=== PATIENT | female | born 1955 | race Caucasian/White ===

== ENCOUNTER → 2016-12-24 | Outpatient (CLI) | payer OTHER ==
[2016-12-24 17:58] LABS: Basophils % (A) 1 %; CH 31.1; CHCM 33.9; Eosinophils # (A) 0.1 k/uL (0-0.7); Eosinophils % (A) 2 %; HCT 39.9 % (34.0-46.0); HGB 13.1 gm/dL (11.4-16.0); Luc # (Auto) 0.06; Luc % (Auto) 1; Lymphocytes # (A) 1.8 k/uL (1.0-4.8); Lymphocytes % (A) 26 %; MCH 30.3 pg (25.0-35.0); MCV 91.9 fL (80.0-100.0); Mean Platelet Volume 7.8; Monocytes # (A) 0.4 k/uL (0-1.0); Monocytes % (A) 6 %; Neutrophils # (A) 4.3 k/uL (1.3-7.7); Neutrophils % (A) 65 %; RBC 4.34 m/uL (3.80-5.40); RDW 12.2 % (11.5-15.5); WBC 6.7 k/uL (3.8-10.6); WBC (Perox) 7.06
[2016-12-24 18:09] LABS: Calcium 9.1 mg/dL (8.4-10.2); Magnesium 1.7 mg/dL (1.6-2.3); Phosphorous 3.8 mg/dL (2.5-4.5); Potassium 3.9 mmol/L (3.5-5.1); Uric Acid 6.8 mg/dL (3.7-7.4)
[2016-12-24 18:18] LABS: % Iron Saturation 24.5 % (20-50)
[2016-12-24 18:22] LABS: Appearance,Urine Clear (Clear); Bilirubin,Urine Negative (Negative); Glucose,Urine (UA) Negative (Negative); Ketones,Urine Negative (Negative); Leukocyte Esterase,Urine Negative (Negative); Nitrite,Urine Negative (Negative); PH, Urine 6.5 (5.0-8.0); Protein,Urine Negative (Negative); Specific Gravity,Urine 1.005 (1.001-1.035); UA Billing (MACRO vs. MICRO) CHEM; Urobilinogen,Urine <2.0 mg/dL (<2.0)
== END | disposition home or self-care (01) ==
LOC: LABWHC1 17:00
PROVIDERS: ATTEND Internal Medicine Nephrology
DX: Q61.3 Polycystic kidney, unspecified (principal); D64.9 Anemia, unspecified; M10.9 Gout, unspecified; N39.0 Urinary tract infection, site not specified; E55.9 Vitamin D deficiency, unspecified
CPT/HCPCS: 36415; 80048; 81003; 82306; 82728; 83540; 83550; 83735; 83970; 84100; 84550; 85025; 87086

== ENCOUNTER 2017-01-01 09:34 | Day surgery (SDC) | payer OTHER ==
[2016-12-31 09:09] VITALS: BMI 41.3
[~2017-01-01 09:34] MED LIST: LACTATED RINGERS 1,000 ML IV SCH
[2017-01-01] MEDS ORDERED: LIDOCAINE 1% 20 ML VIAL (10MG/ML) FOR IV START INTRADERMA ONE (09:55)
[2017-01-01 10:08] VITALS: RESP 16; TEMP 97.8
[2017-01-01] MEDS ORDERED: LIDOCAINE 1% INJ 10MG/ML (20 ML MDV) ONE (11:44)
[2017-01-01] MEDS ORDERED: PROPOFOL 10 MG/ML 20 ML VIAL IV ONE (11:44)
--- NOTE | 2017-01-01 11:59 | P.GSHP ---
History of Present Illness H&P Date: 01/01/17 Chief Complaint: GI bleed This is a 61-year-old female who presents today for colonoscopy. Patient has had issues rectal bleeding. She is a known history of hemorrhoids. - Constitutional Constitutional: Reports as per HPI Past Medical History Past Medical History: Cancer, Hypertension, Renal Disease Additional Past Medical History / Comment(s): Blood in stool intermittently, hemorrhoids. Hx breast ca, thyroid ca. Recent near syncope with suspected low BP. Mild asthma with occasional related rt-sided chest pain.Hx. polycystic kidney disease, cyst to liver.Obesity.Cataracts bulmaro. History of Any Multi-Drug Resistant Organisms: None Reported Past Surgical History: Bariatric Surgery, Breast Surgery, Cholecystectomy, Hysterectomy Additional Past Surgical History / Comment(s): Hx. colonoscopy. Hx double mastectomy, thyroidectomy, lap band (not filled), bunionectomy bulmaro ft foot surg , bilateral carpal tunnel,surgeries for staph infection rt breast implant. Past Anesthesia/Blood Transfusion Reactions: Motion Sickness Past Psychological History: Depression Smoking Status: Never smoker Past Alcohol Use History: None Reported Past Drug Use History: None Reported - Past Family History Father Family Medical History: Renal Disease Additional Family Medical History / Comment(s): polycystic kidney, kidney transplant Medications and Allergies Home Medications Medication Instructions Recorded Confirmed Type Levothyroxine Sodium [Synthroid] 224 mcg PO QAM 07/26/14 01/01/17 History Losartan-Hctz 50-12.5 mg [Hyzaar 0.5 tab PO HS 03/29/15 01/01/17 History 50-12.5] Albuterol Inhaler [Ventolin Hfa 1 puff INHALATION DAILY 12/31/16 01/01/17 History Inhaler] Anastrozole [Arimidex] 1 mg PO HS 12/31/16 01/01/17 History Allergies Allergy/AdvReac Type Severity Reaction Status Date / Time Iodinated Contrast Media - Allergy Rash/Hives Verified 12/31/16 08:47 Oral and [Iodinated Contrast Media - IV Dye] Surgical - Exam Vital Signs Temp Pulse Resp BP Pulse Ox 97.8 F 64 16 127/83 98 01/01/17 10:01 01/01/17 10:01 01/01/17 10:01 01/01/17 10:01 01/01/17 10:01 - General well developed, no distress - Eyes PERRL - ENT normal pinna - Neck no masses - Respiratory normal expansion - Cardiovascular Rhythm: regular - Abdomen Abdomen: soft, non tender Assessment and Plan Plan: GI bleed. We'll perform excision of lipoma.
--- NOTE | 2017-01-01 12:19 | P.OP ---
Date of Procedure: 01/01/17 Preoperative Diagnosis: GI Bleed Postoperative Diagnosis: External hemorrhoids Procedure(s) Performed: Colonoscopy Anesthesia: MAC Surgeon: Moises Rojas Pathology: none sent Condition: stable Disposition: PACU Description of Procedure: Patient was placed on the operative table in the supine position. She received IV sedation. Digital rectal exam was performed which revealed external hemorrhoids. The flexible colonoscope was then placed patient anus and passed throughout the entire colon. The ileocecal valve was visualized. The cecum, ascending and transverse colon appeared normal. The descending; had a few scattered diverticula. Scope was then brought back the rectum and this appeared normal. Scope was withdrawn through the anus and there were internal and external hemorrhoids noted. There is no active bleeding seen. The scope was withdrawn for patient.
[2017-01-01 13:01] VITALS: BP 136/79; PULSE 67
== END 2017-01-01 12:59 | disposition home or self-care (01) ==
LOC: ORWHC2ENDO 09:34
PROVIDERS: ATTEND Surgery
DX: K64.4 Residual hemorrhoidal skin tags (principal); K64.8 Other hemorrhoids; K92.2 Gastrointestinal hemorrhage, unspecified; K57.30 Diverticulosis of large intestine without perforation or abscess without bleeding; J45.909 Unspecified asthma, uncomplicated; Q61.3 Polycystic kidney, unspecified; I10 Essential (primary) hypertension; F32.9 Major depressive disorder, single episode, unspecified; E07.9 Disorder of thyroid, unspecified; Z79.899 Other long term (current) drug therapy; Z91.041 Radiographic dye allergy status; Z98.84 Bariatric surgery status
CPT/HCPCS: 45378; J2001; J2704; 99153

== ENCOUNTER → 2017-01-12 | Outpatient (CLI) | payer OTHER ==
--- NOTE | 2017-01-12 09:07 | US ---
EXAMINATION TYPE: US kidneys/renal and bladder DATE OF EXAM: 01/12/2017 8:48 AM COMPARISON: CT abdomen and pelvis April 17, 2016 CLINICAL HISTORY: Q61.3 Polycystic Kidney Disease. EXAM MEASUREMENTS: Right Kidney: 17.3 x 6.3 x 8.1 cm Left Kidney: 15.1 x 6.7 x 7.2cm TECHNOLOGIST IMPRESSION: Patient of large body habitus Right Kidney: unable to visualize normal parenchyma, innumerable cysts, largest measuring largest cy st measuring 6.0 x 5.0 x 6.0cm Left Kidney: unable to visualize normal parenchyma, innumerable cysts, largest measuring largest cys t measuring 3.3 x 3.3 x 2.8cm Bladder: wnl Rt jet seen. Exam is suboptimal due to patient's large body habitus as well as innumerable cysts identified bilate rally consistent with patient's history of polycystic kidney disease. There is significant loss of re nal cortex on ultrasound images saved bilaterally. Some simple appearing cysts are marked by technolo gist. No definitive worrisome solid or cystic mass or hydronephrosis is present bilaterally. Bladder is adequately distended without suspicious intraluminal mass or wall thickening. IMPRESSION: Enlarged multicystic kidneys consistent with known polycystic kidney disease. No hydronep hrosis is evident bilaterally.
== END | disposition home or self-care (01) ==
LOC: RADUSWWP 08:13
PROVIDERS: ATTEND Internal Medicine Nephrology
DX: N28.1 Cyst of kidney, acquired (principal); N28.81 Hypertrophy of kidney
CPT/HCPCS: 76770

== ENCOUNTER 2017-02-02 13:47 | Emergency (ER) | payer OTHER ==
[2017-02-02] MEDS ORDERED: KETOROLAC 30 MG/ML 1 ML VIAL IVP STA ×2 (14:31→15:43)
[2017-02-02] MEDS ORDERED: SODIUM CHLORIDE 0.9% 1,000 ML IV STA (14:31)
--- NOTE | 2017-02-02 14:34 | ED ---
Back Pain HPI - General Chief Complaint: Back Pain/Injury Stated Complaint: Back Pain Time Seen by Provider: 02/02/17 14:22 Source: patient, RN notes reviewed Limitations: no limitations - History of Present Illness Initial Comments: This is a 61-year-old female with a history of thyroid cancer and breast cancer diagnosed about 9 years ago who is on a room and ask at this time also history kidney stones urinary tract infection and renal insufficiency with a 40% function who states she had the onset about a week ago of waking up at night with what she believed to be a rectal spasm. Since that time she's had intermittent episodes of right lower quadrant right flank pain sometimes radiating to the back it is at times sharp dull achy and crampy. She states currently it is near 10/10 in severity he gets worse with movement somewhat better with rest. She's not had any dysuria hematuria cough fevers chills sweats or other symptoms other than those stated above. She denies any back injury denies any disc disease. MD Complaint: back pain, other - Related Data Home Medications Medication Instructions Recorded Confirmed Levothyroxine Sodium [Synthroid] 224 mcg PO QAM 07/26/14 02/02/17 Anastrozole [Arimidex] 1 mg PO HS 12/31/16 02/02/17 Amoxicillin 875 mg PO Q12HR 02/02/17 02/02/17 Ergocalciferol [Vitamin D2] 50,000 unit PO FR 02/02/17 02/02/17 Losartan/Hydrochlorothiazide 1 tab PO DAILY 02/02/17 02/02/17 [Hyzaar 100-25 Tablet] Allergies Allergy/AdvReac Type Severity Reaction Status Date / Time Iodinated Contrast Media - Allergy Rash/Hives Verified 02/02/17 14:39 Oral and [Iodinated Contrast Media - IV Dye] Review of Systems ROS Statement: Those systems with pertinent positive or pertinent negative responses have been documented in the HPI. ROS Other: All systems not noted in ROS Statement are negative. Past Medical History Past Medical History: Cancer, Hypertension, Renal Disease Additional Past Medical History / Comment(s): Blood in stool intermittently, hemorrhoids. Hx breast ca, thyroid ca. Recent near syncope with suspected low BP. Mild asthma with occasional related rt-sided chest pain.Hx. polycystic kidney disease, cyst to liver.Obesity.Cataracts bulmaro. History of Any Multi-Drug Resistant Organisms: None Reported Past Surgical History: Bariatric Surgery, Breast Surgery, Cholecystectomy, Hysterectomy Additional Past Surgical History / Comment(s): Hx. colonoscopy. Hx double mastectomy, thyroidectomy, lap band (not filled), bunionectomy bulmaro ft foot surg , bilateral carpal tunnel,surgeries for staph infection rt breast implant. Past Anesthesia/Blood Transfusion Reactions: Motion Sickness Past Psychological History: Depression Smoking Status: Never smoker Past Alcohol Use History: None Reported Past Drug Use History: None Reported - Past Family History Father Family Medical History: Renal Disease Additional Family Medical History / Comment(s): polycystic kidney, kidney transplant General Exam - General Exam Comments Initial Comments: This is a well-developed well-nourished awake alert oriented 3 female Limitations: no limitations General appearance: alert, in no apparent distress Head exam: Present: atraumatic, normocephalic, normal inspection Eye exam: Present: normal appearance, PERRL, EOMI. Absent: scleral icterus, conjunctival injection, periorbital swelling ENT exam: Present: normal exam, mucous membranes moist Neck exam: Present: normal inspection. Absent: tenderness, meningismus, lymphadenopathy Respiratory exam: Present: normal lung sounds bilaterally. Absent: respiratory distress, wheezes, rales, rhonchi, stridor Cardiovascular Exam: Present: regular rate, normal rhythm, normal heart sounds. Absent: systolic murmur, diastolic murmur, rubs, gallop, clicks GI/Abdominal exam: Present: soft, normal bowel sounds. Absent: distended, tenderness, guarding, rebound, rigid Rectal exam: Present: deferred Extremities exam: Present: normal inspection, full ROM, tenderness (Tenderness palpation over the lower lumbar paraspinal muscles especially on the right. No spinous process tenderness no step-off or crepitation.), normal capillary refill. Absent: pedal edema, joint swelling, calf tenderness Back exam: Present: normal inspection Neurological exam: Present: alert, oriented X3, CN II-XII intact Psychiatric exam: Present: normal affect, normal mood Skin exam: Present: warm, dry, intact, normal color. Absent: rash Course Vital Signs 02/02/17 02/02/17 13:57 15:47 Temperature 97.8 F 97.6 F Pulse Rate 60 58 L Respiratory 20 18 Rate Blood Pressure 169/89 130/76 O2 Sat by Pulse 99 100 Oximetry Medical Decision Making - Medical Decision Making The patient is feeling improved she will be discharged she does present with his symptoms are consistent with spastic colon/irritable bowel. I did inform her of the possible lytic lesion at L2 she is a follow-up with Dr. Pascual for this. The patient was offered pain medication she does not want take if it would affect her mentation. She does not want to use it has been cautioned about using nonsteroidals. - Lab Data Result diagrams: 02/02/17 15:11 02/02/17 15:11 Lab Results 02/02/17 02/02/17 02/02/17 Range/Units 15:01 15:11 15:11 WBC 7.0 (3.8-10.6) k/uL RBC 4.66 (3.80-5.40) m/uL Hgb 14.4 (11.4-16.0) gm/dL Hct 42.3 (34.0-46.0) % MCV 90.6 (80.0-100.0) fL MCH 30.8 (25.0-35.0) pg MCHC 34.0 (31.0-37.0) g/dL RDW 12.2 (11.5-15.5) % Plt Count 170 (150-450) k/uL Neutrophils % 56 % Lymphocytes % 36 % Monocytes % 5 % Eosinophils % 1 % Basophils % 1 % Neutrophils # 3.9 (1.3-7.7) k/uL Lymphocytes # 2.5 (1.0-4.8) k/uL Monocytes # 0.3 (0-1.0) k/uL Eosinophils # 0.1 (0-0.7) k/uL Basophils # 0.0 (0-0.2) k/uL Sodium 143 (137-145) mmol/L Potassium 4.1 (3.5-5.1) mmol/L Chloride 104 (98-107) mmol/L Carbon Dioxide 28 (22-30) mmol/L Anion Gap 11 mmol/L BUN 26 H (7-17) mg/dL Creatinine 1.21 H (0.52-1.04) mg/dL Est GFR (MDRD) Af Amer 55 (>60 ml/min/1.73 sqM) Est GFR (MDRD) Non-Af 45 (>60 ml/min/1.73 sqM) Glucose 79 (74-99) mg/dL Calcium 9.9 (8.4-10.2) mg/dL Magnesium 1.9 (1.6-2.3) mg/dL Total Bilirubin 0.7 (0.2-1.3) mg/dL AST 28 (14-36) U/L ALT 25 (9-52) U/L Alkaline Phosphatase 55 (38-126) U/L Total Protein 7.0 (6.3-8.2) g/dL Albumin 4.1 (3.5-5.0) g/dL Amylase 59 (30-110) U/L Lipase 167 (23-300) U/L Urine Color Yellow Urine Appearance Clear (Clear) Urine pH 7.5 (5.0-8.0) Ur Specific [place] 1.009 (1.001-1.035) Urine Protein Negative (Negative) Urine Glucose (UA) Negative (Negative) Urine Ketones Negative (Negative) Urine Blood Negative (Negative) Urine Nitrate Negative (Negative) Urine Bilirubin Negative (Negative) Urine Urobilinogen <2.0 (<2.0) mg/dL Ur Leukocyte Esterase Negative (Negative) - Radiology Data Radiology results: report reviewed (I did review the imaging and reports there is some evidence of a possible lytic lesion at L2.), image reviewed Disposition Clinical Impression: Irritable bowel syndrome, Mechanical back pain, History of breast cancer Disposition: HOME SELF-CARE Condition: Good Instructions: Acute Low Back Pain (ED), Irritable Bowel Syndrome (ED)
[2017-02-02 15:19] LABS: Appearance,Urine Clear (Clear); Bilirubin,Urine Negative (Negative); Glucose,Urine (UA) Negative (Negative); Ketones,Urine Negative (Negative); Leukocyte Esterase,Urine Negative (Negative); Nitrite,Urine Negative (Negative); PH, Urine 7.5 (5.0-8.0); Protein,Urine Negative (Negative); Specific Gravity,Urine 1.009 (1.001-1.035); UA Billing (MACRO vs. MICRO) CHEM; Urobilinogen,Urine <2.0 mg/dL (<2.0)
[2017-02-02 15:28] LABS: Basophils % (A) 1 %; CH 30.5; CHCM 33.8; Eosinophils # (A) 0.1 k/uL (0-0.7); Eosinophils % (A) 1 %; HCT 42.3 % (34.0-46.0); HDW 2.49; HGB 14.4 gm/dL (11.4-16.0); Luc # (Auto) 0.12; Luc % (Auto) 2; Lymphocytes # (A) 2.5 k/uL (1.0-4.8); Lymphocytes % (A) 36 %; MCH 30.8 pg (25.0-35.0); MCV 90.6 fL (80.0-100.0); Mean Platelet Volume 8.2; Monocytes # (A) 0.3 k/uL (0-1.0); Monocytes % (A) 5 %; Neutrophils # (A) 3.9 k/uL (1.3-7.7); Neutrophils % (A) 56 %; RBC 4.66 m/uL (3.80-5.40); RDW 12.2 % (11.5-15.5); WBC (Perox) 6.87
--- NOTE | 2017-02-02 15:37 | XR ---
EXAMINATION TYPE: XR chest 2V DATE OF EXAM: 02/02/2017 3:34 PM COMPARISON: 09/04/2016 TECHNIQUE: PA and lateral views submitted. HISTORY: Pain FINDINGS: The lungs are clear and there is no pneumothorax, pleural effusion, or focal pneumonia. Arthropathy of the AC joints. Surgical change involving the abdomen is suggested. Hypertrophic and degenerative change of the spine. Correlate for previous lap band surgery. IMPRESSION: 1. No acute process.
[2017-02-02 15:38] LABS: Calcium 9.9 mg/dL (8.4-10.2); Magnesium 1.9 mg/dL (1.6-2.3); Potassium 4.1 mmol/L (3.5-5.1); Total Bilirubin 0.7 mg/dL (0.2-1.3)
--- NOTE | 2017-02-02 15:38 | XR ---
EXAMINATION TYPE: XR KUB DATE OF EXAM: 02/02/2017 3:34 PM COMPARISON: 07/22/2014 HISTORY: Pain TECHNIQUE: One view abdominal series FINDINGS: The osseous structures are intact. The bowel gas pattern is nonspecific. Lung bases are clear. Prev ious lap band surgery noted. Surgical clips gallbladder fossa. Hypertrophic and degenerative change o f the spine. Arthropathy of the hip joints with soft tissue ossification of the right. IMPRESSION: 1. Nonspecific abdomen. There are few prominent small bowel loops which could related to localized i leus or enteritis correlate clinically. Follow-up with CT scan as warranted.
[2017-02-02 15:49] VITALS: RESP 18
--- NOTE | 2017-02-02 16:34 | CT ---
EXAMINATION TYPE: CT abdomen pelvis wo con DATE OF EXAM: 02/02/2017 4:24 PM COMPARISON: NONE INDICATION: Pain generalized DLP: 1081.9 mGycm, Automated exposure control for dose reduction was used. CONTRAST: None TECHNIQUE: Axial images were obtained from above the diaphragm to the pubic rami in the axial plane a t 5 mm thick sections. Reconstructed images are reviewed on the computer in the coronal plane. FINDINGS: Limited CT sections are obtained the lung bases. The lung bases are clear. Bilateral breast prosthe ses are present. CT ABDOMEN: Lap band is present. Liver: There are extensive hypodensities scattered throughout the li milana most likely on the basis of multiple hepatic cysts. Lack of intravenous contrast causing some quinteros itation on the evaluation. These appear to be present previously Spleen: Normal Pancreas: Normal Adrenal glands: The adrenal glands are normal. Gallbladder: Surgically absent Kidneys: No masses are evident. No hydronephrosis is present. Multiple bilateral renal cysts are pr esent. Correlate for polycystic kidney disease. The largest cyst at the inferior pole right kidney me asures 5.9 cm and 13 Hounsfield units. Largest cyst on the mid left kidney measures 2.9 cm and 5 Houn sfield units. Aorta: Normal Inferior vena cava: Normal. CT PELVIS: Loops of bowel within the abdomen and pelvis are normal. There are loops of bowel which are incom pletely distended or lack oral contrast limiting their evaluation. Appendix: Normal as visualized. Urinary bladder: Decompressed with limited evaluation. Genitourinary structures: Uterus is poorly visualized. Adnexal regions are clear. Osseous structures: No suspicious lytic or sclerotic lesions. Facet degenerative changes within the l umbar spine are evident. A lytic area within the right L2 posterior lateral vertebral body extending towards the right pedicle may be present. Series 3 image 40. IMPRESSIONS: 1. Polycystic kidney disease with extensive cysts within the bilateral kidneys and the liver. 2. Possible lytic lesion within the medial to vertebral body.
[2017-02-02 17:13] VITALS: BP 164/89; PULSE 52; TEMP 97.5
== END 2017-02-02 17:25 | disposition home or self-care (01) ==
LOC: EC 13:47
DX: K58.9 Irritable bowel syndrome, unspecified (principal); M54.5 Low back pain; Z85.3 Personal history of malignant neoplasm of breast; I10 Essential (primary) hypertension; Q61.3 Polycystic kidney, unspecified; Z79.811 Long term (current) use of aromatase inhibitors; Z79.899 Other long term (current) drug therapy; Z85.850 Personal history of malignant neoplasm of thyroid; Z91.041 Radiographic dye allergy status; Z98.84 Bariatric surgery status; Z82.71 Family history of polycystic kidney
CPT/HCPCS: 36415; 80053; 82150; 83690; 83735; 85025; 81003; 71020; 74000; 74176; 99284; 96374; 96376; 96361 ×2; J1885

== ENCOUNTER → 2017-02-09 | Outpatient (CLI) | payer OTHER ==
--- NOTE | 2017-02-09 15:47 | NM ---
EXAMINATION TYPE: NM bone scan whole body DATE OF EXAM: 02/09/2017 1:59 PM COMPARISON: CT abdomen pelvis 02 February 2017 HISTORY: Abnormal CT, lytic bone lesion Delayed whole-body scanning was performed following the injection of 26.5 mCi Tc 99m MDP. Images acq uired 3 hours post injection. FINDINGS: At the right side at the inferior margin of the L3 vertebral body there is corresponding increased ra diopharmaceutical uptake present. Uptake within the feet, ankles, knees, shoulders, spine and sternoc lavicular joints is otherwise likely degenerative. Decreased uptake noted within the kidneys. Uptake in the maxilla and mandible likely due to periodontal disease. IMPRESSION: Increased uptake present at L3 corresponding to the abnormality seen on CT. No other uptake seen in i ts suggestive of metastatic disease. The lesion within the L3 vertebral body may represent benign ent ity, consider hemangioma. Consider follow-up, MRI, plain film correlation
== END | disposition home or self-care (01) ==
LOC: RADNMMAIN 10:01
PROVIDERS: ATTEND Family Medicine
DX: S34.112A Complete lesion of L2 level of lumbar spinal cord, initial encounter (principal)
CPT/HCPCS: 78306; A9503

== ENCOUNTER → 2017-02-22 | Outpatient (CLI) | payer OTHER ==
--- NOTE | 2017-02-22 16:20 | MR ---
EXAMINATION TYPE: MR lumbar spine wo/w con DATE OF EXAM: 02/22/2017 2:10 PM COMPARISON: Nuclear medicine bone scan 02/09/[address] abdomen pelvis 02/02/2017 HISTORY: Back pain TECHNIQUE: Multiplanar, multisequence images of the lumbar spine were acquired utilizing 20 mL intravenous Multi Oh gadolinium contrast. L1-L2: There is mild disc desiccation with mild posterior disc bulge. Minimal effacement of the ventr al thecal sac without herniation protrusion or central stenosis. Visualized foramina are patent bilat erally. L2-L3: Moderate disc desiccation noted. Posterior disc bulge with mild subligamentous herniation diff icult to exclude. Effacement of the ventral thecal sac without evidence for central stenosis. Facet j oint arthropathy resulting in right-sided foraminal encroachment. L3-L4: There is heterogeneous bone marrow signal throughout the L3 vertebral segment. There appears t o be loss of cortex along the inferior posterior margin of the vertebral body. I favor metastatic dis ease. This could be confirmed with the PET/CT. Posterior elements appear to be unremarkable. Mild dis c desiccation with posterior disc bulge. No herniation or protrusion. No canal stenosis is present. Foramina are patent bilaterally. L4-L5: There is mild disc desiccation with mild posterior disc bulge. Minimal effacement of the ventr al thecal sac without herniation protrusion or central stenosis. Visualized foramina are patent bilat erally. L5-S1: Normal disc appearance without desiccation. No herniation, protrusion or disc bulging. No ca nal stenosis is present. Foramina are patent bilaterally. Lumbar segments are intact. No paraspinal masses are identified. Conus medullaris has a normal appe arance. Findings compatible polycystic kidney disease. IMPRESSION: 1. Findings felt to reflect metastatic lesion to the L3 vertebral segment. Consider further evaluatio n with PET/CT. 2. Degenerative disc disease greatest at L2-3.
== END | disposition home or self-care (01) ==
LOC: RADMRIMAIN 12:33
PROVIDERS: ATTEND Internal Medicine Hematology & Oncology
DX: M51.36 Other intervertebral disc degeneration, lumbar region (principal); C50.919 Malignant neoplasm of unspecified site of unspecified female breast; M25.529 Pain in unspecified elbow
CPT/HCPCS: 82565; 72158; 36415; A9577

== ENCOUNTER → 2017-04-06 | Outpatient (CLI) | payer OTHER ==
--- NOTE | 2017-04-06 15:46 | CT ---
EXAMINATION TYPE: CT brain wo con DATE OF EXAM: 04/06/2017 3:43 PM COMPARISON: March 07, 2013 HISTORY: Dizziness, breast carcinoma CT DLP: 1054.[address] of the brain was performed. The ventricles, basal cisterns and sulci overlying the cerebral convexities demonstrate mild enlargem ent. There is no evidence for intracranial hemorrhage or sulcal effacement. There is decreased attenuation about the periventricular white matter and deep white matter of both c erebral hemispheres, compatible with chronic small vessel ischemia. Differential diagnosis does inclu de demyelination. No mass effects are seen.No midline shift. Osseous calvarium is intact. There is evidence of hyperostosis frontalis interna. If symptoms persist consider MRI. IMPRESSION: 1. Age related atrophic and chronic small vessel ischemic change without acute intracranial process s een at this time.
--- NOTE | 2017-04-06 15:58 | CT ---
EXAMINATION TYPE: CT ChestAbdPelvis wo con DATE OF EXAM: 04/06/2017 3:43 PM COMPARISON: 02/02/2017 HISTORY: Breast cancer, Observation for suspected METS CT DLP: 1266mGycm Unenhanced CT of the Chest, Abdomen and Pelvis Unenhanced CT of the chest ,abdomen and pelvis is performed. The lack of intravenous contrast limits evaluation of the solid and hollow viscera. Oral contrast: Yes CT Chest: LUNGS: The lungs are clear and free of infiltrate or atelectasis. No pulmonary nodule or mass is det ected. No pleural effusion or CT evidence of interstitial lung disease. MEDIASTINUM: Thoracic aorta is of normal caliber. The heart is not enlarged. No evidence for media stinal mass or adenopathy. HILAR STRUCTURES: No evidence for mass. No hilar adenopathy is appreciated. OTHER: Bilateral breast implants are in place. Sliver pericardial effusion noted. CONTRAST CT ABDOMEN AND PELVIS: LIVER/GB: Multiple hypoattenuating lesions of the liver are felt to reflect changes of the multiple c ysts. Given the lack of contrast metastatic lesions are difficult to exclude. Cholecystectomy clips a re in place. Biliary tree is of normal caliber. PANCREAS: No inflammation. No distinct mass. SPLEEN: No splenic enlargement. No lesion seen. ADRENALS: Stable nodular thickening of the adrenal glands may reflect hyperplasia. KIDNEYS/BLADDER: Again noted are innumerable cysts bilaterally some of which demonstrate hyperdensity . The findings are compatible with autosomal dominant polycystic kidney disease. No hydronephrosis or nephrolithiasis. BOWEL: Normal appendix. Normal bowel caliber. No inflammation. Gastric banding device is in place. GENITAL ORGANS: Hysterectomy changes identified. LYMPH NODES: No greater than 1cm abdominal or pelvic lymph nodes areappreciated. AORTA: No significant abnormality. OSSEOUS STRUCTURES: There is progressive cortical destruction and lesion expansion involving the righ t L3 vertebral segment consistent with metastatic disease. There is associated nondisplaced pathologi c fracture along the inferior endplate. No evidence for epidural extension or cord compression. There appears to be narrowing of the right neural foramen secondary to tumor extension. There is also a ti ny lucent lesion involving the right L4 pedicle and seen best on image 81 measuring 7 mm unchanged fr om prior examination. Additional small metastatic lesion difficult to exclude. No additional lesions identified at this time. Degenerative changes as described previously. OTHER: No significant additional abnormality is seen. IMPRESSION: 1. There is progressive cortical destruction and lesion expansion involving the right L3 vertebral se gment consistent with metastatic disease. See above. Additional small right L4 pedicle lesion diffic ult to exclude. 2. No additional evidence for metastatic disease at this time although the lack of contrast limits ev aluation of the liver. 3. Polycystic changes of the kidneys and liver.
== END ==
LOC: RADCTMAIN 14:07
PROVIDERS: ATTEND Internal Medicine Hematology & Oncology
DX: I67.82 Cerebral ischemia (principal); G31.9 Degenerative disease of nervous system, unspecified; M89.8X8 Other specified disorders of bone, other site; N28.1 Cyst of kidney, acquired; K76.89 Other specified diseases of liver; C50.919 Malignant neoplasm of unspecified site of unspecified female breast; Z91.048 Other nonmedicinal substance allergy status
CPT/HCPCS: 70450; 71250; 74176

== ENCOUNTER → 2017-05-14 | Outpatient (CLI) | payer OTHER ==
--- NOTE | 2017-05-14 15:22 | US ---
EXAMINATION TYPE: US kidneys/renal and bladder DATE OF EXAM: 05/14/2017 COMPARISON: 01/12/2017 CLINICAL HISTORY: Chronic Kidney Disease Stage 3 N18.3. known polycystic kidneys EXAM MEASUREMENTS: Right Kidney: 14.1 x 7.6 x 8.0 cm Left Kidney: 11.5 x 6.3 x 6.1 cm Right Kidney: multiple scattered cysts, largest at upper pole measuring 6.1 x 6.7 x 5.7cm, diffusely heterogeneous renal echopattern Left Kidney: very heterogeneous renal echopattern, kidney is blending into surrounding bowel pattern, multiple cysts, largest at mid pole measuring 4.3 x 2.5 x 3.3cm Bladder: wnl Bilateral Jets seen: yes Examination appears stable from December 2016. IMPRESSION: 1. Multiple bilateral renal cysts. Findings Correlate for known polycystic kidney disease.
== END ==
LOC: RADUSWWP 14:42
PROVIDERS: ATTEND Internal Medicine Nephrology
DX: N28.1 Cyst of kidney, acquired (principal)
CPT/HCPCS: 76770

== ENCOUNTER → 2017-06-18 | Outpatient (CLI) | payer OTHER ==
[2017-06-18 13:31] LABS: Anisocytosis Slight; Basophils # (A) 0.1 k/uL (0-0.2); Basophils % (A) 2 %; Eosinophils % (A) 1 %; HCT 38.2 % (34.0-46.0); HDW 2.43; HGB 12.8 gm/dL (11.4-16.0); Luc # (Auto) 0.07; Luc % (Auto) 3; Lymphocytes % (A) 38 %; MCH 32.6 pg (25.0-35.0); MCHC 33.5 g/dL (31.0-37.0); MCV 97.3 fL (80.0-100.0); Macrocytosis Slight; Monocytes # (A) 0.1 k/uL (0-1.0); Monocytes % (A) 4 %; Neutrophils # (A) 1.3 k/uL (1.3-7.7); Neutrophils % (A) 52 %; RBC 3.93 m/uL (3.80-5.40); WBC 2.5 k/uL (3.8-10.6); WBC (Perox) 2.47
[2017-06-18 13:32] LABS: Appearance,Urine Clear (Clear); Bilirubin,Urine Negative (Negative); Glucose,Urine (UA) Negative (Negative); Ketones,Urine Negative (Negative); Leukocyte Esterase,Urine Small (Negative); Mucus,Urine Rare /hpf; Nitrite,Urine Negative (Negative); PH, Urine 6.5 (5.0-8.0); Particle Count 729; Protein,Urine Negative (Negative); RBC,Urine <1 /hpf (0-5); Specific Gravity,Urine 1.007 (1.001-1.035); Squamous Epithelial Cell,Urine <1 /hpf (0-4); UA Billing (MACRO vs. MICRO) MICRO; Urobilinogen,Urine <2.0 mg/dL (<2.0); WBC,Urine 1 /hpf (0-5)
[2017-06-18 13:42] LABS: Calcium 9.2 mg/dL (8.4-10.2); Magnesium 1.7 mg/dL (1.6-2.3); Phosphorous 3.9 mg/dL (2.5-4.5); Potassium 4.5 mmol/L (3.5-5.1); Uric Acid 5.1 mg/dL (3.7-7.4)
[2017-06-18 13:51] LABS: % Iron Saturation 40.4 % (20-50)
== END | disposition home or self-care (01) ==
LOC: LABWHC1 12:55
PROVIDERS: ATTEND Internal Medicine Nephrology
DX: N18.3 Chronic kidney disease, stage 3 (moderate) (principal); D63.1 Anemia in chronic kidney disease; E55.9 Vitamin D deficiency, unspecified; E21.3 Hyperparathyroidism, unspecified; M10.9 Gout, unspecified; N39.0 Urinary tract infection, site not specified
CPT/HCPCS: 36415; 80048; 81001; 82306; 82728; 83540; 83550; 83735; 83970; 84100; 84550; 85025

== ENCOUNTER → 2017-07-19 | Outpatient (CLI) | payer OTHER ==
--- NOTE | 2017-07-19 16:49 | NM ---
EXAMINATION TYPE: NM bone scan whole body DATE OF EXAM: 07/19/2017 COMPARISON: Prior bone scan 02/09/2017 HISTORY: Breast cancer Delayed whole-body scanning was performed following the injection of 23.5 mCi Tc 99m MDP. Images acq uired 3 hours post injection. FINDINGS: Soft tissue uptake is normal. Uptake within the feet, knees, shoulders, sternoclavicular joints and thoracic spine likely due to degenerative changes. The previously abnormal focus at the L3 vertebral body shows less intense focus. IMPRESSION: Improvement in previous abnormal bone scan at L3 vertebral body.
--- NOTE | 2017-07-19 16:51 | CT ---
EXAMINATION TYPE: CT ChestAbdPelvis wo con DATE OF EXAM: 07/19/2017 COMPARISON: 04/06/2017 HISTORY: breast CA follow up CT DLP: 1467.1 mGycm. Automated Exposure Control for Dose Reduction was Utilized. TECHNIQUE: CT scan of the thorax, abdomen and pelvis is performed without IV contrast. FINDINGS: LUNGS: 2 mm apical right upper lobe pulmonary nodule stable. MEDIASTINUM: Thoracic aorta is of normal caliber. The heart is not enlarged. No evidence for mediasti nal mass or adenopathy. Trace pericardial fluid is stable. HILAR STRUCTURES: No evidence for mass. No hilar adenopathy is appreciated. OTHER: Bilateral breast implants are in place. Subareolar nodularity in the left is noted and there i s some deformity of the left breast implant. This appears chronic. CONTRAST CT ABDOMEN AND PELVIS: LIVER/GB: Multiple hypoattenuating lesions of the liver are felt to reflect changes of the multiple c ysts. Given the lack of contrast metastatic lesions are difficult to exclude. Cholecystectomy clips a re in place. Biliary tree is of normal caliber. PANCREAS: No inflammation. No distinct mass. SPLEEN: No splenic enlargement. No lesion seen. ADRENALS: Stable nodular thickening of the adrenal glands may reflect hyperplasia. KIDNEYS/BLADDER: Again noted are innumerable cysts bilaterally some of which demonstrate hyperdensity . The findings are compatible with autosomal dominant polycystic kidney disease. No hydronephrosis or nephrolithiasis. BOWEL: Normal appendix. Normal bowel caliber. No inflammation. Gastric banding device is in place. GENITAL ORGANS: Hysterectomy changes identified. LYMPH NODES: No greater than 1cm abdominal or pelvic lymph nodes are appreciated. AORTA: No significant abnormality. OSSEOUS STRUCTURES: There is cortical destruction and lesion expansion involving the right L3 verteb ral segment consistent with metastatic disease. There is associated nondisplaced pathologic fracture along the inferior endplate. No evidence for epidural extension or cord compression. There appears to be narrowing of the right neural foramen secondary to tumor extension. There is also a tiny lucent l esion involving the right L4 pedicle measuring 7 mm unchanged from prior examination. Additional smal l metastatic lesion difficult to exclude. No additional lesions identified at this time. Degenerative changes as described previously. OTHER: No significant additional abnormality is seen. IMPRESSION: 1. Osseous findings at L3 and L4 are stable and unchanged from the previous exam. 2. No additional evidence for metastatic disease at this time although the lack of contrast limits ev aluation of the liver. 3. Polycystic changes of the kidneys and liver. 4. Stable appearance the left breast implant. Chronic implant injury in the differential diagnosis. S ubareolar nodularity unchanged from multiple exams dating back to 2012 and therefore likely benign.
== END | disposition home or self-care (01) ==
LOC: RADNMMAIN 10:30
PROVIDERS: ATTEND Internal Medicine Hematology & Oncology
DX: C50.919 Malignant neoplasm of unspecified site of unspecified female breast (principal); N28.1 Cyst of kidney, acquired; K76.89 Other specified diseases of liver
CPT/HCPCS: 82565; 84520; 71250; 74176; 78306; A9503

== ENCOUNTER → 2017-09-02 | Outpatient (CLI) | payer OTHER ==
[2017-09-02 11:22] LABS: Basophils # (A) 0.1 k/uL (0-0.2); Basophils % (A) 2 %; CH 34.5; CHCM 33.4; Eosinophils % (A) 1 %; HCT 39.9 % (34.0-46.0); HDW 2.49; HGB 13.3 gm/dL (11.4-16.0); Luc # (Auto) 0.09; Luc % (Auto) 3; Lymphocytes % (A) 32 %; MCH 34.5 pg (25.0-35.0); MCHC 33.3 g/dL (31.0-37.0); MCV 103.8 fL (80.0-100.0); Macrocytosis Slight; Mean Platelet Volume 7.7; Monocytes # (A) 0.2 k/uL (0-1.0); Monocytes % (A) 8 %; Neutrophils # (A) 1.6 k/uL (1.3-7.7); Neutrophils % (A) 54 %; RBC 3.84 m/uL (3.80-5.40); RDW 13.8 % (11.5-15.5); WBC 2.9 k/uL (3.8-10.6); WBC (Perox) 3.18
[2017-09-02 11:38] LABS: Appearance,Urine Cloudy (Clear); Bacteria,Urine Rare /hpf; Bilirubin,Urine Negative (Negative); Glucose,Urine (UA) Negative (Negative); Ketones,Urine Negative (Negative); Leukocyte Esterase,Urine Small (Negative); Mucus,Urine Rare /hpf; Nitrite,Urine Negative (Negative); Particle Count 1465; Protein,Urine Negative (Negative); RBC,Urine <1 /hpf (0-5); Squamous Epithelial Cell,Urine <1 /hpf (0-4); UA Billing (MACRO vs. MICRO) MICRO; Urobilinogen,Urine <2.0 mg/dL (<2.0); WBC,Urine 2 /hpf (0-5)
[2017-09-02 11:41] LABS: Calcium 9.6 mg/dL (8.4-10.2); Magnesium 1.6 mg/dL (1.6-2.3); Phosphorous 3.9 mg/dL (2.5-4.5); Potassium 4.7 mmol/L (3.5-5.1); Uric Acid 5.7 mg/dL (3.7-7.4)
[2017-09-02 15:24] LABS: Iron Saturation 32.17 (12.00-45.00)
== END | disposition home or self-care (01) ==
LOC: LABWHC1 09:21
PROVIDERS: ATTEND Nurse Practitioner Family
DX: D64.9 Anemia, unspecified (principal); E55.9 Vitamin D deficiency, unspecified; N18.3 Chronic kidney disease, stage 3 (moderate); E21.3 Hyperparathyroidism, unspecified; M10.9 Gout, unspecified; N39.0 Urinary tract infection, site not specified
CPT/HCPCS: 36415; 80048; 81001; 82306; 82728; 83540; 83550; 83735; 83970; 84100; 84550; 85025

== ENCOUNTER → 2017-09-14 | Outpatient (CLI) | payer OTHER ==
[2017-09-14 14:05] LABS: Calcium 8.3 mg/dL (8.4-10.2); Potassium 4.6 mmol/L (3.5-5.1)
== END | disposition home or self-care (01) ==
LOC: LABWHC1 13:26
PROVIDERS: ATTEND Physician Assistant Medical
DX: N18.3 Chronic kidney disease, stage 3 (moderate) (principal)
CPT/HCPCS: 36415; 80048

== ENCOUNTER → 2017-10-12 | Outpatient (CLI) | payer OTHER ==
--- NOTE | 2017-10-12 17:59 | NM ---
EXAMINATION TYPE: NM bone scan whole body DATE OF EXAM: 10/12/2017 COMPARISON: Prior bone scan dated 07/19/2017 HISTORY: Breast cancer Delayed whole-body scanning was performed following the injection of 26.3 mCi Tc 99m MDP. Images acq uired 4 hours post injection. FINDINGS: No significant interval change. Uptake present within the, ankles, knees, shoulders and costovertebra l angle thoracic spine, uptake in the lumbar spine is likely degenerative is stable. Soft tissue upta ke is normal. Uptake in the mandible and maxilla is likely due to periodontal disease. No abnormal in creased or decreased radiopharmaceutical uptake to suggest metastatic disease. IMPRESSION: Stable exam. Metastatic disease is not evident.
== END | disposition home or self-care (01) ==
LOC: RADNMMAIN 11:10
PROVIDERS: ATTEND Internal Medicine Hematology & Oncology
DX: C50.919 Malignant neoplasm of unspecified site of unspecified female breast (principal)
CPT/HCPCS: 78306; A9503

== ENCOUNTER → 2018-02-08 | Outpatient (CLI) | payer OTHER ==
--- NOTE | 2018-02-08 16:52 | MR ---
EXAMINATION TYPE: MR brain wo/w con DATE OF EXAM: 02/08/2018 COMPARISON: NONE HISTORY: Headache, breast CA CONTRAST: Performed utilizing 12 mL intravenous Gadavist gadolinium contrast. TECHNIQUE: Multiplanar, multiecho imaging on a 3.0 Lorenza magnet is performed through the brain. Stud y is performed within 24 hours of arrival to the hospital. The craniovertebral junction is normal. The pituitary is normal. Diffusion-weighted imaging is performed. No abnormal hyperintensity is present to suggest an acute i ntracranial infarct or acute ischemic change. There are scattered punctate areas of hyperintensity on T2 and Inversion Recovery weighted sequences which are non-specific but can be related to microvascular ischemic changes. Ventricles and sulci are appropriate for the patient age. Optic nerves as visualized appear normal. Optic chiasm appears normal. No suspicious enhancement is evident. IMPRESSIONS: 1. No acute intracranial process.
== END | disposition home or self-care (01) ==
LOC: RADMRIMAIN 11:29
PROVIDERS: ATTEND Internal Medicine Hematology & Oncology
DX: R51 Headache (principal); C50.919 Malignant neoplasm of unspecified site of unspecified female breast
CPT/HCPCS: 70553; A9581

== ENCOUNTER → 2018-03-10 | Outpatient (CLI) | payer OTHER ==
[2018-03-10 17:19] LABS: T4, Free (Free Thyroxine) 1.33 ng/dL (0.78-2.19)
== END | disposition home or self-care (01) ==
LOC: LABWHC1 16:22
PROVIDERS: ATTEND Internal Medicine
DX: E89.0 Postprocedural hypothyroidism (principal)
CPT/HCPCS: 36415; 84439; 84443

== ENCOUNTER → 2018-03-17 | Outpatient (CLI) | payer OTHER ==
--- NOTE | 2018-03-17 14:06 | XR ---
EXAMINATION TYPE: XR chest 2V DATE OF EXAM: 03/17/2018 COMPARISON: Prior chest x-ray 09/11/2017 HISTORY: Shortness of breath TECHNIQUE: Frontal and lateral views of the chest are obtained. FINDINGS: There is no focal air space opacity, pleural effusion, or pneumothorax seen. The cardiac silhouette size is within normal limits. There are breast prostheses. Thoracic spondylosis noted. Th e osseous structures are intact. IMPRESSION: No acute cardiopulmonary process. Correlate for pulmonary artery hypertension. Aortic an eurysm noted on prior CT.
== END | disposition home or self-care (01) ==
LOC: RADXRMAIN 13:00
PROVIDERS: ATTEND Internal Medicine Cardiovascular Disease
DX: R06.02 Shortness of breath (principal); I10 Essential (primary) hypertension
CPT/HCPCS: 71046

== ENCOUNTER → 2018-03-29 | Outpatient (CLI) | payer OTHER ==
--- NOTE | 2018-03-29 10:52 | CT ---
EXAMINATION TYPE: CT ChestAbdPelvis w con DATE OF EXAM: 03/29/2018 COMPARISON: 09/11/2017 and 07/19/2017 HISTORY: 62-year-old female History of Lt breast CA, back pain TECHNIQUE: Contiguous axial scanning of the chest, abdomen, and pelvis performed with IV Contrast, pa tient injected with 100 mL of Isovue 300. Delayed images through the kidneys were obtained. Coronal/s agittal reconstructions performed. CT DLP: 2393.3 mGycm Automated exposure control for dose reduction was used. FINDINGS: CHEST: Bilateral retropectoral breast implants are redemonstrated. There is chronic 1.5 cm nodularity anteri or left breast, unchanged. Heart normal size with trace pericardial fluid. Mild aneurysm ascending aorta 4.0 cm is unchanged. Conventional branching anatomy. No thoracic lymphadenopathy. Strandy posterior basilar atelectasis. Mild diffuse bronchial wall thickening suggests bronchitis or asthma. No consolidation or pleural effusion. ABDOMEN: LAP-BAND device remains in place. Numerous hepatic cysts measuring up to 3.7 cm are redemonstrated. Portal venous system is patent. No definite suspicious liver lesion. No biliary ductal dilatation. Cholecystectomy clips are present. The low-density 1.7 cm nodule in the left adrenal gland is unchanged back to at least 04/17/2016 sugge sting a benign lipid rich adrenal adenoma. Extensive cystic change throughout the bilateral kidneys with the largest cyst in the right upper sharifa e measuring 7.5 cm. Right adrenal gland, spleen, and pancreas appear within normal limits. No dilated small bowel, free fluid, or free air. No mesenteric or retroperitoneal lymphadenopathy. Oral contrast progressed to the proximal transverse colon. Redundant sigmoid colon. No pericolonic in flammatory change. There is moderate stool burden. Pelvis: Bladder partially distended. Uterus surgically absent. Neither ovary is clearly delineated. No abnorm al fluid collection in the pelvis or pelvic lymphadenopathy seen. Bones: Mild degenerative changes at the hips. Additional degenerative changes SI joints and lower lumbar spi ne. Endplate spondylosis throughout the spine. Stable extensive and inferior endplate sclerosis and f ocal lytic area towards the right of L3 is unchanged. As compared to 04/06/2017, there is progressive s clerosis about the margin suggesting healing change. Small 6 mm focal lucency in the right L4 pedicle also remains unchanged. No osseous destructive process seen. IMPRESSION: 1. STABLE LYTIC LESION L3 INFERIOR ENDPLATE TOWARDS THE RIGHT AND SMALL LYTIC LESION WITHIN THE RIGH T L4 PEDICLE. AT L3, THERE IS SOME INCREASING VERTEBRAL BODY SCLEROSIS AROUND THE MARGIN OF THE LYTIC LESION THAT COULD REPRESENT HEALING CHANGE OR SCLEROSIS REACTIVE TO PROGRESSIVE L3-L4 DEGENERATIVE D ISC DISEASE. 2. BILATERAL RETROPECTORAL BREAST IMPLANTS. CHRONIC 1.5 CM ANTERIOR LEFT BREAST NODULARITY SUGGESTS A BENIGN ETIOLOGY. 3. EXTENSIVE CYSTIC CHANGE WITHIN THE LIVER AND KIDNEYS SUGGEST UNDERLYING POLYCYSTIC KIDNEY DISEASE. 4. STABLE 1.7 CM LEFT ADRENAL GLAND NODULE COMPATIBLE WITH A BENIGN ADRENAL ADENOMA. 5. STABLE MILD 4.0 CM ANEURYSM ASCENDING AORTA.
--- NOTE | 2018-03-29 15:12 | NM ---
EXAMINATION TYPE: NM bone scan whole body DATE OF EXAM: 03/29/2018 COMPARISON: Chest abdomen pelvis same date, prior bone scan 10/12/2017 HISTORY: Breast cancer Delayed whole-body scanning was performed following the injection of 26.1 mCi Tc 99m MDP. Images acq uired 5 hours post injection. FINDINGS: The abnormality seen in the lumbar spine on CT do not show corresponding increased uptake on bone sca n, mild asymmetric uptake at L3 is stable, corresponding sclerosis and lytic lesion at this level is improved on CT. Uptake within the feet, ankles, knees, shoulders is likely degenerative. Soft tissue uptake is within normal limits. IMPRESSION: Essentially stable findings as described.
== END ==
LOC: RADCTMAIN 07:56
PROVIDERS: ATTEND Internal Medicine Hematology & Oncology
DX: C50.919 Malignant neoplasm of unspecified site of unspecified female breast (principal)
CPT/HCPCS: 82565; 84520; 71260; 74177; 36415; 78306; A9503; Q9967

== ENCOUNTER → 2018-04-21 | Outpatient (CLI) | payer OTHER ==
[2018-04-21 17:45] LABS: T4, Free (Free Thyroxine) 1.31 ng/dL (0.78-2.19)
== END | disposition home or self-care (01) ==
LOC: LABWHC1 16:03
PROVIDERS: ATTEND Internal Medicine
DX: C73 Malignant neoplasm of thyroid gland (principal)
CPT/HCPCS: 36415; 84439; 84443

== ENCOUNTER → 2018-09-05 | Outpatient (CLI) | payer OTHER ==
--- NOTE | 2018-09-05 16:16 | NM ---
EXAMINATION TYPE: NM bone scan whole body DATE OF EXAM: 09/05/2018 COMPARISON: Prior bone scan and CT 03/29/2018 HISTORY: Breast cancer Delayed whole-body scanning was performed following the injection of 25.4 mCi Tc 99m MDP. Images acq uired 3 hours post injection. FINDINGS: The interval change. Mild photopenia to the left of midline at the inferior endplate of L3 is again s een. Soft tissue uptake is stable. Uptake in the spine otherwise corresponds to degenerative disc kentrell nges. Uptake in the ischial tuberosities is symmetric and benign, likely chronic avulsion injury. Upt elías in the feet, knees, shoulders and sternoclavicular joints is likely degenerative. IMPRESSION: Essentially stable exam.
== END | disposition home or self-care (01) ==
LOC: RADCTMAIN 11:07
PROVIDERS: ATTEND Internal Medicine Hematology & Oncology
DX: C50.919 Malignant neoplasm of unspecified site of unspecified female breast (principal); Z91.048 Other nonmedicinal substance allergy status
CPT/HCPCS: 78306; A9503

== ENCOUNTER → 2018-09-06 | Outpatient (CLI) | payer OTHER ==
--- NOTE | 2018-09-06 09:35 | CT ---
EXAMINATION TYPE: CT ChestAbdPelvis wo con DATE OF EXAM: 09/06/2018 COMPARISON: 03/29/2018 HISTORY: Hx breast ca CT DLP: 1485.90 mGycm. Automated Exposure Control for Dose Reduction was Utilized. TECHNIQUE: CT scan of the thorax, abdomen and pelvis is performed without IV contrast. Lack of contrast limits t he exam. FINDINGS: LUNGS: Stable right apical pulmonary nodule measuring 4 mm subsegmental consolidation posteriorly wit h pleural thickening appears chronic and likely postinflammatory. MEDIASTINUM: There are no greater than 1 cm hilar or mediastinal lymph nodes. No pericardial effusi on is seen. Mild aneurysm ascending aorta 4.0 cm is unchanged. Conventional branching anatomy. OTHER: Bilateral retropectoral breast implants are redemonstrated. There is chronic 1.5 cm nodularit y anterior left breast, unchanged. LIVER/GB: Numerous hepatic cysts measuring up to 3.7 cm are redemonstrated. Portal venous system is p atent. No definite suspicious liver lesion. No biliary ductal dilatation. Cholecystectomy clips are p resent. PANCREAS: No significant abnormality is seen. SPLEEN: No significant abnormality is seen. ADRENALS: The low-density 1.7 cm nodule in the left adrenal gland is unchanged back to at least 2015 suggesting a benign lipid rich adrenal adenoma. KIDNEYS: Extensive cystic change throughout the bilateral kidneys with the largest cyst in the right upper pole measuring 7.5 cm. Simple cysts appear to be hyperdense likely representing a component of hemorrhagic cyst. Correlate for polycystic kidney disease. BOWEL: LAP-BAND device remains in place. LYMPH NODES: No greater than 1cm abdominal or pelvic lymph nodes are appreciated. OSSEOUS STRUCTURES: Mild degenerative changes at the hips. Additional degenerative changes SI joints and lower lumbar spine. Endplate spondylosis throughout the spine. Stable extensive and inferior endp late sclerosis and focal lytic area towards the right of L3 is unchanged. As compared to 04/06/2017. fo jeffrey lucency in the right L4 pedicle also remains unchanged. No osseous destructive process seen. OTHER: Uterus surgically absent. IMPRESSION: 1. STABLE LYTIC LESION L3 INFERIOR ENDPLATE TOWARDS THE RIGHT AND SMALL LYTIC LESION WITHIN THE RIGHT L4 PEDICLE. AT L3, THERE IS SOME INCREASING VERTEBRAL BODY SCLEROSIS AROUND THE MARGIN OF THE LYTIC LESION THAT COULD REPRESENT HEALING CHANGE OR SCLEROSIS REACTIVE TO PROGRESSIVE L3-L4 DEGENERATIVE DI SC DISEASE. 2. BILATERAL RETROPECTORAL BREAST IMPLANTS. CHRONIC 1.5 CM ANTERIOR LEFT BREAST NODULARITY SUGGESTS A BENIGN ETIOLOGY. 3. EXTENSIVE CYSTIC CHANGE WITHIN THE LIVER AND KIDNEYS SUGGEST UNDERLYING POLYCYSTIC KIDNEY DISEASE. 4. STABLE 1.7 CM LEFT ADRENAL GLAND NODULE COMPATIBLE WITH A BENIGN ADRENAL ADENOMA. 5. STABLE MILD 4.0 CM ANEURYSM ASCENDING AORTA. 6. RETROSPECTIVELY STABLE 4 MM RIGHT APICAL PULMONARY NODULE.
== END | disposition home or self-care (01) ==
LOC: RADCTMAIN 06:49
PROVIDERS: ATTEND Internal Medicine Hematology & Oncology
DX: M89.9 Disorder of bone, unspecified (principal); R91.1 Solitary pulmonary nodule; N63.20 Unspecified lump in the left breast, unspecified quadrant; K76.89 Other specified diseases of liver; N28.1 Cyst of kidney, acquired; D35.02 Benign neoplasm of left adrenal gland; C50.919 Malignant neoplasm of unspecified site of unspecified female breast; Z88.6 Allergy status to analgesic agent
CPT/HCPCS: 36415; 71250; 74176; 82565; 84520

== ENCOUNTER → 2018-09-23 | Outpatient (CLI) | payer OTHER ==
[2018-09-24 02:25] LABS: Anion Gap 9.8 mmol/L (4.00-12.00); Calcium 9.1 mg/dL (8.7-10.3); Carbon Dioxide 24.2 mmol/L (21.6-31.8); Potassium 4.4 mmol/L (3.5-5.5)
== END ==
LOC: LABWHC1 17:02
PROVIDERS: ATTEND Nurse Practitioner Family
DX: N18.3 Chronic kidney disease, stage 3 (moderate) (principal)
CPT/HCPCS: 36415; 80048

== ENCOUNTER → 2018-11-18 | Outpatient (CLI) | payer OTHER ==
[2018-11-18 16:12] LABS: ALT 15 U/L (8-44); AST 21 U/L (13-35); Alkaline Phosphatase 41 U/L (41-126); Bilirubin, Conjugated <0.20 mg/dL (0.20-0.40); Total Bilirubin 0.5 mg/dL (0.3-1.2); Total Protein 6.2 g/dL (6.2-8.2)
== END ==
LOC: LABWHC1 08:05
PROVIDERS: ATTEND Nurse Practitioner Family
DX: Q61.3 Polycystic kidney, unspecified (principal)
CPT/HCPCS: 36415; 80076

== ENCOUNTER → 2018-11-30 | Outpatient (CLI) | payer OTHER ==
--- NOTE | 2018-11-30 15:11 | CT ---
EXAMINATION TYPE: CT abdomen pelvis wo con DATE OF EXAM: 11/30/2018 COMPARISON: 09/06/2018 HISTORY: Breast Cancer. Observe for Mets CT DLP: 1159.8 mGycm Automated exposure control for dose reduction was used. TECHNIQUE: Helical acquisition of images was performed from the lung bases through the pelvis. FINDINGS: LUNG BASES: No significant abnormality is appreciated. Again there are bilateral retropectoral partia lly visualized breast implants. LIVER/GB: Numerous hepatic cysts are seen throughout the liver with the largest measuring approximate ly 4.5 cm, unchanged in comparison to the prior when measured at the same location. Diffuse hepatic c ysts and other lesions that are too small to accurately characterize make evaluation for new lesions difficult. Gallbladder surgically absent. PANCREAS: No significant abnormality is seen. 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 [place] spleen a ppears grossly unremarkable. ADRENALS: Low-density lesion of the left adrenal gland is less conspicuous on the prior but again is most compatible with a benign adenoma seen on multiple prior exams dating back to at least 04/17/2016. KIDNEYS: There is redemonstration of polycystic kidney disease with the largest cyst on the right radha suring up to 7.3 cm. There are multiple hyperattenuated renal lesions seen bilaterally such as on corinna ge 27 on the left and image 28 and 27 on the right as well as image images 32 and 44 on the right. Th angelina appear similar to the prior exam and likely represent small hemorrhagic and/or proteinaceous cyst s. Given the lack of intravenous contrast no new suspicious lesion is seen. Some cyst diving into the renal sinus, however no hydronephrosis is evident of either kidney. FREE AIR: No free air is visualized ADENOPATHY: No greater than 1cm abdominal or pelvic lymph nodes are appreciated. REPRODUCTIVE ORGANS: Uterus appears surgically absent. URINARY BLADDER: No significant abnormality is seen. OSSEOUS STRUCTURES: There is stability of the lytic lesion of the inferior endplate of L3 at its late ral margin with surrounding sclerosis as well as the lytic lesion of the right L4 pedicle. Moderate m ultilevel degenerative changes of the thoracolumbar spine are noted. No new suspicious osseous lesion s are seen. Mild femoral acetabular arthropathy is redemonstrated. BOWEL: There is a gastric lap band present. There is a moderate amount retained colonic stool. IMPRESSION: 1. NO NEW FINDINGS TO SUGGEST NEW VISCERAL OR OSSEOUS METASTASIS WITHIN THE ABDOMEN OR PELVIS. STABLE LYTIC OSSEOUS LESIONS ARE SEEN OF THE INFERIOR ENDPLATE OF L3 AND RIGHT L4 PEDICLE. 2. POLYCYSTIC LIVER AND KIDNEY DISEASE. THE BRAIN AND BE RECOMMENDED IF NOT PREVIOUSLY PERFORMED TO E XCLUDE ASSOCIATED INTRACRANIAL ANEURYSM.
--- NOTE | 2018-11-30 15:23 | NM ---
EXAMINATION TYPE: NM bone scan whole body DATE OF EXAM: 11/30/2018 COMPARISON: 09/05/2018 HISTORY: Breast cancer Delayed whole-body scanning was performed following the injection of 24.1 mCi Tc 99m MDP. Images acq uired 3 hours post injection. FINDINGS: A photopenic defect involving the L3 segment on the left is stable. Abnormal uptake through out the remaining portion of the vertebral column is stable. Abnormal uptake involving the knee, shoulders and feet likely are post arthritic. Faint uptake involving the femur region bilaterally likely post arthritic. Abnormal uptake involving the inferior pubic rami bilaterally stable. Finding nonspecific. IMPRESSION: 1. Stable bone scan demonstrating persistent photopenic defect corresponding to the lytic lesion at L 3. 2. Remaining areas of abnormal uptake are stable relative to the prior exam with no significant inter harvinder change.
== END | disposition home or self-care (01) ==
LOC: RADNMMAIN 11:01
PROVIDERS: ATTEND Internal Medicine Hematology & Oncology
DX: C50.919 Malignant neoplasm of unspecified site of unspecified female breast (principal); Q44.6 Cystic disease of liver; N28.9 Disorder of kidney and ureter, unspecified
CPT/HCPCS: 74176; 78306; A9503

== ENCOUNTER → 2018-12-27 | Outpatient (CLI) | payer OTHER ==
[2018-12-27 13:57] LABS: Basophils % (A) 1 %; Eosinophils # (A) 0.1 k/uL (0-0.7); Eosinophils % (A) 2 %; HCT 38.8 % (34.0-46.0); HGB 12.3 gm/dL (11.4-16.0); Lymphocytes % (A) 22 %; MCH 32.6 pg (25.0-35.0); MCHC 31.6 g/dL (31.0-37.0); MCV 103.2 fL (80.0-100.0); Macrocytosis Slight; Mean Platelet Volume 6.8; Monocytes # (A) 0.2 k/uL (0-1.0); Monocytes % (A) 4 %; Neutrophils # (A) 3.1 k/uL (1.3-7.7); Neutrophils % (A) 69 %; Platelet Count 160 k/uL (150-450); RBC 3.76 m/uL (3.80-5.40); RDW 13.4 % (11.5-15.5); WBC 4.4 k/uL (3.8-10.6)
[2018-12-27 18:00] LABS: Parathyroid Hormone Intact 149.4 pg/mL (14.0-72.0)
[2018-12-27 18:10] LABS: Anion Gap 7.8 mmol/L (4.00-12.00); Calcium 8.8 mg/dL (8.7-10.3); Carbon Dioxide 28.2 mmol/L (21.6-31.8); Phosphorus 3.6 mg/dL (2.4-5.1); Potassium 4.5 mmol/L (3.5-5.5); Vitamin D 25 Hydroxy 36.3 ng/mL (30.0-100.0)
== END ==
LOC: LABWHC1 13:13
PROVIDERS: ATTEND Nurse Practitioner Family
DX: N18.3 Chronic kidney disease, stage 3 (moderate) (principal); D63.1 Anemia in chronic kidney disease; E55.9 Vitamin D deficiency, unspecified; N25.81 Secondary hyperparathyroidism of renal origin; E83.39 Other disorders of phosphorus metabolism
CPT/HCPCS: 36415; 80048; 82306; 83970; 84100; 85025

== ENCOUNTER → 2019-03-06 | Outpatient (CLI) | payer OTHER ==
[2019-03-06 16:22] VITALS: BP 151/87; PULSE 57; RESP 16; TEMP 98.3; BMI 42.3
--- NOTE | 2019-03-10 11:35 | P.HPBAR ---
Bariatric H&P - History & Physicial H&P Date: 03/06/19 History & Physicial: Visit/CC: Pt has lap band has concerns Patient initial contact: Initial weight: 112.945 kg Initial weight in pounds: 249.00 Height: 5 ft 6 in Initial BMI: 40.1 Last weight: Current weight: 119.068 kg Current weight in pounds: 262.50 Current BMI: 42.3 [place] body weight (based on NIH guidelines): 58.967 kg Excess body weight loss: The patient is a 63 year-old F who presents for Bariatric Assessment. The pa vijay has no complaints of GERD and some epigastric pain. She's not been seen in several years. The patient has a history of metastatic breast cancer with bone involvement. Her band has been previously emptied several years ago. Past Medical History Past Medical History: Cancer, Hypertension, Renal Disease Additional Past Medical History / Comment(s): Blood in stool intermittently, hemorrhoids. Hx 9 years agobreast ca, thyroid ca 6 years ago. recent diagnosis of stage 4 bone cancer in spine. 12/2016 near syncope with suspected low BP. Mild asthma with occasional related rt-sided chest pain.Hx. polycystic kidney disease, cyst to liver.Obesity.Cataracts bulmaro. History of Any Multi-Drug Resistant Organisms: None Reported Past Surgical History: Bariatric Surgery, Breast Surgery, Cholecystectomy, Hysterectomy Additional Past Surgical History / Comment(s): Hx. colonoscopy. Hx double mastectomy, thyroidectomy, lap band (not filled), bunionectomy bulmaro ft foot surg, bilateral carpal tunnel,surgeries for staph infection rt breast implant. Past Anesthesia/Blood Transfusion Reactions: Motion Sickness Past Psychological History: Depression Smoking Status: Never smoker Past Alcohol Use History: None Reported Past Drug Use History: None Reported - Past Family History Father Family Medical History: Renal Disease Additional Family Medical History / Comment(s): polycystic kidney, kidney transplant Surgical - Exam Vital Signs Temp Pulse Resp BP 98.3 F 57 L 16 151/87 03/06/19 16:19 03/06/19 16:19 03/06/19 16:19 03/06/19 16:19 - General well developed, well nourished, no distress - Eyes PERRL - ENT normal pinna - Neck no masses - Respiratory normal expansion - Cardiovascular Rhythm: regular - Abdomen Abdomen: soft Bariatric Assessment & Plan Plan: Patient will undergo EGD for epigastric pain and GERD. She was placed on omeprazole. Bariatric Checklist Checklist: Plan: Checklist: EGD: 1. Hiatal hernia: 2. H. Pylori: HgbA1c: Vitamin D: Smoking: Never smoker Primary care physician referral: Dr Smith Psychiatry clearance: Cardiology clearance: Sleep study: Diet journal: VTE risk score: VTE risk level: Rehab needs at discharge:
== END | disposition home or self-care (01) ==
LOC: BARWHC3 14:02
PROVIDERS: ATTEND Surgery
DX: R10.13 Epigastric pain (principal); K21.9 Gastro-esophageal reflux disease without esophagitis; E66.9 Obesity, unspecified; Z98.84 Bariatric surgery status; Z90.49 Acquired absence of other specified parts of digestive tract; Z90.710 Acquired absence of both cervix and uterus; Z98.890 Other specified postprocedural states; Z79.899 Other long term (current) drug therapy; Z68.41 Body mass index [BMI] 40.0-44.9, adult
CPT/HCPCS: 99211

== ENCOUNTER 2019-03-29 10:14 | Day surgery (SDC) | payer OTHER ==
[2019-03-27 11:22] VITALS: BMI 41.9
[2019-03-29 10:33] VITALS: TEMP 98.4
[2019-03-29] MEDS ORDERED: LIDOCAINE 1% 20 ML VIAL (10MG/ML) FOR IV START INTRADERMA ONE (10:39)
[2019-03-29] MEDS ORDERED: PROPOFOL 10 MG/ML 20 ML VIAL IV ONE (11:05)
--- NOTE | 2019-03-29 11:08 | P.GSHP ---
History of Present Illness H&P Date: 03/29/19 Chief Complaint: Epigastric abdominal pain, dysphagia This is a 63-year-old female presents today for EGD. She's had issues of epigastric dull pain and dysphagia. Previous history of lap band surgery Past Medical History Past Medical History: Cancer, Hypertension, Renal Disease Additional Past Medical History / Comment(s): Hx 9 years ago breast ca, thyroid ca 6 years ago. recent diagnosis of stage 4 bone cancer in spine. 12/2016 near syncope with suspected low BP. Mild asthma with occasional related rt-sided chest pain.Hx. polycystic kidney disease, cyst to liver.Obesity.Cataracts bulmaro. History of Any Multi-Drug Resistant Organisms: None Reported Past Surgical History: Bariatric Surgery, Breast Surgery, Cholecystectomy, Hysterectomy Additional Past Surgical History / Comment(s): Hx. colonoscopy. Hx double mastectomy, thyroidectomy, lap band (not filled), bunionectomy bulmaro ft foot surg, bilateral carpal tunnel, surgeries for staph infection rt breast implant. Past Anesthesia/Blood Transfusion Reactions: Motion Sickness Smoking Status: Never smoker - Past Family History Father Family Medical History: Renal Disease Additional Family Medical History / Comment(s): polycystic kidney, kidney transplant Medications and Allergies Home Medications Medication Instructions Recorded Confirmed Type Palbociclib [Ibrance] 125 mg PO DIRECTED 09/11/17 03/29/19 History ALPRAZolam [Xanax] 0.25 mg PO DAILY PRN 03/27/19 03/29/19 History Cholecalciferol (Vitamin D3) 2,000 unit PO DAILY 03/27/19 03/29/19 History [Vitamin D3] Levothyroxine Sodium [Synthroid] 175 mcg PO DAILY 03/27/19 03/29/19 History Omeprazole 20 mg PO BID 03/27/19 03/29/19 History Allergies Allergy/AdvReac Type Severity Reaction Status Date / Time Iodinated Contrast- Oral and Allergy Rash/Hives Verified 03/29/19 10:28 IV Dye [Iodinated Contrast Media - IV Dye] Surgical - Exam Vital Signs Temp Pulse Resp BP Pulse Ox 98.4 F 99 16 155/74 99 03/29/19 10:30 03/29/19 10:30 03/29/19 10:30 03/29/19 10:30 03/29/19 10:30 - General well developed, well nourished, no distress - Eyes PERRL - ENT normal pinna - Neck no masses - Respiratory normal expansion - Cardiovascular Rhythm: regular - Abdomen Abdomen: soft, non tender Assessment and Plan Assessment: Epigastric pain, dysphagia. We'll perform EGD.
--- NOTE | 2019-03-29 11:19 | P.OP ---
Date of Procedure: 03/29/19 Preoperative Diagnosis: Epigastric abdominal pain Postoperative Diagnosis: Antral gastritis Procedure(s) Performed: EGD Anesthesia: MAC Surgeon: Moises Rojas Pathology: other (Antrum) Condition: stable Disposition: PACU Description of Procedure: The patient's placed on the endoscopy table in the lateral position. He received IV sedation. The gastroscope placed oropharynx and passed in the esophagus and into the stomach. Scope was then placed through the pylorus. The first and second portion of the duodenum appeared normal. The scope was then brought back the antrum and this appeared mildly inflamed. A biopsies performed. The scope was retroflexed and remainder the stomach appeared normal. The GE junction was at 40 cm. The patient had a LAP-BAND device just below the GE junction. There is no evidence of inflammation or erosion. The distal esophagus appeared normal. The proximal esophagus appeared normal. Scope was withdrawn for patient.
[2019-03-29 11:31] VITALS: RESP 18
[2019-03-29 11:51] VITALS: BP 138/75; PULSE 57
== END 2019-03-29 12:04 | disposition home or self-care (01) ==
LOC: ORWHC2ENDO 10:14
PROVIDERS: ATTEND Surgery
DX: K29.50 Unspecified chronic gastritis without bleeding (principal); E66.9 Obesity, unspecified; R13.10 Dysphagia, unspecified; Z98.84 Bariatric surgery status; Z88.8 Allergy status to other drugs, medicaments and biological substances; Z90.49 Acquired absence of other specified parts of digestive tract; J45.909 Unspecified asthma, uncomplicated; I12.9 Hypertensive chronic kidney disease with stage 1 through stage 4 chronic kidney disease, or unspecified chronic kidney disease; N18.9 Chronic kidney disease, unspecified; Z79.890 Hormone replacement therapy; Z91.041 Radiographic dye allergy status; Z68.41 Body mass index [BMI] 40.0-44.9, adult; Z85.3 Personal history of malignant neoplasm of breast; Z79.899 Other long term (current) drug therapy; Z85.850 Personal history of malignant neoplasm of thyroid
CPT/HCPCS: 88305; 43239; J2704

== ENCOUNTER → 2019-04-17 | Outpatient (CLI) | payer OTHER ==
[2019-04-17 15:06] VITALS: BP 142/80; PULSE 59; TEMP 98.1; BMI 42.6
--- NOTE | 2019-05-01 14:22 | P.HPBAR ---
Bariatric H&P - History & Physicial H&P Date: 04/17/19 History & Physicial: Visit/CC: egd results/f/u from 03/29/19 Patient initial contact: Initial weight: 112.945 kg Initial weight in pounds: 249.00 Height: 5 ft 6 in Initial BMI: 40.1 Last weight: Current weight: 119.839 kg Current weight in pounds: 264.20 Current BMI: 42.6 [place] body weight (based on NIH guidelines): 58.967 kg Excess body weight loss: The patient is a 63 year-old F who presents for Bariatric Assessment. Patient presents today for sleeve gastric follow-up. She's had some mild GERD. She denies any significant dysphagia. Past Medical History Past Medical History: Cancer, Hypertension, Renal Disease Additional Past Medical History / Comment(s): Hx 9 years ago breast ca, thyroid ca 6 years ago. recent diagnosis of stage 4 bone cancer in spine. 12/2016 near syncope with suspected low BP. Mild asthma with occasional related rt-sided chest pain.Hx. polycystic kidney disease, cyst to liver.Obesity.Cataracts bulmaro. History of Any Multi-Drug Resistant Organisms: None Reported Past Surgical History: Bariatric Surgery, Breast Surgery, Cholecystectomy, Hysterectomy Additional Past Surgical History / Comment(s): Hx. colonoscopy. Hx double mastectomy, thyroidectomy, lap band (not filled), bunionectomy bulmaro ft foot surg, bilateral carpal tunnel, surgeries for staph infection rt breast implant. Past Anesthesia/Blood Transfusion Reactions: Motion Sickness Smoking Status: Never smoker - Past Family History Father Family Medical History: Renal Disease Additional Family Medical History / Comment(s): polycystic kidney, kidney transplant Surgical - Exam Vital Signs Temp Pulse BP 98.1 F 59 L 142/80 04/17/19 14:36 04/17/19 14:36 04/17/19 14:36 - General well developed, well nourished, no distress - Abdomen Abdomen: soft, non tender Bariatric Assessment & Plan Plan: Patient is mild GERD. She'll continue her Prilosec. She'll follow-up in 4 weeks. Bariatric Checklist Checklist: Plan: Checklist: EGD: 1. Hiatal hernia: 2. H. Pylori: HgbA1c: Vitamin D: Smoking: Never smoker Primary care physician referral: Dr Smith Psychiatry clearance: Cardiology clearance: Sleep study: Diet journal: VTE risk score: VTE risk level: Rehab needs at discharge:
== END | disposition home or self-care (01) ==
LOC: BARWHC3 14:08
PROVIDERS: ATTEND Surgery
DX: Z48.815 Encounter for surgical aftercare following surgery on the digestive system (principal); K21.9 Gastro-esophageal reflux disease without esophagitis; Z98.84 Bariatric surgery status; Z90.49 Acquired absence of other specified parts of digestive tract
CPT/HCPCS: 99211

== ENCOUNTER → 2019-04-26 | Outpatient (CLI) | payer OTHER ==
[2019-04-26 17:36] LABS: Basophils % (A) 1 %; Eosinophils # (A) 0.2 k/uL (0-0.7); Eosinophils % (A) 8 %; HCT 37.6 % (34.0-46.0); HGB 12.6 gm/dL (11.4-16.0); Lymphocytes # (A) 0.9 k/uL (1.0-4.8); Lymphocytes % (A) 35 %; MCH 33.7 pg (25.0-35.0); MCHC 33.5 g/dL (31.0-37.0); MCV 100.7 fL (80.0-100.0); Macrocytosis Slight; Mean Platelet Volume 7.8; Monocytes # (A) 0.1 k/uL (0-1.0); Monocytes % (A) 6 %; Neutrophils # (A) 1.2 k/uL (1.3-7.7); Neutrophils % (A) 48 %; Platelet Count 103 k/uL (150-450); RBC 3.73 m/uL (3.80-5.40); WBC 2.6 k/uL (3.8-10.6)
[2019-04-27 00:25] LABS: Iron Saturation 20.88 (12.00-45.00)
[2019-04-27 00:32] LABS: Vitamin D 25 Hydroxy 34.5 ng/mL (30.0-100.0)
[2019-04-27 00:37] LABS: Parathyroid Hormone Intact 90.2 pg/mL (14.0-72.0)
[2019-04-27 03:12] LABS: Anion Gap 10.5 mmol/L (4.00-12.00); Calcium 9.2 mg/dL (8.7-10.3); Carbon Dioxide 21.5 mmol/L (21.6-31.8); Magnesium 1.8 mg/dL (1.5-2.4); Phosphorus 3.7 mg/dL (2.4-5.1); Potassium 4.2 mmol/L (3.5-5.5)
== END | disposition home or self-care (01) ==
LOC: LABWHC1 16:43
PROVIDERS: ATTEND Nurse Practitioner Family
DX: M10.9 Gout, unspecified (principal); N18.3 Chronic kidney disease, stage 3 (moderate); D63.1 Anemia in chronic kidney disease; E55.9 Vitamin D deficiency, unspecified; E21.3 Hyperparathyroidism, unspecified
CPT/HCPCS: 36415; 80048; 82306; 82728; 83540; 83550; 83735; 83970; 84100; 84550; 85025

== ENCOUNTER → 2019-05-01 | Outpatient (CLI) | payer OTHER ==
[2019-05-01 16:02] LABS: T4, Free (Free Thyroxine) 1.2 ng/dL (0.80-1.80)
[2019-05-01 18:43] LABS: Thyroglobulin 0.47 ng/mL (1.60-59.90)
== END ==
LOC: LABWHC1 10:32
PROVIDERS: ATTEND Internal Medicine
DX: C73 Malignant neoplasm of thyroid gland (principal)
CPT/HCPCS: 36415; 84432; 84439; 84443; 86800

== ENCOUNTER → 2019-05-15 | Outpatient (CLI) | payer OTHER ==
--- NOTE | 2019-05-15 12:04 | CT ---
EXAMINATION TYPE: CT ChestAbdPelvis wo con DATE OF EXAM: 05/15/2019 COMPARISON: CT chest abdomen and pelvis September 06, 2018 and older CTs. Whole body bone scan November HISTORY: Metastatic breast cancer originally diagnosed 10-12 years ago per patient. CT DLP: 1676.4 mGycm. Automated Exposure Control for Dose Reduction was Utilized. TECHNIQUE: CT scan of the thorax, abdomen and pelvis is performed with oral but without IV contrast. FINDINGS: LUNGS: The lungs are grossly clear, there is no new concerning parenchymal mass or nodule identified. Stable 4 mm right apical nodule laterally axial image 18. There is no pleural effusion or pneumotho rax seen. The tracheobronchial tree is patent. MEDIASTINUM: There are no greater than 1 cm hilar or mediastinal lymph nodes. Tiny pericardial effusi on is seen inferiorly. No cardiomegaly. Ascending aorta measures up to 4.1 cm diameter axial image 32 . Prominent adjacent main pulmonary artery is redemonstrated at 3.0 cm OTHER: Bilateral subpectoral breast implants redemonstrated. Stable 1.3 cm left breast nodule cranial to nipple axial image 23 near skin surface LIVER/GB: Innumerable hypodense lesions throughout the liver favor simple thin-walled cysts. Cholecys tectomy clips are redemonstrated. PANCREAS: No significant abnormality is seen. SPLEEN: No significant abnormality is seen. ADRENALS: Stable slight nodular thickening right adrenal gland axial image 56 and hypodense prominenc e left adrenal gland axial image 61. KIDNEYS: Innumerable scattered cysts throughout both kidneys redemonstrated. Some are hyperdense cons istent with proteinaceous and/or hemorrhagic cysts. Liver and kidney findings are consistent with sharifa ycystic kidney disease adult type. BOWEL: Oral contrast reaches level of the mid right colon. No suspicious small or large bowel dilatat ion. Lap band redemonstrated stable and satisfactory in position. GENITAL ORGANS: Uterus is surgically absent. LYMPH NODES: No greater than 1cm abdominal or pelvic lymph nodes are appreciated. OSSEOUS STRUCTURES: Lucent lesion right inferior L3 level with surrounding sclerosis is redemonstrate d. There is stable small sclerotic focus left femoral head coronal image 47. There is S-shaped scolio sis with multilevel spurring. Facet arthropathy lower lumbar spine. OTHER: No significant additional abnormality is seen. IMPRESSION: Overall stable findings, no new mass or adenopathy to suggest metastatic malignancy progr ession.
--- NOTE | 2019-05-15 14:54 | NM ---
EXAMINATION TYPE: NM bone scan whole body DATE OF EXAM: 05/15/2019 COMPARISON: Whole-body bone scan 11/30/2018, CT 05/15/2019 HISTORY: Breast cancer, observation for metastases Delayed whole-body scanning was performed following the injection of 25.1 mCi Tc 99m MDP. Images acq uired 3.5 hours post injection. FINDINGS: Findings are similar to prior exam. Uptake in the knees and feet, shoulders is likely degenerative. S oft tissue uptake is normal. No abnormal increased uptake to suggest metastatic disease. Some mild de creased uptake noted at the inferior margin of L3 on the left shows a similar appearance. IMPRESSION: Stable finding with some mild decreased uptake in the inferior margin of L3 to the left of midline
== END | disposition home or self-care (01) ==
LOC: RADCTMAIN 09:03
PROVIDERS: ATTEND Internal Medicine Hematology & Oncology
DX: C50.919 Malignant neoplasm of unspecified site of unspecified female breast (principal); R93.7 Abnormal findings on diagnostic imaging of other parts of musculoskeletal system
CPT/HCPCS: 82565; 84520; 71250; 74176; 36415; 78306; A9503

== ENCOUNTER → 2019-06-09 | Outpatient (CLI) | payer OTHER ==
[2019-06-09 18:08] LABS: Basophils # (A) 0.1 k/uL (0-0.2); Basophils % (A) 1 %; Eosinophils # (A) 0.1 k/uL (0-0.7); Eosinophils % (A) 2 %; HCT 36.6 % (34.0-46.0); HGB 11.9 gm/dL (11.4-16.0); Lymphocytes # (A) 1.1 k/uL (1.0-4.8); Lymphocytes % (A) 33 %; MCHC 32.6 g/dL (31.0-37.0); MCV 101.2 fL (80.0-100.0); Macrocytosis Slight; Mean Platelet Volume 7.3; Monocytes # (A) 0.2 k/uL (0-1.0); Monocytes % (A) 5 %; Neutrophils # (A) 1.9 k/uL (1.3-7.7); Neutrophils % (A) 56 %; Platelet Count 244 k/uL (150-450); RBC 3.62 m/uL (3.80-5.40); RDW 13.8 % (11.5-15.5); WBC 3.4 k/uL (3.8-10.6)
[2019-06-09 18:59] LABS: Appearance,Urine Cloudy (Clear); Bilirubin,Urine Negative (Negative); Blood,Urine Negative (Negative); Color,Urine Light Yellow; Glucose,Urine (UA) Negative (Negative); Ketones,Urine Negative (Negative); Leukocyte Esterase,Urine Moderate (Negative); Mucus,Urine Rare /hpf; Nitrite,Urine Negative (Negative); Protein,Urine Trace (Negative); RBC,Urine 1 /hpf (0-5); Squamous Epithelial Cell,Urine 1 /hpf (0-4); Urobilinogen,Urine <2.0 mg/dL (<2.0); WBC,Urine 29 /hpf (0-5)
[2019-06-09 23:21] LABS: Iron Saturation 19.29 (12.00-45.00)
[2019-06-09 23:28] LABS: Vitamin D 25 Hydroxy 27.2 ng/mL (30.0-100.0)
[2019-06-09 23:33] LABS: African American GFR (CKD) 28.3 (60.0-200.0); Albumin 4.3 g/dL (3.80-4.90); Anion Gap 12.3 mmol/L (4.00-12.00); BUN/Creat Ratio 15.71 Ratio (12.00-20.00); Calcium 9.3 mg/dL (8.7-10.3); Carbon Dioxide 21.7 mmol/L (21.6-31.8); Magnesium 2.2 mg/dL (1.5-2.4); Phosphorus 3.7 mg/dL (2.4-5.1); Potassium 4.4 mmol/L (3.5-5.5); Uric Acid 7.2 mg/dL (2.9-7.7)
[2019-06-09 23:44] LABS: Parathyroid Hormone Intact 106.6 pg/mL (14.0-72.0)
[2019-06-10 00:43] LABS: Creatinine,Urine Random 77.5 mg/dL
[2019-06-10 01:12] LABS: Total Protein,Urine Random 18.8 mg/dL (0.0-13.5)
== END | disposition home or self-care (01) ==
LOC: LABWHC1 17:09
PROVIDERS: ATTEND Internal Medicine Nephrology
DX: M10.9 Gout, unspecified (principal); N18.3 Chronic kidney disease, stage 3 (moderate); N39.0 Urinary tract infection, site not specified; D63.1 Anemia in chronic kidney disease; N25.81 Secondary hyperparathyroidism of renal origin; E83.39 Other disorders of phosphorus metabolism; R80.9 Proteinuria, unspecified
CPT/HCPCS: 36415; 80048; 81001; 82040; 82306; 82570; 82728; 83540; 83550; 83735; 83970; 84100; 84156; 84550; 85025

== ENCOUNTER → 2019-06-27 | Outpatient (CLI) | payer OTHER ==
--- NOTE | 2019-06-28 07:11 | US ---
EXAMINATION TYPE: US thyroid st tissue head/neck DATE OF EXAM: 06/27/2019 COMPARISON: NONE CLINICAL HISTORY: D37.030 Neoplasm of uncertain behavior of the paro. Patient feels lump left cheek o n and off for a long time. TECHNIQUE/FINDINGS: Scanned over patient's area of concern, left cheek, as well as the right cheek for comparison purpose s. Both sides appear symmetrical and there is not a specific lump or mass identified. It Tele[employer]ician can feel lump as probe travels over area, but it is directly over the glandular tissue demonstrated. IMPRESSION: No suspicious sonographic abnormality. No sonographic correlate to the patient's palpable abnormality although also noted by the center specialists. CT neck w con is recommended for further evaluation.
== END ==
LOC: RADUSWWP 15:39
PROVIDERS: ATTEND Otolaryngology Otolaryngic Allergy
DX: D37.030 Neoplasm of uncertain behavior of the parotid salivary glands (principal)
CPT/HCPCS: 76536

== ENCOUNTER → 2019-07-24 | Outpatient (CLI) | payer OTHER ==
--- NOTE | 2019-07-24 08:56 | MR ---
EXAMINATION TYPE: MR neck wo con DATE OF EXAM: 07/24/2019 COMPARISON: Correlation MRI brain 02/08/2018. Correlation ultrasound 06/27/2019. HISTORY: 64-year-old female localized swelling, mass and lump of the head TECHNIQUE: Multiplanar, multisequence images of the soft tissues of the neck were obtained without IV contrast. FINDINGS: Palpable marker placed along the left side of the cheek, anterior to the level of the parotid gland. Just underlying, there is ovoid area of nodularity measuring 1.7 cm AP by 0.9 cm wide by 1.0 cm crani ocaudal, refer to axial image 20, sagittal image 4, and coronal image 8. Comparison to the patient's prior 02/08/2013 MRI brain may have included the cranial most portion of this area, series 401 image 1 . There is no intrinsic bright T1-2 signal. Signal intensity seems to closely mirror that of the godwin cent parotid gland. No cervical lymphadenopathy otherwise any suspicious masses seen by noncontrast technique. Parotid and submandibular glands appear satisfactory. The thyroid gland is either severely diminutive or surgically absent. Small amount of right thyroid t issue appears to be present. IMPRESSION: Palpable marker along the left side of the cheek. Underlying this, there is a 1.7 x 0.9 x 1.0 cm soft tissue nodule with signal closely mirroring that of the adjacent parotid gland. Some accessory parot id tissue is suspected. IV contrast was not administered to assess for any abnormal enhancement. Cons ider 6 month follow-up targeted ultrasound to compared to the patient's 06/27/2019 exam. The area can be reimaged sooner if any growth is noted.
== END | disposition home or self-care (01) ==
LOC: RADMRIMAIN 06:16
PROVIDERS: ATTEND Otolaryngology Otolaryngic Allergy
DX: M79.89 Other specified soft tissue disorders (principal)
CPT/HCPCS: 70540

== ENCOUNTER → 2019-08-17 | Outpatient (CLI) | payer OTHER ==
--- NOTE | 2019-08-17 15:06 | XR ---
Right shoulder HISTORY: Shoulder pain, metastatic breast cancer 2 views of the right shoulder, correlation CT 05/15/2019 Arthropathy present at the acromioclavicular joint. Alignment and bone mineralization are maintained. Right lung apex as visualized is normal. No fracture or dislocation. IMPRESSION: Acromioclavicular joint arthropathy, correlate for impingement. Shoulder MRI may be of be nefit.
--- NOTE | 2019-08-17 15:27 | XR ---
Thoracic spine HISTORY: Metastatic breast cancer, shoulder pain 3 views of the thoracic spine correlated to CT 05/15/2019 There is mild spinal curvature. Multilevel spondylosis is present. Thoracic vertebral bodies show pre served height. Bone mineralization mildly reduced. Mild loss of disc height at intervertebral levels. IMPRESSION: Degenerative disc disease, mild spinal curvature, osteopenia.
--- NOTE | 2019-08-17 15:31 | XR ---
EXAMINATION TYPE: XR chest 2V DATE OF EXAM: 08/17/2019 COMPARISON: Prior chest x-ray 03/17/[address] 05/15/2019 HISTORY: Shoulder pain metastatic breast carcinoma TECHNIQUE: Frontal and lateral views of the chest are obtained. FINDINGS: There is no focal air space opacity, pleural effusion, or pneumothorax seen. The cardiac silhouette size is within normal limits. Patient is status post lap band surgery. Breast implants are noted incidentally. The osseous structures are intact. IMPRESSION: No acute cardiopulmonary process.
== END | disposition home or self-care (01) ==
LOC: RADXRMAIN 11:14
PROVIDERS: ATTEND Internal Medicine Hematology & Oncology
DX: M51.34 Other intervertebral disc degeneration, thoracic region (principal); M85.88 Other specified disorders of bone density and structure, other site; M12.811 Other specific arthropathies, not elsewhere classified, right shoulder; C50.919 Malignant neoplasm of unspecified site of unspecified female breast; D72.819 Decreased white blood cell count, unspecified; I10 Essential (primary) hypertension; R12 Heartburn
CPT/HCPCS: 71046; 72072

== ENCOUNTER → 2019-08-31 | Outpatient (CLI) | payer OTHER ==
--- NOTE | 2019-08-31 08:36 | CT ---
EXAMINATION TYPE: CT soft tissue neck wo con DATE OF EXAM: 08/31/2019 COMPARISON: CT 05/15/2019 HISTORY: 64-year-old female Lump on Lt cheek, pt only feels it if mouth is open TECHNIQUE: Contiguous axial scanning of the soft tissues of the neck without IV contrast. Coronal and sagittal reconstructions performed. CT DLP: 768 mGycm Automated exposure control for dose reduction was used. FINDINGS: Lack of IV contrast limits assessment especially of the cervical mucosal space. Visualized intracranial structures shows a partially empty sella. Paranasal sinuses, mastoid air cell s, and orbits and globes appear clear. Allowing for noncontrast technique, the nasopharynx and oropharynx appear clear. Slight asymmetric effacement of the left piriform sinus likely positional. No contour deforming lesio n is seen. Otherwise, glottic and subglottic structures as well as the tracheal column appear clear. Stable 4 mm lateral right apical pulmonary nodule. Partially visualized bilateral breast implants. Thyroid gland markedly atrophic. Only a small nubbin of tissue is seen in the right thyroid fossa radha suring 1.1 x 1.2 x 0.5 cm. The submandibular and bilateral parotid glands appear satisfactory. There appears to be some accessory parotid tissue anterior to the superficial lobe of the left paroti d gland measuring 1.2 x 1.8 x 1.1 cm, axial image 28 and coronal image 35. Borderline sized 1 cm short axis lower left cervical lymph node, axial image 66 and coronal image 52. Allowing for noncontrast technique, otherwise, no other cervical lymphadenopathy is identified. The TMJs appear symmetric and intact. Bones: Moderate endplate spondylosis mid to lower cervical spine. Hypertrophic facet arthropathy maximiliano cially towards the right at C4-C5. IMPRESSION: 1. ALONG THE LEFT CHEEK, THERE APPEARS TO BE ACCESSORY PAROTID TISSUE ANTERIOR TO THE SUPERFICIAL LOB E OF THE LEFT PAROTID GLAND MEASURING 1.8 X 1.2 X 1.1 CM (AXIAL IMAGE 28). CORRELATE TO IF THIS CO RRESPONDS TO THE PALPABLE ABNORMALITY. 2. SLIGHT ASYMMETRIC EFFACEMENT OF THE LEFT PIRIFORM SINUS LIKELY POSITIONAL NO CONTOUR DEFORMING LESION IS SEEN. SENSITIVITY DECREASED BY THE LACK OF IV CONTRAST. GIVEN A BORDERLINE SIZED 1 CM LOWER LEFT CERVICAL LYMPH NODE, CONSIDER EITHER 6 MONTH FOLLOW-UP CT OR DIRECT VISUALIZATION. 3. OTHERWISE, NO SUSPICIOUS NECK MASS OR CERVICAL LYMPHADENOPATHY ALLOWING FOR NONCONTRAST TECHNIQUE.
== END | disposition home or self-care (01) ==
LOC: RADCTMAIN 06:05
PROVIDERS: ATTEND Otolaryngology Plastic Surgery within the Head & Neck
DX: R22.0 Localized swelling, mass and lump, head (principal); Z01.812 Encounter for preprocedural laboratory examination
CPT/HCPCS: 36415; 70490; 82565; 84520

== ENCOUNTER → 2019-10-02 | Outpatient (CLI) | payer OTHER ==
--- NOTE | 2019-10-02 13:37 | XR ---
EXAMINATION TYPE: XR knee limited RT DATE OF EXAM: 10/02/2019 COMPARISON: NONE HISTORY: Pain TECHNIQUE: 2 views submitted FINDINGS: Mild narrowing the medial compartment the knee joint. No sizable spurs. Spurring along the upper margin of the patella. Trace amount of fluid in the suprapatellar bursa. No erosive change. No acute fracture. IMPRESSION: Osteoarthritis
== END | disposition home or self-care (01) ==
LOC: RADXRMAIN 13:19
PROVIDERS: ATTEND Nurse Practitioner Family
DX: M17.11 Unilateral primary osteoarthritis, right knee (principal)

== ENCOUNTER 2019-11-06 08:59 | Day surgery (SDC) | payer OTHER ==
[2019-11-06 09:15] VITALS: BP 139/64; PULSE 61; RESP 20; TEMP 97.9
--- NOTE | 2019-11-06 10:50 | US ---
ULTRASOUND GUIDED FNA LEFT FACIAL NODULE BIOPSY: CLINICAL HISTORY: Palpable left facial nodule FINDINGS: The procedure was explained to the patient. The risks, complications, benefits and alternatives were discussed and any questions were answered. Informed consent was obtained. Patient was placed supin e on the ultrasound table and prepped and draped in the usual sterile fashion. Utilizing a 25 gauge needle, five passes were made into the requested left facial nodule. Patient was stable throughout the procedure. Pathology is pending. All elements of maximal barrier technique were utilized. IMPRESSION: 1. Successful ultrasound guided FNA biopsy.
== END 2019-11-06 10:30 | disposition home or self-care (01) ==
LOC: RADPROMAIN 08:59
PROVIDERS: ATTEND Otolaryngology Plastic Surgery within the Head & Neck
DX: R22.0 Localized swelling, mass and lump, head (principal)
CPT/HCPCS: 10005; 88173; 88305

== ENCOUNTER → 2019-12-25 | Outpatient (CLI) | payer OTHER ==
[2019-12-25 23:21] LABS: T4, Free (Free Thyroxine) 1.4 ng/dL (0.80-1.80)
== END | disposition home or self-care (01) ==
LOC: LABWHC1 15:06
PROVIDERS: ATTEND Internal Medicine
DX: E89.0 Postprocedural hypothyroidism (principal)
CPT/HCPCS: 36415; 84439; 84443

== ENCOUNTER → 2020-01-23 | Outpatient (CLI) | payer OTHER ==
[2020-01-23 10:57] LABS: Appearance,Urine Clear (Clear); Bacteria,Urine Rare /hpf; Bilirubin,Urine Negative (Negative); Blood,Urine Negative (Negative); Color,Urine Light Yellow; Glucose,Urine (UA) Negative (Negative); Ketones,Urine Negative (Negative); Leukocyte Esterase,Urine Moderate (Negative); Nitrite,Urine Negative (Negative); PH, Urine 5.5 (5.0-8.0); Protein,Urine Trace (Negative); RBC,Urine 1 /hpf (0-5); Specific Gravity,Urine 1.013 (1.001-1.035); Squamous Epithelial Cell,Urine <1 /hpf (0-4); Urobilinogen,Urine <2.0 mg/dL (<2.0); WBC,Urine 4 /hpf (0-5)
[2020-01-23 11:08] LABS: Basophils % (A) 1 %; Eosinophils # (A) 0.1 k/uL (0-0.7); Eosinophils % (A) 3 %; HCT 35.6 % (34.0-46.0); HGB 11.8 gm/dL (11.4-16.0); Lymphocytes # (A) 0.9 k/uL (1.0-4.8); Lymphocytes % (A) 32 %; MCH 33.3 pg (25.0-35.0); MCHC 33.1 g/dL (31.0-37.0); MCV 100.7 fL (80.0-100.0); Mean Platelet Volume 7.8; Monocytes # (A) 0.2 k/uL (0-1.0); Monocytes % (A) 8 %; Neutrophils # (A) 1.4 k/uL (1.3-7.7); Neutrophils % (A) 53 %; Platelet Count 142 k/uL (150-450); RBC 3.54 m/uL (3.80-5.40); WBC 2.7 k/uL (3.8-10.6)
[2020-01-23 11:11] LABS: Protein/Creatinine Ratio,Urine 0.559
[2020-01-23 18:04] LABS: % Iron Saturation 22.66 (12.00-45.00); African American GFR (CKD) 39.3 (60.0-200.0); Albumin 4.1 g/dL (3.80-4.90); Anion Gap 7.8 mmol/L (4.00-12.00); BUN/Creat Ratio 18.13 Ratio (12.00-20.00); Calcium 8.6 mg/dL (8.7-10.3); Carbon Dioxide 24.2 mmol/L (21.6-31.8); Magnesium 1.7 mg/dL (1.5-2.4); Non-African American GFR(CKD) 33.9 (60.0-200.0); Potassium 4.9 mmol/L (3.5-5.5); Uric Acid 5.2 mg/dL (2.9-7.7)
[2020-01-23 18:12] LABS: Ferritin 115.1 ng/mL (10.0-291.0)
== END | disposition home or self-care (01) ==
LOC: LABWHC1 09:30
PROVIDERS: ATTEND Nurse Practitioner Family
DX: N18.3 Chronic kidney disease, stage 3 (moderate) (principal); N25.81 Secondary hyperparathyroidism of renal origin; N39.0 Urinary tract infection, site not specified; M10.9 Gout, unspecified; D63.1 Anemia in chronic kidney disease; E55.9 Vitamin D deficiency, unspecified; R80.9 Proteinuria, unspecified
CPT/HCPCS: 36415; 80048; 81001; 82040; 82306; 82570; 82728; 83540; 83550; 83735; 83970; 84100; 84156; 84550; 85025

== ENCOUNTER 2020-04-20 10:36 | Inpatient (IN) | payer OTHER ==
[2020-04-20] MEDS ORDERED: MORPHINE SULFATE 4 MG/ML SYRINGE IV STA (11:10)
[2020-04-20] MEDS ORDERED: SODIUM CHLORIDE 0.9% 1,000 ML IV STA ×2 (11:10)
[2020-04-20] MEDS ORDERED: PANTOPRAZOLE 40 MG/10 ML VIAL IVP STA (11:10)
[2020-04-20] MEDS ORDERED: ONDANSETRON 4 MG/2 ML VIAL IVP STA (11:10)
[2020-04-20 11:42] LABS: Basophils % (A) 1 %; Eosinophils # (A) 0.1 k/uL (0-0.7); Eosinophils % (A) 1 %; HCT 38.6 % (34.0-46.0); HGB 12.5 gm/dL (11.4-16.0); Lymphocytes # (A) 1.1 k/uL (1.0-4.8); Lymphocytes % (A) 22 %; MCH 32.9 pg (25.0-35.0); MCHC 32.4 g/dL (31.0-37.0); MCV 101.8 fL (80.0-100.0); Macrocytosis Slight; Monocytes # (A) 0.3 k/uL (0-1.0); Monocytes % (A) 7 %; Neutrophils # (A) 3.3 k/uL (1.3-7.7); Neutrophils % (A) 67 %; Platelet Count 118 k/uL (150-450); RBC 3.79 m/uL (3.80-5.40); RDW 13.2 % (11.5-15.5); WBC 4.9 k/uL (3.8-10.6)
[2020-04-20 11:46] LABS: Appearance,Urine Clear (Clear); Bilirubin,Urine Negative (Negative); Blood,Urine Negative (Negative); Color,Urine Yellow; Glucose,Urine (UA) Negative (Negative); Ketones,Urine Negative (Negative); Leukocyte Esterase,Urine Negative (Negative); Nitrite,Urine Negative (Negative); PH, Urine 5.5 (5.0-8.0); Protein,Urine 1+ (Negative); RBC,Urine 1 /hpf (0-5); Specific Gravity,Urine 1.011 (1.001-1.035); Squamous Epithelial Cell,Urine <1 /hpf (0-4); Urobilinogen,Urine <2.0 mg/dL (<2.0); WBC,Urine 1 /hpf (0-5)
[2020-04-20 11:51] LABS: Albumin 4.4 g/dL (3.5-5.0); Calcium 8.2 mg/dL (8.4-10.2); Potassium 4.3 mmol/L (3.5-5.1); Total Bilirubin 0.6 mg/dL (0.2-1.3); Total Protein 7.4 g/dL (6.3-8.2)
--- NOTE | 2020-04-20 12:00 | ED ---
Back Pain HPI - General Source: patient, RN notes reviewed, old records reviewed Limitations: no limitations <Karen Alston - Last Filed: 04/20/20 14:09> <Kimmy Telles - Last Filed: 04/23/20 01:33> - General Chief Complaint: Back Pain/Injury Stated Complaint: back pain Time Seen by Provider: 04/20/20 10:50 - History of Present Illness Initial Comments: is a 64-year-old female with a history of breast cancer in remission. She presents emergency department today with 2 months of mid to lower back pain with radiation towards the right side of her abdomen. Patient states that she's been seeing chiropractors and went to urgent care and had x-rays completed and was past week. Patient states the pain is significant and causing her difficulty with walking. Patient states that when she was at urgent care this week she was also diagnosed with urinary tract infection is taking antibiotics. She does report a known history of polycystic kidney disease. Patient states that she wonders if a cyst that her kidney is causing this pain. Patient states that she had no changes in urination or bowel habits. She does report occasional numbness and tingling down the right side of her leg. Patient reports that she's been using [place] for pain relief and this is not helpful. Patient denies saddle anesthesia. (Karen Alston) - Related Data Home Medications Medication Instructions Recorded Confirmed Cholecalciferol (Vitamin D3) 2,000 unit PO DAILY 03/27/19 04/20/20 [Vitamin D3] Levothyroxine Sodium [Synthroid] 150 mcg PO [id number] 08/28/19 04/20/20 Palbociclib [Ibrance] 100 mg PO HS 08/28/19 04/20/20 hydrALAZINE HCL 25 mg PO BID 10/27/19 04/20/20 Acetaminophen [Tylenol Arthritis] 650 mg PO Q6H PRN 04/20/20 04/20/20 Cefuroxime Axetil [Ceftin] 500 mg PO BID 04/20/20 04/20/20 Fulvestrant 1 dose IM Q30D 04/20/20 04/20/20 Levothyroxine Sodium [Synthroid] 75 mcg PO PELAYO 04/20/20 04/20/20 Vitamin B Complex 1 cap PO DAILY 04/20/20 04/20/20 Xanax (Unknown Dose) 1 tab PO DAILY PRN 04/20/20 04/20/20 Allergies Allergy/AdvReac Type Severity Reaction Status Date / Time Iodinated Contrast Media Allergy Rash/Hives Verified 04/20/20 13:25 [Iodinated Contrast Media - IV Dye] Review of Systems ROS Other: All systems not noted in ROS Statement are negative. <Karen Alston - Last Filed: 04/20/20 14:09> ROS Other: All systems not noted in ROS Statement are negative. <Kimmy Telles - Last Filed: 04/23/20 01:33> ROS Statement: Those systems with pertinent positive or pertinent negative responses have been documented in the HPI. Past Medical History Past Medical History: Asthma, Cancer, GERD/Reflux, Hypertension, Renal Disease, Thyroid Disorder Additional Past Medical History / Comment(s): Hx 2008 breast CA metastatic stage 4, thyroid CA 6 years ago. 2017 diagnosis of stage 4 bone CA in spine. 12/2016 near syncope w/ suspected low BP. Mild asthma with occasional related rt-sided chest pain. Hx polycystic kidney disease, cyst to liver, nodule lt lung, thoracic aneurysm. Obesity. Cataracts bulmaro. Recent nausea, dark stools, wgt fluctuations, dysphagia if eats too fast. History of Any Multi-Drug Resistant Organisms: None Reported Past Surgical History: Bariatric Surgery, Breast Surgery, Cholecystectomy, Hysterectomy Additional Past Surgical History / Comment(s): Hx colonoscopy. Hx double mastectomy, thyroidectomy, lap band (not filled), bunionectomy bulmaro ft foot surg, bilateral carpal tunnel, surgeries for staph infection rt breast implant. Past Anesthesia/Blood Transfusion Reactions: Motion Sickness Past Psychological History: Anxiety, Depression Smoking Status: Never smoker Past Alcohol Use History: None Reported Past Drug Use History: None Reported - Past Family History Father Family Medical History: Cancer, Renal Disease Additional Family Medical History / Comment(s): polycystic kidney, kidney transplant, poss CA behind heart R/T Rx <Karen Alston - Last Filed: 04/20/20 14:09> General Exam Limitations: no limitations General appearance: alert, in no apparent distress Head exam: Present: atraumatic, normocephalic, normal inspection Eye exam: Present: normal appearance, PERRL, EOMI. Absent: scleral icterus, conjunctival injection, periorbital swelling ENT exam: Present: normal exam, mucous membranes moist Neck exam: Present: normal inspection Respiratory exam: Present: normal lung sounds bilaterally. Absent: respiratory distress, wheezes, rales, rhonchi, stridor Cardiovascular Exam: Present: regular rate, normal rhythm, normal heart sounds. Absent: systolic murmur, diastolic murmur, rubs, gallop, clicks GI/Abdominal exam: Present: soft, normal bowel sounds. Absent: distended, tenderness, guarding, rebound, rigid Extremities exam: Present: normal inspection, full ROM, normal capillary refill, other (Patient has full strength in plantar and dorsiflexion bilateral feet and ankles. Patient has normal sensation distally.). Absent: tenderness, pedal edema, joint swelling, calf tenderness Back exam: Present: normal inspection, full ROM, tenderness (She has lumbar and thoracic spinal tenderness.) Neurological exam: Present: alert, oriented X3, CN II-XII intact Psychiatric exam: Present: normal affect, normal mood Skin exam: Present: warm, dry, intact, normal color. Absent: rash <Karen Alston - Last Filed: 04/20/20 14:09> - General Exam Comments Initial Comments: is a 64-year-old female. Sitting in wheelchair. Refusing to stand due to pain. (Karen Alston) Course Vital Signs 04/20/20 04/20/20 10:41 14:00 Temperature 98.2 F 98.0 F Pulse Rate 74 70 Respiratory 18 18 Rate Blood Pressure 160/109 144/88 O2 Sat by Pulse 98 99 Oximetry Medical Decision Making - Lab Data Result diagrams: 04/20/20 11:25 04/20/20 11:25 - Radiology Data Radiology results: report reviewed <Karen Alston - Last Filed: 04/20/20 14:09> - Lab Data Result diagrams: 04/22/20 06:20 04/22/20 06:20 <Kimmy Telles - Last Filed: 04/23/20 01:33> - Medical Decision Making 64-year-old female presents today for eval for concern for intractable back pain. Worsening over the past few days. Patient relates that she is concerned that her breast cancer return or is related to apply cystic kidney disease. Uri nalysis and blood work today is unremarkable. Due to persistent pain with movement CT abdomen and pelvis without contrast was completed as well as thoracic and lumbar spine. Patient is evidence of degenerative changes but no evidence of acute compression fracture or any acute intra-abdominal M Matty. Patient attempted to ambulate was unable to due to the significant back pain. She does report that she also lives alone home and is her main caregiver for her daughter. Patient reports that she needs further assistance at this time and is unable to go home due to her inability to ambulate well. (Karen Alston) I was available for consultation in the emergency department. The history and physical exam were done by the midlevel provider. [facility] I reviewed the case with the midlevel provider and based on their presentation of the patient, I agree with the assessment, medical decision making and plan of care as documented. Patient admitted to Dr. Wilson Chart was dictated using [employer] dictation software. Attempts were made to correct any dictation errors however some typographical errors may persist. Patient was seen during a national state of emergency due to the Covid-19 pandemic. (Kimmy Telles) - Lab Data Lab Results 04/20/20 04/20/20 04/20/20 Range/Units 11:25 11:25 11:25 WBC 4.9 (3.8-10.6) k/uL RBC 3.79 L (3.80-5.40) m/uL Hgb 12.5 (11.4-16.0) gm/dL Hct 38.6 (34.0-46.0) % MCV 101.8 H (80.0-100.0) fL MCH 32.9 (25.0-35.0) pg MCHC 32.4 (31.0-37.0) g/dL RDW 13.2 (11.5-15.5) % Plt Count 118 L (150-450) k/uL Neutrophils % 67 % Lymphocytes % 22 % Monocytes % 7 % Eosinophils % 1 % Basophils % 1 % Neutrophils # 3.3 (1.3-7.7) k/uL Lymphocytes # 1.1 (1.0-4.8) k/uL Monocytes # 0.3 (0-1.0) k/uL Eosinophils # 0.1 (0-0.7) k/uL Basophils # 0.0 (0-0.2) k/uL Macrocytosis Slight PT 9.5 (9.0-12.0) sec INR 0.9 (<1.2) APTT 25.2 (22.0-30.0) sec Sodium (137-145) mmol/L Potassium (3.5-5.1) mmol/L Chloride (98-107) mmol/L Carbon Dioxide (22-30) mmol/L Anion Gap mmol/L BUN (7-17) mg/dL Creatinine (0.52-1.04) mg/dL Est GFR (CKD-EPI)AfAm (>60 ml/min/1.73 sqM) Est GFR (CKD-EPI)NonAf (>60 ml/min/1.73 sqM) Glucose (74-99) mg/dL Calcium (8.4-10.2) mg/dL Total Bilirubin (0.2-1.3) mg/dL AST (14-36) U/L ALT (4-34) U/L Alkaline Phosphatase (38-126) U/L Total Protein (6.3-8.2) g/dL Albumin (3.5-5.0) g/dL Amylase (30-110) U/L Lipase (23-300) U/L Urine Color Yellow Urine Appearance Clear (Clear) Urine pH 5.5 (5.0-8.0) Ur Specific [place] 1.011 (1.001-1.035) Urine Protein 1+ H (Negative) Urine Glucose (UA) Negative (Negative) Urine Ketones Negative (Negative) Urine Blood Negative (Negative) Urine Nitrite Negative (Negative) Urine Bilirubin Negative (Negative) Urine Urobilinogen <2.0 (<2.0) mg/dL Ur Leukocyte Esterase Negative (Negative) Urine RBC 1 (0-5) /hpf Urine WBC 1 (0-5) /hpf Ur Squamous Epith Cells <1 (0-4) /hpf 04/20/20 Range/Units 11:25 WBC (3.8-10.6) k/uL RBC (3.80-5.40) m/uL Hgb (11.4-16.0) gm/dL Hct (34.0-46.0) % MCV (80.0-100.0) fL MCH (25.0-35.0) pg MCHC (31.0-37.0) g/dL RDW (11.5-15.5) % Plt Count (150-450) k/uL Neutrophils % % Lymphocytes % % Monocytes % % Eosinophils % % Basophils % % Neutrophils # (1.3-7.7) k/uL Lymphocytes # (1.0-4.8) k/uL Monocytes # (0-1.0) k/uL Eosinophils # (0-0.7) k/uL Basophils # (0-0.2) k/uL Macrocytosis PT (9.0-12.0) sec INR (<1.2) APTT (22.0-30.0) sec Sodium 135 L (137-145) mmol/L Potassium 4.3 (3.5-5.1) mmol/L Chloride 103 (98-107) mmol/L Carbon Dioxide 25 (22-30) mmol/L Anion Gap 7 mmol/L BUN 24 H (7-17) mg/dL Creatinine 1.40 H (0.52-1.04) mg/dL Est GFR (CKD-EPI)AfAm 46 (>60 ml/min/1.73 sqM) Est GFR (CKD-EPI)NonAf 40 (>60 ml/min/1.73 sqM) Glucose 111 H (74-99) mg/dL Calcium 8.2 L (8.4-10.2) mg/dL Total Bilirubin 0.6 (0.2-1.3) mg/dL AST 26 (14-36) U/L ALT 14 (4-34) U/L Alkaline Phosphatase 38 (38-126) U/L Total Protein 7.4 (6.3-8.2) g/dL Albumin 4.4 (3.5-5.0) g/dL Amylase 49 (30-110) U/L Lipase 97 (23-300) U/L Urine Color Urine Appearance (Clear) Urine pH (5.0-8.0) Ur Specific [place] (1.001-1.035) Urine Protein (Negative) Urine Glucose (UA) (Negative) Urine Ketones (Negative) Urine Blood (Negative) Urine Nitrite (Negative) Urine Bilirubin (Negative) Urine Urobilinogen (<2.0) mg/dL Ur Leukocyte Esterase (Negative) Urine RBC (0-5) /hpf Urine WBC (0-5) /hpf Ur Squamous Epith Cells (0-4) /hpf - Radiology Data CT abdomen and pelvis without contrast was completed and negative for any acute process. Attention to the thoracic and lumbar spine were completed. CT of the osseous structures show no significant changes seen. L3 vertebra show sclerotic admitted. Endplate appearance summer to prior. Thoracic and lumbar vertebral bodies show hypertrophic changes and scoliotic curvature. Vertebral body height is stable. Costovertebral angles show hypertrophic changes consistent with foster arthritis. Posterior did ask bulging L1-L2 with anterior mass effect on the thecal sac. Spinal stenosis also present L4-L5. There is hypertrophic changes and facet ligamentum flavum and some posterior lateral mass effect on the thecal sac. Sacroiliac joint on the left shows hypertrophic changes. Lucency on L4 pedicle stable. Lucent focus within the left ilium is also stable. (Karen Alston) Disposition Is patient prescribed a controlled substance at d/c from ED?: No Time of Disposition: 14:11 <Karen Alston - Last Filed: 04/20/20 14:09> <Kimmy Telles - Last Filed: 04/23/20 01:33> Clinical Impression: Intractable back pain, Obesity, Unable to ambulate, Chronic kidney disease Disposition: ADMITTED IP TO THIS HOSP Condition: Stable
[2020-04-20 12:10] LABS: INR 0.9 (<1.2); Partial Thromboplastin Time 25.2 sec (22.0-30.0); Prothrombin Time 9.5 sec (9.0-12.0)
--- NOTE | 2020-04-20 13:18 | CT ---
EXAMINATION TYPE: CT abdomen pelvis wo con, CT thor lumbar spine wo con DATE OF EXAM: 04/20/2020 COMPARISON: CT 01/22/2020 HISTORY: Generalized abdominal/pelvic/back pain (accession [id number]), mid to low back pain (accession [id number]) CT DLP: 1571 (accession [id number]), 2435 (accession [id number]) mGycm Automated exposure control for dose reduction was used. TECHNIQUE: Helical acquisition of images from the lung bases through the pelvis, small [id number] through the thoracic and lumbar spine. FINDINGS: Bilateral breast prostheses are present. Right upper lobe lung nodule shows a stable appear ance LUNG BASES: No significant abnormality is appreciated. AORTA: No significant abnormality is appreciated. LIVER/GB: No significant interval change is appreciated, patient is post cholecystectomy, multiple lo w dense foci scattered within the liver similar to prior. PANCREAS: No significant abnormality is seen. SPLEEN: No significant abnormality is seen. ADRENALS: No significant abnormality is seen. KIDNEYS: No significant table change is seen. Multicystic changes within both kidneys, multiple cysti c foci show high attenuation and are not compatible with simple cysts REPRODUCTIVE ORGANS: No significant abnormality change is seen. Uterus and adnexal structures are ab sent URINARY BLADDER: No significant abnormality is seen. BOWEL: No significant abnormality is seen. Patient is post lap band. Increased attenuation within th e gluteal soft tissues likely due to injection granulomas FREE AIR: No Free Air is visible. ASCITES: None visible. PELVIC ADENOPATHY: None visualized. RETROPERITONEAL ADENOPATHY: No Retroperitoneal Adenopathy visible. Lumbar and thoracic spine CT, OSSEOUS STRUCTURES: No significant change is seen, L3 vertebral body s hows a sclerotic and mixed lucent endplate appearance similar to prior. Thoracic and lumbar vertebral bodies show hypertrophic changes, there is a scoliotic curvature. Vertebral body height is stable, m aintained. No evident spinal stenosis. Costovertebral angles show hypertrophic changes consistent wit h osteoarthritis. Posterior disc bulge at L1-2 causing anterior mass effect on the thecal sac. Spinal stenosis also present L4-5, there is hypertrophic changes at the facets with ligamentum flavum causi ng some posterior lateral mass effect on the thecal sac. Sacroiliac joint on the left shows hypertrop hic change. Lucency within the L4 pedicle on the right is stable. Lucent focus within the left ilium is also stable. IMPRESSION: NO ACUTE ABNORMALITY. Previously described changes within the bones are again noted as described tony jensen
[2020-04-20] MEDS ORDERED: DEXAMETHASONE SOD PHOSPHATE 10 MG/ML 1 ML VIAL IV STA (14:08)
[2020-04-20] MEDS ORDERED: HYDROmorphone 0.5 MG/0.5 ML SYRINGE IVP PRN (14:12)
[2020-04-20] MEDS ORDERED: ONDANSETRON 4 MG/2 ML VIAL IVP PRN (14:12)
[2020-04-20] MEDS ORDERED: MORPHINE SULFATE 4 MG/ML SYRINGE IV PRN (14:12)
[2020-04-20] MEDS ORDERED: ACETAMINOPHEN TAB 325 MG TAB PO PRN (14:12)
[2020-04-20] MEDS ORDERED: NALOXONE 0.4 MG/ML 1 ML VIAL IV PRN (14:12)
[2020-04-20] MEDS ORDERED: IBUPROFEN 400 MG TAB PO PRN (14:12)
[2020-04-20] MEDS ORDERED: NON FORMULARY DRUG (Acetaminophen [Tylenol Arthritis] 650 MG) PO PRN (14:14)
[2020-04-20] MEDS ORDERED: ALPRAZolam 1 MG TAB PO PRN (14:14)
[2020-04-20] MEDS ORDERED: FULVESTRANT 250 MG/5 ML SYRINGE IM SCH (14:15)
[2020-04-20] MEDS ORDERED: TEMAZEPAM 15 MG CAP PO PRN (18:46)
[2020-04-20] MEDS: SODIUM CHLORIDE 0.9% 1,000 ML IV SCH (20:38)
[2020-04-20] MEDS: HEPARIN SODIUM,PORCINE 5,000 UNIT/ML 1 ML VIAL SQ SCH (20:41)
[2020-04-20] MEDS: INSULIN ASPART (NovoLOG) 100 UNIT/ML VIAL SQ SCH (20:41)
[2020-04-20] MEDS: methylPREDNISolone SOD SUCCI 125 MG/2 ML VIAL IV SCH ×2 (20:56→23:45)
[2020-04-20] MEDS: CEFDINIR 300 MG CAP PO SCH (20:56)
[2020-04-20] MEDS: hydrALAZINE HCL 25 MG TAB PO SCH (20:56)
[2020-04-20 20:57] LABS: Glucose,Whole Blood 150 mg/dL (75-99)
--- NOTE | 2020-04-20 21:51 | HP ---
HISTORY AND PHYSICAL DATE OF SERVICE: 04/20/2020 CHIEF COMPLAINT: Back pain. HISTORY OF PRESENT ILLNESS: This 64-year-old woman with a past medical history of asthma, history of hypertension, history of DJD, history of breast cancer, metastasis, history of bariatric surgery, history of back pain, DJD, anxiety, depression, being followed by Dr. Stanford Smith in the outpatient setting, patient also has seen Dr. Pascual for chemotherapy. Apparently the patient is in remission. Patient has L3-5 lesions rather stable according to the history. Now the patient is having complaints of back pain for the last 2 weeks, aggravated since last few days. The pain is mostly radiating to the right leg and aggravated by movement and bending the back. Patient came to [facility] and was admitted for further evaluation and treatment. The pain was 10/10 in intensity. Creatinine was found to be 4 and the patient had abdominal pelvis CAT scan which showed no acute abnormality and multiple lesions in the bones as well as spinal stenosis also at the level of L4-5 and posterior disc bulge at L1-2 was also noted. The patient also complaining of some gaseous feeling and rectal spasm and also pain in the right lower quadrant also. There is no history of fever, rigors. No history of headache, loss of consciousness, seizures. PAST MEDICAL HISTORY: History of asthma, history of GERD, hypertension, history of hypothyroidism, history of bariatric surgery history of anxiety, depression, history of CA of breast with METS. MEDICATIONS: 1. Xanax 1 tablet p.o. daily p.r.n. 2. Ceftin 500 mg p.o. b.i.d. 3. Vitamin B complex 1 p.o. daily. 4. Tylenol 650 q.6h p.r.n. 5. Hydralazine 25 mg p.o. b.i.d. 6. Ibrance 100 mg p.o. q.h.s. 7. Synthroid 150 mcg Wednesday, Wednesday, Wednesday, , Wednesday, Wednesday. 8. Fulvestrant 1 dose IM Q 3 30 days. 9. Vitamin D3 2000 daily. 10.Synthroid 75 mcg p.o. Wednesday. ALLERGIES: IODINATED CONTRAST DYES. FAMILY HISTORY: History of cancer, renal disease, polycystic kidney disease, kidney transplant. SOCIAL HISTORY: No history of smoking. No history of alcohol. REVIEW OF SYSTEMS: ENT: No diminished vision. No diminished hearing. CARDIOVASCULAR System: No angina or palpitations. RESPIRATIONS: No cough or hemoptysis. GI as mentioned earlier. : As mentioned earlier. Nervous system: No numbness or weakness. ALLERGY/IMMUNOLOGY: No asthma or hayfever. MUSCULOSKELETAL as mentioned earlier. HEMATOLOGY/ONCOLOGY: As mentioned earlier. ENDOCRINE mentioned earlier. CONSTITUTIONAL: As mentioned earlier. DERMATOLOGY negative. RHEUMATOLOGY negative. PSYCHIATRIC: As mentioned earlier. PHYSICAL EXAMINATION: Alert and oriented times three. Pulse 70. Blood pressure 144/80, respiration 18, temperature 98 degrees, pulse ox 99% on room air. HEENT: Conjunctivae normal. NECK: No JVD. CARDIOVASCULAR: S1, S2 muffled. RESPIRATIONS: Breath sounds diminished in the bases. No rhonchi. No crackles. ABDOMEN: Soft, nontender. No mass palpable. LEGS: Movement of the right leg is painful. Straight leg raising test is positive. Gait dysfunction present. NERVOUS SYSTEM: Higher functions as mentioned earlier. Moves all 4 limbs. No focal motor or sensory deficit. LYMPHATICS no lymph nodes palpable in the neck, axilla or groin. JOINTS: No active deforming arthropathy except limitation of movement on the right side because of the pain. SKIN: No ulcer, rash or bleeding. LABS: WBC 4.9, hemoglobin 12.5, sodium 130, potassium 4.3, creatinine 1.4. ASSESSMENT: 1. Severe intractable back pain with sciatica and gait dysfunction, possibly because of degenerative joint disease and spinal stenosis. Rule out metastatic breast disease. 2. History of metastatic breast cancer disease at L3-4, 5. 3. Increased creatinine with chronic kidney stage 3. 4. History of asthma. 5. Gastroesophageal reflux disease. 6. Hypertension. 7. History of thyroid cancer. 8. History of near syncope. 9. History of polycystic kidney disease. 10.History of thoracic aneurysm. 11.History of bariatric surgery. 12.History of motion sickness. 13.Anxiety/depression. 14.Obesity with body mass index 43.1. 15.FULL CODE. RECOMMENDATIONS AND DISCUSSION: In this 64-year-old woman who presented with multiple complex medical issues, we will recommend to continue with therapy. The patient is reporting the pain as 100/10 currently because of even on slightest movements. I would optimize the pain management. Recommend empiric IV steroids. Monitor blood sugars good closely. DVT prophylaxis. I recommend evaluation by as well as Dr. Cox and as well as Dr. Pascual's group from Hematology Oncology point of view. Otherwise, resume the home medications. DVT prophylaxis. Monitor blood sugars closely. Prognosis guarded because of multiple complex medical issues. Copy of dictation forwarded to Dr. Smith who is the primary physician. MMCONSTANZAL / IJN: [id number] /
[2020-04-20] MEDS: ALPRAZolam 0.25 MG TAB PO PRN (23:57)
[2020-04-21] MEDS: SODIUM CHLORIDE 0.9% 1,000 ML IV SCH ×4 (03:13→21:55)
[2020-04-21] MEDS: methylPREDNISolone SOD SUCCI 125 MG/2 ML VIAL IV SCH ×3 (05:33→18:12)
[2020-04-21] MEDS ORDERED: LEVOTHYROXINE 75 MCG TAB PO SCH (06:30)
[2020-04-21 07:10] LABS: Basophils % (A) 0 %; Eosinophils # (A) 0.1 k/uL (0-0.7); Eosinophils % (A) 1 %; HCT 38.1 % (34.0-46.0); HGB 12.5 gm/dL (11.4-16.0); Lymphocytes # (A) 0.4 k/uL (1.0-4.8); Lymphocytes % (A) 6 %; MCH 34.3 pg (25.0-35.0); MCHC 32.8 g/dL (31.0-37.0); MCV 104.5 fL (80.0-100.0); Macrocytosis Slight; Monocytes # (A) 0.1 k/uL (0-1.0); Monocytes % (A) 1 %; Neutrophils # (A) 6.3 k/uL (1.3-7.7); Neutrophils % (A) 92 %; Platelet Count 119 k/uL (150-450); RBC 3.65 m/uL (3.80-5.40); RDW 13.3 % (11.5-15.5); WBC 6.9 k/uL (3.8-10.6)
[2020-04-21 07:11] LABS: Glucose,Whole Blood 141 mg/dL (75-99)
[2020-04-21 07:21] LABS: Calcium 7.3 mg/dL (8.4-10.2); Potassium 4.5 mmol/L (3.5-5.1)
[2020-04-21] MEDS: PANTOPRAZOLE 40 MG TABLET PO SCH (08:15)
[2020-04-21] MEDS: CEFDINIR 300 MG CAP PO SCH ×2 (08:15→21:54)
[2020-04-21] MEDS: CHOLECALCIFEROL 1,000 UNIT TAB PO SCH (08:15)
[2020-04-21] MEDS: INSULIN ASPART (NovoLOG) 100 UNIT/ML VIAL SQ SCH ×4 (08:22→21:56)
[2020-04-21] MEDS: HEPARIN SODIUM,PORCINE 5,000 UNIT/ML 1 ML VIAL SQ SCH ×2 (08:25→21:55)
[2020-04-21] MEDS: hydrALAZINE HCL 25 MG TAB PO SCH ×2 (08:28→21:55)
[2020-04-21] MEDS ORDERED: NON FORMULARY DRUG (Vitamin B Complex [Vitamin B Complex] 1 CAP) PO SCH (09:00)
[2020-04-21 11:35] LABS: Glucose,Whole Blood 139 mg/dL (75-99)
[2020-04-21] MEDS: POLYETHYLENE GLYCOL 3350 17 GM POWD.PACK PO SCH (13:26)
--- NOTE | 2020-04-21 13:37 | NM ---
EXAMINATION TYPE: NM bone scan whole body DATE OF EXAM: 04/21/2020 COMPARISON: 01/22/2020 HISTORY: Back pain. History of wrist cancer. Delayed whole-body scanning was performed following the injection of 26.2 mCi Tc 99m MDP. Images acq uired 4 hours post injection. FINDINGS: There is focal uptake at the tear costovertebral junction of the ninth rib on the left. However when correlated with the prior CT of 04/20/2020 there is a pseudojoint at this location and no suspicious s clerotic or lytic lesion. Typically degenerative uptake in the shoulders, sternoclavicular joints, kn ees, feet, and sacroiliac joints are similar to the prior of 01/22/2020. Uptake in the mandible is als o similar to the prior. Mild diffuse uptake of the spine is likely degenerative. Focal suspicious fin ding. IMPRESSION: No new findings to suggest osseous metastasis in comparison to the prior of 01/22/2020. Si milar degenerative changes of the axial and appendicular skeleton.
--- NOTE | 2020-04-21 13:39 | P.CNOR ---
History of Present Illness - [facility] Consult date: 04/21/20 Consult reason: low back pain History of present illness: Patient is a pleasant 64-year-old female who is been having significant back pain over the past week. She has a long history with issues of her back pain. Over 10 years ago she was diagnosed with breast cancer and felt that she was having rectal spasms due to a gas bubble. She had treatment for this and had been making progress over the past 5 years. However over the past several weeks she has been having increased pain at her lower back and recurrence of the gas bubble type pain that she had been having. The pain is primarily at the right side of her lower back. He extends toward her right thigh. She does not have numbness tingling her toes or in her lower legs. She's not been changes in her bowel or bladder function. She's not having pain when she coughs or sneezes. She reports that she had gone through radiation oncology about 5 years ago for her lower back and that has helped her significantly. A couple of weeks ago she did do some extra activity where she had to a cart up a number of stairs and she believes she may have strained her back at that point. She was doing some chiropractic manipulation and outpatient treatment with Dr. Smith however she was not having significant relief and presented to the hospital. She denies any acute neurological she denies any changes in bowel bladder function. She says that she could hardly get up a couple of days ago. Currently she says she is making progress and she has been able to get up out of bed though very slowly. She has been able to walk to the bathroom holding onto her IV pole.She feels she is making progress with her pain control and her mobility. Review of Systems as stated per HPI. Denies any changes in bowel bladder function. Denies any new weakness in her lower extremity. Denies any chest pain shortness breath. Denies any pain at her neck. Denies any changes in her upper extremities. Pain is primarily located lower back reading toward her right side. She is not having pain or numbness tingling down her leg. Past Medical History Past Medical History: Asthma, Cancer, GERD/Reflux, Hypertension, Renal Disease, Thyroid Disorder Additional Past Medical History / Comment(s): Hx 2009 breast CA metastatic stage 4, thyroid CA 6 years ago. 2017 diagnosis of stage 4 bone CA in spine. 12/2016 near syncope w/ suspected low BP. Mild asthma with occasional related rt-sided chest pain. Hx polycystic kidney disease, cyst to liver, nodule lt lung, thoracic aneurysm. Obesity. Cataracts bulmaro. Recent nausea, dark stools, wgt fluctuations, dysphagia if eats too fast. History of Any Multi-Drug Resistant Organisms: None Reported Past Surgical History: Bariatric Surgery, Breast Surgery, Cholecystectomy, Hysterectomy Additional Past Surgical History / Comment(s): Hx colonoscopy. Hx double mastectomy, thyroidectomy, lap band (not filled), bunionectomy bulmaro ft foot surg, bilateral carpal tunnel, surgeries for staph infection rt breast implant. Past Anesthesia/Blood Transfusion Reactions: Motion Sickness Past Psychological History: Anxiety, Depression Additional Psychological History / Comment(s): not currently Smoking Status: Never smoker Past Alcohol Use History: None Reported Past Drug Use History: None Reported - Past Family History Father Family Medical History: Cancer, Renal Disease Additional Family Medical History / Comment(s): polycystic kidney, kidney transplant, poss CA behind heart R/T Rx Medications and Allergies Home Medications Medication Instructions Recorded Confirmed Type Cholecalciferol (Vitamin D3) 2,000 unit PO DAILY 03/27/19 04/20/20 History [Vitamin D3] Levothyroxine Sodium [Synthroid] 150 mcg PO MOTUWETHFRSA 08/28/19 04/20/20 History Palbociclib [Ibrance] 100 mg PO HS 08/28/19 04/20/20 History hydrALAZINE HCL 25 mg PO BID 10/27/19 04/20/20 History Acetaminophen [Tylenol Arthritis] 650 mg PO Q6H PRN 04/20/20 04/20/20 History Cefuroxime Axetil [Ceftin] 500 mg PO BID 04/20/20 04/20/20 History Fulvestrant 1 dose IM Q30D 04/20/20 04/20/20 History Levothyroxine Sodium [Synthroid] 75 mcg PO PELAYO 04/20/20 04/20/20 History Vitamin B Complex 1 cap PO DAILY 04/20/20 04/20/20 History Xanax (Unknown Dose) 1 tab PO DAILY PRN 04/20/20 04/20/20 History Allergies Allergy/AdvReac Type Severity Reaction Status Date / Time Iodinated Contrast Media Allergy Rash/Hives Verified 04/20/20 13:25 [Iodinated Contrast Media - IV Dye] Physical Examination Osteopathic Statement: *. No significant issues noted on an osteopathic structural exam other than those noted in the History and Physical/Consult. - L Spine: dermatomal strength & reflexes bilateral Strength: hip flexion: 5/5 (she has some difficulty with mobilization and prevent him is slow to turn over and sit up but she is able to do so. She is able to lift her legs up off the bed independently 55 muscle strength in her hips and knees. thighs and calves are soft and nontender bilaterally.) Results - Labs Labs: Abnormal Lab Results - Last 24 Hours (Table) 04/20/20 04/21/20 04/21/20 Range/Units 20:40 06:54 06:54 RBC 3.65 L (3.80-5.40) m/uL MCV 104.5 H (80.0-100.0) fL Plt Count 119 L (150-450) k/uL Lymphocytes # 0.4 L (1.0-4.8) k/uL Chloride 109 H (98-107) mmol/L Carbon Dioxide 20 L (22-30) mmol/L BUN 22 H (7-17) mg/dL Creatinine 1.30 H (0.52-1.04) mg/dL Glucose 133 H (74-99) mg/dL POC Glucose (mg/dL) 150 H (75-99) mg/dL Calcium 7.3 L (8.4-10.2) mg/dL 04/21/20 04/21/20 Range/Units 07:10 11:33 RBC (3.80-5.40) m/uL MCV (80.0-100.0) fL Plt Count (150-450) k/uL Lymphocytes # (1.0-4.8) k/uL Chloride (98-107) mmol/L Carbon Dioxide (22-30) mmol/L BUN (7-17) mg/dL Creatinine (0.52-1.04) mg/dL Glucose (74-99) mg/dL POC Glucose (mg/dL) 141 H 139 H (75-99) mg/dL Calcium (8.4-10.2) mg/dL H & H 04/20/20 04/21/20 Range/Units 11:25 06:54 Hgb 12.5 12.5 (11.4-16.0) gm/dL Hct 38.6 38.1 (34.0-46.0) % Coagulation 04/20/20 Range/Units 11:25 INR 0.9 (<1.2) Result Diagrams: 04/21/20 06:54 04/21/20 06:54 - Diagnostic results CT Scan - lumbar: report reviewed, image reviewed (computed tomography scan of thoracic and lumbar spine is reviewed as is the report. I am in agreement with the report. There are significant changes particularly at L3 4 where there is b chantelle sclerosis in the source of her prior radiation treatment. She does have significant disc degeneration L4 5 and L5-S1 with evidence of stenosis L3 4 L4 5 and L5-S1. There is facet hypertrophy and thickening of the ligamentum flavum particularly at L4 5 and L5-S1. There is no evidence of acute fracture or mass.) Assessment and Plan Assessment: acute on chronic low back pain History of radiation at L3 4 with no acute change noted No acute neurologic loss Degenerative disc disease L3 4 L4 5 and L5-S1 Spinal stenosis most severe at L4 5 and L5-S1 No evidence of acute instability or fracture history of breast cancer Plan: acute on chronic low back pain History of radiation at L3 4 with no acute change noted No acute neurologic loss Degenerative disc disease L3 4 L4 5 and L5-S1 Spinal stenosis most severe at L4 5 and L5-S1 No evidence of acute instability or fracture history of breast cancer the patient's symptoms seem to stem primarily from acute on chronic back pain due to her degenerative changes at her lumbar spine. She has not been making significant improvement with outpatient conservative care but seems to be doing better with acute inpatient care with medication. She has been able to improve her mobilization the past day. She does not seem to have acute neurologic loss Or acute instability at her low back. At this point I think we can hold off on MRI during this stay. I would like to see how she does with continued directed pain control and anti-inflammatories with her steroids. She will likely need to be discharged home with oral tapering steroid dose. I think that therapy can help her quite well with her mobilization and she will need to protect continue this long-term to help her endurance and core strengthening. She does have bony sclerosis on L3 4 which was the site of her prior radiation. If she is not making progress certainly a new MRI with contrast. He warranted. I think this could be done on outpatient basis if she is able to continue her improvement of her pain control and her mobility. If she is comfortable with her mobilization and it is okay from a spine standpoint for her to be discharged and to follow up with his spine on an outpatient basis in the next 2-3 weeks. I discussed this with her and answered her questions best my ability and she is agreeable.
[2020-04-21 17:06] LABS: Glucose,Whole Blood 130 mg/dL (75-99)
--- NOTE | 2020-04-21 20:35 | PN ---
PROGRESS NOTE DATE OF SERVICE: 04/21/2020 I am covering for Dr. Smith. This 64-year-old female with past medical history of multiple medical problems was admitted with severe back pain, intractable back pain 10/10 and inability to walk. Patient closely monitored at this time. Creatinine is 1.30. Blood sugar is elevated. Patient started on empiric steroids and platelet count is 118. The patient is afebrile. The patient previously was seen by Dr. Cox. No chest pain. No palpitations. PAST MEDICAL HISTORY: Reviewed. REVIEW OF SYSTEMS: CARDIOVASCULAR SYSTEM: No angina or palpitations. RESPIRATORY: No cough or hemoptysis. GI: As mentioned earlier. : No dysuria. NERVOUS SYSTEM: As mentioned earlier. CURRENT MEDICATIONS: 1. Tylenol p.r.n. 2. Xanax 1 mg p.o. daily. 3. Xanax 0.5 t.i.d. 4. Omnicef 300 mg p.o. b.i.d. 5. Heparin 5 subcu b.i.d. 6. Omeprazole. 7. Dilaudid. 8. Motrin. 9. Synthroid. 10.Solu-Medrol 60 IV q.6. 11.Narcan. 12.Zofran. 13.Protonix. 14.MiraLAX. 15.Restoril. PHYSICAL EXAM: Patient is alert, oriented x3. Pulse is 57, blood pressure 105/59, respirations 17, temperature 97.8, pulse ox 94% on room air. HEENT: Conjunctivae normal. Oral mucosa moist. NECK: No jugular venous distention. No lymph node enlargement. CARDIOVASCULAR: S1, S2. RESPIRATORY: Diminished breath sounds at the bases. No rhonchi, no crackles. ABDOMEN: Soft, nontender. LEGS: Still painful on movement but slightly better. LABS: WBC 6.6, hemoglobin 12.4, sodium 139, potassium 4.2 creatinine is 1.3. ASSESSMENT: 1. Severe intractable back pain with sciatica, gait dysfunction with possible because of degenerative joint disease and spinal stenosis, rule out metastatic breast disease and breast cancer. 2. History of metastatic breast cancer at L3, 4, 5. 3. Increased creatinine with chronic kidney disease stage 3 with component of acute renal failure. 4. History of asthma. 5. History of gastroesophageal reflux disease. 6. Hypertension. 7. History of thyroid cancer. 8. History of syncope. 9. History of polycystic kidney disease. 10.History of thoracic aneurysm. 11.History of bariatric surgery. 12.History of motion sickness. 13.History of anxiety, depression. 14.Obesity body, mass index of 43.1. 15.FULL CODE. RECOMMENDATIONS AND DISCUSSION: I recommend to continue current medications, continue symptomatic treatment with high- dose IV steroids. Continue with IV fluids. Monitor labs as mentioned earlier. This patient will easily qualify for a full admit because of the severe pain, which the patient described to me at the time of admission which was 100/10 according to her and patient has severe gait dysfunction. Currently I would recommend to continue the current medication, continue with PT/OT evaluation, orthopedic evaluation. Bone scan is pending. Again, this patient will require inpatient admission for more than 2 nights. Guarded prognosis. Further recommendations to follow. ALEXYS / HAYDEN: [id number] /
[2020-04-21 20:50] LABS: Glucose,Whole Blood 152 mg/dL (75-99)
[2020-04-22] MEDS: methylPREDNISolone SOD SUCCI 125 MG/2 ML VIAL IV SCH ×2 (00:07→06:07)
[2020-04-22] MEDS: ALPRAZolam 0.25 MG TAB PO PRN (00:09)
[2020-04-22] MEDS: LEVOTHYROXINE 75 MCG TAB PO SCH (06:06)
[2020-04-22 06:52] LABS: Basophils % (A) 0 %; Eosinophils # (A) 0.1 k/uL (0-0.7); Eosinophils % (A) 1 %; HCT 38.9 % (34.0-46.0); HGB 12.2 gm/dL (11.4-16.0); Lymphocytes # (A) 0.5 k/uL (1.0-4.8); Lymphocytes % (A) 5 %; MCH 32.7 pg (25.0-35.0); MCHC 31.5 g/dL (31.0-37.0); MCV 103.9 fL (80.0-100.0); Macrocytosis Slight; Mean Platelet Volume 8.2; Monocytes # (A) 0.2 k/uL (0-1.0); Monocytes % (A) 2 %; Neutrophils % (A) 92 %; Platelet Count 131 k/uL (150-450); RBC 3.74 m/uL (3.80-5.40); RDW 13.5 % (11.5-15.5); WBC 10.9 k/uL (3.8-10.6)
[2020-04-22 07:03] LABS: Calcium 7.7 mg/dL (8.4-10.2)
[2020-04-22 07:31] LABS: Glucose,Whole Blood 126 mg/dL (75-99)
[2020-04-22] MEDS: INSULIN ASPART (NovoLOG) 100 UNIT/ML VIAL SQ SCH ×4 (07:41→20:18)
--- NOTE | 2020-04-22 08:28 | P.CONS ---
History of Present Illness - Reason for Consult Consult date: 04/22/20 - History of Present Illness 64-year-old female with a history of asthma, breast cancer, GERD, hypertension, renal disease, admitted with back pain ongoing for the last many years, also complaining of rectal pain. Over the past several weeks the pain has been progressively getting worse. History of radiation 5 years ago. Currently being evaluated by orthopedics and as per the notes likely degenerative changes without acute neurological issues and suggested MRI especially with sclerotic lesions on L3-L4 with previous radiation was given. Review of Systems Pain in the abdomen, pain in the PACS system of the review of systems negative Past Medical History Past Medical History: Asthma, Cancer, GERD/Reflux, Hypertension, Renal Disease, Thyroid Disorder Additional Past Medical History / Comment(s): Hx 2008 breast CA metastatic stage 4, thyroid CA 6 years ago. 2017 diagnosis of stage 4 bone CA in spine. 12/2016 near syncope w/ suspected low BP. Mild asthma with occasional related rt-sided chest pain. Hx polycystic kidney disease, cyst to liver, nodule lt lung, thoracic aneurysm. Obesity. Cataracts bulmaro. Recent nausea, dark stools, wgt fluctuations, dysphagia if eats too fast. History of Any Multi-Drug Resistant Organisms: None Reported Past Surgical History: Bariatric Surgery, Breast Surgery, Cholecystectomy, Hysterectomy Additional Past Surgical History / Comment(s): Hx colonoscopy. Hx double mastectomy, thyroidectomy, lap band (not filled), bunionectomy bulmaro ft foot surg, bilateral carpal tunnel, surgeries for staph infection rt breast implant. Past Anesthesia/Blood Transfusion Reactions: Motion Sickness Past Psychological History: Anxiety, Depression Additional Psychological History / Comment(s): not currently Smoking Status: Never smoker Past Alcohol Use History: None Reported Past Drug Use History: None Reported - Past Family History Father Family Medical History: Cancer, Renal Disease Additional Family Medical History / Comment(s): polycystic kidney, kidney transplant, poss CA behind heart R/T Rx Medications and Allergies Home Medications Medication Instructions Recorded Confirmed Type Cholecalciferol (Vitamin D3) 2,000 unit PO DAILY 03/27/19 04/20/20 History [Vitamin D3] Levothyroxine Sodium [Synthroid] 150 mcg PO MOTUWETHFRSA 08/28/19 04/20/20 History Palbociclib [Ibrance] 100 mg PO HS 08/28/19 04/20/20 History hydrALAZINE HCL 25 mg PO BID 10/27/19 04/20/20 History Acetaminophen [Tylenol Arthritis] 650 mg PO Q6H PRN 04/20/20 04/20/20 History Cefuroxime Axetil [Ceftin] 500 mg PO BID 04/20/20 04/20/20 History Fulvestrant 1 dose IM Q30D 04/20/20 04/20/20 History Levothyroxine Sodium [Synthroid] 75 mcg PO PELAYO 04/20/20 04/20/20 History Vitamin B Complex 1 cap PO DAILY 04/20/20 04/20/20 History Xanax (Unknown Dose) 1 tab PO DAILY PRN 04/20/20 04/20/20 History Allergies Allergy/AdvReac Type Severity Reaction Status Date / Time Iodinated Contrast Media Allergy Rash/Hives Verified 04/20/20 13:25 [Iodinated Contrast Media - IV Dye] Physical Exam Vitals: Vital Signs Temp Pulse Resp BP Pulse Ox 04/22/20 05:08 97.6 F 50 L 16 107/56 94 L 04/22/20 00:05 16 04/21/20 20:32 97.8 F 55 L 16 117/77 96 04/21/20 11:44 97.8 F 57 L 17 105/49 95 Intake and Output 04/21/20 04/22/20 04/22/20 22:59 06:59 14:59 Other: Voiding Method Toilet # Voids 1 2 The patient appeared well nourished and normally developed. Vital signs as doc umented. Head exam is unremarkable. No scleral icterus or corneal arcus noted. Neck is without jugular venous distension, thyromegaly, or carotid bruits. Carotid upstrokes are brisk bilaterally. Lungs are clear to auscultation and percussion. Cardiac exam reveals the PMI to be normally sized and situated. Rhythm is regular. First and second heart sounds normal. No murmurs, rubs or gallops. Abdominal exam reveals normal bowel sounds, no masses, no organomegaly and no aortic enlargement. Extremities are nonedematous and both femoral and pedal pulses are normal. Results CBC & Chem 7: 04/22/20 06:20 04/22/20 06:20 Labs: Abnormal Lab Results - Last 24 Hours (Table) 05/04/21/20 04/21/20 Range/Units 11:33 17:04 20:30 WBC (3.8-10.6) k/uL RBC (3.80-5.40) m/uL MCV (80.0-100.0) fL Plt Count (150-450) k/uL Neutrophils # (1.3-7.7) k/uL Lymphocytes # (1.0-4.8) k/uL Chloride (98-107) mmol/L Carbon Dioxide (22-30) mmol/L BUN (7-17) mg/dL Creatinine (0.52-1.04) mg/dL Glucose (74-99) mg/dL POC Glucose (mg/dL) 139 H 130 H 152 H (75-99) mg/dL Calcium (8.4-10.2) mg/dL 04/22/20 04/22/20 04/22/20 Range/Units 06:20 06:20 07:19 WBC 10.9 H (3.8-10.6) k/uL RBC 3.74 L (3.80-5.40) m/uL MCV 103.9 H (80.0-100.0) fL Plt Count 131 L (150-450) k/uL Neutrophils # 10.0 H (1.3-7.7) k/uL Lymphocytes # 0.5 L (1.0-4.8) k/uL Chloride 110 H (98-107) mmol/L Carbon Dioxide 18 L (22-30) mmol/L BUN 26 H (7-17) mg/dL Creatinine 1.44 H (0.52-1.04) mg/dL Glucose 133 H (74-99) mg/dL POC Glucose (mg/dL) 126 H (75-99) mg/dL Calcium 7.7 L (8.4-10.2) mg/dL Assessment and Plan Assessment: #1. Acute on chronic back pain with history of radiation at L3-L4 currently being evaluated by orthopedics, as is no intervention is suggested. - Patient is currently being treated symptomatically. - Bone scan - check serum electrophoresis - to rule out progression of disease. #2. metastatic breast cancer: History of breast cancer, initially diagnosed 10 years ago, patient concerned about progression of disease especially when she presented initially she had similar symptoms: - Current CT abdomen pelvis without contrast is negative for any acute process. - Patient will need restaging workup. - planned to order CT of the chest, bone scan. - and tumor markers CA-15-3, CA-27-29, CEA. LDH. - Patient is currently on Ibrance with Faslodex. - further discussion depending on whether there is progression of disease might consider a repeat biopsy,in that case. #3. Electrolyte imbalance. #4. Elevated creatinine, Chronic kidney disease with creatinine 1.30. #5. Mild thrombocytopenia - Likely secondary to cyclin D kinase. Thank you for allowing me to participate in the care of your patient. Portia Caceres MD Hematology Oncology [id number] [facility], [address] [place] [address] Office: [phone]
[2020-04-22] MEDS: HEPARIN SODIUM,PORCINE 5,000 UNIT/ML 1 ML VIAL SQ SCH ×2 (09:18→19:35)
[2020-04-22] MEDS: hydrALAZINE HCL 25 MG TAB PO SCH ×2 (09:18→20:19)
[2020-04-22] MEDS: CEFDINIR 300 MG CAP PO SCH (09:18)
[2020-04-22] MEDS: POLYETHYLENE GLYCOL 3350 17 GM POWD.PACK PO SCH (09:19)
[2020-04-22] MEDS: PANTOPRAZOLE 40 MG TABLET PO SCH (09:19)
[2020-04-22] MEDS: CHOLECALCIFEROL 1,000 UNIT TAB PO SCH (09:19)
[2020-04-22 11:21] LABS: Glucose,Whole Blood 127 mg/dL (75-99)
[2020-04-22] MEDS ORDERED: SENNOSIDES-DOCUSATE SODIUM 1 EACH TAB PO PRN (11:29)
[2020-04-22 11:48] VITALS: RESP 18
[2020-04-22] MEDS ORDERED: NA PHOS,M-B/NA PHOS,DI-BA 133 ML ENEMA RECTAL ONE (12:00)
[2020-04-22] MEDS: LACTULOSE 20 GM/30 ML CUP PO SCH ×2 (16:08→22:09)
[2020-04-22] MEDS: methylPREDNISolone SOD SUCCI 40 MG/ML 1 ML VIAL IV SCH (16:08)
[2020-04-22] MEDS: SODIUM CHLORIDE 0.9% 1,000 ML IV SCH (17:31)
[2020-04-22 17:36] LABS: Glucose,Whole Blood 113 mg/dL (75-99)
--- NOTE | 2020-04-22 19:21 | PN ---
PROGRESS NOTE DATE OF SERVICE: 04/22/2020 This 67-year-old woman was admitted after intractable back pain. Also, had a history of metastatic breast cancer. The patient is being closely monitored. No chest pain. No palpitations. No fever. Bone scan did not show any progression of the disease apparently. Hematology/Oncology following the patient closely as well as Orthopedic Surgery. No chest pain. No palpitations. No fever. The patient complains of constipation also. PHYSICAL EXAMINATION: Alert and oriented x3. Pulse 57, blood pressure 122/76, respirations 18, temperature 98 degrees, pulse ox 94% on room air. skin: HEENT: Conjunctivae normal. Oral mucosa moist. NECK: No jugular venous distention. No lymph node enlargement. CARDIOVASCULAR: S1, S2. RESPIRATORY: Diminished breath sounds at the bases. No rhonchi, no crackles. ABDOMEN: Soft, nontender. LEGS: No edema, no swelling. NERVOUS SYSTEM: No focal deficits. LABS: WBC 10.2, hemoglobin 12.2, sodium 137, potassium 5, creatinine is 1.44. ASSESSMENT: 1. Severe intractable back pain and sciatica, gait dysfunction with possible degenerative joint disease and spinal stenosis, unlikely to be metastatic disease progression. 2. History of metastatic breast cancer, L3-4, 5. 3. Increased creatinine with chronic kidney disease, stage 3 with component of acute renal failure. 4. History of asthma. 5. Gastroesophageal reflux disease. 6. Hypertension. 7. History of thyroid cancer. 8. History of syncope. 9. History of polycystic kidney disease. 10.History of thoracic aneurysm. 11.History of bariatric surgery. 12.History of motion sickness. 13.History of anxiety, depression. 14.Obesity with body mass index of 43.1. 15.FULL CODE. RECOMMENDATIONS AND DISCUSSION: Recommend to continue current medications, continue symptomatic treatment. Otherwise, at this time taper down the steroids, increase ambulation, possibly back brace. Monitor creatinine closely. Creatinine is 1.44 today, which is rather stable. Guarded prognosis. Dr. Smith will follow tomorrow. MMCONSTANZAL / IJN: [id number] /
[2020-04-22 20:05] LABS: Glucose,Whole Blood 142 mg/dL (75-99)
--- NOTE | 2020-04-22 22:10 | CT ---
EXAMINATION TYPE: CT chest wo con DATE OF EXAM: 04/22/2020 COMPARISON: 05/15/2019 HISTORY: Metastatic breast cancer. CT DLP: 526.6 mGycm Automated exposure control for dose reduction was used. Images were obtained from the thoracic inlet to the diaphragm without contrast. There are bilateral breast implants. There is bilateral mastectomy. There are small bilateral pleural effusions. There is gastric sleeve noted. Heart size is normal. There is no pericardial effusion. Th ere is no evidence of a pulmonary mass. There are numerous rounded hypodensities in the liver and kid neys related to numerous cysts. Spleen is intact. There is no mediastinal adenopathy. There are no hilar masses. The thoracic spine is intact. Sternum is intact. I see no focal bone destruction. Shoulder joints appear intact. IMPRESSION: Numerous hepatic and renal cysts that could relate to adult type polycystic disease. Small pleural ef fusions appear new compared to old exam. Heart has normal size but is increased in size compared to o ld exam. I do not see any convincing evidence of metastatic disease.
[2020-04-23] MEDS: methylPREDNISolone SOD SUCCI 40 MG/ML 1 ML VIAL IV SCH ×2 (00:27→08:12)
[2020-04-23] MEDS: ALPRAZolam 0.25 MG TAB PO PRN (00:30)
[2020-04-23] MEDS: SODIUM CHLORIDE 0.9% 1,000 ML IV SCH ×2 (04:49→08:20)
[2020-04-23] MEDS: LEVOTHYROXINE 75 MCG TAB PO SCH (05:41)
[2020-04-23 06:55] LABS: Basophils % (A) 0 %; Eosinophils # (A) 0.1 k/uL (0-0.7); Eosinophils % (A) 1 %; HCT 37.1 % (34.0-46.0); HGB 12.1 gm/dL (11.4-16.0); Lymphocytes # (A) 0.4 k/uL (1.0-4.8); Lymphocytes % (A) 5 %; MCH 34.5 pg (25.0-35.0); MCHC 32.6 g/dL (31.0-37.0); MCV 105.8 fL (80.0-100.0); Macrocytosis Moderate; Mean Platelet Volume 8.5; Monocytes # (A) 0.2 k/uL (0-1.0); Monocytes % (A) 2 %; Neutrophils # (A) 7.2 k/uL (1.3-7.7); Neutrophils % (A) 91 %; Platelet Count 137 k/uL (150-450); RBC 3.51 m/uL (3.80-5.40); RDW 13.9 % (11.5-15.5); WBC 7.9 k/uL (3.8-10.6)
[2020-04-23 07:05] LABS: Glucose,Whole Blood 116 mg/dL (75-99)
[2020-04-23 07:11] LABS: Calcium 7.6 mg/dL (8.4-10.2); Potassium 4.8 mmol/L (3.5-5.1)
[2020-04-23] MEDS: INSULIN ASPART (NovoLOG) 100 UNIT/ML VIAL SQ SCH ×2 (07:28→11:55)
[2020-04-23] MEDS: LACTULOSE 20 GM/30 ML CUP PO SCH (08:11)
[2020-04-23] MEDS: HEPARIN SODIUM,PORCINE 5,000 UNIT/ML 1 ML VIAL SQ SCH ×2 (08:12→08:13)
[2020-04-23] MEDS: CHOLECALCIFEROL 1,000 UNIT TAB PO SCH (08:12)
[2020-04-23] MEDS: PANTOPRAZOLE 40 MG TABLET PO SCH (08:12)
[2020-04-23] MEDS: hydrALAZINE HCL 25 MG TAB PO SCH (08:13)
[2020-04-23] MEDS: POLYETHYLENE GLYCOL 3350 17 GM POWD.PACK PO SCH (08:13)
[2020-04-23] MEDS ORDERED: CEFDINIR 300 MG CAP PO SCH (09:00)
[2020-04-23 11:59] VITALS: BP 172/86; PULSE 56; TEMP 98.3
[2020-04-23 12:06] LABS: Glucose,Whole Blood 107 mg/dL (75-99)
[2020-04-23 13:13] LABS: Protein, Total 6.2 g/dL (6.2-8.2)
[2020-04-23 13:19] LABS: CA27.29 Breast Ca Marker 15.6 U/mL (0.0-38.5); Carcinoembryonic Antigen 3.7 ng/mL (0.0-4.9)
--- NOTE | 2020-04-23 16:24 | P.DS ---
Providers Date of admission: 04/23/20 08:54 Expected date of discharge: 04/23/20 Attending physician: Rufus Day MD Consults: 04/20/20 14:12 Consult Physician Stat Consulting Provider: Jay Cox Consult Reason/Comments: Intractable back pain, consult per Dr. Wilson Do you want consulting provider notified?: Yes 04/20/20 18:45 Consult Physician Routine Consulting Provider: González Sexton Consult Reason/Comments: malignancy Do you want consulting provider notified?: Yes Primary care physician: Stanford Smith [facility] Course: Final Diagnoses: Severe intractable back pain with sciatica, gait dysfunction, possible degenerative joint disease and spinal stenosis, unlikely metastatic disease progression History of metastatic breast cancer, L3-4, 5 History of radiation at L3 with no acute change as per orthopedic surgery History of thyroid cancer Acute on chronic renal failure, stage III Chronic intermittent asthma, stable Gastroesophageal reflux disease Hypertension Obesity, BMI 43.1 Anxiety, depression Hospital course: This is a 67-year-old female admitted with intractable back pain with history of metastatic breast cancer. Evaluated by both oncology/hematology, orthopedic surgery. Bone scan did not report progression of disease apparently. Chest CT reported numerous hepatic and renal cysts that could relate to adult polycystic disease, small pleural effusions but did not see convincing evidence of metastatic disease. Patient will be discharged home today in a stable condition with guarded prognosis pending final DC recommendations and clearance from her orthopedics and oncology. Outpatient PT will be arranged per PCPs office. The impression and plan of care has been dictated as directed. : I performed a history and examination of this patient, discussed the same with the dictator. I agree with the dictator's note ,documented as a scribe. Any additional findings or plans will be noted. Patient Condition at Discharge: Stable Plan - Discharge Summary New Discharge Prescriptions: New Lactulose [Cephulac] 30 gm PO TID #480 ml Polyethylene Glycol 3350 [Miralax] 17 gm PO DAILY powd.pack Ibuprofen [Motrin] 400 mg PO Q6HR PRN #20 tab PRN Reason: Pain predniSONE 10 mg PO DIRECTED #30 tab Pantoprazole [Protonix] 40 mg PO AC-BRKFST #30 tablet.dr [place]-Docusate Sodium [Senokot-S] 2 each PO BID PRN tab PRN Reason: Constipation Continue Cholecalciferol (Vitamin D3) [Vitamin D3] 2,000 unit PO DAILY Palbociclib [Ibrance] 100 mg PO HS Levothyroxine Sodium [Synthroid] 150 mcg PO MOTUWETHFRSA hydrALAZINE HCL 25 mg PO BID Cefuroxime Axetil [Ceftin] 500 mg PO BID Vitamin B Complex 1 cap PO DAILY Acetaminophen [Tylenol Arthritis] 650 mg PO Q6H PRN PRN Reason: Pain Fulvestrant 1 dose IM Q30D Levothyroxine Sodium [Synthroid] 75 mcg PO PELAYO Xanax (Unknown Dose) 1 tab PO DAILY PRN PRN Reason: Anxiety Discharge Medication List Cholecalciferol (Vitamin D3) [Vitamin D3] 2,000 unit PO DAILY 03/27/19 [History] Levothyroxine Sodium [Synthroid] 150 mcg PO MOTUWETHFRSA 08/28/19 [History] Palbociclib [Ibrance] 100 mg PO HS 08/28/19 [History] hydrALAZINE HCL 25 mg PO BID 10/27/19 [History] Acetaminophen [Tylenol Arthritis] 650 mg PO Q6H PRN 04/20/20 [History] Cefuroxime Axetil [Ceftin] 500 mg PO BID 04/20/20 [History] Fulvestrant 1 dose IM Q30D 04/20/20 [History] Levothyroxine Sodium [Synthroid] 75 mcg PO PELAYO 04/20/20 [History] Vitamin B Complex 1 cap PO DAILY 04/20/20 [History] Xanax (Unknown Dose) 1 tab PO DAILY PRN 04/20/20 [History] Ibuprofen [Motrin] 400 mg PO Q6HR PRN #20 tab 04/23/20 [Rx] Lactulose [Cephulac] 30 gm PO TID #480 ml 04/23/20 [Rx] Pantoprazole [Protonix] 40 mg PO AC-BRKFST #30 tablet. 04/23/20 [Rx] Polyethylene Glycol 3350 [Miralax] 17 gm PO DAILY powd.pack 04/23/20 [Rx] Sennosides-Docusate Sodium [Senokot-S] 2 each PO BID PRN tab 04/23/20 [Rx] predniSONE 10 mg PO DIRECTED #30 tab 04/23/20 [Rx] Follow up Appointment(s)/Referral(s): Jay Cox DO [Doctor of Osteopathic Medicine] - 05/10/20 10:15 am Stanford Smith DO [Primary Care Provider] - 04/29/20 11:40 am Patient Instructions/Handouts: Prednisone (By mouth), Lactulose (By mouth), Pantoprazole (By mouth) Activity/Diet/Wound Care/Special Instructions: Brace is not recommended as per orthopedic surgery. Outpatient PT will be arranged by Dr. Smith Office. Activity as tolerated Regular diet Discharge Disposition: HOME SELF-CARE
[2020-04-24 15:58] LABS: Albumin 3.83 g/dL (3.80-4.90); Gamma Globulin 0.73 g/dL (0.70-1.50)
== END 2020-04-23 14:18 | disposition home or self-care (01) | DRG 552 ==
LOC: EC 10:36 → 5NMEDONC 14:06 → OBSVTOIN 04-23 08:54
PROVIDERS: ADMIT Family Medicine; ATTEND Family Medicine
DX: M51.16 Intervertebral disc disorders with radiculopathy, lumbar region (principal); Q61.3 Polycystic kidney, unspecified; C79.51 Secondary malignant neoplasm of bone; N39.0 Urinary tract infection, site not specified; Z68.41 Body mass index [BMI] 40.0-44.9, adult; N17.9 Acute kidney failure, unspecified; N18.3 Chronic kidney disease, stage 3 (moderate); C50.919 Malignant neoplasm of unspecified site of unspecified female breast; I71.2 Thoracic aortic aneurysm, without rupture; E66.9 Obesity, unspecified; M51.17 Intervertebral disc disorders with radiculopathy, lumbosacral region; Z11.59 Encounter for screening for other viral diseases; E89.0 Postprocedural hypothyroidism; G89.29 Other chronic pain; M48.061 Spinal stenosis, lumbar region without neurogenic claudication; M48.07 Spinal stenosis, lumbosacral region; J45.20 Mild intermittent asthma, uncomplicated; I12.9 Hypertensive chronic kidney disease with stage 1 through stage 4 chronic kidney disease, or unspecified chronic kidney disease; R26.9 Unspecified abnormalities of gait and mobility; K21.9 Gastro-esophageal reflux disease without esophagitis; M19.90 Unspecified osteoarthritis, unspecified site; D69.59 Other secondary thrombocytopenia; K59.00 Constipation, unspecified; F32.9 Major depressive disorder, single episode, unspecified; F41.9 Anxiety disorder, unspecified; K59.4 Anal spasm; H26.9 Unspecified cataract; Z79.890 Hormone replacement therapy; Z79.899 Other long term (current) drug therapy; Z91.041 Radiographic dye allergy status; Z85.850 Personal history of malignant neoplasm of thyroid; Z92.3 Personal history of irradiation; Z98.84 Bariatric surgery status; Z90.49 Acquired absence of other specified parts of digestive tract; Z90.710 Acquired absence of both cervix and uterus; Z90.13 Acquired absence of bilateral breasts and nipples; Z82.71 Family history of polycystic kidney; Z80.8 Family history of malignant neoplasm of other organs or systems
CPT/HCPCS: 36415; 71250; 72128; 72131; 74176; 78306; 80048; 80053; 81001; 82150; 82378; 83615; 83690; 84165; 85025; 85610; 85730; 86300; 87635; 96361; 96374; 96375; 99285

== ENCOUNTER 2020-05-20 17:41 | Emergency (ER) | payer OTHER ==
[2020-05-20] MEDS ORDERED: SODIUM CHLORIDE 0.9% 1,000 ML IV STA (18:18)
--- NOTE | 2020-05-20 18:24 | ED ---
General Adult HPI - General Chief complaint: Weakness Stated complaint: Fatigue Time Seen by Provider: 05/20/20 18:02 Source: patient, RN notes reviewed Mode of arrival: ambulatory Limitations: no limitations - History of Present Illness Initial comments: Patient is a pleasant [age]-year-old female presenting to the emergency department with fatigue. Patient has stage IV metastatic breast cancer. Patient was in the hospital a couple weeks ago secondary to metastasis to the spine and discomfort. Patient is on steroids and did gain 20-25 pounds. Patient states most of the weight is back to normal now. Patient states she is not asked short of breath but gets very fatigued with exertion. Patient is concerned her electrolytes or kidney function may be abnormal and requests testing for this. Patient states her leg swelling is chronic for her and unchanged. - Related Data Home Medications Medication Instructions Recorded Confirmed Cholecalciferol (Vitamin D3) 2,000 unit PO DAILY 03/27/19 04/20/20 [Vitamin D3] Levothyroxine Sodium [Synthroid] 150 mcg PO MOTUWETHFRSA 08/28/19 04/20/20 Palbociclib [Ibrance] 100 mg PO HS 08/28/19 04/20/20 hydrALAZINE HCL 25 mg PO BID 10/27/19 04/20/20 Acetaminophen [Tylenol Arthritis] 650 mg PO Q6H PRN 04/20/20 04/20/20 Cefuroxime Axetil [Ceftin] 500 mg PO BID 04/20/20 04/20/20 Fulvestrant 1 dose IM Q30D 04/20/20 04/20/20 Levothyroxine Sodium [Synthroid] 75 mcg PO PELAYO 04/20/20 04/20/20 Vitamin B Complex 1 cap PO DAILY 04/20/20 04/20/20 Xanax (Unknown Dose) 1 tab PO DAILY PRN 04/20/20 04/20/20 Previous Rx's Medication Instructions Recorded Ibuprofen [Motrin] 400 mg PO Q6HR PRN #20 tab 04/23/20 Lactulose [Cephulac] 30 gm PO TID #480 ml 04/23/20 Pantoprazole [Protonix] 40 mg PO AC-BRKFST #30 tablet. 04/23/20 Polyethylene Glycol 3350 [Miralax] 17 gm PO DAILY powd.pack 04/23/20 Sennosides-Docusate Sodium 2 each PO BID PRN tab 04/23/20 [Senokot-S] predniSONE 10 mg PO DIRECTED #30 tab 04/23/20 Ciprofloxacin HCl [Cipro] 500 mg PO Q12HR #20 tablet 05/20/20 Allergies Allergy/AdvReac Type Severity Reaction Status Date / Time Iodinated Contrast Media Allergy Rash/Hives Verified 05/20/20 17:43 [Iodinated Contrast Media - IV Dye] Review of Systems ROS Statement: Those systems with pertinent positive or pertinent negative responses have been documented in the HPI. ROS Other: All systems not noted in ROS Statement are negative. Constitutional: Denies: fever Eyes: Denies: eye pain ENT: Denies: ear pain Respiratory: Denies: cough, dyspnea Cardiovascular: Denies: chest pain Endocrine: Reports: fatigue Gastrointestinal: Denies: abdominal pain Genitourinary: Denies: dysuria Musculoskeletal: Reports: as per HPI Skin: Denies: rash Neurological: Denies: weakness, confusion Past Medical History Past Medical History: Asthma, Cancer, GERD/Reflux, Hypertension, Renal Disease, Thyroid Disorder Additional Past Medical History / Comment(s): Hx 2008 breast CA metastatic stage 4, thyroid CA 6 years ago. 2017 diagnosis of stage 4 bone CA in spine. 12/2016 near syncope w/ suspected low BP. Mild asthma with occasional related rt-sided chest pain. Hx polycystic kidney disease, cyst to liver, nodule lt lung, thoracic aneurysm. Obesity. Cataracts bulmaro. Recent nausea, dark stools, wgt fluctuations, dysphagia if eats too fast. History of Any Multi-Drug Resistant Organisms: None Reported Past Surgical History: Bariatric Surgery, Breast Surgery, Cholecystectomy, Hysterectomy Additional Past Surgical History / Comment(s): Hx colonoscopy. Hx double mastectomy, thyroidectomy, lap band (not filled), bunionectomy bulmaro ft foot surg, bilateral carpal tunnel, surgeries for staph infection rt breast implant. Past Anesthesia/Blood Transfusion Reactions: Motion Sickness Past Psychological History: Anxiety, Depression Smoking Status: Never smoker Past Alcohol Use History: None Reported Past Drug Use History: None Reported - Past Family History Father Family Medical History: Cancer, Renal Disease Additional Family Medical History / Comment(s): polycystic kidney, kidney transplant, poss CA behind heart R/T Rx General Exam Limitations: no limitations General appearance: alert, in no apparent distress Head exam: Present: normocephalic Eye exam: Present: normal appearance ENT exam: Present: normal oropharynx Neck exam: Present: normal inspection Respiratory exam: Present: normal lung sounds bilaterally Cardiovascular Exam: Present: regular rate, normal rhythm GI/Abdominal exam: Present: soft. Absent: tenderness Extremities exam: Present: pedal edema (+1 bilateral). Absent: calf tenderness Back exam: Present: normal inspection Neurological exam: Present: alert. Absent: motor sensory deficit Psychiatric exam: Present: normal affect, normal mood Skin exam: Present: normal color Course Vital Signs 05/20/20 05/20/20 17:43 18:38 Temperature 97.9 F Pulse Rate 78 66 Respiratory 18 20 Rate Blood Pressure 152/91 171/96 O2 Sat by Pulse 99 98 Oximetry EKG Findings - EKG Comments: EKG Findings:: Normal sinus rhythm 72. HI 154. QRS 100. QT 428. QTC 460. Normal axis. Normal QRS. No acute ST change. Medical Decision Making - Medical Decision Making Patient reevaluated and resting comfortably in bed. Patient updated on results. Patient states she would like to be discharged home. Patient states she is able to take care of herself and does not feel she is auscultation at this point. Patient is agreeable to return if symptoms worsen. Patient also agreeable to close follow-up with her doctor and oncologist. - Lab Data Result diagrams: 05/20/20 18:05 05/20/20 18:28 Lab Results 05/20/20 05/20/20 05/20/20 Range/Units 18:05 18:28 18:38 WBC 2.9 L (3.8-10.6) k/uL RBC 3.58 L (3.80-5.40) m/uL Hgb 11.6 (11.4-16.0) gm/dL Hct 37.3 (34.0-46.0) % MCV 104.1 H (80.0-100.0) fL MCH 32.5 (25.0-35.0) pg MCHC 31.2 (31.0-37.0) g/dL RDW 13.6 (11.5-15.5) % Plt Count 184 (150-450) k/uL Neutrophils % 51 % Lymphocytes % 30 % Monocytes % 10 % Eosinophils % 4 % Basophils % 1 % Neutrophils # 1.5 (1.3-7.7) k/uL Lymphocytes # 0.9 L (1.0-4.8) k/uL Monocytes # 0.3 (0-1.0) k/uL Eosinophils # 0.1 (0-0.7) k/uL Basophils # 0.0 (0-0.2) k/uL Macrocytosis Slight Sodium 138 (137-145) mmol/L Potassium 3.8 (3.5-5.1) mmol/L Chloride 104 (98-107) mmol/L Carbon Dioxide 22 (22-30) mmol/L Anion Gap 12 mmol/L BUN 27 H (7-17) mg/dL Creatinine 1.66 H (0.52-1.04) mg/dL Est GFR (CKD-EPI)AfAm 37 (>60 ml/min/1.73 sqM) Est GFR (CKD-EPI)NonAf 32 (>60 ml/min/1.73 sqM) Glucose 135 H (74-99) mg/dL Calcium 8.4 (8.4-10.2) mg/dL Phosphorus 2.8 (2.5-4.5) mg/dL Magnesium 1.9 (1.6-2.3) mg/dL Total Bilirubin 0.4 (0.2-1.3) mg/dL AST 26 (14-36) U/L ALT 17 (4-34) U/L Alkaline Phosphatase 30 L (38-126) U/L Creatine Kinase 88 (30-135) U/L Total Protein 6.5 (6.3-8.2) g/dL Albumin 3.9 (3.5-5.0) g/dL TSH 0.845 (0.465-4.680) mIU/L Free T4 1.38 (0.78-2.19) ng/dL Free T3 pg/mL 2.7 L (2.8-5.3) pg/ml Urine Color Yellow Urine Appearance Clear (Clear) Urine pH 6.0 (5.0-8.0) Ur Specific [place] 1.005 (1.001-1.035) Urine Protein 1+ (Negative) Urine Glucose (UA) Negative (Negative) Urine Ketones Negative (Negative) Urine Blood Negative (Negative) Urine Nitrite Negative (Negative) Urine Bilirubin Negative (Negative) Urine Urobilinogen <2.0 (<2.0) mg/dL Ur Leukocyte Esterase Large (Negative) Urine RBC 1 (0-5) /hpf Urine WBC 75 H (0-5) /hpf Ur Squamous Epith Cells 1 (0-4) /hpf Urine Bacteria Rare H (None) /hpf Urine Mucus Rare H (None) /hpf - Radiology Data Radiology results: image reviewed (X-ray reported as no acute process.) Disposition Clinical Impression: Urinary tract infection Disposition: HOME SELF-CARE Condition: Stable Instructions (If sedation given, give patient instructions): Urinary Tract Infection in Women (ED) Additional Instructions: Please follow-up with primary care physician and oncologist this week. Return for fevers, pain, vomiting, worsening or changing symptoms or other concerns Prescription sent to [facility] Prescriptions: Ciprofloxacin HCl [Cipro] 500 mg PO Q12HR #20 tablet Is patient prescribed a controlled substance at d/c from ED?: No Referrals: Stanford Smith DO [Primary Care Provider] - 1-2 days Time of Disposition: 19:37
[2020-05-20 18:38] LABS: Basophils % (A) 1 %; Eosinophils # (A) 0.1 k/uL (0-0.7); Eosinophils % (A) 4 %; HCT 37.3 % (34.0-46.0); HGB 11.6 gm/dL (11.4-16.0); Lymphocytes # (A) 0.9 k/uL (1.0-4.8); Lymphocytes % (A) 30 %; MCH 32.5 pg (25.0-35.0); MCHC 31.2 g/dL (31.0-37.0); MCV 104.1 fL (80.0-100.0); Macrocytosis Slight; Monocytes # (A) 0.3 k/uL (0-1.0); Monocytes % (A) 10 %; Neutrophils # (A) 1.5 k/uL (1.3-7.7); Neutrophils % (A) 51 %; Platelet Count 184 k/uL (150-450); RBC 3.58 m/uL (3.80-5.40); RDW 13.6 % (11.5-15.5); WBC 2.9 k/uL (3.8-10.6)
[2020-05-20 18:51] LABS: Albumin 3.9 g/dL (3.5-5.0); Calcium 8.4 mg/dL (8.4-10.2); Magnesium 1.9 mg/dL (1.6-2.3); Phosphorus 2.8 mg/dL (2.5-4.5); Potassium 3.8 mmol/L (3.5-5.1); Total Bilirubin 0.4 mg/dL (0.2-1.3); Total Protein 6.5 g/dL (6.3-8.2)
--- NOTE | 2020-05-20 18:52 | XR ---
EXAMINATION TYPE: XR chest 2V DATE OF EXAM: 05/20/2020 COMPARISON: 08/17/2019 HISTORY: Weakness TECHNIQUE: FINDINGS: There is no heart failure nor confluent pneumonic infiltrate. Costophrenic angles are clear . Heart and mediastinum are normal. Diaphragm is normal. Bony thorax is intact. IMPRESSION: No active cardiopulmonary disease. No change.
[2020-05-20 19:08] LABS: T4, Free (Free Thyroxine) 1.38 ng/dL (0.78-2.19)
[2020-05-20 19:08] LABS: Bacteria,Urine Rare /hpf; Mucus,Urine Rare /hpf; RBC,Urine 1 /hpf (0-5); Squamous Epithelial Cell,Urine 1 /hpf (0-4); WBC,Urine 75 /hpf (0-5)
[2020-05-20 19:09] LABS: Appearance,Urine Clear (Clear); Color,Urine Yellow; Specific Gravity,Urine 1.005 (1.001-1.035)
[2020-05-20 19:10] LABS: Bilirubin,Urine Negative (Negative); Blood,Urine Negative (Negative); Glucose,Urine (UA) Negative (Negative); Ketones,Urine Negative (Negative); Leukocyte Esterase,Urine Large (Negative); Nitrite,Urine Negative (Negative); Protein,Urine 1+ (Negative); Urobilinogen,Urine <2.0 mg/dL (<2.0)
[2020-05-20] MEDS ORDERED: cefTRIAXone IN SWFI 1,000 MG/10 ML SYRINGE IVP STA (19:36)
[2020-05-20 19:50] VITALS: BP 144/82; PULSE 58; RESP 18
[2020-05-20 19:51] VITALS: TEMP 98
== END 2020-05-20 19:55 | disposition home or self-care (01) ==
LOC: EC 17:41
DX: N39.0 Urinary tract infection, site not specified (principal); I10 Essential (primary) hypertension; E07.9 Disorder of thyroid, unspecified; R22.9 Localized swelling, mass and lump, unspecified; C79.51 Secondary malignant neoplasm of bone; C79.81 Secondary malignant neoplasm of breast; Z79.52 Long term (current) use of systemic steroids; Z79.811 Long term (current) use of aromatase inhibitors; Z79.899 Other long term (current) drug therapy; Z91.041 Radiographic dye allergy status; Z90.13 Acquired absence of bilateral breasts and nipples; Z85.850 Personal history of malignant neoplasm of thyroid; Z90.89 Acquired absence of other organs; Z80.51 Family history of malignant neoplasm of kidney
CPT/HCPCS: 99285; 96374; 96361; 36415; 93005; 84439; 84481; 80053; 82550; 83735; 84100; 84443; 85025; 81001; 87086; 71046; J0696; 87077; 87186

== ENCOUNTER → 2020-05-30 | Outpatient (CLI) | payer OTHER ==
[2020-05-30 15:10] LABS: Basophils # (A) 0.1 k/uL (0-0.2); Basophils % (A) 2 %; Eosinophils # (A) 0.1 k/uL (0-0.7); Eosinophils % (A) 3 %; HCT 37.9 % (34.0-46.0); HGB 12.5 gm/dL (11.4-16.0); Lymphocytes # (A) 0.8 k/uL (1.0-4.8); Lymphocytes % (A) 27 %; MCH 34.5 pg (25.0-35.0); MCV 104.6 fL (80.0-100.0); Macrocytosis Slight; Mean Platelet Volume 7.7; Monocytes # (A) 0.1 k/uL (0-1.0); Monocytes % (A) 5 %; Neutrophils # (A) 1.9 k/uL (1.3-7.7); Neutrophils % (A) 61 %; Platelet Count 230 k/uL (150-450); RBC 3.63 m/uL (3.80-5.40); RDW 13.2 % (11.5-15.5); WBC 3.1 k/uL (3.8-10.6)
[2020-05-30 15:20] LABS: Appearance,Urine Clear (Clear); Bilirubin,Urine Negative (Negative); Blood,Urine Negative (Negative); Color,Urine Light Yellow; Glucose,Urine (UA) Negative (Negative); Ketones,Urine Negative (Negative); Leukocyte Esterase,Urine Moderate (Negative); Mucus,Urine Rare /hpf; Nitrite,Urine Negative (Negative); Protein,Urine Negative (Negative); RBC,Urine <1 /hpf (0-5); Specific Gravity,Urine 1.009 (1.001-1.035); Urobilinogen,Urine <2.0 mg/dL (<2.0); WBC,Urine 4 /hpf (0-5)
[2020-05-30 15:31] LABS: Protein/Creatinine Ratio,Urine 0.471
[2020-05-31 01:36] LABS: % Iron Saturation 24.85 (12.00-45.00); African American GFR (CKD) 36.3 (60.0-200.0); Albumin 4.3 g/dL (3.80-4.90); Anion Gap 8.7 mmol/L (4.00-12.00); BUN/Creat Ratio 17.65 Ratio (12.00-20.00); Calcium 8.7 mg/dL (8.7-10.3); Carbon Dioxide 22.3 mmol/L (21.6-31.8); Non-African American GFR(CKD) 31.3 (60.0-200.0); Phosphorus 3.2 mg/dL (2.4-5.1); Potassium 4.4 mmol/L (3.5-5.5); Uric Acid 6.8 mg/dL (2.9-7.7)
[2020-05-31 01:44] LABS: Ferritin 164.3 ng/mL (10.0-291.0)
== END | disposition home or self-care (01) ==
LOC: LABWHC1 13:43
PROVIDERS: ATTEND Internal Medicine Nephrology
DX: N25.81 Secondary hyperparathyroidism of renal origin (principal); N18.3 Chronic kidney disease, stage 3 (moderate); D63.1 Anemia in chronic kidney disease; E55.9 Vitamin D deficiency, unspecified; M10.9 Gout, unspecified; N39.0 Urinary tract infection, site not specified; R80.9 Proteinuria, unspecified
CPT/HCPCS: 36415; 80048; 81001; 82040; 82306; 82570; 82728; 83540; 83550; 83735; 83970; 84100; 84156; 84550; 85025

== ENCOUNTER → 2020-07-12 | Outpatient (CLI) | payer OTHER ==
[2020-07-12 20:19] LABS: African American GFR (CKD) 36.3 (60.0-200.0); Albumin/Globulin Ratio 2.11 (1.60-3.17); Anion Gap 4.8 mmol/L (4.00-12.00); BUN/Creat Ratio 14.71 Ratio (12.00-20.00); Calcium 8.3 mg/dL (8.7-10.3); Carbon Dioxide 22.2 mmol/L (21.6-31.8); Globulin 1.9 g/dL (1.6-3.3); Non-African American GFR(CKD) 31.3 (60.0-200.0); Potassium 4.6 mmol/L (3.5-5.5); Total Bilirubin 0.4 mg/dL (0.3-1.2); Total Protein 5.9 g/dL (6.2-8.2)
== END | disposition home or self-care (01) ==
LOC: LABWHC1 12:17
PROVIDERS: ATTEND Nurse Practitioner Family
DX: Q61.3 Polycystic kidney, unspecified (principal)
CPT/HCPCS: 36415; 80053

== ENCOUNTER → 2020-08-06 | Outpatient (CLI) | payer OTHER ==
--- NOTE | 2020-08-07 12:25 | CT ---
EXAMINATION TYPE: CT ChestAbdPelvis wo con DATE OF EXAM: 08/06/2020 INDICATION: Breast cancer COMPARISON: 04/22/2020 CT DLP: 1357 mGycm CONTRAST: None TECHNIQUE: Axial images at 5 mm thick sections. Reconstructed images in the coronal plane. Delayed images through the kidneys. FINDINGS: CT CHEST: Bilateral breast prostheses are present. Portion of the thyroid visualized is normal. No suspicious lung nodules or focal infiltrates are present. No enlarged mediastinal or hilar adenopathy is evident. The ascending aorta diameter at the level of the main pulmonary artery is 4.3 cm. The main pulmonary artery diameter at the bifurcation is 3.0 cm. Coronary artery calcification is present. CT ABDOMEN: There is a lap band present. Liver: Multiple hypodensities scattered throughout the liver. Some of these appear to be simple cysts . Others are more intermediate in signal and underlying metastatic lesions should be considered. Find ings however suggest stable hepatic cysts. Spleen: Normal Pancreas: Normal Adrenal glands: There is thickening of the left adrenal gland 1.5 cm. There may be a rounded density on the posterior limb of the right adrenal gland measuring 1.6 cm, difficult to differentiate from ad jacent renal cysts. Gallbladder: Surgically absent Kidneys: There are extensive cysts on the bilateral kidneys compatible with polycystic kidney disease . No hydronephrosis is evident. No obvious masses are identified. No renal stones are evident. Aorta: Minimal vascular calcification is within the aorta. Inferior vena cava: Flattened, which can be related to the volume status. CT PELVIS: Loops of bowel within the abdomen and pelvis are normal. The study is without oral contrast limit ing bowel evaluation. Some fecal debris is in the ascending colon. No dilated small bowel loops are e vident. Appendix: Not visualized. No suspicious inflammatory changes or dilated tubular structures are eviden t. Urinary bladder: Normal. Genitourinary structures: Uterus and ovaries are not identified. Osseous structures: No suspicious lytic or sclerotic lesions. IMPRESSIONS: 1. Polycystic kidney disease. 2. Suspected hepatic cysts within the liver. Underlying hepatic metastasis could be difficult to excl ude on the basis of this examination.
== END | disposition home or self-care (01) ==
LOC: RADCTMAIN 11:24
PROVIDERS: ATTEND Internal Medicine Hematology & Oncology
DX: Z03.89 Encounter for observation for other suspected diseases and conditions ruled out (principal); C50.919 Malignant neoplasm of unspecified site of unspecified female breast; Q61.3 Polycystic kidney, unspecified; Z91.048 Other nonmedicinal substance allergy status
CPT/HCPCS: 71250; 74176

== ENCOUNTER → 2020-09-09 | Outpatient (CLI) | payer OTHER ==
[2020-09-09 22:07] LABS: African American GFR (CKD) 31.7 (60.0-200.0); Albumin 4.2 g/dL (3.80-4.90); Albumin/Globulin Ratio 2.1 (1.60-3.17); Anion Gap 11.4 mmol/L (4.00-12.00); Calcium 9.6 mg/dL (8.7-10.3); Carbon Dioxide 21.6 mmol/L (21.6-31.8); Non-African American GFR(CKD) 27.4 (60.0-200.0); Potassium 4.6 mmol/L (3.5-5.5); Total Bilirubin 0.5 mg/dL (0.3-1.2); Total Protein 6.2 g/dL (6.2-8.2)
== END | disposition home or self-care (01) ==
LOC: LABWHC1 11:19
PROVIDERS: ATTEND Nurse Practitioner Family
DX: Q61.3 Polycystic kidney, unspecified (principal)
CPT/HCPCS: 36415; 80053

== ENCOUNTER → 2020-10-09 | Outpatient (CLI) | payer OTHER ==
[2020-10-09 15:10] LABS: Basophils % (A) 0 %; Eosinophils # (A) 0.4 k/uL (0-0.7); Eosinophils % (A) 9 %; HCT 37.8 % (34.0-46.0); HGB 12.1 gm/dL (11.4-16.0); Lymphocytes # (A) 0.4 k/uL (1.0-4.8); Lymphocytes % (A) 10 %; MCH 32.9 pg (25.0-35.0); MCHC 31.9 g/dL (31.0-37.0); MCV 102.9 fL (80.0-100.0); Macrocytosis Slight; Mean Platelet Volume 7.8; Monocytes # (A) 0.1 k/uL (0-1.0); Monocytes % (A) 2 %; Neutrophils # (A) 3.2 k/uL (1.3-7.7); Neutrophils % (A) 77 %; Platelet Count 141 k/uL (150-450); RBC 3.68 m/uL (3.80-5.40); RDW 13.7 % (11.5-15.5); WBC 4.1 k/uL (3.8-10.6)
[2020-10-09 15:13] LABS: Appearance,Urine Clear (Clear); Bilirubin,Urine Negative (Negative); Blood,Urine Negative (Negative); Color,Urine Light Yellow; Glucose,Urine (UA) Negative (Negative); Ketones,Urine Negative (Negative); Leukocyte Esterase,Urine Small (Negative); Mucus,Urine Rare /hpf; Nitrite,Urine Negative (Negative); Protein,Urine Negative (Negative); Specific Gravity,Urine 1.003 (1.001-1.035); Urobilinogen,Urine <2.0 mg/dL (<2.0); WBC,Urine 4 /hpf (0-5)
[2020-10-09 15:28] LABS: Creatinine,Urine Random 20.6 mg/dL; Protein/Creatinine Ratio,Urine 0.874
[2020-10-10 00:58] LABS: % Iron Saturation 28.38 (12.00-45.00); African American GFR (CKD) 31.7 (60.0-200.0); Albumin 4.1 g/dL (3.80-4.90); Anion Gap 7.6 mmol/L (4.00-12.00); BUN/Creat Ratio 16.84 Ratio (12.00-20.00); Calcium 9.3 mg/dL (8.7-10.3); Carbon Dioxide 25.4 mmol/L (21.6-31.8); Magnesium 1.9 mg/dL (1.5-2.4); Non-African American GFR(CKD) 27.4 (60.0-200.0); Phosphorus 3.6 mg/dL (2.4-5.1); Uric Acid 6.9 mg/dL (2.9-7.7)
[2020-10-10 01:05] LABS: Ferritin 167.1 ng/mL (10.0-291.0)
== END | disposition home or self-care (01) ==
LOC: LABWHC1 14:13
PROVIDERS: ATTEND Nurse Practitioner Family
DX: E55.9 Vitamin D deficiency, unspecified (principal); E21.3 Hyperparathyroidism, unspecified; M10.9 Gout, unspecified; N39.0 Urinary tract infection, site not specified; D63.1 Anemia in chronic kidney disease; N18.30 Chronic kidney disease, stage 3 unspecified; N25.81 Secondary hyperparathyroidism of renal origin
CPT/HCPCS: 36415; 80048; 81001; 82040; 82306; 82570; 82728; 83540; 83550; 83735; 83970; 84100; 84156; 84550; 85025

== ENCOUNTER → 2020-10-09 | Outpatient (CLI) | payer OTHER ==
--- NOTE | 2020-10-09 16:14 | XR ---
Right knee HISTORY: Pain 3 views the right knee Correlation to prior exam 10/02/2019 There is no significant interval change. Bone mineralization, joint spaces and alignment are stable. No evident joint effusion. Spurring is especially present at the patellofemoral joint. IMPRESSION: Osteoarthritis.
== END | disposition home or self-care (01) ==
LOC: RADXRMAIN 14:38
PROVIDERS: ATTEND Family Medicine
DX: M17.11 Unilateral primary osteoarthritis, right knee (principal); C50.919 Malignant neoplasm of unspecified site of unspecified female breast

== ENCOUNTER 2020-10-28 17:36 | Emergency (ER) | payer OTHER ==
[2020-10-28 18:00] VITALS: TEMP 98.4
--- NOTE | 2020-10-28 19:06 | ED ---
Chest Pain HPI - General Chief Complaint: Extremity Problem,Nontraumatic Stated Complaint: Nausea, Hand Pain, recheck Time Seen by Provider: 10/28/20 18:33 Source: patient, RN notes reviewed, old records reviewed Mode of arrival: ambulatory Limitations: no limitations - History of Present Illness Initial Comments: This is a 65-year-old female for anxiety. Patient does admit to being significantly anxious over both chest pain and possible blood clot. Is having some left hand pain which she had prior to arrival. Some swelling of her left hand. Patient is a cancer survivor and does admit to anxiety with elevated blood pressure currently. A she mildly emotional during history of present illness patient also admits to palpitations MD Complaint: chest pain, other (Left hand pain) -: days(s) Pain Location: left chest, other (Left hand) Pain Radiation: LUE Severity: mild Severity scale (1-10): 2 Consistency: now resolved Improves With: nothing Worsens With: nothing Anginal Symptoms: other (Patient is very anxious) Other Symptoms: palpitations Treatments Prior to Arrival: none - Related Data Home Medications Medication Instructions Recorded Confirmed Levothyroxine Sodium [Synthroid] 150 mcg PO SUTUTHSA 08/28/19 10/28/20 Palbociclib [Ibrance] 100 mg PO HS 08/28/19 10/28/20 hydrALAZINE HCL 25 mg PO TID 10/27/19 10/28/20 Levothyroxine Sodium [Synthroid] 75 mcg PO MOWEFR 04/20/20 10/28/20 Vitamin B Complex 1 cap PO BID 04/20/20 10/28/20 Jynarque 45mg 45 mg PO DAILY 10/28/20 10/28/20 [place]-3 Fatty Acids [[place]-3] 1,000 mg PO DAILY 10/28/20 10/28/20 Tolvaptan [Jynarque] 15 mg PO HS 10/28/20 10/28/20 Allergies Allergy/AdvReac Type Severity Reaction Status Date / Time Iodinated Contrast Media Allergy Rash/Hives Verified 10/28/20 19:05 [Iodinated Contrast Media - IV Dye] Review of Systems ROS Statement: Those systems with pertinent positive or pertinent negative responses have been documented in the HPI. ROS Other: All systems not noted in ROS Statement are negative. EKG Findings - EKG Comments: EKG Findings:: EKG is sinus bradycardia 55 GA 146 QRS 92 QTC 453 Past Medical History Past Medical History: Asthma, Cancer, GERD/Reflux, Hypertension, Renal Disease, Thyroid Disorder Additional Past Medical History / Comment(s): Hx 2009 breast CA metastatic stage 4, thyroid CA 6 years ago. 2017 diagnosis of stage 4 bone CA in spine. 12/2016 near syncope w/ suspected low BP. Mild asthma with occasional related rt-sided chest pain. Hx polycystic kidney disease, cyst to liver, nodule lt lung, thoracic aneurysm. Obesity. Cataracts bulmaro. Recent nausea, dark stools, wgt fluctuations, dysphagia if eats too fast. History of Any Multi-Drug Resistant Organisms: None Reported Past Surgical History: Bariatric Surgery, Breast Surgery, Cholecystectomy, Hysterectomy Additional Past Surgical History / Comment(s): Hx colonoscopy. Hx double mastectomy, thyroidectomy, lap band (not filled), bunionectomy bulmaro ft foot surg, bilateral carpal tunnel, surgeries for staph infection rt breast implant. Past Anesthesia/Blood Transfusion Reactions: Motion Sickness Past Psychological History: Anxiety, Depression Smoking Status: Never smoker Past Alcohol Use History: None Reported Past Drug Use History: None Reported - Past Family History Father Family Medical History: Cancer, Renal Disease Additional Family Medical History / Comment(s): polycystic kidney, kidney transplant, poss CA behind heart R/T Rx General Exam Limitations: no limitations General appearance: alert, in no apparent distress Head exam: Present: atraumatic, normocephalic, normal inspection Eye exam: Present: normal appearance, PERRL, EOMI. Absent: scleral icterus, conjunctival injection, periorbital swelling ENT exam: Present: normal exam, mucous membranes moist Neck exam: Present: normal inspection. Absent: tenderness, meningismus, lymphadenopathy Respiratory exam: Present: normal lung sounds bilaterally. Absent: respiratory distress, wheezes, rales, rhonchi, stridor Cardiovascular Exam: Present: regular rate, normal rhythm, normal heart sounds. Absent: systolic murmur, diastolic murmur, rubs, gallop, clicks GI/Abdominal exam: Present: soft, normal bowel sounds. Absent: distended, tenderness, guarding, rebound, rigid Extremities exam: Present: normal inspection, full ROM, normal capillary refill. Absent: tenderness, pedal edema, joint swelling, calf tenderness Back exam: Present: normal inspection Neurological exam: Present: alert, oriented X3, CN II-XII intact Psychiatric exam: Present: normal affect, normal mood Skin exam: Present: warm, dry, intact, normal color. Absent: rash Course Vital Signs 10/28/20 10/28/20 17:52 22:32 Temperature 98.4 F Pulse Rate 64 55 L Respiratory 18 16 Rate Blood Pressure 155/102 144/67 O2 Sat by Pulse 99 97 Oximetry - Reevaluation(s) Reevaluation #1: Medical records reviewed Patient reevaluated is in no acute distress Patient is informed results here in the ER and questions have been answered Patient does feel comfortable for discharge Reevaluation #2: Studies Patient has chest x-ray as well as VQ scan negative for significant disease, BILATERAL LOWER EXTREMITY NEGATIVE FOR DVT Chest Pain MDM - MDM 65 female DF for evaluation of chest pain elevated blood pressure anxiety, at this time patient does feel well here in the ER and can be discharged home Disposition Clinical Impression: Chest pain, Atypical chest pain, Anxiety Disposition: HOME SELF-CARE Condition: Good Instructions (If sedation given, give patient instructions): Chest Pain (ED), Anxiety (ED) Is patient prescribed a controlled substance at d/c from ED?: No Referrals: Stanford Smith DO [Primary Care Provider] - 1-2 days
[2020-10-28 19:22] LABS: Basophils # (A) 0.1 k/uL (0-0.2); Basophils % (A) 1 %; Eosinophils # (A) 0.1 k/uL (0-0.7); Eosinophils % (A) 2 %; HCT 35.3 % (34.0-46.0); Lymphocytes # (A) 1.2 k/uL (1.0-4.8); Lymphocytes % (A) 20 %; MCH 34.2 pg (25.0-35.0); MCV 100.9 fL (80.0-100.0); Mean Platelet Volume 7.5; Monocytes # (A) 0.2 k/uL (0-1.0); Monocytes % (A) 3 %; Neutrophils # (A) 4.2 k/uL (1.3-7.7); Neutrophils % (A) 72 %; Platelet Count 217 k/uL (150-450); RDW 12.5 % (11.5-15.5); WBC 5.8 k/uL (3.8-10.6)
[2020-10-28 19:31] LABS: Albumin 3.9 g/dL (3.5-5.0); Magnesium 1.8 mg/dL (1.6-2.3); Potassium 4.3 mmol/L (3.5-5.1); Total Bilirubin 0.5 mg/dL (0.2-1.3); Total Protein 6.4 g/dL (6.3-8.2)
[2020-10-28 19:43] LABS: INR 0.9 (<1.2); Partial Thromboplastin Time 22.9 sec (22.0-30.0); Prothrombin Time 9.6 sec (9.0-12.0)
[2020-10-28 19:51] LABS: D-Dimer 0.92 mg/L FEU (<0.60)
--- NOTE | 2020-10-28 20:00 | XR ---
Left hand HISTORY: Pain and swelling, burning left hand 3 views of left hand Bone mineralization, joint spaces and alignment are maintained. No fracture or dislocation. There is hypertrophic change at the interphalangeal joint of the first digit, metacarpophalangeal joint of the first digit, carpometacarpal joint of the first digit, distal interphalangeal joints. IMPRESSION: Osteoarthritis.
--- NOTE | 2020-10-28 20:02 | XR ---
EXAMINATION TYPE: XR chest 2V DATE OF EXAM: 10/28/2020 COMPARISON: Prior chest x-ray 05/20/2020, CT 08/06/2020 HISTORY: Chest pain and palpitations TECHNIQUE: Frontal and lateral views of the chest are obtained. FINDINGS: There is no focal air space opacity, pleural effusion, or pneumothorax seen. The cardiac silhouette size is within normal limits. The osseous structures are intact, there is thoracic spond ylosis. Aorta is aneurysmal. IMPRESSION: No acute cardiopulmonary process. Thoracic aortic aneurysm.
--- NOTE | 2020-10-28 21:23 | US ---
EXAMINATION TYPE: US venous doppler duplex LE DATE OF EXAM: 10/28/2020 9:15 PM COMPARISON: NONE CLINICAL HISTORY: dvt. Pain in right leg. Elevated D Dimer. Hx cancer of breast and spine. No hx of D VT. SIDE PERFORMED: Bilateral TECHNIQUE: The lower extremity deep venous system is examined utilizing real time linear array sonog [place] with graded compression, doppler sonography and color-flow sonography. VESSELS IMAGED: Common Femoral Vein Deep Femoral Vein Greater Saphenous Vein * Femoral Vein Popliteal Vein Small Saphenous Vein * Proximal Calf Veins (* superficial vessels) Left and right common femoral, superficial femoral, popliteal veins all compress normally and show no abnormal luminal echoes. Venous waveforms are normal. Right Leg: No evidence of DVT in veins imaged at this time from prox calf veins to CFV/GSV. Left Leg: No evidence of DVT in veins imaged at this time from prox calf veins to CFV/GSV. IMPRESSION: No evident deep venous thrombosis at or above the knees.
--- NOTE | 2020-10-28 22:28 | NM ---
EXAMINATION TYPE: NM pul vent and perfuse DATE OF EXAM: 10/28/2020 COMPARISON: NONE HISTORY: Deep vein thrombosis. Short of breath. TECHNIQUE: Utilizing inhalation of 64.7 mCi Tc 99m DTPA aerosol and intravenous injection of 5.4 mCi of Tc 99m MAA, ventilation and perfusion images are acquired post injection in multiple projections. FINDINGS: There is a very small matching ventilation perfusion defect at the right lung apex. Left lung is fair ly normal. There is no ventilation/perfusion mismatch. IMPRESSION: Small subsegmental matching defect at the right lung apex. There is low probability of pulmonary embo lism.
[2020-10-28 22:33] VITALS: BP 144/67; PULSE 55; RESP 16
== END 2020-10-28 22:49 | disposition home or self-care (01) ==
LOC: EC 17:36
DX: F41.9 Anxiety disorder, unspecified (principal); R07.89 Other chest pain; I10 Essential (primary) hypertension; M79.642 Pain in left hand; M79.89 Other specified soft tissue disorders; R00.2 Palpitations; Z79.890 Hormone replacement therapy; Z79.899 Other long term (current) drug therapy; Z98.84 Bariatric surgery status; Z90.89 Acquired absence of other organs; Z91.041 Radiographic dye allergy status; Z85.850 Personal history of malignant neoplasm of thyroid; Z85.3 Personal history of malignant neoplasm of breast; Z85.830 Personal history of malignant neoplasm of bone
CPT/HCPCS: 36415; 93005; 85379; 83880; 80053; 83735; 84484; 85025; 85610; 85730; 73130; 71046; 93970; 78582; 99285; A9540; A9567

== ENCOUNTER → 2020-11-14 | Outpatient (CLI) | payer OTHER ==
[2020-11-15 02:22] LABS: African American GFR (CKD) 28.1 (60.0-200.0); Albumin 4.2 g/dL (3.80-4.90); Albumin/Globulin Ratio 2.21 (1.60-3.17); Anion Gap 7.7 mmol/L (4.00-12.00); BUN/Creat Ratio 18.1 Ratio (12.00-20.00); Calcium 9.3 mg/dL (8.7-10.3); Carbon Dioxide 26.3 mmol/L (21.6-31.8); Globulin 1.9 g/dL (1.6-3.3); Non-African American GFR(CKD) 24.3 (60.0-200.0); Potassium 4.5 mmol/L (3.5-5.5); Total Bilirubin 0.5 mg/dL (0.2-1.2); Total Protein 6.1 g/dL (6.2-8.2)
== END | disposition home or self-care (01) ==
LOC: LABWHC1 15:32
PROVIDERS: ATTEND Internal Medicine Nephrology
DX: Q61.3 Polycystic kidney, unspecified (principal)
CPT/HCPCS: 36415; 80053

== ENCOUNTER → 2020-12-10 | Outpatient (CLI) | payer OTHER ==
--- NOTE | 2020-12-10 13:49 | CT ---
EXAMINATION TYPE: CT ChestAbdPelvis wo con DATE OF EXAM: 12/10/2020 COMPARISON: HISTORY: Breast Cancer CT DLP: 1442 mGycm. Automated Exposure Control for Dose Reduction was Utilized. TECHNIQUE: CT scan of the thorax, abdomen and pelvis is performed without IV contrast. FINDINGS: LUNGS: 1. 2 mm peripheral right apical lung nodule stable. Within the right middle lobe there are 3 5 7 mm nodules clearly seen on the prior exam. Subpleural no dularity along the medial margin of the right lung base measuring 5 mm stable. No pleural effusion or pneumothorax. No focal pneumonia. MEDIASTINUM: There are no greater than 1 cm hilar or mediastinal lymph nodes. No pericardial effusi on is seen. OTHER: By right elbow breast implants are seen and there is a stable appearing subcutaneous nodule on the left breast measuring 1 cm. LIVER/GB: Numerous hypodense lesions are seen throughout all segments and all lobes of the liver appe ar to be similar to the prior exam most likely on the basis of multiple hepatic cysts. Postcholecyste ctomy changes noted. PANCREAS: No significant abnormality is seen. SPLEEN: 1.2 cm splenic artery aneurysm stable and calcified. ADRENALS: Subcentimeter nodules involving the adrenal glands stable from prior exam and indeterminate . KIDNEYS: Numerous bilateral hypodensity and hyperdense lesions are seen involving both kidneys likely on the basis of polycystic renal disease with both simple and hemorrhagic cysts. Lack of contrast li mits assessment for solid neoplasm.. BOWEL: No significant abnormality is seen. LYMPH NODES: No greater than 1cm abdominal or pelvic lymph nodes are appreciated. OSSEOUS STRUCTURES: Hypertrophic and degenerative change of the spine. Sclerosis of L3-L4 involving t he inferior endplate of L3 likely discogenic. Arthropathy of the hips. OTHER: Lap band noted. Subcutaneous edema noted posteriorly nonspecific. Air within the adjacent tiss ue may represent an area of therapeutic injection correlate clinically. Aorta of normal caliber. Blad tien has a normal appearance. IMPRESSION: 1. Multiple bilateral pulmonary nodules measuring 6 mm or less. The majority are stable. There appear to be two new nodules within the right middle lobe measuring less than 5 mm and too small to charact erize. Recommend 6 month follow-up to confirm stability.. 2. Diffuse changes of polycystic kidney disease with suspected simple and hemorrhagic cysts. Assessme nt for solid Mass. Limited due to lack of contrast. 3. Diffuse hepatic changes likely on the basis of hepatic cyst stable. 4. Increased density and air within the right flank may represent an area of therapeutic injection co rrelate clinically to exclude infectious etiology. 5. There is a 1 cm subcutaneous nodule involving the left breast anteriorly. Anterior to the breast i mplant. This is stable dating back to 2012 and likely benign.
== END | disposition home or self-care (01) ==
LOC: RADCTMAIN 12:40
PROVIDERS: ATTEND Internal Medicine Hematology & Oncology
DX: C50.919 Malignant neoplasm of unspecified site of unspecified female breast (principal); R91.8 Other nonspecific abnormal finding of lung field; Q61.3 Polycystic kidney, unspecified; Z98.82 Breast implant status; Z91.041 Radiographic dye allergy status
CPT/HCPCS: 71250; 74176

== ENCOUNTER → 2020-12-16 | Outpatient (CLI) | payer OTHER ==
[2020-12-16 14:10] VITALS: BP 158/81; PULSE 67; RESP 18; TEMP 98.8; BMI 42.4
[2020-12-16 14:55] LABS: HCT 35.8 % (34.0-46.0); HGB 12.2 gm/dL (11.4-16.0); MCH 34.7 pg (25.0-35.0); MCHC 33.9 g/dL (31.0-37.0); MCV 102.3 fL (80.0-100.0); Macrocytosis Slight; Mean Platelet Volume 7.5; Platelet Count 115 k/uL (150-450); RDW 13.1 % (11.5-15.5); WBC 3.4 k/uL (3.8-10.6)
--- NOTE | 2020-12-16 15:04 | P.HPBAR ---
Bariatric H&P - History & Physicial H&P Date: 12/16/20 History & Physicial: Visit/CC: follow up / lap band Patient initial contact: Initial weight: 112.945 kg Initial weight in pounds: 249.00 Height: 5 ft 6 in Initial BMI: 40.1 Last weight: Current weight: 119.295 kg Current weight in pounds: 263.00 Current BMI: 42.4 [place] body weight (based on NIH guidelines): 58.967 kg Excess body weight loss: The patient is a 65 year-old F who presents for Bariatric Assessment. The patient presents today for LAP-BAND fall. She had issues with chronic nausea and dysphagia. She was scheduled for her band to a gastric sleeve. Unable to have her Lizette adjusted. Past Medical History Past Medical History: Asthma, Cancer, GERD/Reflux, Hypertension, Renal Disease, Thyroid Disorder Additional Past Medical History / Comment(s): Hx 2008 breast CA metastatic stage 4, thyroid CA 6 years ago. 2017 diagnosis of stage 4 bone CA in spine. 12/2016 near syncope w/ suspected low BP. Mild asthma with occasional related rt-sided chest pain. Hx polycystic kidney disease, cyst to liver, nodule lt lung, thoracic aneurysm. Obesity. Cataracts bulmaro. Recent nausea, dark stools, wgt fluctuations, dysphagia if eats too fast. History of Any Multi-Drug Resistant Organisms: None Reported Past Surgical History: Bariatric Surgery, Breast Surgery, Cholecystectomy, Hysterectomy Additional Past Surgical History / Comment(s): Hx colonoscopy. Hx double mastectomy, thyroidectomy, lap band (not filled), bunionectomy bulmaro ft foot surg, bilateral carpal tunnel, surgeries for staph infection rt breast implant. Past Anesthesia/Blood Transfusion Reactions: Motion Sickness Past Psychological History: Anxiety, Depression Additional Psychological History / Comment(s): not currently Smoking Status: Never smoker Past Alcohol Use History: None Reported Past Drug Use History: None Reported - Past Family History Father Family Medical History: Cancer, Renal Disease Additional Family Medical History / Comment(s): polycystic kidney, kidney castillo splant, poss CA behind heart R/T Rx Surgical - Exam Vital Signs Temp Pulse Resp BP 98.8 F 67 18 158/81 12/16/20 14:01 12/16/20 14:01 12/16/20 14:01 12/16/20 14:01 - General well developed, well nourished, no distress - Eyes PERRL - ENT normal pinna - Neck no masses - Respiratory normal expansion - Cardiovascular Rhythm: regular - Abdomen Abdomen: soft, non tender Results - Labs 12/16/20 14:50 Abnormal Lab Results - Last 24 Hours (Table) 12/16/20 Range/Units 14:50 WBC 3.4 L (3.8-10.6) k/uL RBC 3.50 L (3.80-5.40) m/uL MCV 102.3 H (80.0-100.0) fL Plt Count 115 L (150-450) k/uL Bariatric Assessment & Plan Plan: Dysphagia, nausea. Patient undergo EGD. We will attempt to get her insurance authorization for conversion to sleeve gastrectomy Bariatric Checklist Checklist: Plan: Checklist: EGD: 1. Hiatal hernia: 2. H. Pylori: HgbA1c: Vitamin D: Smoking: Never smoker Primary care physician referral: Dr Smith Psychiatry clearance: Cardiology clearance: Sleep study: Diet journal: VTE risk score: VTE risk level: Rehab needs at discharge:
[2020-12-17 00:31] LABS: ALT 18 U/L (8-44); AST 27 U/L (13-35); African American GFR (CKD) 28.1 (60.0-200.0); Albumin/Globulin Ratio 2.39 (1.60-3.17); Alkaline Phosphatase 45 U/L (41-126); BUN/Creat Ratio 18.57 Ratio (12.00-20.00); Calcium 9.4 mg/dL (8.7-10.3); Carbon Dioxide 26.5 mmol/L (21.6-31.8); Chloride 107 mmol/L (96-109); Globulin 1.8 g/dL (1.6-3.3); Glucose 93 mg/dL (70-110); Non-African American GFR(CKD) 24.3 (60.0-200.0); Potassium 5.1 mmol/L (3.5-5.5); Sodium 143 mmol/L (135-145); Total Bilirubin 0.4 mg/dL (0.2-1.2); Total Protein 6.1 g/dL (6.2-8.2)
[2020-12-17 01:57] LABS: Hemoglobin A1C 5.2 % (4.0-6.0)
[2020-12-17 05:05] LABS: Folate, Serum >24.0 ng/mL
== END | disposition home or self-care (01) ==
LOC: BARWHC3 13:39
PROVIDERS: ATTEND Surgery
DX: Z46.51 Encounter for fitting and adjustment of gastric lap band (principal); Z98.84 Bariatric surgery status; Z90.49 Acquired absence of other specified parts of digestive tract; Z90.710 Acquired absence of both cervix and uterus
CPT/HCPCS: 84425; 80053; 82607; 82746; 85027; 82306; 83036; 93005; G0463; 99211

== ENCOUNTER → 2021-01-16 | Outpatient (CLI) | payer OTHER ==
[2021-01-16 19:52] LABS: African American GFR (CKD) 22.8 (60.0-200.0); Albumin 4.3 g/dL (3.80-4.90); Albumin/Globulin Ratio 2.26 (1.60-3.17); Anion Gap 7.3 mmol/L (4.00-12.00); BUN/Creat Ratio 15.2 Ratio (12.00-20.00); Calcium 8.7 mg/dL (8.7-10.3); Carbon Dioxide 28.7 mmol/L (21.6-31.8); Globulin 1.9 g/dL (1.6-3.3); Non-African American GFR(CKD) 19.6 (60.0-200.0); Potassium 4.7 mmol/L (3.5-5.5); Total Bilirubin 0.3 mg/dL (0.3-1.2); Total Protein 6.2 g/dL (6.2-8.2)
== END | disposition home or self-care (01) ==
LOC: LABWHC1 12:07
PROVIDERS: ATTEND Nurse Practitioner Family
DX: Q61.3 Polycystic kidney, unspecified (principal)
CPT/HCPCS: 36415; 80053

== ENCOUNTER → 2021-02-13 | Outpatient (CLI) | payer OTHER ==
[2021-02-14 02:49] LABS: African American GFR (CKD) 26.6 (60.0-200.0); Albumin 4.5 g/dL (3.80-4.90); Albumin/Globulin Ratio 2.25 (1.60-3.17); Anion Gap 10.5 mmol/L (4.00-12.00); BUN/Creat Ratio 15.45 Ratio (12.00-20.00); Calcium 9.6 mg/dL (8.7-10.3); Carbon Dioxide 22.5 mmol/L (21.6-31.8); Non-African American GFR(CKD) 22.9 (60.0-200.0); Potassium 4.9 mmol/L (3.5-5.5); Total Bilirubin 0.4 mg/dL (0.2-1.2); Total Protein 6.5 g/dL (6.2-8.2)
== END | disposition home or self-care (01) ==
LOC: LABWHC1 11:03
PROVIDERS: ATTEND Nurse Practitioner Family
DX: Q61.3 Polycystic kidney, unspecified (principal)
CPT/HCPCS: 36415; 80053

== ENCOUNTER → 2021-02-26 | Outpatient (CLI) | payer OTHER ==
--- NOTE | 2021-02-26 12:57 | CT ---
EXAMINATION TYPE: CT ChestAbdPelvis wo con DATE OF EXAM: 02/26/2021 COMPARISON: 12/10/2020 HISTORY: F/U for breast CA CT DLP: 1459.8mGycm Unenhanced CT of the Chest, Abdomen and Pelvis Unenhanced CT of the chest ,abdomen and pelvis is performed. The lack of intravenous contrast limits evaluation of the solid and hollow viscera. Oral contrast: Yes CT Chest: LUNGS: The lungs are clear and free of infiltrate or atelectasis. Scattered pulmonary nodules persist . Nodules range in size from 1 mm to 5 mm. There appears to be a new 4 mm pulmonary nodule left lung base laterally image 42 as well as a new 2 mm pulmonary nodule in the same area. Total number of nodu les is estimated at 6-10 right lung and approximately 8-10 left lung. There is a new tiny left sided pleural effusion. MEDIASTINUM: Thoracic aorta is of normal caliber. The heart is not enlarged. No evidence for media stinal mass or adenopathy. HILAR STRUCTURES: No evidence for mass. No hilar adenopathy is appreciated. OTHER: Bilateral breast implants are in place. CONTRAST CT ABDOMEN AND PELVIS: LIVER/GB: Innumerable hepatic cystic lesions persist. The gallbladder surgically absent. Biliary tr ee is of normal caliber. PANCREAS: No inflammation. No distinct mass. SPLEEN: No splenic enlargement. 1.2 cm splenic artery aneurysm stable and calcified. ADRENALS: No nodule. No thickening. KIDNEYS/BLADDER: No hydronephrosis. No nephrolithiasis. Numerous bilateral renal cysts are redemons trated. BOWEL: Normal appendix. Normal bowel caliber. No inflammation. GENITAL ORGANS: Hysterectomy changes noted. LYMPH NODES: No greater than 1cm abdominal or pelvic lymph nodes areappreciated. AORTA: No significant abnormality. OSSEOUS STRUCTURES: No significant abnormality is seen. OTHER: No significant additional abnormality is seen. IMPRESSION: 1. 1. Bilateral pulmonary nodules with the interval slight increase in number of nodules particularly at the left lung base. 2. Renal and cystic kidney disease persists.
== END | disposition home or self-care (01) ==
LOC: RADCTMAIN 11:49
PROVIDERS: ATTEND Internal Medicine Hematology & Oncology
DX: C50.919 Malignant neoplasm of unspecified site of unspecified female breast (principal); R91.8 Other nonspecific abnormal finding of lung field; Q61.9 Cystic kidney disease, unspecified
CPT/HCPCS: 71250; 74176

== ENCOUNTER 2021-03-03 12:26 | Emergency (ER) | payer OTHER ==
--- NOTE | 2021-03-03 12:50 | ED ---
General Adult HPI - General Source: patient, RN notes reviewed Mode of arrival: ambulatory Limitations: no limitations <Cecil Burgess - Last Filed: 03/03/21 12:47> <Cristopher Ryan - Last Filed: 03/03/21 19:44> - General Stated complaint: cough, SOB Time Seen by Provider: 03/03/21 12:45 - History of Present Illness Initial comments: This a 65-year-old female presents emergency Department chief complaint of cough congestion shortness of breath. Patient states she was diagnosed with COPD and August. Patient states symptoms have progressively worsened. Last couple days she's had fevers chills and worsening cough. Patient does have history of breast cancer in remission. Patient denies any leg swelling. Patient states that her granddaughter has been sick with a cold. (Cecil Burgess) - Related Data Home Medications Medication Instructions Recorded Confirmed Levothyroxine Sodium [Synthroid] 150 mcg PO DAILY 08/28/19 03/03/21 Palbociclib [Ibrance] 100 mg PO DAILY 08/28/19 03/03/21 hydrALAZINE HCL 37.5 mg PO BID 10/27/19 03/03/21 ALPRAZolam [Xanax] 0.5 mg PO HS PRN 03/03/21 03/03/21 Albuterol Sulfate [Proair Hfa] 2 puff INHALATION RT-QID PRN 03/03/21 03/03/21 Budesonide/Formoterol Fumarate 2 puff INHALATION RT-BID 03/03/21 03/03/21 [Symbicort 80-4.5 Mcg Inhaler] Cholecalciferol [Vitamin D3 (25 50 mcg PO DAILY 03/03/21 03/03/21 Mcg = 1000 Iu)] Cyclobenzaprine [Flexeril] 10 mg PO HS 03/03/21 03/03/21 Jynarque 90 Mg 90 mg PO DAILY 03/03/21 03/03/21 Mv-Min/Vit C/Glut/Lysine/Hb124 1 tab PO BID 03/03/21 03/03/21 [Airborne Effervescent Tablet] Super B Complex 1 tab PO DAILY 03/03/21 03/03/21 Tolvaptan [Jynarque] 30 mg PO HS 03/03/21 03/03/21 Allergies Allergy/AdvReac Type Severity Reaction Status Date / Time Iodinated Contrast Media Allergy Rash/Hives Verified 03/03/21 18:59 [Iodinated Contrast Media - IV Dye] Review of Systems ROS Other: All systems not noted in ROS Statement are negative. <Cecil Burgess - Last Filed: 03/03/21 12:47> ROS Other: All systems not noted in ROS Statement are negative. <Cristopher Ryan - Last Filed: 03/03/21 19:44> ROS Statement: Those systems with pertinent positive or pertinent negative responses have been documented in the HPI. Past Medical History Past Medical History: Asthma, Cancer, GERD/Reflux, Hypertension, Renal Disease, Thyroid Disorder Additional Past Medical History / Comment(s): Hx 2009 breast CA metastatic stage 4, thyroid CA 6 years ago. 2017 diagnosis of stage 4 bone CA in spine. 12/2016 near syncope w/ suspected low BP. Mild asthma with occasional related rt-sided chest pain. Hx polycystic kidney disease, cyst to liver, nodule lt lung, th oracic aneurysm. Obesity. Cataracts bulmaro. Recent nausea, dark stools, wgt fluctuations, dysphagia if eats too fast. History of Any Multi-Drug Resistant Organisms: None Reported Past Surgical History: Bariatric Surgery, Breast Surgery, Cholecystectomy, Hysterectomy Additional Past Surgical History / Comment(s): Hx colonoscopy. Hx double mastectomy, thyroidectomy, lap band (not filled), bunionectomy bulmaro ft foot surg, bilateral carpal tunnel, surgeries for staph infection rt breast implant. Past Anesthesia/Blood Transfusion Reactions: Motion Sickness Past Psychological History: Anxiety, Depression Additional Psychological History / Comment(s): not currently Smoking Status: Never smoker Past Alcohol Use History: None Reported Past Drug Use History: None Reported - Past Family History Father Family Medical History: Cancer, Renal Disease Additional Family Medical History / Comment(s): polycystic kidney, kidney transplant, poss CA behind heart R/T Rx <Cecil Burgess - Last Filed: 03/03/21 12:47> General Exam General appearance: alert, in no apparent distress Head exam: Present: atraumatic, normocephalic, normal inspection Neck exam: Present: normal inspection. Absent: tenderness, meningismus, lymphadenopathy Respiratory exam: Present: decreased breath sounds. Absent: normal lung sounds bilaterally, respiratory distress, wheezes, rales, rhonchi, stridor Cardiovascular Exam: Present: regular rate, normal rhythm, normal heart sounds. Absent: systolic murmur, diastolic murmur, rubs, gallop, clicks <Cceil Burgess - Last Filed: 03/03/21 12:47> General appearance: alert, in no apparent distress Head exam: Present: atraumatic, normocephalic, normal inspection Eye exam: Present: normal appearance, PERRL, EOMI. Absent: scleral icterus, conjunctival injection, periorbital swelling, periorbital tenderness ENT exam: Present: normal exam, mucous membranes moist Neck exam: Absent: thyromegaly (thyroidectomy) Neurological exam: Present: alert, oriented X3 Psychiatric exam: Present: normal affect, normal mood Skin exam: Present: warm, dry, intact, normal color. Absent: rash <Cristopher Ryan - Last Filed: 03/03/21 19:44> Course Vital Signs 03/03/21 03/03/21 03/03/21 12:47 16:52 18:52 Temperature 99.2 F 98.7 F 98.9 F Pulse Rate 98 68 79 Respiratory 18 20 20 Rate Blood Pressure 187/112 143/67 162/102 O2 Sat by Pulse 99 96 97 Oximetry Medical Decision Making <Cristopher Ryan - Last Filed: 03/03/21 19:44> - Medical Decision Making Patient with cough for 3 days, covid + today, patient agreeable to receiving the monoclonal antibodies. Blood pressure 143/67, Oxygen saturation 99%. Chest x- ray shows vague right lower lobe infiltrate, mediastinal structures and heart size stable. Patient will be discharged to follow up with primary care doctor and return to emergency room with increasing shortness of breath, chest pain, or inability to keep fluids down. (Cristopher Ryan) - Lab Data Lab Results 03/03/21 Range/Units 12:51 Coronavirus (PCR) Detected A (Not Detectd) Disposition <Cecil Burgess - Last Filed: 03/03/21 12:47> Is patient prescribed a controlled substance at d/c from ED?: No <Cristopher Ryan - Last Filed: 03/03/21 19:44> Clinical Impression: COVID-19, Viral infection Clinical Impression: (Ruled Out): COVID toes Disposition: HOME SELF-CARE Condition: Fair Instructions (If sedation given, give patient instructions): Coronavirus Disease 2019 (COVID-19) Additional Instructions: Increase fluid intake, Tylenol or Motrin as needed for fevers and body aches, follow-up with the primary care doctor this week. Return if worsening shortness of breath. Referrals: Stanford Smith DO [Primary Care Provider] - 1-2 days
--- NOTE | 2021-03-03 13:08 | XR ---
EXAMINATION TYPE: XR chest 2V DATE OF EXAM: 03/03/2021 COMPARISON: 10/28/2020 HISTORY: Shortness of breath TECHNIQUE: Frontal and lateral views of the chest are obtained. FINDINGS: Scattered senescent parenchymal changes noted. Hyperinflation compatible with COPD. Vague right lower lobe density may reflect developing infiltrate. Correlate clinically. Heart size is stable. Mediastinal structures are stable and grossly unremarkable. No evidence for hilar prominence. Degenerative changes dorsal spine. IMPRESSION: 1. Vague right lower lobe density may reflect developing infiltrate. Correlate clinically.
[2021-03-03 16:53] VITALS: RESP 20
[2021-03-03] MEDS ORDERED: BAMLANIVIMAB (EUA) 700 MG, ETESEVIMAB (EUA) 1,400 MG in SODIUM CHLORIDE 0.9% 50 ML IVPB ONE (17:45)
[2021-03-03] MEDS ORDERED: SODIUM CHLORIDE 0.9% 50 ML IVPB ONE (18:45)
[2021-03-03 18:53] VITALS: PULSE 79
[2021-03-03] MEDS ORDERED: ACETAMINOPHEN TAB 325 MG TAB PO STA (20:03)
[2021-03-03 20:14] VITALS: BP 132/85; TEMP 99.8
== END 2021-03-03 20:10 | disposition home or self-care (01) ==
LOC: EC 12:26
DX: U07.1 COVID-19 (principal); J44.9 Chronic obstructive pulmonary disease, unspecified; K21.9 Gastro-esophageal reflux disease without esophagitis; I10 Essential (primary) hypertension; E66.9 Obesity, unspecified; Z85.3 Personal history of malignant neoplasm of breast; F32.9 Major depressive disorder, single episode, unspecified; F41.9 Anxiety disorder, unspecified
CPT/HCPCS: 87635; 71046; 99285; 96365; Q0245

== ENCOUNTER → 2021-03-26 | Outpatient (CLI) | payer OTHER ==
[2021-03-27 02:12] LABS: T4, Free (Free Thyroxine) 1.2 ng/dL (0.80-1.80)
== END | disposition home or self-care (01) ==
LOC: LABWHC1 14:49
PROVIDERS: ATTEND Internal Medicine
DX: C73 Malignant neoplasm of thyroid gland (principal); E89.0 Postprocedural hypothyroidism
CPT/HCPCS: 36415; 84432; 84439; 84443; 86800

== ENCOUNTER → 2021-04-03 | Outpatient (CLI) | payer OTHER ==
[2021-04-04 00:07] LABS: African American GFR (CKD) 26.6 (60.0-200.0); Anion Gap 14.5 mmol/L (4.00-12.00); BUN/Creat Ratio 14.55 Ratio (12.00-20.00); Calcium 9.3 mg/dL (8.7-10.3); Carbon Dioxide 21.5 mmol/L (21.6-31.8); Non-African American GFR(CKD) 22.9 (60.0-200.0); Potassium 4.5 mmol/L (3.5-5.5)
== END | disposition home or self-care (01) ==
LOC: LABWHC1 09:18
PROVIDERS: ATTEND Internal Medicine Nephrology
DX: N18.4 Chronic kidney disease, stage 4 (severe) (principal)
CPT/HCPCS: 36415; 80048

== ENCOUNTER → 2021-04-22 | Outpatient (CLI) | payer OTHER ==
[2021-04-23 00:06] LABS: African American GFR (CKD) 23.9 (60.0-200.0); Albumin 4.4 g/dL (3.80-4.90); Albumin/Globulin Ratio 1.91 (1.60-3.17); Anion Gap 12.4 mmol/L (4.00-12.00); BUN/Creat Ratio 15.83 Ratio (12.00-20.00); Calcium 8.9 mg/dL (8.7-10.3); Carbon Dioxide 20.6 mmol/L (21.6-31.8); Globulin 2.3 g/dL (1.6-3.3); Non-African American GFR(CKD) 20.6 (60.0-200.0); Potassium 4.4 mmol/L (3.5-5.5); Total Bilirubin 0.4 mg/dL (0.2-1.2); Total Protein 6.7 g/dL (6.2-8.2)
== END | disposition home or self-care (01) ==
LOC: LABWHC1 12:34
PROVIDERS: ATTEND Internal Medicine Nephrology
DX: Q61.3 Polycystic kidney, unspecified (principal)
CPT/HCPCS: 36415; 80053

== ENCOUNTER → 2021-05-24 | Outpatient (CLI) | payer MEDICARE, OTHER ==
[2021-05-24 17:08] LABS: African American GFR (CKD) 27.9 (60.0-200.0); Albumin 4.4 g/dL (3.80-4.90); Albumin/Globulin Ratio 1.91 (1.60-3.17); Anion Gap 7.2 mmol/L (4.00-12.00); BUN/Creat Ratio 16.67 Ratio (12.00-20.00); Calcium 9.5 mg/dL (8.7-10.3); Carbon Dioxide 24.8 mmol/L (21.6-31.8); Globulin 2.3 g/dL (1.6-3.3); Non-African American GFR(CKD) 24.1 (60.0-200.0); Potassium 4.3 mmol/L (3.5-5.5); Total Bilirubin 0.4 mg/dL (0.2-1.2); Total Protein 6.7 g/dL (6.2-8.2)
== END | disposition home or self-care (01) ==
LOC: LABWHC1 10:39
PROVIDERS: ATTEND Nurse Practitioner Family
DX: Q61.3 Polycystic kidney, unspecified (principal)
CPT/HCPCS: 36415; 80053

== ENCOUNTER → 2021-06-09 | Outpatient (CLI) | payer MEDICARE, OTHER ==
--- NOTE | 2021-06-09 12:51 | CT ---
EXAMINATION TYPE: CT ChestAbdPelvis wo con DATE OF EXAM: 06/09/2021 COMPARISON: 02/26/2021 persistent HISTORY: Follow up for breast and thyroid cancer. Left axillary pain and back pain. CT DLP: 1449mGycm Unenhanced CT of the Chest, Abdomen and Pelvis Unenhanced CT of the chest ,abdomen and pelvis is performed. The lack of intravenous contrast limits evaluation of the solid and hollow viscera. Oral contrast: Yes CT Chest: LUNGS: Bilateral pleural effusions are noted which have increased since prior examination. Again ther e are scattered pulmonary nodules seen bilaterally which are small in size and measure less than 5 mm . Some of the nodules are obscured by the aforementioned pleural effusion. No new nodules identified with certainty. MEDIASTINUM: Thoracic aorta is of normal caliber. The heart is not enlarged. No evidence for media stinal mass or adenopathy. HILAR STRUCTURES: No evidence for mass. No hilar adenopathy is appreciated. OTHER: No significant abnormality. CONTRAST CT ABDOMEN AND PELVIS: LIVER/GB: The gallbladder surgically absent. Innumerable cystic lesions are seen throughout the liver without significant change. Biliary tree is of normal caliber. PANCREAS: No inflammation. No distinct mass. SPLEEN: No splenic enlargement. No lesion seen. ADRENALS: No nodule. No thickening. KIDNEYS/BLADDER: No hydronephrosis. No nephrolithiasis. Bilateral renal cysts persist compatible wi th autosomal dominant polycystic kidney disease. BOWEL: Normal appendix. Normal bowel caliber. No inflammation. GENITAL ORGANS: No gross abnormality. LYMPH NODES: No greater than 1cm abdominal or pelvic lymph nodes are appreciated. AORTA: No significant abnormality. OSSEOUS STRUCTURES: Sclerosis of L3 vertebral segment may be on the basis of degenerative change. Ove rall the appearance is stable. OTHER: No significant additional abnormality is seen. IMPRESSION: 1. Stable scattered sub-5 mm pulmonary nodule seen bilaterally. 2. Increasing small pleural effusions. 3. Findings compatible with autosomal dominant polycystic kidney disease. 4 multiple cystic lesions s een throughout the liver.
== END | disposition home or self-care (01) ==
LOC: RADCTMAIN 12:08
PROVIDERS: ATTEND Internal Medicine Hematology & Oncology
DX: R91.8 Other nonspecific abnormal finding of lung field (principal); J90 Pleural effusion, not elsewhere classified; N28.1 Cyst of kidney, acquired; K76.89 Other specified diseases of liver; Z85.3 Personal history of malignant neoplasm of breast; Z85.850 Personal history of malignant neoplasm of thyroid
CPT/HCPCS: 71250; 74176

== ENCOUNTER → 2021-06-16 | Outpatient (CLI) | payer MEDICARE, OTHER ==
[2021-06-16 09:49] LABS: Appearance,Urine Clear (Clear); Bilirubin,Urine Negative (Negative); Blood,Urine Negative (Negative); Color,Urine Yellow; Glucose,Urine (UA) Negative (Negative); Ketones,Urine Negative (Negative); Leukocyte Esterase,Urine Small (Negative); Mucus,Urine Rare /hpf; Nitrite,Urine Negative (Negative); Protein,Urine Negative (Negative); RBC,Urine <1 /hpf (0-5); Specific Gravity,Urine 1.008 (1.001-1.035); Squamous Epithelial Cell,Urine <1 /hpf (0-4); Urobilinogen,Urine <2.0 mg/dL (<2.0); WBC,Urine 3 /hpf (0-5)
[2021-06-16 09:57] LABS: Basophils # (A) 0.1 k/uL (0-0.2); Basophils % (A) 1 %; Eosinophils # (A) 0.1 k/uL (0-0.7); Eosinophils % (A) 1 %; HCT 35.9 % (34.0-46.0); HGB 11.7 gm/dL (11.4-16.0); Lymphocytes # (A) 1.1 k/uL (1.0-4.8); Lymphocytes % (A) 27 %; MCH 33.8 pg (25.0-35.0); MCHC 32.5 g/dL (31.0-37.0); MCV 103.8 fL (80.0-100.0); Macrocytosis Slight; Mean Platelet Volume 7.2; Monocytes # (A) 0.1 k/uL (0-1.0); Monocytes % (A) 3 %; Neutrophils # (A) 2.7 k/uL (1.3-7.7); Neutrophils % (A) 65 %; Platelet Count 257 k/uL (150-450); RBC 3.46 m/uL (3.80-5.40); RDW 13.6 % (11.5-15.5); WBC 4.2 k/uL (3.8-10.6)
[2021-06-16 10:39] LABS: Creatinine,Urine Random 66.1 mg/dL; Protein/Creatinine Ratio,Urine 0.363
[2021-06-16 15:54] LABS: Anion Gap 9.3 mmol/L (4.00-12.00); BUN/Creat Ratio 15.65 Ratio (12.00-20.00); Calcium 10.5 mg/dL (8.7-10.3); Carbon Dioxide 23.7 mmol/L (21.6-31.8); Non-African American GFR(CKD) 21.6 (60.0-200.0); Potassium 4.5 mmol/L (3.5-5.5)
[2021-06-16 15:55] LABS: % Iron Saturation 35.03 (12.00-45.00); Albumin 4.6 g/dL (3.80-4.90); Bilirubin, Conjugated 0.2 mg/dL (0.20-0.40); Bilirubin,Unconjugated 0.3 mg/dL; Globulin 2.3 g/dL (1.6-3.3); Magnesium 1.7 mg/dL (1.5-2.4); Phosphorus 4.3 mg/dL (2.4-5.1); Total Bilirubin 0.5 mg/dL (0.3-1.2); Total Protein 6.9 g/dL (6.2-8.2); Uric Acid 8.4 mg/dL (2.9-7.7)
[2021-06-16 16:05] LABS: Ferritin 1101.8 ng/mL (10.0-291.0)
== END | disposition home or self-care (01) ==
LOC: LABWHC1 09:20
PROVIDERS: ATTEND Nurse Practitioner Family
DX: N18.4 Chronic kidney disease, stage 4 (severe) (principal); N25.81 Secondary hyperparathyroidism of renal origin; Q61.3 Polycystic kidney, unspecified; E55.9 Vitamin D deficiency, unspecified; D64.9 Anemia, unspecified; N39.0 Urinary tract infection, site not specified
CPT/HCPCS: 36415; 80048; 80076; 81001; 82306; 82570; 82728; 83540; 83550; 83735; 83970; 84100; 84156; 84550; 85025

== ENCOUNTER 2021-06-24 07:33 | Day surgery (SDC) | payer MEDICARE, OTHER ==
[2021-06-24 08:16] VITALS: RESP 16; TEMP 98.7
[2021-06-24 08:41] LABS: Mean Platelet Volume 8.3; Platelet Count 171 k/uL (150-450)
[2021-06-24 08:47] LABS: Prothrombin Time 11.1 sec (9.0-12.0)
--- NOTE | 2021-06-24 09:41 | XR ---
EXAMINATION TYPE: XR chest 1V portable DATE OF EXAM: 06/24/2021 COMPARISON: 03/03/2021 HISTORY: Post thoracentesis TECHNIQUE: Single frontal view of the chest is obtained. FINDINGS: Hypertrophic and degenerative change of the spine. Arthropathy of the shoulders. Somewhat coarsened interstitium. Heart size normal. No sizable pneumothorax. IMPRESSION: No sizable pneumothorax postthoracentesis
[2021-06-24 09:43] VITALS: BP 152/88; PULSE 55
--- NOTE | 2021-06-24 10:06 | US ---
Ultrasound-guided therapeutic and diagnostic thoracentesis DATE OF EXAM: 06/24/2021 CLINICAL HISTORY: Right pleural effusion The procedure was discussed with the patient. The risks, complications, benefits, and alternatives we re discussed and any questions were answered. Informed consent was obtained. The patient was placed supine on the ultrasound table and prepped and draped in the usual sterile fas hion. All elements of maximal barrier and sterile technique were utilized. Under ultrasound guidance, access into the Right pleural space was obtained, via the thoracentesis catheter system and direct ultrasound guidanc e. Approximately 500 liters of straw-colored fluid was removed. The patient was stable throughout the procedure and remained stable upon discharge from Department of Radiology. IMPRESSION: 1. Successful therapeutic and diagnostic thoracentesis under ultrasound guidance.
== END 2021-06-24 09:45 | disposition home or self-care (01) ==
LOC: RADPROMAIN 07:33
PROVIDERS: ATTEND Internal Medicine Hematology & Oncology
DX: J90 Pleural effusion, not elsewhere classified (principal); Z91.048 Other nonmedicinal substance allergy status
CPT/HCPCS: 32555; 36415; 71045; 85049; 85610; 88108; 88305; 88341; 88342

== ENCOUNTER → 2021-06-27 | Outpatient (CLI) | payer MEDICARE, OTHER ==
--- NOTE | 2021-06-30 06:31 | PE ---
EXAMINATION TYPE: PET CT fusion skull to thigh DATE OF EXAM: 06/27/2021 COMPARISON: NONE HISTORY: History of breast cancer [address] , on daily chemotherapy. Radiation tr eatment to the spine L3 level after recurrence 2017. TECHNIQUE: Following the intravenous administration of 10.67 mCi of F-18 FDG, whole body images are performed from the skull base to the midthigh. Images are reviewed on the computer in the coronal, a xial, and sagittal planes. Reconstructed rotating images are created on independent workstation and reviewed on the computer. A localization and attenuation correction CT is performed in conjunction with the PET scan. Blood glucose level equals 87 SCAN: Subsequent Scan FINDINGS: SKULL BASE AND NECK: No areas of suspicious hypermetabolic uptake. CHEST, MEDIASTINUM, AND HILAR REGION: Small bilateral pleural effusions are ametabolic. Bilateral mastectomies with implants redemonstrated. Anterior 1 cm soft tissue nodule axial image 92 is ametabolic in the left breast. No areas of abnormal hypermetabolic uptake. ABDOMEN AND PELVIS: Several hypodense lesions throughout the liver are ametabolic consistent with sim ple benign thin-walled cysts. However in addition there are multiple heterogeneous hypermetabolic hyp odense masses consistent with hepatic metastatic disease. Some somewhat confluent inferior right hepa tic lobe, max SUV at this level is 11.08 on axial image 174. Hepatomegaly with prominent right hepati c lobe. Hypermetabolic focus in the inferior rectum/anus axial image 245, max SUV at this level is 4.47s. Can not exclude mucosal neoplasm at this level. Correlate clinically. OSSEOUS STRUCTURES: Innumerable hypermetabolic subtle sclerotic and lytic osseous lesions involving e ntire spine, multiple ribs, pelvic structures and visualized portion of upper and lower extremities c onsistent with diffuse osseous metastatic disease. OTHER CT: Mild to moderate linear scarring and/or atelectatic change. Scattered small pulmonary nodul es redemonstrated for reference the millimeter nodule in the anterior right mid to lower lung axial i mage 108 is ametabolic. Lap band device redemonstrated. Scarring in the gluteal region is noted. Underlying scoliosis with mu ltilevel spurring in the spine. Innumerable cysts scattered throughout both kidneys consistent with p olycystic kidney disease redemonstrated. IMPRESSION: Confirmation of diffuse hepatic metastatic disease. Diffuse osseous metastatic disease no glendy appreciated better on PET CT versus CT.
== END | disposition home or self-care (01) ==
LOC: RADPETMAIN 10:27
PROVIDERS: ATTEND Internal Medicine Hematology & Oncology
DX: C78.7 Secondary malignant neoplasm of liver and intrahepatic bile duct (principal); C79.51 Secondary malignant neoplasm of bone; Z85.3 Personal history of malignant neoplasm of breast
CPT/HCPCS: 78815; A9552

== ENCOUNTER → 2021-07-10 | Outpatient (CLI) | payer MEDICARE, OTHER ==
--- NOTE | 2021-07-10 18:19 | NM ---
EXAMINATION TYPE: NM bone scan whole body DATE OF EXAM: 07/10/2021 COMPARISON: April 21, 2020 nuclear medicine bone scan whole body. June 27, 2021 PET/CT. June 09, 2021 C T of the chest abdomen and pelvis. HISTORY: Breast cancer. Thyroid cancer. Delayed whole-body scanning was performed following the injection of 24.0 mCi Tc 99m MDP. Images acq uired 3 hours post injection. FINDINGS: Demonstrated are areas of radiotracer uptake: 1. Round focal area in the lateral aspect of right sixth rib, likely to be related to healing fractur e, metastasis cannot be excluded. 2. Lateral aspect of left fourth rib, posterior lateral aspect of left sixth rib, posterior aspect of left 10th rib, and medial aspect of left 12th rib. Likely representing metastasis. Focal subtle area of uptake in the posterior aspect of the left apex ninth and 10th ribs likely metastasis 3. Both vertebral bodies and posterior elements in the cervical, thoracic spine and lumbar spine some of which could be related to degenerative changes and some of which likely represents metastasis. 4. Bilateral sacroiliac joints suspicious for metastasis especially on the right side though there ma y be some degenerative changes causing increased uptake as well. 5. Uptake in the bilateral right femur right greater than left likely metastasis. 6. Right proximal tibia, likely represents metastasis. IMPRESSION: Osseous metastasis, new compared to 04/21/2020 however well demonstrated on more recent studies such a s June 27, 2021 PET/CT in June 09, 2021 CT of the chest abdomen and pelvis.
== END | disposition home or self-care (01) ==
LOC: RADNMMAIN 11:09
PROVIDERS: ATTEND Internal Medicine Hematology & Oncology
DX: C79.51 Secondary malignant neoplasm of bone (principal); C50.919 Malignant neoplasm of unspecified site of unspecified female breast; C73 Malignant neoplasm of thyroid gland
CPT/HCPCS: 78306; A9503

== ENCOUNTER 2021-07-21 13:47 | Inpatient (IN) | payer MEDICARE, OTHER ==
[2021-07-21] MEDS ORDERED: DEXAMETHASONE SOD PHOSPHATE 10 MG/ML 1 ML VIAL IV STA (17:22)
[2021-07-21 18:31] LABS: Basophils # (A) 0.1 k/uL (0-0.2); Basophils % (A) 1 %; Eosinophils % (A) 1 %; HCT 39.4 % (34.0-46.0); Lymphocytes # (A) 1.3 k/uL (1.0-4.8); Lymphocytes % (A) 19 %; MCH 34.4 pg (25.0-35.0); MCHC 32.9 g/dL (31.0-37.0); MCV 104.5 fL (80.0-100.0); Macrocytosis Slight; Mean Platelet Volume 8.3; Monocytes # (A) 0.6 k/uL (0-1.0); Monocytes % (A) 8 %; Neutrophils # (A) 4.8 k/uL (1.3-7.7); Neutrophils % (A) 69 %; Platelet Count 260 k/uL (150-450); RBC 3.77 m/uL (3.80-5.40); RDW 13.5 % (11.5-15.5); WBC 6.8 k/uL (3.8-10.6)
[2021-07-21 18:39] LABS: Albumin 4.3 g/dL (3.5-5.0); Magnesium 1.9 mg/dL (1.6-2.3); Potassium 4.2 mmol/L (3.5-5.1); Total Bilirubin 0.6 mg/dL (0.2-1.3)
[2021-07-21 18:49] LABS: INR 0.9 (<1.2); Partial Thromboplastin Time 22.1 sec (22.0-30.0); Prothrombin Time 10.2 sec (9.0-12.0)
[2021-07-21 18:52] LABS: Calcium 13.5 mg/dL (8.4-10.2)
[2021-07-21] MEDS ORDERED: SODIUM CHLORIDE 0.9% 1,000 ML IV ONE (18:54)
--- NOTE | 2021-07-21 19:21 | XR ---
EXAMINATION TYPE: XR chest 2V DATE OF EXAM: 07/21/2021 COMPARISON: 06/24/2021 weakness HISTORY: Wrist TECHNIQUE: 2 views FINDINGS: There is some interstitial infiltrate in the lower lung king. There is mild blunting of t he costophrenic angles. There is mild pulmonary congestion. There are no hilar masses. Bony thorax is intact. IMPRESSION: Small pleural effusions increased compared to old exam. There is probably mild heart fail ure.
--- NOTE | 2021-07-21 19:22 | ED ---
General Adult HPI - General Chief complaint: Recheck/Abnormal Lab/Rx Stated complaint: Possible port infection- sent from [facility] Source: patient Mode of arrival: ambulatory Limitations: no limitations - History of Present Illness Initial comments: 66-year-old female with past history of breast cancer, in remission, asthma, hypertension, chronic kidney disease who presents emergency department from [facility]. We do receive a call from the mid level provider stating that the patient would be coming to our facility for evaluation. The patient has been reporting to right-sided back pain and right lower leg weakness for the past several weeks. She did have a PET scan which was negative. 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 Patient was supposed to have an appointment with the radiation oncologist however never made it to this appointment. She was over at the Center today and was referred here for admission. They would like the patient started on Decadron 4 times daily, consults placed to Dr. Sexton and Dr. White. Also requesting an MRI. Patient admits to increased fatigue. Currently not on any treatment for her breast cancer. States that she was taken off of her immunotherapy 2 weeks ago as she was no longer responding to it. States that she does have liver metastasis. She denies any weakness in her upper extremity. No fevers or chills. No history of strokes. No other alleviating, precipitating or modifying factors - Related Data Home Medications Medication Instructions Recorded Confirmed Levothyroxine Sodium [Synthroid] 150 mcg PO DAILY 08/28/19 07/21/21 Cholecalciferol [Vitamin D3 (25 50 mcg PO DAILY 07/21/21 07/21/21 Mcg = 1000 Iu)] Allergies Allergy/AdvReac Type Severity Reaction Status Date / Time Iodinated Contrast Media Allergy Rash/Hives Verified 07/21/21 17:29 [Iodinated Contrast Media - IV Dye] Review of Systems ROS Statement: Those systems with pertinent positive or pertinent negative responses have been documented in the HPI. ROS Other: All systems not noted in ROS Statement are negative. Past Medical History Past Medical History: Asthma, Cancer, COPD, GERD/Reflux, Hypertension, Renal Disease, Thyroid Disorder Additional Past Medical History / Comment(s): Hx 2008 breast CA metastatic stage 4, thyroid CA 6 years ago. 2017 diagnosis of stage 4 bone CA in spine. 12/2016 near syncope w/ suspected low BP. Mild asthma with occasional related rt-sided chest pain. Hx polycystic kidney disease, cyst to liver, nodule lt lung, thoracic aneurysm. Obesity. Cataracts bulmaro. Recent nausea, dark stools, wgt flu ctuations, dysphagia if eats too fast. History of Any Multi-Drug Resistant Organisms: None Reported Past Surgical History: Bariatric Surgery, Breast Surgery, Cholecystectomy, Hysterectomy Additional Past Surgical History / Comment(s): Hx colonoscopy. Hx double mastectomy, thyroidectomy, lap band (not filled), bunionectomy bulmaro ft foot surg, bilateral carpal tunnel, surgeries for staph infection rt breast implant. Past Anesthesia/Blood Transfusion Reactions: Motion Sickness Past Psychological History: Anxiety, Depression Smoking Status: Never smoker Past Alcohol Use History: None Reported Past Drug Use History: None Reported - Past Family History Father Family Medical History: Cancer, Renal Disease Additional Family Medical History / Comment(s): polycystic kidney, kidney transplant, poss CA behind heart R/T Rx General Exam Limitations: no limitations Course Vital Signs 07/21/21 07/21/21 07/21/21 14:10 18:36 19:44 Temperature 98.4 F Pulse Rate 61 60 65 Respiratory 18 16 Rate Blood Pressure 155/101 167/87 O2 Sat by Pulse 98 97 98 Oximetry 07/21/21 07/21/21 21:00 22:00 Temperature Pulse Rate 61 68 Respiratory 18 16 Rate Blood Pressure 158/70 144/78 O2 Sat by Pulse 95 97 Oximetry EKG Findings - EKG Comments: EKG Findings:: EKG demonstrates sinus bradycardia with rate of 58. [place] interval 154. QRS 102. Qtc 439. No acute ST segment elevations or depressions. Medical Decision Making - Medical Decision Making Upon arrival the patient is placed into room 31. A thorough history and physical exam was performed. I did order an IV. 10 mg of Decadron was administered. Laboratory studies were conducted. I do speak with Dr. Smith who agreed to admit the patient. The patient does have a calcium of 13.5. She was given a liter bolus of normal saline started on 75 mL per hour. I did consult nephrology. MRI of the thoracic and lumbar spine with and without contrast is ordered. Patient remained in stable condition awaiting a bed on the floor - Lab Data Result diagrams: 07/21/21 18:23 07/21/21 18:23 Lab Results 07/21/21 07/21/21 07/21/21 Range/Units 18:23 18:23 18:23 WBC 6.8 (3.8-10.6) k/uL RBC 3.77 L (3.80-5.40) m/uL Hgb 13.0 (11.4-16.0) gm/dL Hct 39.4 (34.0-46.0) % MCV 104.5 H (80.0-100.0) fL MCH 34.4 (25.0-35.0) pg MCHC 32.9 (31.0-37.0) g/dL RDW 13.5 (11.5-15.5) % Plt Count 260 (150-450) k/uL MPV 8.3 Neutrophils % 69 % Lymphocytes % 19 % Monocytes % 8 % Eosinophils % 1 % Basophils % 1 % Neutrophils # 4.8 (1.3-7.7) k/uL Lymphocytes # 1.3 (1.0-4.8) k/uL Monocytes # 0.6 (0-1.0) k/uL Eosinophils # 0.0 (0-0.7) k/uL Basophils # 0.1 (0-0.2) k/uL Macrocytosis Slight PT 10.2 (9.0-12.0) sec INR 0.9 (<1.2) APTT 22.1 (22.0-30.0) sec Sodium (137-145) mmol/L Potassium (3.5-5.1) mmol/L Chloride (98-107) mmol/L Carbon Dioxide (22-30) mmol/L Anion Gap mmol/L BUN (7-17) mg/dL Creatinine (0.52-1.04) mg/dL Est GFR (CKD-EPI)AfAm (>60 ml/min/1.73 sqM) Est GFR (CKD-EPI)NonAf (>60 ml/min/1.73 sqM) Glucose (74-99) mg/dL Plasma Lactic Acid Marcos (0.7-2.0) mmol/L Calcium (8.4-10.2) mg/dL Magnesium (1.6-2.3) mg/dL Total Bilirubin (0.2-1.3) mg/dL AST (14-36) U/L ALT (4-34) U/L Alkaline Phosphatase (38-126) U/L Troponin I (0.000-0.034) ng/mL Total Protein (6.3-8.2) g/dL Albumin (3.5-5.0) g/dL Urine Color Yellow Urine Appearance Cloudy H (Clear) Urine pH 5.0 (5.0-8.0) Ur Specific [place] 1.012 (1.001-1.035) Urine Protein Trace H (Negative) Urine Glucose (UA) Negative (Negative) Urine Ketones Negative (Negative) Urine Blood Negative (Negative) Urine Nitrite Negative (Negative) Urine Bilirubin Negative (Negative) Urine Urobilinogen <2.0 (<2.0) mg/dL Ur Leukocyte Esterase Large H (Negative) Urine RBC 3 (0-5) /hpf Urine WBC 146 H (0-5) /hpf Ur Squamous Epith Cells 1 (0-4) /hpf Urine Bacteria Rare H (None) /hpf 07/21/21 07/21/21 07/21/21 Range/Units 18:23 18:23 18:23 WBC (3.8-10.6) k/uL RBC (3.80-5.40) m/uL Hgb (11.4-16.0) gm/dL Hct (34.0-46.0) % MCV (80.0-100.0) fL MCH (25.0-35.0) pg MCHC (31.0-37.0) g/dL RDW (11.5-15.5) % Plt Count (150-450) k/uL MPV Neutrophils % % Lymphocytes % % Monocytes % % Eosinophils % % Basophils % % Neutrophils # (1.3-7.7) k/uL Lymphocytes # (1.0-4.8) k/uL Monocytes # (0-1.0) k/uL Eosinophils # (0-0.7) k/uL Basophils # (0-0.2) k/uL Macrocytosis PT (9.0-12.0) sec INR (<1.2) APTT (22.0-30.0) sec Sodium 135 L (137-145) mmol/L Potassium 4.2 (3.5-5.1) mmol/L Chloride 101 (98-107) mmol/L Carbon Dioxide 24 (22-30) mmol/L Anion Gap 10 mmol/L BUN 32 H (7-17) mg/dL Creatinine 1.86 H (0.52-1.04) mg/dL Est GFR (CKD-EPI)AfAm 32 (>60 ml/min/1.73 sqM) Est GFR (CKD-EPI)NonAf 28 (>60 ml/min/1.73 sqM) Glucose 79 (74-99) mg/dL Plasma Lactic Acid Marcos 1.2 (0.7-2.0) mmol/L Calcium 13.5 H* (8.4-10.2) mg/dL Magnesium 1.9 (1.6-2.3) mg/dL Total Bilirubin 0.6 (0.2-1.3) mg/dL AST 160 H (14-36) U/L ALT 63 H (4-34) U/L Alkaline Phosphatase 143 H (38-126) U/L Troponin I 0.015 (0.000-0.034) ng/mL Total Protein 7.0 (6.3-8.2) g/dL Albumin 4.3 (3.5-5.0) g/dL Urine Color Urine Appearance (Clear) Urine pH (5.0-8.0) Ur Specific [place] (1.001-1.035) Urine Protein (Negative) Urine Glucose (UA) (Negative) Urine Ketones (Negative) Urine Blood (Negative) Urine Nitrite (Negative) Urine Bilirubin (Negative) Urine Urobilinogen (<2.0) mg/dL Ur Leukocyte Esterase (Negative) Urine RBC (0-5) /hpf Urine WBC (0-5) /hpf Ur Squamous Epith Cells (0-4) /hpf Urine Bacteria (None) /hpf Disposition Clinical Impression: Right leg weakness, Breast cancer, Hypercalcemia, Chronic kidney disease Disposition: ADMITTED IP TO THIS [facility] Condition: Stable Is patient prescribed a controlled substance at d/c from ED?: No Decision to Admit Reason: Admit from EC Decision Date: 07/21/21 Decision Time: 19:22
[2021-07-21] MEDS ORDERED: NALOXONE 0.4 MG/ML 1 ML VIAL IV PRN (19:23)
[2021-07-21 19:24] LABS: Appearance,Urine Cloudy (Clear); Bacteria,Urine Rare /hpf; Bilirubin,Urine Negative (Negative); Blood,Urine Negative (Negative); Color,Urine Yellow; Glucose,Urine (UA) Negative (Negative); Ketones,Urine Negative (Negative); Leukocyte Esterase,Urine Large (Negative); Nitrite,Urine Negative (Negative); Protein,Urine Trace (Negative); RBC,Urine 3 /hpf (0-5); Specific Gravity,Urine 1.012 (1.001-1.035); Squamous Epithelial Cell,Urine 1 /hpf (0-4); Urobilinogen,Urine <2.0 mg/dL (<2.0); WBC,Urine 146 /hpf (0-5)
[2021-07-21] MEDS: SODIUM CHLORIDE 0.9% 1,000 ML IV SCH (19:39)
[2021-07-21] MEDS ORDERED: FUROSEMIDE 10 MG/ML 4 ML VIAL IV STA (21:11)
[2021-07-21] MEDS ORDERED: CALCITONIN INJ 200 UNIT/ML (MDV) VIAL SQ ONE (21:12)
[2021-07-21] MEDS ORDERED: ALPRAZolam 1 MG TAB PO STA (23:25)
[2021-07-21] MEDS: diphenhydrAMINE 25 MG CAP PO SCH (23:46)
[2021-07-22] MEDS: DEXAMETHASONE SOD PHOSPHATE 4 MG/ML 1 ML VIAL IV SCH ×4 (00:32→17:34)
[2021-07-22] MEDS: LEVOTHYROXINE 75 MCG TAB PO SCH (06:29)
[2021-07-22 09:30] LABS: Basophils # (A) 0.01 X 10*3/uL (0.00-0.10); Basophils % (A) 0.2 %; Eosinophils # (A) 0 X 10*3/uL (0.04-0.35); Eosinophils % (A) 0 %; HCT 34.7 % (37.2-46.3); HGB 11.7 g/dL (12.0-15.0); MCH 34.4 pg (27.0-32.0); MCHC 33.7 g/dL (32.0-37.0); MCV 102.1 fL (80.0-97.0); Mean Platelet Volume 10.9 fL (9.5-12.2); Monocytes # (A) 0.04 X 10*3/uL (0.20-1.00); Monocytes % (A) 0.6 %; Neutrophils # (A) 5.66 X 10*3/uL (1.80-7.70); Neutrophils % (A) 90.7 %; Platelet Count 242 X 10*3/uL (140-440); RDW 12.5 % (11.5-14.5); WBC 6.24 X 10*3/uL (4.50-10.00)
--- NOTE | 2021-07-22 09:56 | P.NPCON ---
History of Present Illness - Reason for Consult chronic renal failure - History of Present Illness Reason for consultation: Chronic kidney disease and hypercalcemia History of present illness: Patient is a 66-year-old female seen in renal consultation for chronic kidney disease and hypercalcemia. Patient has chronic kidney disease stage IV secondary to polycystic kidney disease with baseline creatinine in the range of 2-2.3. Creatinine on admission was 1.86. Patient does have history of hypercalcemia with a suppressed PTH. She was taking Tums in the past but stopped. She does admit to taking 2000 units of vitamin D daily prior to admission. She denies vomiting or diarrhea. No chest pain or shortness of breath. Patient also has history of breast cancer with metastatic disease. She is currently on IV steroids. She did receive subcu calcitonin as well as dose of IV Lasix last night. She is maintained on IV fluids. Labs from this morning are pending. Good urine output. No hematuria. Denies use of nonsteroidals. Vital signs are stable. General: The patient appeared well nourished and normally developed. HEENT: Head exam is unremarkable. Neck is without jugular venous distension. LUNGS: Breath sounds decreased. HEART: Rate and Rhythm are regular. ABDOMEN: Soft, no distention. EXTREMITITES: No edema. Past Medical History Past Medical History: Asthma, Cancer, COPD, GERD/Reflux, Hypertension, Renal Disease, Thyroid Disorder Additional Past Medical History / Comment(s): Hx 2009 breast CA metastatic stage 4, thyroid CA 6 years ago. 2017 diagnosis of stage 4 bone CA in spine. 12/2016 near syncope w/ suspected low BP. Mild asthma with occasional related rt-sided chest pain. Hx polycystic kidney disease, cyst to liver, nodule lt lung, thoracic aneurysm. Obesity. Cataracts bulmaro. Recent nausea, dark stools, wgt fluctuations, dysphagia if eats too fast. History of Any Multi-Drug Resistant Organisms: None Reported Past Surgical History: Bariatric Surgery, Breast Surgery, Cholecystectomy, Hysterectomy Additional Past Surgical History / Comment(s): Hx colonoscopy. Hx double mastectomy, thyroidectomy, lap band (not filled), bunionectomy bulmaro ft foot surg, bilateral carpal tunnel, surgeries for staph infection rt breast implant. Past Anesthesia/Blood Transfusion Reactions: Motion Sickness Past Psychological History: Anxiety, Depression Smoking Status: Never smoker Past Alcohol Use History: None Reported Past Drug Use History: None Reported - Past Family History Father Family Medical History: Cancer, Renal Disease Additional Family Medical History / Comment(s): polycystic kidney, kidney transplant, poss CA behind heart R/T Rx Medications and Allergies Home Medications Medication Instructions Recorded Confirmed Type Levothyroxine Sodium [Synthroid] 150 mcg PO DAILY 08/28/19 07/21/21 History Cholecalciferol [Vitamin D3 (25 50 mcg PO DAILY 07/21/21 07/21/21 History Mcg = 1000 Iu)] Allergies Allergy/AdvReac Type Severity Reaction Status Date / Time Iodinated Contrast Media Allergy Rash/Hives Verified 07/21/21 17:29 [Iodinated Contrast Media - IV Dye] Physical Exam Vitals: Vital Signs Temp Pulse Resp BP Pulse Ox 07/22/21 00:20 68 18 150/80 98 07/21/21 22:00 68 16 144/78 97 07/21/21 21:00 61 18 158/70 95 07/21/21 19:44 65 98 07/21/21 18:36 60 16 167/87 97 07/21/21 14:10 98.4 F 61 18 155/101 98 Results - Lab Results Most recent lab results Calcium 13.5 mg/dL (8.4-10.2) H* 07/21/21 18:23 Magnesium 1.9 mg/dL (1.6-2.3) 07/21/21 18:23 07/22/21 03:44 07/21/21 18:23 Assessment and Plan Plan: Assessment: 1. Chronic kidney disease stage IV with baseline creatinine near 2 secondary to polycystic kidney disease. GFR at baseline. 2. Breast cancer with metastatic disease. Oncology following. 3. Hypercalcemia. She was on vitamin D supplementation which is currently held. Also consent for hypercalcemia of malignancy. Plan: Maintain normal saline. Check further workup for hypercalcemia. Continue to hold vitamin D supplementation. Status post subcu calcitonin as well as IV Lasix July 21. Pamidronate has been ordered by oncology. Follow-up morning labs. Thank you for the consultation. I will continue to follow this patient with you during her hospital stay.
[2021-07-22 10:31] LABS: African American GFR (CKD) 33.6 (60.0-200.0); Anion Gap 12.6 mmol/L (4.00-12.00); BUN/Creat Ratio 17.78 Ratio (12.00-20.00); Calcium 11.6 mg/dL (8.7-10.3); Carbon Dioxide 23.4 mmol/L (21.6-31.8); Potassium 4.2 mmol/L (3.5-5.5)
[2021-07-22] MEDS: SODIUM CHLORIDE 0.9% 1,000 ML IV SCH (10:35)
[2021-07-22] MEDS ORDERED: SODIUM CHLORIDE 0.9% 250 ML with PAMIDRONATE 30 MG IV ONE ×2 (11:00)
[2021-07-22] MEDS ORDERED: DOCUSATE 100 MG CAP PO PRN (13:36)
[2021-07-22] MEDS: ACETAMINOPHEN TAB 325 MG TAB PO PRN (13:37)
[2021-07-22] MEDS: PSYLLIUM HUSK 100% 6 GM PACKET PO SCH (13:44)
[2021-07-22] MEDS: SENNOSIDES-DOCUSATE SODIUM 1 EACH TAB PO SCH ×2 (13:44→21:05)
--- NOTE | 2021-07-22 14:57 | P.CONS ---
History of Present Illness - Reason for Consult Consult date: 07/22/21 - Chief Complaint Back pain and right lower extremity weakness - History of Present Illness 66 years old female with history of metastatic breast cancer, presented to the emergency Department for back pain and right lower leg weakness in the past of a several weeks. The patient has a history of a breast cancer ,she is under care of Dr. Pascual for chemotherapy, the patient received palliative external beam radiation therapy to the lumbar spine about 5 years ago. She developed malignant pleural effusion. Most recent PET scan in 06/29/2021 showed hepatic metastatic disease, bilateral pleural effusion, innumerable hypermetabolic sclerotic and lytic osseous lesions involving entire spine, multiple ribs, pelvic structure, and upper and lower extremities, these lesions consistent with diffuse osseous metastatic disease. The patient denies headache nausea vomiting, denies weakness in upper extremities, she does have numbness in the medial side of the right lower leg. Denies urinary or stool incontinence, she does have constipation. There is a plan to have thoracic and lumbar spine MRI today. Review of Systems Constitutional: Reports as per HPI Ears, nose, mouth and throat: Reports as per HPI Cardiovascular: Reports as per HPI Respiratory: Reports as per HPI Gastrointestinal: Reports as per HPI Genitourinary: Reports as per HPI Menstruation: Reports as per HPI Musculoskeletal: Reports as per HPI Musculoskeletal: bilateral: as per HPI Integumentary: Reports as per HPI Neurological: Reports as per HPI, Reports numbness Psychiatric: Reports as per HPI Endocrine: Reports as per HPI Hematologic/Lymphatic: Reports as per HPI Allergic/Immunologic: Reports as per HPI Past Medical History Past Medical History: Asthma, Cancer, COPD, GERD/Reflux, Hypertension, Renal Disease, Thyroid Disorder Additional Past Medical History / Comment(s): Hx 2009 breast CA metastatic stage 4, thyroid CA 6 years ago. 2017 diagnosis of stage 4 bone CA in spine. 12/2016 near syncope w/ suspected low BP. Mild asthma with occasional related rt-sided chest pain. Hx polycystic kidney disease, cyst to liver, nodule lt lung, thoracic aneurysm. Obesity. Cataracts bulmaro. Recent nausea, dark stools, wgt fluctuations, dysphagia if eats too fast. History of Any Multi-Drug Resistant Organisms: None Reported Past Surgical History: Bariatric Surgery, Breast Surgery, Cholecystectomy, Hysterectomy Additional Past Surgical History / Comment(s): Hx colonoscopy. Hx double mastectomy, thyroidectomy, lap band (not filled), bunionectomy bulmaro ft foot surg, bilateral carpal tunnel, surgeries for staph infection rt breast implant. Past Anesthesia/Blood Transfusion Reactions: Motion Sickness Past Psychological History: Anxiety, Depression Smoking Status: Never smoker Past Alcohol Use History: None Reported Past Drug Use History: None Reported - Past Family History Father Family Medical History: Cancer, Renal Disease Additional Family Medical History / Comment(s): polycystic kidney, kidney transplant, poss CA behind heart R/T Rx Medications and Allergies Home Medications Medication Instructions Recorded Confirmed Type Levothyroxine Sodium [Synthroid] 150 mcg PO DAILY 08/28/19 07/21/21 History Cholecalciferol [Vitamin D3 (25 50 mcg PO DAILY 07/21/21 07/21/21 History Mcg = 1000 Iu)] Allergies Allergy/AdvReac Type Severity Reaction Status Date / Time Iodinated Contrast Media Allergy Rash/Hives Verified 07/21/21 17:29 [Iodinated Contrast Media - IV Dye] Physical Exam Vitals: Vital Signs Temp Pulse Pulse Resp BP BP Pulse Ox 07/22/21 13:11 18 07/22/21 12:40 97.8 F 56 L 18 154/76 95 07/22/21 10:35 98.4 F 60 16 148/83 95 07/22/21 08:33 97.8 F 56 L 18 154/76 95 07/22/21 00:20 68 18 150/80 98 07/21/21 22:00 68 16 144/78 97 07/21/21 21:00 61 18 158/70 95 07/21/21 19:44 65 98 07/21/21 18:36 60 16 167/87 97 Intake and Output 07/21/21 07/22/21 07/22/21 22:59 06:59 14:59 Other: Voiding Method Toilet Weight 103.419 kg - Constitutional General appearance: average body habitus, no acute distress - EENT Eyes: PERRLA ENT: normal oropharynx - Neck Neck: no lymphadenopathy, normal ROM Carotids: bilateral: upstroke normal Thyroid: bilateral: normal size - Respiratory Respiratory: bilateral: dullness - Cardiovascular Rhythm: regular - Gastrointestinal General gastrointestinal: normal bowel sounds, soft - Integumentary Integumentary: normal, normal turgor - Musculoskeletal Tenderness point along the upper thoracic spine Musculoskeletal: gait normal, strength equal bilaterally - Psychiatric Psychiatric: A&O x's 3, appropriate affect, intact judgment & insight Results CBC & Chem 7: 07/22/21 03:44 07/22/21 03:44 Labs: Abnormal Lab Results - Last 24 Hours (Table) 07/21/21 07/21/21 07/21/21 Range/Units 18:23 18:23 18:23 RBC 3.77 L (3.80-5.40) m/uL Hgb (12.0-15.0) g/dL Hct (37.2-46.3) % MCV 104.5 H (80.0-100.0) fL MCH (27.0-32.0) pg Lymphocytes # (0.90-5.00) X 10*3/uL Monocytes # (0.20-1.00) X 10*3/uL Eosinophils # (0.04-0.35) X 10*3/uL Sodium 135 L (137-145) mmol/L Anion Gap (4.00-12.00) mmol/L BUN 32 H (7-17) mg/dL Creatinine 1.86 H (0.52-1.04) mg/dL Est GFR (CKD-EPI)AfAm (60.0-200.0) Est GFR (CKD-EPI)NonAf (60.0-200.0) Glucose (70-110) mg/dL Calcium 13.5 H* (8.4-10.2) mg/dL AST 160 H (14-36) U/L ALT 63 H (4-34) U/L Alkaline Phosphatase 143 H (38-126) U/L Urine Appearance Cloudy H (Clear) Urine Protein Trace H (Negative) Ur Leukocyte Esterase Large H (Negative) Urine WBC 146 H (0-5) /hpf Urine Bacteria Rare H (None) /hpf 07/22/21 07/22/21 Range/Units 03:44 03:44 RBC 3.40 L (3.80-5.40) m/uL Hgb 11.7 L (12.0-15.0) g/dL Hct 34.7 L (37.2-46.3) % MCV 102.1 H (80.0-100.0) fL MCH 34.4 H (27.0-32.0) pg Lymphocytes # 0.50 L (0.90-5.00) X 10*3/uL Monocytes # 0.04 L (0.20-1.00) X 10*3/uL Eosinophils # 0 L (0.04-0.35) X 10*3/uL Sodium (137-145) mmol/L Anion Gap 12.60 H (4.00-12.00) mmol/L BUN 32.0 H (7-17) mg/dL Creatinine 1.8 H (0.52-1.04) mg/dL Est GFR (CKD-EPI)AfAm 33.6 L (60.0-200.0) Est GFR (CKD-EPI)NonAf 29.0 L (60.0-200.0) Glucose 181 H (70-110) mg/dL Calcium 11.6 H (8.4-10.2) mg/dL AST (14-36) U/L ALT (4-34) U/L Alkaline Phosphatase (38-126) U/L Urine Appearance (Clear) Urine Protein (Negative) Ur Leukocyte Esterase (Negative) Urine WBC (0-5) /hpf Urine Bacteria (None) /hpf Microbiology - Last 24 Hours (Table) 07/21/21 18:23 Urine Culture - Preliminary Urine,Voided Assessment and Plan Assessment: Metastatic breast cancer presented with medicament pleural effusion, liver lesions, and diffuse osseous metastatic disease involving the entire spine, multiple ribs, pelvic structure, and upper and lower extremities. (1) Breast cancer Current Visit: Yes Status: Acute Code(s): C50.919 - MALIGNANT NEOPLASM OF UNSP SITE OF UNSPECIFIED FEMALE BREAST SNOMED Code(s): 798425237 (2) Right leg weakness Current Visit: Yes Status: Acute Code(s): R29.898 - OTH SYMPTOMS AND SIGNS INVOLVING THE MUSCULOSKELETAL SYSTEM SNOMED Code(s): 849989223 Plan: Images reviewed, waiting for a MRI thoracic and lumbar MRI to be done to rule out cord compression. Nevertheless the patient would be a candidate for palliative external beam radiation therapy to the spine, as the patient complains of pain in the upper thoracic spine. I talked to the patient by the rationale , the technique, and the potential acute and late side effects of the treatment. We'll review the MRI for further evaluation and finalize our recommendation.
--- NOTE | 2021-07-22 17:01 | P.CONS ---
History of Present Illness - Reason for Consult Consult date: 07/22/21 met breast cancer, lower extremity weakness Requesting physician: Kimmy Telles - Chief Complaint lower extremity weakness, numbness - History of Present Illness is a very pleasant pt of Dr. Pascual with a long Hx of breast cancer. Stage IIb left breast cancer diagnosed in January 2008 for which she had bilateral mastectomies and left axillary node dissection, adjuvant systemic treatment per [id number] which was completed on 09/20/2008. Took Tamoxifen at completion of chemotherapy until . She was on adjuvant bisphosphonate trial but, was terminated because of unusual side effects of Zometa. She had a total hysterectomy in 06/2012. CT 06/19/13 revealed no evidence of recurrence. She was given Rx for arimidex in May 2013 to extend adjuvant endocrine therapy but, she did not start taking it until October, she tolerated it fine except for some arthlagia. Bone density 01/28/[address] CAP 02/02/17 due to abdominal pain, revealed a lytic lesion at L3. Bone scan 02/09/17 revealed suspicious uptake at L3 level. MRI of lumbar spine 02/22/17 revealed suspicious destructive lesion at L3. Biopsy of L3 03/18/17 was positive for metastatic breast cancer, ER/OR+ and HER2/LILIANE negative. She completed XRT to L3 04/20/17. Started ibrance/faslodex/xgeva March 2017. She had multiple disease monitoring scans and it wasn't until 12/10/20 CT CAP stable disease but, two 5 mm new lung nodules. CT CAP02/25/21 revealed new 4 mm and 2 left lung nodules, however,she was diagnosed with COVID on 03/01/21 and she received monoclonal antibodies. 06/09/21 CT CAP revealed stable sub 5 mm lung nodules, pleural effusion, stable sclerotic lesion at L3, possible new liver lesions. 06/24/21 diagnostic right thoracentesis was positive for metastatic breast cancer, ER/OR+ and HER2/LILIANE negative. 06/27/21 PET scan revealed diffuse osseous mets, multiple liver lesions. 07/07/21 she had liquid biopsy done, she was supposed to see Rad Onc and then plans for next eileen atment. She was seen in ofc yesterday for bone scan f/u, she c/o inability to walk, in pain, and weak. She was sent to ER. Pending MRI T/L spine, steroids started, Rad Onc consulted. Symptoms started to progress about 2 days ago, tingling in the legs, lateral calf is numb, can still tell when she is needing to have a BM or urinate-just can't hold. Recent constipation, sick when she eats, did vomit yesterday, cough is dry. Ca++ noted to be 13.8. Review of Systems 10 point ROS is neg except as stated in HPI Past Medical History Past Medical History: Asthma, Cancer, COPD, GERD/Reflux, Hypertension, Renal Disease, Thyroid Disorder Additional Past Medical History / Comment(s): Hx 2009 breast CA metastatic stage 4, thyroid CA 6 years ago. 2017 diagnosis of stage 4 bone CA in spine. 12/2016 near syncope w/ suspected low BP. Mild asthma with occasional related rt-sided chest pain. Hx polycystic kidney disease, cyst to liver, nodule lt lung, thoracic aneurysm. Obesity. Cataracts bulmaro. Recent nausea, dark stools, wgt fluctuations, dysphagia if eats too fast. History of Any Multi-Drug Resistant Organisms: None Reported Past Surgical History: Bariatric Surgery, Breast Surgery, Cholecystectomy, Hysterectomy Additional Past Surgical History / Comment(s): Hx colonoscopy. Hx double mastectomy, thyroidectomy, lap band (not filled), bunionectomy bulmaro ft foot surg, bilateral carpal tunnel, surgeries for staph infection rt breast implant. Past Anesthesia/Blood Transfusion Reactions: Motion Sickness Past Psychological History: Anxiety, Depression Smoking Status: Never smoker Past Alcohol Use History: None Reported Past Drug Use History: None Reported - Past Family History Father Family Medical History: Cancer, Renal Disease Additional Family Medical History / Comment(s): polycystic kidney, kidney transplant, poss CA behind heart R/T Rx Medications and Allergies Home Medications Medication Instructions Recorded Confirmed Type Levothyroxine Sodium [Synthroid] 150 mcg PO DAILY 08/28/19 07/21/21 History Cholecalciferol [Vitamin D3 (25 50 mcg PO DAILY 07/21/21 07/21/21 History Mcg = 1000 Iu)] Allergies Allergy/AdvReac Type Severity Reaction Status Date / Time Iodinated Contrast Media Allergy Rash/Hives Verified 07/21/21 17:29 [Iodinated Contrast Media - IV Dye] Physical Exam Vitals: Vital Signs Temp Pulse Resp BP Pulse Ox 08/24/21 00:20 68 18 150/80 98 07/21/21 22:00 68 16 144/78 97 07/21/21 21:00 61 18 158/70 95 07/21/21 19:44 65 98 07/21/21 18:36 60 16 167/87 97 07/21/21 14:10 98.4 F 61 18 155/101 98 - Constitutional General appearance: cooperative, no acute distress, obese - EENT Eyes: anicteric sclerae, EOMI ENT: hearing grossly normal, normal oropharynx - Neck Neck: no lymphadenopathy - Respiratory Respiratory: bilateral: CTA - Cardiovascular Rhythm: regular Heart sounds: normal: S1, S2 Abnormal Heart Sounds: no systolic murmur, no diastolic murmur, no rub, no S3 Gallop, no S4 Gallop, no click, no other leg Peripheral Edema: bilateral: None - Gastrointestinal General gastrointestinal: no absent bowel sounds, no decreased bowel sounds, no distended, no hepatomegaly, no hyperactive bowel sounds, normal bowel sounds, no organomegaly, no rigid, no scaphoid, soft, no splenomegaly, no tenderness, no umbilical hernia, no ventral hernia - Integumentary Integumentary: normal - Neurologic no lower extremity deficits, pt able to feel soft touch in perineal area and on legs Neurologic: CNII-XII intact - Musculoskeletal Musculoskeletal: generalized weakness, strength equal bilaterally - Psychiatric Psychiatric: A&O x's 3, appropriate affect, intact judgment & insight Results CBC & Chem 7: 07/22/21 03:44 07/22/21 03:44 Labs: Abnormal Lab Results - Last 24 Hours (Table) 07/21/21 07/21/21 07/21/21 Range/Units 18:23 18:23 18:23 RBC 3.77 L (3.80-5.40) m/uL MCV 104.5 H (80.0-100.0) fL Sodium 135 L (137-145) mmol/L BUN 32 H (7-17) mg/dL Creatinine 1.86 H (0.52-1.04) mg/dL Calcium 13.5 H* (8.4-10.2) mg/dL AST 160 H (14-36) U/L ALT 63 H (4-34) U/L Alkaline Phosphatase 143 H (38-126) U/L Urine Appearance Cloudy H (Clear) Urine Protein Trace H (Negative) Ur Leukocyte Esterase Large H (Negative) Urine WBC 146 H (0-5) /hpf Urine Bacteria Rare H (None) /hpf Microbiology - Last 24 Hours (Table) 07/21/21 18:23 Urine Culture - Preliminary Urine,Voided Assessment and Plan (1) Right leg weakness Narrative/Plan: MRI T/L spine pending Current Visit: Yes Status: Acute Priority: High Code(s): R29.898 - OTH SYMPTOMS AND SIGNS INVOLVING THE MUSCULOSKELETAL SYSTEM SNOMED Code(s): 455389551 (2) Hypercalcemia Narrative/Plan: Aredia ordered. Suspect r/t bone mets/hypercalcemia of malignancy. Ca++ level in AM. Current Visit: Yes Status: Acute Priority: High Code(s): E83.52 - HYPERCALCEMIA SNOMED Code(s): 56312640 (3) Breast cancer Narrative/Plan: Recent disease progression in bones, lungs and liver. Pending palliative XRT for painful bone mets-MRI pending, steroids started. Rad Onc consulted, case discussed with Dr. Armijo Liquid biopsy done in of, pending results for further treatment recommendations. F/U with Dr. Pascual will be scheduled Current Visit: Yes Status: Chronic Priority: High Code(s): C50.919 - MALIGNANT NEOPLASM OF UNSP SITE OF UNSPECIFIED FEMALE BREAST SNOMED Code(s): 052138436 Plan: Doctor attests: I performed a history and physical examination of this patient, developed impression and plan of care, discussed with dictator. I agree with dictators note, documented as a scribe.
--- NOTE | 2021-07-22 18:09 | P.HPIM ---
<Gretta Banegas - Last Filed: 07/22/21 18:25> History of Present Illness H&P Date: 07/22/21 Chief Complaint: Right leg weakness, metastatic breast cancer This is a 66-year-old female with past medical history of CT chest abdomen and pelvis on 06/09/2021 PET scan 06/27/2021 Whole body bone scan completed on 07/10/2021 reporting new osseous epistaxis is compared to 04/21/2020 Review of Systems ROS Statement: Those systems with pertinent positive or pertinent negative responses have been documented in the HPI. ROS Other: All systems not noted in ROS Statement are negative. Past Medical History Past Medical History: Asthma, Cancer, COPD, GERD/Reflux, Hypertension, Renal Disease, Thyroid Disorder Additional Past Medical History / Comment(s): Hx 2008 breast CA metastatic stage 4, thyroid CA 6 years ago. 2017 diagnosis of stage 4 bone CA in spine. 12/2016 near syncope w/ suspected low BP. Mild asthma with occasional related rt-sided chest pain. Hx polycystic kidney disease, cyst to liver, nodule lt lung, thoracic aneurysm. Obesity. Cataracts bulmaro. Recent nausea, dark stools, wgt fluctuations, dysphagia if eats too fast. History of Any Multi-Drug Resistant Organisms: None Reported Past Surgical History: Bariatric Surgery, Breast Surgery, Cholecystectomy, Hysterectomy Additional Past Surgical History / Comment(s): Hx colonoscopy. Hx double mastectomy, thyroidectomy, lap band (not filled), bunionectomy bulmaro ft foot surg, bilateral carpal tunnel, surgeries for staph infection rt breast implant. Past Anesthesia/Blood Transfusion Reactions: Motion Sickness Past Psychological History: Anxiety, Depression Smoking Status: Never smoker Past Alcohol Use History: None Reported Past Drug Use History: None Reported - Past Family History Father Family Medical History: Cancer, Renal Disease Additional Family Medical History / Comment(s): polycystic kidney, kidney transplant, poss CA behind heart R/T Rx Medications and Allergies Home Medications Medication Instructions Recorded Confirmed Type Levothyroxine Sodium [Synthroid] 150 mcg PO DAILY 08/28/19 07/21/21 History Cholecalciferol [Vitamin D3 (25 50 mcg PO DAILY 07/21/21 07/21/21 History Mcg = 1000 Iu)] Allergies Allergy/AdvReac Type Severity Reaction Status Date / Time Iodinated Contrast Media Allergy Rash/Hives Verified 07/21/21 17:29 [Iodinated Contrast Media - IV Dye] Physical Exam Vitals: Vital Signs Temp Pulse Pulse Resp BP BP Pulse Ox 07/22/21 13:11 18 07/22/21 12:40 97.8 F 56 L 18 154/76 95 07/22/21 10:35 98.4 F 60 16 148/83 95 07/22/21 08:33 97.8 F 56 L 18 154/76 95 07/22/21 00:20 68 18 150/80 98 07/21/21 22:00 68 16 144/78 97 07/21/21 21:00 61 18 158/70 95 07/21/21 19:44 65 98 07/21/21 18:36 60 16 167/87 97 Intake and Output 07/22/21 07/22/21 07/22/21 06:59 14:59 22:59 Intake Total 480 1050 Balance 480 1050 Intake: Intake, IV Titration 450 Amount Sodium Chloride 0.9% 1, 450 000 ml @ 75 mls/hr IV . [id number] [facility] Rx#:[id number] Oral 480 600 Other: Voiding Method Toilet # Voids 4 Weight 103.419 kg Results CBC & Chem 7: 07/22/21 03:44 07/22/21 03:44 Labs: Abnormal Lab Results - Last 24 Hours (Table) 07/21/21 07/21/21 07/21/21 Range/Units 18:23 18:23 18:23 RBC 3.77 L (3.80-5.40) m/uL Hgb (12.0-15.0) g/dL Hct (37.2-46.3) % MCV 104.5 H (80.0-100.0) fL MCH (27.0-32.0) pg Lymphocytes # (0.90-5.00) X 10*3/uL Monocytes # (0.20-1.00) X 10*3/uL Eosinophils # (0.04-0.35) X 10*3/uL Sodium 135 L (137-145) mmol/L Anion Gap (4.00-12.00) mmol/L BUN 32 H (7-17) mg/dL Creatinine 1.86 H (0.52-1.04) mg/dL Est GFR (CKD-EPI)AfAm (60.0-200.0) Est GFR (CKD-EPI)NonAf (60.0-200.0) Glucose (70-110) mg/dL Calcium 13.5 H* (8.4-10.2) mg/dL AST 160 H (14-36) U/L ALT 63 H (4-34) U/L Alkaline Phosphatase 143 H (38-126) U/L Urine Appearance Cloudy H (Clear) Urine Protein Trace H (Negative) Ur Leukocyte Esterase Large H (Negative) Urine WBC 146 H (0-5) /hpf Urine Bacteria Rare H (None) /hpf 07/22/21 07/22/21 Range/Units 03:44 03:44 RBC 3.40 L (3.80-5.40) m/uL Hgb 11.7 L (12.0-15.0) g/dL Hct 34.7 L (37.2-46.3) % MCV 102.1 H (80.0-100.0) fL MCH 34.4 H (27.0-32.0) pg Lymphocytes # 0.50 L (0.90-5.00) X 10*3/uL Monocytes # 0.04 L (0.20-1.00) X 10*3/uL Eosinophils # 0 L (0.04-0.35) X 10*3/uL Sodium (137-145) mmol/L Anion Gap 12.60 H (4.00-12.00) mmol/L BUN 32.0 H (7-17) mg/dL Creatinine 1.8 H (0.52-1.04) mg/dL Est GFR (CKD-EPI)AfAm 33.6 L (60.0-200.0) Est GFR (CKD-EPI)NonAf 29.0 L (60.0-200.0) Glucose 181 H (70-110) mg/dL Calcium 11.6 H (8.4-10.2) mg/dL AST (14-36) U/L ALT (4-34) U/L Alkaline Phosphatase (38-126) U/L Urine Appearance (Clear) Urine Protein (Negative) Ur Leukocyte Esterase (Negative) Urine WBC (0-5) /hpf Urine Bacteria (None) /hpf Microbiology - Last 24 Hours (Table) 07/21/21 18:23 Urine Culture - Preliminary Urine,Voided Thrombosis Risk Factor Assmnt - Choose All That Apply Any of the Below Risk Factors Present?: Yes Each Risk Factor Represents 2 Points: Age 61-74 years, Malignancy Thrombosis Risk Factor Assessment Total Risk Factor Score: 4 Thrombosis Risk Factor Assessment Level: Moderate Risk Assessment and Plan Assessment: Medical debility, increased weakness, increased right leg weakness secondary to recent metastatic breast cancer. Patient reports in liver, lungs and bones History of breast cancer approximately 13 years ago Hypercalcemia Chronic kidney disease, stage IV secondary to polycystic kidney disease Plan: Continue on current medication regimen ,monitoring and symptomatic treatment. Oncology and radiation oncology consulted. Potential palliative radiation treatment. IV fluid hydration, IV dexamethasone. PPI for GI prophylaxis. <Stanford Smith - Last Filed: 07/22/21 21:41> History of Present Illness history of a breast cancer ,she is under care of Dr. Pascual for chemotherapy, the patient received palliative external beam radiation therapy to the lumbar spine about 5 years ago. She developed malignant pleural effusion . Most recent PET scan in 06/29/2021 showed hepatic metastatic disease, bilateral pleural effusion, innumerable hypermetabolic sclerotic and lytic osseous lesions involving entire spine, multiple ribs, pelvic structure, and upper and lower extremities, these lesions consistent with diffuse osseous metastatic disease. Physical Exam Osteopathic Statement: *. No significant issues noted on an osteopathic structural exam other than those noted in the History and Physical/Consult. Vitals: Vital Signs Temp Pulse Pulse Resp BP BP Pulse Ox 07/22/21 20:14 98.0 F 57 L 16 154/81 93 L 07/22/21 13:11 18 07/22/21 12:40 97.8 F 56 L 18 154/76 95 07/22/21 10:35 98.4 F 60 16 148/83 95 07/22/21 08:33 97.8 F 56 L 18 154/76 95 07/22/21 00:20 68 18 150/80 98 07/21/21 22:00 68 16 144/78 97 Intake and Output 07/22/21 07/22/21 07/22/21 06:59 14:59 22:59 Intake Total 480 1050 Balance 480 1050 Intake: Intake, IV Titration 450 Amount Sodium Chloride 0.9% 1, 450 000 ml @ 75 mls/hr IV . [id number] [facility] Rx#:[id number] Oral 480 600 Other: Voiding Method Toilet # Voids 4 Weight 103.419 kg GENERAL: This is a -66year-old in distress at the time of examination. Pleasant and cooperative . HEENT: Head is atraumatic, normocephalic. Pupils are equal, round, and reactive to light. Sclerae anicteric. Conjunctivae are clear. Mucus membranes of the mouth are moist. Neck is supple. RESPIRATORY: Clear to auscultation. No wheezes, rales, or rhonchi. Patient maintaining oxygen saturation greater than 92%. CARDIOVASCULAR: Regular rate and rhythm. GASTROINTESTINAL: No distention noted. Abdomen soft and round. Normal active bowel sounds auscultated x 4 quadrants. No pain or tenderness noted upon palpation. INTEGUMENTARY: No cyanosis. No jaundice. No rashes noted. No cellulitis noted. EXTREMITIES: 2+ peripheral pulses. +1peripheral edema. No calf tenderness noted. NEUROLOGIC: Cranial nerves II-XII intact. PSYCHIATRIC: Awake, alert, and oriented X 3. Results CBC & Chem 7: 07/22/21 03:44 07/22/21 03:44 Labs: Abnormal Lab Results - Last 24 Hours (Table) 07/22/21 07/22/21 Range/Units 03:44 03:44 RBC 3.40 L (4.10-5.20) X 10*6/uL Hgb 11.7 L (12.0-15.0) g/dL Hct 34.7 L (37.2-46.3) % MCV 102.1 H (80.0-97.0) fL MCH 34.4 H (27.0-32.0) pg Lymphocytes # 0.50 L (0.90-5.00) X 10*3/uL Monocytes # 0.04 L (0.20-1.00) X 10*3/uL Eosinophils # 0 L (0.04-0.35) X 10*3/uL Anion Gap 12.60 H (4.00-12.00) mmol/L BUN 32.0 H (9.0-27.0) mg/dL Creatinine 1.8 H (0.6-1.5) mg/dL Est GFR (CKD-EPI)AfAm 33.6 L (60.0-200.0) Est GFR (CKD-EPI)NonAf 29.0 L (60.0-200.0) Glucose 181 H (70-110) mg/dL Calcium 11.6 H (8.7-10.3) mg/dL Microbiology - Last 24 Hours (Table) 07/21/21 18:23 Urine Culture - Final Urine,Voided Assessment and Plan (1) Metastases to the liver Current Visit: Yes Status: Acute Code(s): C78.7 - SECONDARY MALIG NEOPLASM OF LIVER AND INTRAHEPATIC BILE DUCT SNOMED Code(s): 80707614 (2) Chronic kidney disease Current Visit: Yes Status: Acute Code(s): N18.9 - CHRONIC KIDNEY DISEASE, UNSPECIFIED SNOMED Code(s): 338535017 (3) Hypercalcemia Current Visit: Yes Status: Acute Priority: High Code(s): E83.52 - HYPERCALCEMIA SNOMED Code(s): 30280533 (4) Right leg weakness Current Visit: Yes Status: Acute Priority: High Code(s): R29.898 - OTH SYMPTOMS AND SIGNS INVOLVING THE MUSCULOSKELETAL SYSTEM SNOMED Code(s): 829839761 (5) Breast cancer Current Visit: Yes Status: Chronic Priority: High Code(s): C50.919 - MALIGNANT NEOPLASM OF UNSP SITE OF UNSPECIFIED FEMALE BREAST SNOMED Code(s): 145356828 (6) Intractable back pain Current Visit: No Status: Acute Code(s): M54.9 - DORSALGIA, UNSPECIFIED SNOMED Code(s): 681423127 (7) Unable to ambulate Current Visit: No Status: Acute Code(s): R26.2 - DIFFICULTY IN WALKING, NOT ELSEWHERE CLASSIFIED SNOMED Code(s): 658634164
[2021-07-22] MEDS: diphenhydrAMINE 25 MG CAP PO SCH (21:05)
[2021-07-22] MEDS: PANTOPRAZOLE 40 MG/10 ML VIAL IVP SCH (21:05)
[2021-07-23] MEDS: DEXAMETHASONE SOD PHOSPHATE 4 MG/ML 1 ML VIAL IV SCH ×3 (00:24→12:23)
[2021-07-23] MEDS: SODIUM CHLORIDE 0.9% 1,000 ML IV SCH ×3 (00:26→20:36)
[2021-07-23 01:37] LABS: Protein, Total 6.6 g/dL (6.2-8.2)
[2021-07-23] MEDS: LEVOTHYROXINE 75 MCG TAB PO SCH (06:00)
[2021-07-23] MEDS: PSYLLIUM HUSK 100% 6 GM PACKET PO SCH (09:03)
[2021-07-23] MEDS: SENNOSIDES-DOCUSATE SODIUM 1 EACH TAB PO SCH ×2 (09:03→20:30)
[2021-07-23] MEDS: PANTOPRAZOLE 40 MG/10 ML VIAL IVP SCH (09:05)
--- NOTE | 2021-07-23 09:27 | MR ---
EXAMINATION TYPE: MR tspine/lspine wo/w con DATE OF EXAM: 07/23/2021 COMPARISON: Bone scan 07/10/2021, PET/CT 06/27/2021 HISTORY: RLE weakness, Hx of breast ca TECHNIQUE: Multiplanar, multisequence images of the lumbar and thoracic spine is performed without and with IV c ontrast, utilizing 10.5 mL intravenous Gadavist FINDINGS: Thoracic spine MRI: Thoracic vertebral bodies show preserved height and alignment. There is no eviden t spinal stenosis or foraminal encroachment. All of the thoracic vertebral bodies show varying degree s of abnormal marrow replacement within the vertebral bodies and to varying extent within the posteri or elements. Thoracic cord signal is maintained on sagittal images however on axial image 16 at the l evel of T7-8 there is some questionable increased signal on T2-weighted images, questionable increase d signal also noted at T5-6 within the cord, there is some motion, artifact and no evident correspond ing signal change on T1-weighted images. Bilateral pleural effusions are noted incidentally. Kidneys are largely replaced by cystic foci. There is no sizable disc herniation. There is multilevel spondylosis present. There is some loss of d isc signal at the mid and lower intervertebral levels is consistent with disc desiccation. There is a spinal curvature. There is marrow enhancement following contrast administration within the areas of intermediate signal on T1, T2-weighted sequences. IMPRESSION: Metastatic disease. Questionable signal changes within the thoracic cord as described, po ssible artifact. Lumbar spine MRI: Similar to the lumbar spine there is diffuse abnormal signal within the vertebral bodies and visualiz ed pelvis, underlying degenerative disc changes also present but there is no significant spinal steno sis. Some foraminal encroachment is present at L3-4 due to circumferential extension endplate disc co mplex. Loss of disc height signal is consistent with disc desiccation and degenerative disc disease greatest at L2-3 and L3-4. The conus is at L1 shows an unremarkable appearance. Enhancement of the multifocal areas of marrow replacement is noted following contrast administration. Vertebral body height is alicia ntained. There is multilevel spondylosis with endplate discogenic marrow signal change. IMPRESSION: Metastatic disease. No evident spinal stenosis. There is degenerative disc disease with f oraminal encroachment greatest on the right at L3-4.
[2021-07-23 09:44] LABS: Angiotensin-1 Converting Enz. 48 U/L (8-52)
[2021-07-23 10:02] LABS: African American GFR (CKD) 38.8 (60.0-200.0); Albumin 3.9 g/dL (3.80-4.90); Albumin/Globulin Ratio 1.86 (1.60-3.17); Anion Gap 11.7 mmol/L (4.00-12.00); BUN/Creat Ratio 20.63 Ratio (12.00-20.00); Calcium 10.3 mg/dL (8.7-10.3); Carbon Dioxide 23.3 mmol/L (21.6-31.8); Globulin 2.1 g/dL (1.6-3.3); Magnesium 1.7 mg/dL (1.5-2.4); Non-African American GFR(CKD) 33.5 (60.0-200.0); Potassium 3.9 mmol/L (3.5-5.5); Total Bilirubin 0.4 mg/dL (0.2-1.2)
[2021-07-23] MEDS: DOCUSATE 100 MG CAP PO SCH ×2 (12:24→20:30)
[2021-07-23 13:30] LABS: Albumin 3.78 g/dL (3.80-4.90); Gamma Globulin 0.81 g/dL (0.70-1.50)
[2021-07-23] MEDS ORDERED: NA PHOS,M-B/NA PHOS,DI-BA 133 ML ENEMA RECTAL ONE (14:48)
[2021-07-23] MEDS ORDERED: guaiFENesin SYRUP 100MG/5ML 200 MG/10 ML CUP PO PRN (14:48)
--- NOTE | 2021-07-23 14:55 | P.PN ---
Subjective Progress Note Date: 07/23/21 Principal diagnosis: Acute lower extremity weakness, hypercalcemia of malignancy, metastatic breast cancer In follow-up today patient states she is feeling a little bit shaky, weakness might be slightly improved, dry cough can be severe at times,very concerned about constipation. Denies fever, nausea, vomiting, chest pain, dysuria, swelling or bleeding Objective - Vital Signs Vital signs: Vital Signs Temp 97.5 F L 07/23/21 04:48 Pulse 60 07/23/21 04:48 Resp 16 07/23/21 04:48 BP 137/69 07/23/21 04:48 Pulse Ox 93 L 07/23/21 04:48 Intake & Output 07/22/21 07/23/21 07/23/21 18:59 06:59 18:59 Intake Total 1530 600 Balance 1530 600 Weight 103.419 kg Intake: Intake, IV Titration 450 600 Amount Sodium Chloride 0.9% 1, 450 600 000 ml @ 75 mls/hr IV . [id number] [facility] Rx#:[id number] Oral 1080 Other: Voiding Method Toilet Toilet Toilet Diaper Diaper # Voids 4 3 - Constitutional General appearance: Present: cooperative, no acute distress, obese - EENT Eyes: Present: anicteric sclerae, EOMI ENT: Present: hearing grossly normal, normal oropharynx - Respiratory Respiratory: bilateral: other (Tight) - Cardiovascular Rhythm: regular Heart sounds: normal: S1, S2 Abnormal Heart Sounds: Absent: systolic murmur, diastolic murmur, rub, S3 Gallop, S4 Gallop, click, other - Peripheral edema leg Peripheral Edema: bilateral: None - Gastrointestinal General gastrointestinal: Present: normal bowel sounds, soft - Neurologic Neurologic: Present: CNII-XII intact - Musculoskeletal Musculoskeletal: Present: strength equal bilaterally - Psychiatric Psychiatric: Present: A&O x's 3, appropriate affect, intact judgment & insight - Labs CBC & Chem 7: 07/22/21 03:44 07/23/21 05:40 Labs: Abnormal Lab Results - Last 24 Hours (Table) 07/22/21 07/22/21 07/23/21 Range/Units 10:17 10:17 05:40 BUN 33.0 H (9.0-27.0) mg/dL Creatinine 1.6 H (0.6-1.5) mg/dL Est GFR (CKD-EPI)AfAm 38.8 L (60.0-200.0) Est GFR (CKD-EPI)NonAf 33.5 L (60.0-200.0) BUN/Creatinine Ratio 20.63 H (12.00-20.00) Ratio Glucose 140 H (70-110) mg/dL AST 92 H (13-35) U/L ALT 49 H (8-44) U/L Total Protein 6.0 L (6.2-8.2) g/dL Albumin (PEP) 3.78 L (3.80-4.90) g/dL [id number] 0.43 H (0.10-0.40) g/dL PTH Intact 2.2 L (14.0-72.0) pg/mL Microbiology - Last 24 Hours (Table) 07/21/21 18:23 Urine Culture - Final Urine,Voided - Imaging and Cardiology MRI of the thoracic and lumbar spine resulted after patient seen Assessment and Plan (1) Right leg weakness Narrative/Plan: MRI T/L spine Resulted after patient seen. There is metastatic disease to the bone, does not appear to be encroaching on the spinal cord. Radiation Oncology will review the scans as well, awaiting further recommendations from them. Patient was placed on steroids for possible cord compression, patient states only a slight bit of improvement in the lower extremity weakness, tingling. Will decrease the dose Current Visit: Yes Status: Acute Priority: High Code(s): R29.898 - OTH SYMPTOMS AND SIGNS INVOLVING THE MUSCULOSKELETAL SYSTEM SNOMED Code(s): 127509707 (2) Hypercalcemia Narrative/Plan: Aredia given. Calcitonin given. Suspect r/t bone mets/hypercalcemia of malignancy. Ca++ level better today, draw again in AM. Current Visit: Yes Status: Acute Priority: High Code(s): E83.52 - HYPERCALCEMIA SNOMED Code(s): 93209909 (3) Breast cancer Narrative/Plan: Recent disease progression in bones, lungs and liver. Pending palliative XRT for painful bone mets-MRI results to be reviewed by Rad Onc. Taper steroids. Liquid biopsy done, pending results for further treatment recommendations. F/U with Dr. Pascual planned, pending appt to get to chart Patient requested meeting with a dietitian to discuss renal diet. Patient requested access to an enema, she feels that she is pretty constipated. Ordered some cough syrup the patient's dry cough. Cough is likely related to metastatic disease Current Visit: Yes Status: Chronic Priority: High Code(s): C50.919 - MALIGNANT NEOPLASM OF UNSP SITE OF UNSPECIFIED FEMALE BREAST SNOMED Code(s): 812692382
[2021-07-23 15:41] VITALS: BMI 36.8
[2021-07-23 16:09] LABS: Vitamin D, 1, 25-Dihydroxy 24 pg/mL (20 - 79)
[2021-07-23] MEDS: diphenhydrAMINE 25 MG CAP PO SCH (20:30)
[2021-07-23] MEDS: DEXAMETHASONE SOD PHOSPHATE 10 MG/ML 1 ML VIAL IV SCH (20:31)
--- NOTE | 2021-07-23 20:49 | P.PN ---
Subjective Progress Note Date: 07/23/21 history of a breast cancer ,she is under care of Dr. Pascual for chemotherapy, the patient received palliative external beam radiation therapy to the lumbar spine about 5 years ago. She developed malignant pleural effusion . Most recent PET scan in 06/29/2021 showed hepatic metastatic disease, bilateral pleural effusion, innumerable hypermetabolic sclerotic and lytic osseous lesions involving entire spine, multiple ribs, pelvic structure, and upper and lower extremities, these lesions consistent with diffuse osseous metastatic disease. 07/23/2021 potential palliative radiation pending thoracic/lumbar MRI results. Currently denies pain. Positive cough, nonproductive. Denies nausea vomiting or diarrhea. Ambulating from bathroom, reports constipation and right lower leg numbness. Denies chest pain, palpitations or shortness of breath. Objective - Vital Signs Vital signs: Vital Signs Temp 97.9 F 07/23/21 13:00 Pulse 56 L 07/23/21 13:00 Resp 17 07/23/21 13:00 BP 145/82 07/23/21 13:00 Pulse Ox 94 L 07/23/21 13:00 Intake & Output 07/23/21 07/23/21 07/24/21 06:59 18:59 06:59 Intake Total 600 750 Balance 600 750 Weight 103.419 kg Intake: Intake, IV Titration 600 750 Amount Sodium Chloride 0.9% 1, 600 750 000 ml @ 75 mls/hr IV . [id number] COUNTS INCLUDE 234 BEDS AT THE [facility] Rx#:[id number] Other: Voiding Method Toilet Toilet Diaper Diaper # Voids 3 - Exam GENERAL: Sitting up at side of bed, no acute distress HEENT: Head is atraumatic, normocephalic. Pupils are equal, round, and reactive to light. Sclerae anicteric. Conjunctivae are clear. Mucus membranes of the mouth are moist. Neck is supple. RESPIRATORY: Clear to auscultation. No wheezes, rales, or rhonchi. Patient maintaining oxygen saturation greater than 92%. CARDIOVASCULAR: Regular rate and rhythm. GASTROINTESTINAL: No distention noted. Abdomen soft and round. Normal active bowel sounds auscultated x 4 quadrants. No pain or tenderness noted upon palpation. INTEGUMENTARY: No cyanosis. No jaundice. No rashes noted. No cellulitis noted. EXTREMITIES: 2+ peripheral pulses. +1peripheral edema. No calf tenderness noted. NEUROLOGIC: Cranial nerves II-XII intact. PSYCHIATRIC: Awake, alert, and oriented X 3. - Labs CBC & Chem 7: 07/22/21 03:44 07/23/21 05:40 Labs: Abnormal Lab Results - Last 24 Hours (Table) 07/22/21 07/22/21 07/23/21 Range/Units 10:17 10:17 05:40 BUN 33.0 H (9.0-27.0) mg/dL Creatinine 1.6 H (0.6-1.5) mg/dL Est GFR (CKD-EPI)AfAm 38.8 L (60.0-200.0) Est GFR (CKD-EPI)NonAf 33.5 L (60.0-200.0) BUN/Creatinine Ratio 20.63 H (12.00-20.00) Ratio Glucose 140 H (70-110) mg/dL AST 92 H (13-35) U/L ALT 49 H (8-44) U/L Total Protein 6.0 L (6.2-8.2) g/dL Albumin (PEP) 3.78 L (3.80-4.90) g/dL Aighh-5-Rreutbstd 0.43 H (0.10-0.40) g/dL PTH Intact 2.2 L (14.0-72.0) pg/mL Microbiology - Last 24 Hours (Table) 07/21/21 18:23 Urine Culture - Final Urine,Voided Assessment and Plan Assessment: increased weakness, increased Right leg weakness secondary to recent metastatic breast cancer with progression to bones, lung, liver. History of breast cancer approximately 13 years ago Hypercalcemia Chronic kidney disease, stage IV secondary to polycystic kidney disease Plan: Continue on current medication regimen ,monitoring and symptomatic treatment. Potential palliative radiation treatment pending MRI results. Colace increased, Fleet Enema ordered for constipation. Continue IV fluid hydration, IV dexamethasone. Prognosis guarded given multiple complex medical issues. The impression and plan of care has been dictated as directed. : I performed a history and examination of this patient, discussed the same with the dictator. I agree with the dictator's note ,documented as a scribe. Any additional findings or plans will be noted.
[2021-07-24] MEDS: DEXAMETHASONE SOD PHOSPHATE 10 MG/ML 1 ML VIAL IV SCH ×2 (04:03→12:05)
[2021-07-24] MEDS: LEVOTHYROXINE 75 MCG TAB PO SCH (05:40)
[2021-07-24] MEDS: SENNOSIDES-DOCUSATE SODIUM 1 EACH TAB PO SCH ×3 (08:30→19:51)
[2021-07-24] MEDS: PSYLLIUM HUSK 100% 6 GM PACKET PO SCH (08:30)
[2021-07-24] MEDS: PANTOPRAZOLE 40 MG TABLET PO SCH (08:30)
[2021-07-24] MEDS: DOCUSATE 100 MG CAP PO SCH ×3 (08:30→19:51)
[2021-07-24] MEDS ORDERED: ONDANSETRON 4 MG/2 ML VIAL IVP PRN (08:55)
[2021-07-24 09:48] LABS: African American GFR (CKD) 41.9 (60.0-200.0); Albumin 3.7 g/dL (3.80-4.90); Albumin/Globulin Ratio 1.85 (1.60-3.17); BUN/Creat Ratio 24.67 Ratio (12.00-20.00); Calcium 9.4 mg/dL (8.7-10.3); Magnesium 1.6 mg/dL (1.5-2.4); Non-African American GFR(CKD) 36.2 (60.0-200.0); Potassium 3.8 mmol/L (3.5-5.5); Total Bilirubin 0.4 mg/dL (0.2-1.2); Total Protein 5.7 g/dL (6.2-8.2)
--- NOTE | 2021-07-24 10:39 | P.PN ---
Subjective Patient is seen in follow-up for chronic kidney disease. Renal function is a little better. No chest pain or shortness of breath. Oral intake is fair. Calcium level now in the normal range. Vital signs are stable. General: The patient appeared well nourished and normally developed. HEENT: Head exam is unremarkable. LUNGS: Breath sounds decreased. HEART: Rate and Rhythm are regular. ABDOMEN: Soft, no distention. EXTREMITITES: No edema. Objective - Vital Signs Vital signs: Vital Signs Temp 98.0 F 07/24/21 04:12 Pulse 52 L 07/24/21 04:12 Resp 18 07/24/21 04:12 BP 152/61 07/24/21 04:12 Pulse Ox 95 07/24/21 04:12 Intake & Output 07/23/21 07/24/21 07/24/21 18:59 06:59 18:59 Intake Total 750 1525 Balance 750 1525 Weight 103.419 kg Intake: Intake, IV Titration 750 900 Amount Sodium Chloride 0.9% 1, 750 900 000 ml @ 75 mls/hr IV . [id number] [facility] Rx#:[id number] Oral 625 Other: Voiding Method Toilet Toilet Toilet Diaper Diaper Diaper # Voids 1 # Bowel Movements 1 - Labs CBC & Chem 7: 07/22/21 03:44 07/24/21 05:05 Labs: Abnormal Lab Results - Last 24 Hours (Table) 07/22/21 07/24/21 Range/Units 10:17 05:05 Carbon Dioxide 21.0 L (21.6-31.8) mmol/L BUN 37.0 H (9.0-27.0) mg/dL Est GFR (CKD-EPI)AfAm 41.9 L (60.0-200.0) Est GFR (CKD-EPI)NonAf 36.2 L (60.0-200.0) BUN/Creatinine Ratio 24.67 H (12.00-20.00) Ratio AST 88 H (13-35) U/L Total Protein 5.7 L (6.2-8.2) g/dL Albumin 3.70 L (3.80-4.90) g/dL Albumin (PEP) 3.78 L (3.80-4.90) g/dL Lhgvz-2-Kratzaflr 0.43 H (0.10-0.40) g/dL Assessment and Plan Plan: Assessment: 1. Chronic kidney disease stage IV with baseline creatinine near 2 secondary to polycystic kidney disease. GFR at baseline. 2. Breast cancer with metastatic disease. Oncology following. 3. Hypercalcemia from volume contraction. She was on vitamin D supplementation which is currently held. Also concern for hypercalcemia of malignancy. Resolved. PTH appropriately suppressed. Vitamin D levels normal. ELIE level normal. No monoclonality on serum electrophoresis. Plan: Maintain normal saline. Follow-up immunofixation studies. Continue to hold vitamin D supplementation. Status post subcu calcitonin as well as IV Lasix July 21. Status post Pamidronate July 23. Continue to monitor.
[2021-07-24] MEDS: SODIUM CHLORIDE 0.9% 1,000 ML IV SCH (17:38)
--- NOTE | 2021-07-24 18:01 | P.PN ---
Subjective Progress Note Date: 07/24/21 Principal diagnosis: Acute lower extremity weakness, hypercalcemia of malignancy, metastatic breast cancer In follow-up today patient states that the numbness in her leg is now back to the "spider web" feeling that is usually there and has been there for a long time. The shakes and her hands are better. She still feels a little out of sorts but she definitely notices an improvement today. She has questions about palliative care. We reviewed her MRI results. She is having some mild nausea today. No fever, vomiting, cough is stable, did not mention constipation. Objective - Vital Signs Vital signs: Vital Signs Temp 98.0 F 07/24/21 12:55 Pulse 51 L 07/24/21 12:55 Resp 20 07/24/21 12:55 BP 154/82 07/24/21 12:55 Pulse Ox 96 07/24/21 12:55 Intake & Output 07/23/21 07/24/21 07/24/21 18:59 06:59 18:59 Intake Total 750 1525 750 Balance 750 1525 750 Weight 103.419 kg Intake: Intake, IV Titration 750 900 750 Amount Sodium Chloride 0.9% 1, 750 900 750 000 ml @ 75 mls/hr IV . [id number] [facility] Rx#:[id number] Oral 625 Other: Voiding Method Toilet Toilet Toilet Diaper Diaper Diaper # Voids 1 1 # Bowel Movements 1 1 - Constitutional General appearance: Present: average body habitus, cooperative, no acute distress - EENT Eyes: Present: anicteric sclerae, EOMI ENT: Present: hearing grossly normal - Respiratory Details: resp even and unlabored - Psychiatric Psychiatric: Present: A&O x's 3, appropriate affect, intact judgment & insight - Labs CBC & Chem 7: 07/22/21 03:44 07/24/21 05:05 Labs: Abnormal Lab Results - Last 24 Hours (Table) 07/24/21 Range/Units 05:05 Carbon Dioxide 21.0 L (21.6-31.8) mmol/L BUN 37.0 H (9.0-27.0) mg/dL Est GFR (CKD-EPI)AfAm 41.9 L (60.0-200.0) Est GFR (CKD-EPI)NonAf 36.2 L (60.0-200.0) BUN/Creatinine Ratio 24.67 H (12.00-20.00) Ratio AST 88 H (13-35) U/L Total Protein 5.7 L (6.2-8.2) g/dL Albumin 3.70 L (3.80-4.90) g/dL - Imaging and Cardiology MRI T/L spine Assessment and Plan (1) Right leg weakness Narrative/Plan: MRI T/L spine reviewed with pt. There is metastatic disease to the bone, does not appear to be encroaching on the spinal cord. Pending Radiation Oncology to review the scans and make their recommendations. Patient was placed on steroids for possible cord compression, will reduce dose and taper over the next few weeks. She is back to baseline in her neuropathy in her legs-more likely r/t hypercalcemia. Current Visit: Yes Status: Acute Priority: High Code(s): R29.898 - OTH SYMPTOMS AND SIGNS INVOLVING THE MUSCULOSKELETAL SYSTEM SNOMED Code(s): 128389211 (2) Hypercalcemia Narrative/Plan: Aredia given. Calcitonin given. Suspect r/t bone mets/hypercalcemia of maligna ncy. Ca++ level normal today. Current Visit: Yes Status: Resolved Priority: High Code(s): E83.52 - HYPERCALCEMIA SNOMED Code(s): 98019608 (3) Breast cancer Narrative/Plan: Recent disease progression in bones, lungs and liver. Possible palliative XRT for painful bone mets-MRI results to be reviewed by Rad Onc. Taper steroids. Liquid biopsy done, f/u with Dr. Pascual next week to discuss Tx options Patient requested meeting with palliative care team so she can have their support and keep getting treatment. Patient requested access to an enema,no c/o today. Ordered some cough syrup the patient's dry cough, better today. Cough is likely related to metastatic disease Current Visit: Yes Status: Chronic Priority: High Code(s): C50.919 - MALIGNANT NEOPLASM OF UNSP SITE OF UNSPECIFIED FEMALE BREAST SNOMED Code(s): 912991879
--- NOTE | 2021-07-24 19:23 | P.PN ---
Subjective Progress Note Date: 07/24/21 history of a breast cancer ,she is under care of Dr. Pascual for chemotherapy, the patient received palliative external beam radiation therapy to the lumbar spine about 5 years ago. She developed malignant pleural effusion . Most recent PET scan in 06/29/2021 showed hepatic metastatic disease, bilateral pleural effusion, innumerable hypermetabolic sclerotic and lytic osseous lesions involving entire spine, multiple ribs, pelvic structure, and upper and lower extremities, these lesions consistent with diffuse osseous metastatic disease. 07/23/2021 potential palliative radiation pending thoracic/lumbar MRI results. Currently denies pain. Positive cough, nonproductive. Denies nausea vomiting or diarrhea. Ambulating from bathroom, reports constipation and right lower leg numbness. Denies chest pain, palpitations or shortness of breath. 04/23/2021 marked yesterday for potential palliative radiation. Nauseated. Reports needs her home dose of Xanax at night in order to rest. Maintained on gentle IV fluid hydration. Steroid tapering in progress related to spinal cord compression not reported. Continues on pamidronate, Labs pending. Objective - Vital Signs Vital signs: Vital Signs Temp 98.0 F 07/24/21 12:55 Pulse 51 L 07/24/21 12:55 Resp 20 07/24/21 12:55 BP 154/82 07/24/21 12:55 Pulse Ox 96 07/24/21 12:55 Intake & Output 07/24/21 07/24/21 07/25/21 06:59 18:59 06:59 Intake Total 1525 750 Balance 1525 750 Intake: Intake, IV Titration 900 750 Amount Sodium Chloride 0.9% 1, 900 750 000 ml @ 75 mls/hr IV . [id number] [facility] Rx#:[id number] Oral 625 Other: Voiding Method Toilet Toilet Diaper Diaper # Voids 1 1 # Bowel Movements 1 1 - Exam GENERAL: Sitting up in bed, no acute distress HEENT: Head is atraumatic, normocephalic. Pupils are equal, round, and reactive to light. Sclerae anicteric. Conjunctivae are clear. Mucus membranes of the mouth are moist. Neck is supple. RESPIRATORY: Clear to auscultation. No wheezes, rales, or rhonchi. Patient maintaining oxygen saturation greater than 92%. CARDIOVASCULAR: Regular rate and rhythm. GASTROINTESTINAL: No distention noted. Abdomen soft and round. Normal active bowel sounds auscultated x 4 quadrants. No pain or tenderness noted upon palpation. INTEGUMENTARY: No cyanosis. No jaundice. No rashes noted. No cellulitis noted. EXTREMITIES: 2+ peripheral pulses. +1peripheral edema. No calf tenderness noted. NEUROLOGIC: Cranial nerves II-XII intact. PSYCHIATRIC: Awake, alert, and oriented X 3. - Labs CBC & Chem 7: 07/22/21 03:44 07/24/21 05:05 Labs: Abnormal Lab Results - Last 24 Hours (Table) 07/24/21 Range/Units 05:05 Carbon Dioxide 21.0 L (21.6-31.8) mmol/L BUN 37.0 H (9.0-27.0) mg/dL Est GFR (CKD-EPI)AfAm 41.9 L (60.0-200.0) Est GFR (CKD-EPI)NonAf 36.2 L (60.0-200.0) BUN/Creatinine Ratio 24.67 H (12.00-20.00) Ratio AST 88 H (13-35) U/L Total Protein 5.7 L (6.2-8.2) g/dL Albumin 3.70 L (3.80-4.90) g/dL Assessment and Plan Assessment: increased weakness, increased Right leg weakness secondary to recent metastatic breast cancer with progression to bones, lung, liver. History of breast cancer approximately 13 years ago Hypercalcemia Chronic kidney disease, stage IV secondary to polycystic kidney disease Plan: Continue on current medication regimen ,monitoring and symptomatic treatment. Zofran when necessary for nausea. MRI results/options being disc ussed with patient today per oncology.Potential palliative radiation treatment .Continue IV fluid hydration,. Tapering of steroids in progress. Prognosis guarded given multiple complex medical issues. The impression and plan of care has been dictated as directed. : I performed a history and examination of this patient, discussed the same with the dictator. I agree with the dictator's note ,documented as a scribe. Any additional findings or plans will be noted.
[2021-07-24] MEDS: ACETAMINOPHEN TAB 325 MG TAB PO PRN (19:48)
[2021-07-24] MEDS: dexAMETHasone 2 MG TAB PO SCH (19:51)
[2021-07-24] MEDS: diphenhydrAMINE 25 MG CAP PO SCH (19:51)
[2021-07-24] MEDS ORDERED: ALPRAZolam 1 MG TAB PO SCH (21:00)
[2021-07-25] MEDS: SODIUM CHLORIDE 0.9% 1,000 ML IV SCH ×2 (02:23→16:22)
[2021-07-25] MEDS: dexAMETHasone 2 MG TAB PO SCH ×2 (02:23→11:04)
[2021-07-25 05:00] VITALS: RESP 18
[2021-07-25] MEDS: LEVOTHYROXINE 75 MCG TAB PO SCH (05:36)
[2021-07-25 05:40] LABS: ALT 33 U/L (4-34); AST 96 U/L (14-36); African American GFR (CKD) 43 (>60 ml/min/1.73 sqM); Albumin 3.2 g/dL (3.5-5.0); Albumin/Globulin Ratio 1.3; Alkaline Phosphatase 91 U/L (38-126); Anion Gap 7 mmol/L; Blood Urea Nitrogen 35 mg/dL (7-17); Calcium 9.2 mg/dL (8.4-10.2); Carbon Dioxide 20 mmol/L (22-30); Chloride 107 mmol/L (98-107); Globulin 2.5 g/dL; Glucose 102 mg/dL (74-99); Magnesium 1.8 mg/dL (1.6-2.3); Non-African American GFR(CKD) 38 (>60 ml/min/1.73 sqM); Potassium 4.2 mmol/L (3.5-5.1); Sodium 134 mmol/L (137-145); Total Bilirubin 0.3 mg/dL (0.2-1.3); Total Protein 5.7 g/dL (6.3-8.2)
[2021-07-25 07:19] LABS: T4, Free (Free Thyroxine) 1.47 ng/dL (0.78-2.19)
[2021-07-25] MEDS: PANTOPRAZOLE 40 MG TABLET PO SCH (08:58)
[2021-07-25] MEDS: DOCUSATE 100 MG CAP PO SCH (08:58)
[2021-07-25] MEDS: PSYLLIUM HUSK 100% 6 GM PACKET PO SCH (08:59)
[2021-07-25] MEDS: SENNOSIDES-DOCUSATE SODIUM 1 EACH TAB PO SCH (08:59)
[2021-07-25] MEDS: ACETAMINOPHEN TAB 325 MG TAB PO PRN (09:04)
--- NOTE | 2021-07-25 09:55 | P.PN ---
Subjective Patient is seen in follow-up for chronic kidney disease. Renal function is stable. No chest pain or shortness of breath. Oral intake is fair. Calcium level normal. Started radiation July 24. Vital signs are stable. General: The patient appeared well nourished and normally developed. HEENT: Head exam is unremarkable. LUNGS: Breath sounds decreased. HEART: Rate and Rhythm are regular. ABDOMEN: Soft, no distention. EXTREMITITES: No edema. Objective - Vital Signs Vital signs: Vital Signs Temp 97.3 F L 07/25/21 04:59 Pulse 53 L 07/25/21 04:59 Resp 18 07/25/21 04:59 BP 156/80 07/25/21 04:59 Pulse Ox 95 07/25/21 04:59 Intake & Output 07/24/21 07/25/21 07/25/21 18:59 06:59 18:59 Intake Total 750 1300 Balance 750 1300 Intake: Intake, IV Titration 750 900 Amount Sodium Chloride 0.9% 1, 750 900 000 ml @ 75 mls/hr IV . [id number] [facility] Rx#:[id number] Oral 400 Other: Voiding Method Toilet Toilet Toilet Diaper Diaper Diaper # Voids 1 3 # Bowel Movements 1 - Labs CBC & Chem 7: 07/22/21 03:44 07/25/21 04:49 Labs: Abnormal Lab Results - Last 24 Hours (Table) 07/25/21 07/25/21 Range/Units 04:49 04:49 Sodium 134 L (137-145) mmol/L Carbon Dioxide 20 L (22-30) mmol/L BUN 35 H (7-17) mg/dL Creatinine 1.46 H (0.52-1.04) mg/dL Glucose 102 H (74-99) mg/dL AST 96 H (14-36) U/L Total Protein 5.7 L (6.3-8.2) g/dL Albumin 3.2 L (3.5-5.0) g/dL TSH 0.139 L (0.465-4.680) mIU/L Free T3 pg/mL 2.4 L (2.8-5.3) pg/ml Assessment and Plan Plan: Assessment: 1. Chronic kidney disease stage IV with baseline creatinine near 2 secondary to polycystic kidney disease. GFR at baseline. 2. Breast cancer with metastatic disease. Oncology following. 3. Hypercalcemia from volume contraction. She was on vitamin D supplementation which is currently held. Also concern for hypercalcemia of malignancy. PTH appropriately suppressed. Vitamin D levels normal. ELIE level normal. No monoclonality on serum electrophoresis. Calcium level now normal. Plan: Maintain normal saline - decrease rate to 50 mL an hour. Continue to hold vitamin D supplementation. Status post subcu calcitonin as well as IV Lasix July 21. Status post Pamidronate July 23. Continue to monitor.
[2021-07-25] MEDS ORDERED: HYDROmorphone 1 MG/ML 1 ML SYRINGE IVP PRN (10:25)
[2021-07-25 10:46] LABS: Basophils % (A) 0 %; Eosinophils # (A) 0.1 k/uL (0-0.7); Eosinophils % (A) 1 %; HCT 34.7 % (34.0-46.0); HGB 11.5 gm/dL (11.4-16.0); Lymphocytes # (A) 0.6 k/uL (1.0-4.8); Lymphocytes % (A) 4 %; MCH 35.1 pg (25.0-35.0); MCHC 33.2 g/dL (31.0-37.0); MCV 105.9 fL (80.0-100.0); Macrocytosis Moderate; Mean Platelet Volume 8.4; Monocytes # (A) 0.6 k/uL (0-1.0); Monocytes % (A) 4 %; Neutrophils # (A) 12.6 k/uL (1.3-7.7); Neutrophils % (A) 91 %; Platelet Count 281 k/uL (150-450); RBC 3.28 m/uL (3.80-5.40); RDW 13.4 % (11.5-15.5); WBC 13.9 k/uL (3.8-10.6)
[2021-07-25] MEDS: dexAMETHasone 4 MG TAB PO SCH ×2 (11:06→18:23)
[2021-07-25 11:58] VITALS: BP 170/85; PULSE 51; TEMP 97.9
[2021-07-25] MEDS: Acetaminophen-Codeine 300-30mg TAB PO PRN ×2 (12:32→18:23)
--- NOTE | 2021-07-25 13:43 | P.PN ---
Subjective Progress Note Date: 07/25/21 history of a breast cancer ,she is under care of Dr. Pascual for chemotherapy, the patient received palliative external beam radiation therapy to the lumbar spine about 5 years ago. She developed malignant pleural effusion . Most recent PET scan in 06/29/2021 showed hepatic metastatic disease, bilateral pleural effusion, innumerable hypermetabolic sclerotic and lytic osseous lesions involving entire spine, multiple ribs, pelvic structure, and upper and lower extremities, these lesions consistent with diffuse osseous metastatic disease. 07/23/2021 potential palliative radiation pending thoracic/lumbar MRI results. Currently denies pain. Positive cough, nonproductive. Denies nausea vomiting or diarrhea. Ambulating from bathroom, reports constipation and right lower leg numbness. Denies chest pain, palpitations or shortness of breath. 04/23/2021 marked yesterday for potential palliative radiation. Nauseated. Reports needs her home dose of Xanax at night in order to rest. Maintained on gentle IV fluid hydration. Steroid tapering in progress related to spinal cord compression not reported. Continues on pamidronate, Labs pending. 04/24/2021 calcium normalized, pamidronate discontinued yesterday. Scheduled for palliative radiation today. Complains of right leg numbness, pain. Afebrile. Labs pending. Objective - Vital Signs Vital signs: Vital Signs Temp 97.9 F 07/25/21 11:42 Pulse 51 L 07/25/21 11:42 Resp 18 07/25/21 11:42 BP 170/85 07/25/21 11:42 Pulse Ox 95 07/25/21 11:42 Intake & Output 07/24/21 07/25/21 07/25/21 18:59 06:59 18:59 Intake Total 750 1300 Balance 750 1300 Intake: Intake, IV Titration 750 900 Amount Sodium Chloride 0.9% 1, 750 900 000 ml @ 75 mls/hr IV . [id number] [facility] Rx#:[id number] Oral 400 Other: Voiding Method Toilet Toilet Toilet Diaper Diaper Diaper # Voids 1 3 # Bowel Movements 1 - Exam GENERAL: Sitting up in chair, no acute distress HEENT: Head is atraumatic, normocephalic. Pupils are equal, round, and reactive to light. Sclerae anicteric. Conjunctivae are clear. Mucus membranes of the mouth are moist. NECK: Supple. No JVD RESPIRATORY: Clear to auscultation. No wheezes, rales, or rhonchi. CARDIOVASCULAR: Regular rate and rhythm. GASTROINTESTINAL: No distention noted. Abdomen soft and round. Normal active bowel sounds auscultated x 4 quadrants. No pain or tenderness noted upon palpation. INTEGUMENTARY: No cyanosis. No jaundice. No rashes noted. EXTREMITIES: 2+ peripheral pulses. +1peripheral edema. No calf tenderness noted. NEUROLOGIC: Cranial nerves II-XII intact. PSYCHIATRIC: Awake, alert, and oriented X 3. - Labs CBC & Chem 7: 07/25/21 04:49 07/25/21 04:49 Labs: Abnormal Lab Results - Last 24 Hours (Table) 07/25/21 07/25/21 07/25/21 Range/Units 04:49 04:49 04:49 WBC 13.9 H (3.8-10.6) k/uL RBC 3.28 L (3.80-5.40) m/uL MCV 105.9 H (80.0-100.0) fL MCH 35.1 H (25.0-35.0) pg Neutrophils # 12.6 H (1.3-7.7) k/uL Lymphocytes # 0.6 L (1.0-4.8) k/uL Sodium 134 L (137-145) mmol/L Carbon Dioxide 20 L (22-30) mmol/L BUN 35 H (7-17) mg/dL Creatinine 1.46 H (0.52-1.04) mg/dL Glucose 102 H (74-99) mg/dL AST 96 H (14-36) U/L Total Protein 5.7 L (6.3-8.2) g/dL Albumin 3.2 L (3.5-5.0) g/dL TSH 0.139 L (0.465-4.680) mIU/L Free T3 pg/mL 2.4 L (2.8-5.3) pg/ml Assessment and Plan Assessment: increased weakness, increased Right leg weakness secondary to recent metastatic breast cancer with progression to bones, lung, liver. History of breast cancer approximately 13 years ago Hypercalcemia Chronic kidney disease, stage IV secondary to polycystic kidney disease Plan: Continue on current medication regimen ,monitoring and symptomatic treatment.Palliative radiation treatment today . Maintain gentle IV fluid hydration,. Steroid tapering. Prognosis guarded given multiple complex medical issues. Medically cleared, Continue following closely with oncology. The impression and plan of care has been dictated as directed. : I performed a history and examination of this patient, discussed the same with the dictator. I agree with the dictator's note ,documented as a scribe. Any additional findings or plans will be noted.
[2021-07-25] MEDS ORDERED: PANTOPRAZOLE 40 MG TABLET PO SCH (17:30)
--- NOTE | 2021-07-26 00:09 | P.PN ---
Subjective Progress Note Date: 07/25/21 feeling better today and planning for discharge Objective - Vital Signs Vital signs: Vital Signs Temp 97.3 F L 07/25/21 04:59 Pulse 53 L 07/25/21 04:59 Resp 18 07/25/21 04:59 BP 156/80 07/25/21 04:59 Pulse Ox 95 07/25/21 04:59 Intake & Output 07/24/21 07/25/21 07/25/21 18:59 06:59 18:59 Intake Total 750 1300 Balance 750 1300 Intake: Intake, IV Titration 750 900 Amount Sodium Chloride 0.9% 1, 750 900 000 ml @ 75 mls/hr IV . [id number] [facility] Rx#:[id number] Oral 400 Other: Voiding Method Toilet Toilet Toilet Diaper Diaper Diaper # Voids 1 3 # Bowel Movements 1 - Exam - Constitutional General appearance: Present: average body habitus, cooperative, no acute distress - EENT Eyes: Present: anicteric sclerae, EOMI ENT: Present: hearing grossly normal - Respiratory Details: resp even and unlabored RLE Weakness Heart: Tachy, Reg Lungs: Diminished and labored with anxiety - Psychiatric Psychiatric: Present: A&O x's 3, appropriate affect, intact judgment & insight - Labs CBC & Chem 7: 07/25/21 04:49 07/25/21 04:49 Labs: Abnormal Lab Results - Last 24 Hours (Table) 07/25/21 07/25/21 Range/Units 04:49 04:49 Sodium 134 L (137-145) mmol/L Carbon Dioxide 20 L (22-30) mmol/L BUN 35 H (7-17) mg/dL Creatinine 1.46 H (0.52-1.04) mg/dL Glucose 102 H (74-99) mg/dL AST 96 H (14-36) U/L Total Protein 5.7 L (6.3-8.2) g/dL Albumin 3.2 L (3.5-5.0) g/dL TSH 0.139 L (0.465-4.680) mIU/L Free T3 pg/mL 2.4 L (2.8-5.3) pg/ml Assessment and Plan Plan: - Imaging and Cardiology MRI T/L spine Assessment and Plan (1) Right leg weakness Narrative/Plan: - MRI T/L spine reviewed with pt. - There is metastatic disease to the bone, no obvious spinal cord involvement - Radiation Oncology initiated palliaitive treatment for pain. - Taper corticosteroids Current Visit: Yes Status: Acute Priority: High Code(s): R29.898 - OTH SYMPTOMS AND SIGNS INVOLVING THE MUSCULOSKELETAL SYSTEM SNOMED Code(s): 933483440 (2) Hypercalcemia Narrative/Plan: Status post dose of Aredia and Calcitonin - Suspect r/t bone mets/hypercalcemia of malignancy. Ca++ level normal today. Current Visit: Yes Status: Resolved Priority: High Code(s): E83.52 - HYPERCALCEMIA SNOMED Code(s): 12454663 (3) Breast cancer Narrative/Plan: Recent disease progression in bones, lungs and liver. Possible palliative XRT for painful bone mets-MRI results to be reviewed by Rad Onc. Taper steroids. Liquid biopsy done, f/u with Dr. Pascual next week to discuss further Treatment plan and options Current Visit: Yes Status: Chronic Priority: High Code(s): C50.919 - MALIGNANT NEOPLASM OF UNSP SITE OF UNSPECIFIED FEMALE BREAST SNOMED Code(s): 515285080
--- NOTE | 2021-07-28 13:00 | P.DS ---
Providers Date of admission: 07/21/21 19:24 Expected date of discharge: 07/25/21 Attending physician: Stanford Smith Consults: 07/21/21 19:22 Consult Physician Urgent Consulting Provider: Jb White Consult Reason/Comments: breast cancer Do you want consulting provider notified?: Yes Consult Physician Urgent Consulting Provider: González Sexton Consult Reason/Comments: breast cancer Do you want consulting provider notified?: Yes 07/21/21 19:49 Consult Physician Urgent Consulting Provider: Julio C Oden Consult Reason/Comments: ckd, acute hypercalcemia Do you want consulting provider notified?: Yes Primary care physician: Stanford Smith Hospital Course: Final Diagnoses: increased weakness, increased Right leg weakness secondary to recent metastatic breast cancer with progression to bones, lung, liver. History of breast cancer approximately 13 years ago Hypercalcemia Chronic kidney disease, stage IV secondary to polycystic kidney disease Hospital course:history of a breast cancer ,she is under care of Dr. Pascual for chemotherapy, the patient received palliative external beam radiation therapy to the lumbar spine about 5 years ago. She developed malignant pleural effusion . Most recent PET scan in 06/29/2021 showed hepatic metastatic disease, bilateral pleural effusion, innumerable hypermetabolic sclerotic and lytic osseous lesions involving entire spine, multiple ribs, pelvic structure, and upper and lower extremities, these lesions consistent with diffuse osseous metastatic disease. 07/23/2021 potential palliative radiation pending thoracic/lumbar MRI results. Currently denies pain. Positive cough, nonproductive. Denies nausea vomiting or diarrhea. Ambulating from bathroom, reports constipation and right lower leg numbness. Denies chest pain, palpitations or shortness of breath. 04/23/2021 marked yesterday for potential palliative radiation. Nauseated. Reports needs her home dose of Xanax at night in order to rest. Maintained on gentle IV fluid hydration. Steroid tapering in progress related to spinal cord compression not reported. Continues on pamidronate, Labs pending. 04/24/2021 calcium normalized, pamidronate discontinued yesterday. Scheduled for palliative radiation today. Complains of right leg numbness, pain. Afebrile. Labs pending. Significant clinical improvement, cleared by nephrology and oncology for discharge. Patient will be discharged home today in a stable condition with guarded prognosis. The impression and plan of care has been dictated as directed. : I performed a history and examination of this patient, discussed the same with the dictator. I agree with the dictator's note ,documented as a scribe. Any additional findings or plans will be noted. Patient Condition at Discharge: Stable Plan - Discharge Summary Discharge Rx Participant: No New Discharge Prescriptions: New Psyllium Husk 100% [Metamucil Packet] 6 gm PO DAILY packet diphenhydrAMINE [Benadryl] 25 mg PO HS cap Docusate [Colace] 100 mg PO BID cap dexAMETHasone ORAL [Hexadrol] 4 mg PO BID #30 tab Pantoprazole [Protonix] 40 mg PO AC-BID #60 tablet. Sennosidebrittanie-Docusate Sodium [Senokot-S] 2 each PO BID tab Continue Levothyroxine Sodium [Synthroid] 150 mcg PO DAILY No Action ALPRAZolam [Xanax] 0.5 mg PO HS PRN PRN Reason: anxiety Discharge Medication List Levothyroxine Sodium [Synthroid] 150 mcg PO DAILY 08/28/19 [History] Docusate [Colace] 100 mg PO BID cap 07/25/21 [Rx] Pantoprazole [Protonix] 40 mg PO AC-BID #60 tablet. 07/25/21 [Rx] Psyllium Husk 100% [Metamucil Packet] 6 gm PO DAILY packet 07/25/21 [Rx] Sennosides-Docusate Sodium [Senokot-S] 2 each PO BID tab 07/25/21 [Rx] dexAMETHasone ORAL [Hexadrol] 4 mg PO BID #30 tab 07/25/21 [Rx] diphenhydrAMINE [Benadryl] 25 mg PO HS cap 07/25/21 [Rx] ALPRAZolam [Xanax] 0.5 mg PO HS PRN 07/27/21 [History] Follow up Appointment(s)/Referral(s): Stanford Smith DO [Primary Care Provider] - 1 Week (Office currently closed ) Lacie Armijo MD [STAFF PHYSICIAN] - 07/28/21 (Patient to contact Nancy on Wednesday morning for further instructions related to follow-up for continued Radiation Therapy.) Sobeida Pascual MD [Family Provider] - 07/28/21 3:30 pm Patient Instructions/Handouts: Dexamethasone (By mouth), External Beam Radiation Therapy (DC), Fall Prevention (DC) Activity/Diet/Wound Care/Special Instructions: [facility]-[phone]-Home care agency has been notified of patient discharging home today. [facility] palliative care - [facility] has been notified of patient discharge and will be in contact about setting up a meeting at home. Discharge Disposition: HOME WITH HOME HEALTH SERVICES
== END 2021-07-25 18:30 | disposition home health service (06) | DRG 436 ==
LOC: EC 13:47 → 4SSUR 19:24 → 5NMEDONC 07-22 03:58
PROVIDERS: ADMIT Family Medicine; ATTEND Family Medicine
DX: C78.7 Secondary malignant neoplasm of liver and intrahepatic bile duct (principal); C79.51 Secondary malignant neoplasm of bone; J91.0 Malignant pleural effusion; N18.4 Chronic kidney disease, stage 4 (severe); Q61.3 Polycystic kidney, unspecified; C50.919 Malignant neoplasm of unspecified site of unspecified female breast; E83.52 Hypercalcemia; E89.0 Postprocedural hypothyroidism; F32.9 Major depressive disorder, single episode, unspecified; F41.9 Anxiety disorder, unspecified; G62.9 Polyneuropathy, unspecified; I12.9 Hypertensive chronic kidney disease with stage 1 through stage 4 chronic kidney disease, or unspecified chronic kidney disease; J44.9 Chronic obstructive pulmonary disease, unspecified; K59.00 Constipation, unspecified; R04.0 Epistaxis; Z17.0 Estrogen receptor positive status [ER+]; Z79.890 Hormone replacement therapy; Z82.71 Family history of polycystic kidney; Z85.3 Personal history of malignant neoplasm of breast; Z85.850 Personal history of malignant neoplasm of thyroid; Z86.16 Personal history of COVID-19; Z90.13 Acquired absence of bilateral breasts and nipples; Z90.710 Acquired absence of both cervix and uterus; Z92.3 Personal history of irradiation; E66.9 Obesity, unspecified; I71.2 Thoracic aortic aneurysm, without rupture; K21.9 Gastro-esophageal reflux disease without esophagitis; K76.89 Other specified diseases of liver
CPT/HCPCS: 36415; 71046; 72157; 72158; 77280; 77290; 77295; 77300; 77332; 77334; 77387; 77412; 80048; 80053; 81001; 82164; 82306; 82652; 83605; 83735; 83970; 84165; 84439; 84443; 84481; 84484; 85025; 85610; 85730; 86334; 86335; 87086; 87635; 93005; 96374; 99285

== ENCOUNTER 2021-07-27 08:39 | Inpatient (IN) | payer MEDICARE, OTHER ==
[2021-07-27] MEDS ORDERED: ASPIRIN 81 MG PO STA (09:14)
[2021-07-27] MEDS ORDERED: SODIUM CHLORIDE 0.9% 500 ML 500 ML IV STA (09:14)
--- NOTE | 2021-07-27 09:39 | ED ---
General Adult HPI - General Chief complaint: Recheck/Abnormal Lab/Rx Stated complaint: Jaw pain, heart burn Time Seen by Provider: 07/27/21 08:51 Source: patient, RN notes reviewed Mode of arrival: wheelchair Limitations: no limitations - History of Present Illness Initial comments: 66-year-old female with a complicated past medical history including metastatic breast cancer, asthma, COPD, hypertension, stage IV kidney disease presents to the emergency room for a chief complaint of right upper back pain. Patient reports that this started this morning. States it was a burning pain. Patient states it was better lying flat or sitting up and walking. Patient was concerned because she had bilateral jaw pain that started last night. It has since resolved but with this upper back pain she was concerned it could be related to her heart. She describes the jaw pain as a pressure in her jaw and also in her neck. Denies shortness of breath. Patient has no other complaints at this time including shortness of breath, chest pain, abdominal pain, nausea or vomiting, headache, or visual changes. - Related Data Home Medications Medication Instructions Recorded Confirmed Levothyroxine Sodium [Synthroid] 150 mcg PO DAILY 08/28/19 07/27/21 Previous Rx's Medication Instructions Recorded Docusate [Colace] 100 mg PO BID cap 07/25/21 Pantoprazole [Protonix] 40 mg PO AC-BID #60 tablet. 07/25/21 Psyllium Husk 100% [Metamucil 6 gm PO DAILY packet 07/25/21 Packet] Sennosides-Docusate Sodium 2 each PO BID tab 07/25/21 [Senokot-S] dexAMETHasone ORAL [Hexadrol] 4 mg PO BID #30 tab 07/25/21 diphenhydrAMINE [Benadryl] 25 mg PO HS cap 07/25/21 Allergies Allergy/AdvReac Type Severity Reaction Status Date / Time Iodinated Contrast Media Allergy Rash/Hives Verified 07/27/21 11:24 [Iodinated Contrast Media - IV Dye] Review of Systems ROS Statement: Those systems with pertinent positive or pertinent negative responses have been documented in the HPI. ROS Other: All systems not noted in ROS Statement are negative. Past Medical History Past Medical History: Asthma, Cancer, COPD, GERD/Reflux, Hypertension, Renal Disease, Thyroid Disorder Additional Past Medical History / Comment(s): Hx 2009 breast CA metastatic stage 4, thyroid CA 6 years ago. 2017 diagnosis of stage 4 bone CA in spine. 12/2016 near syncope w/ suspected low BP. Mild asthma with occasional related rt-sided c hest pain. Hx polycystic kidney disease, cyst to liver, nodule lt lung, thoracic aneurysm. Obesity. Cataracts bulmaro. Recent nausea, dark stools, wgt fluctuations, dysphagia if eats too fast. History of Any Multi-Drug Resistant Organisms: None Reported Past Surgical History: Bariatric Surgery, Breast Surgery, Cholecystectomy, Hysterectomy Additional Past Surgical History / Comment(s): Hx colonoscopy. Hx double mastectomy, thyroidectomy, lap band (not filled), bunionectomy bulmaro ft foot surg, bilateral carpal tunnel, surgeries for staph infection rt breast implant. Past Anesthesia/Blood Transfusion Reactions: Motion Sickness Past Psychological History: Anxiety, Depression Smoking Status: Never smoker Past Alcohol Use History: None Reported Past Drug Use History: None Reported - Past Family History Father Family Medical History: Cancer, Renal Disease Additional Family Medical History / Comment(s): polycystic kidney, kidney transplant, poss CA behind heart R/T Rx General Exam Limitations: no limitations General appearance: alert, in no apparent distress Head exam: Present: atraumatic Eye exam: Present: normal appearance, PERRL, EOMI. Absent: scleral icterus ENT exam: Present: normal exam, mucous membranes moist Neck exam: Present: normal inspection, full ROM. Absent: tenderness Respiratory exam: Present: normal lung sounds bilaterally. Absent: respiratory distress, wheezes Cardiovascular Exam: Present: regular rate, normal rhythm, normal heart sounds GI/Abdominal exam: Present: soft, normal bowel sounds. Absent: distended, tenderness Course Vital Signs 07/27/21 07/27/21 08:42 10:03 Temperature 98 F Pulse Rate 63 61 Respiratory 18 18 Rate Blood Pressure 183/89 183/82 O2 Sat by Pulse 97 97 Oximetry EKG Findings - EKG Comments: EKG Findings:: afib, vent rate 74, qrs duration 78, QTc 437 Medical Decision Making - Medical Decision Making Vitals are stable. Patient presents for pain below the right scapula this morning which has since resolved as well as some jaw pain last night which is abnormal for her. Patient was concerned about her heart. EKG unremarkable. Nonischemic. CBC is unremarkable. CMP does show chronic kidney disease. Troponin negative however BNP is elevated to 4200. There are also basilar effusions noted. At this time given patient's medical history she will be admitted for IV Lasix. We will also get a VQ scan to rule out PE. Admission accepted by Dr nichols - Lab Data Result diagrams: 07/27/21 09:27 07/27/21 09:27 Lab Results 07/27/21 07/27/21 07/27/21 Range/Units 09:27 09:27 09:27 WBC 11.8 H (3.8-10.6) k/uL RBC 3.69 L (3.80-5.40) m/uL Hgb 12.8 (11.4-16.0) gm/dL Hct 38.0 (34.0-46.0) % MCV 103.0 H (80.0-100.0) fL MCH 34.7 (25.0-35.0) pg MCHC 33.7 (31.0-37.0) g/dL RDW 13.3 (11.5-15.5) % Plt Count 156 (150-450) k/uL MPV 8.5 Neutrophils % 86 % Lymphocytes % 7 % Monocytes % 6 % Eosinophils % 1 % Basophils % 0 % Neutrophils # 10.1 H (1.3-7.7) k/uL Lymphocytes # 0.8 L (1.0-4.8) k/uL Monocytes # 0.7 (0-1.0) k/uL Eosinophils # 0.2 (0-0.7) k/uL Basophils # 0.0 (0-0.2) k/uL Macrocytosis Slight PT (9.0-12.0) sec INR (<1.2) APTT (22.0-30.0) sec Sodium 136 L (137-145) mmol/L Potassium 4.1 (3.5-5.1) mmol/L Chloride 107 (98-107) mmol/L Carbon Dioxide 20 L (22-30) mmol/L Anion Gap 9 mmol/L BUN 39 H (7-17) mg/dL Creatinine 1.64 H (0.52-1.04) mg/dL Est GFR (CKD-EPI)AfAm 38 (>60 ml/min/1.73 sqM) Est GFR (CKD-EPI)NonAf 33 (>60 ml/min/1.73 sqM) Glucose 87 (74-99) mg/dL Calcium 9.0 (8.4-10.2) mg/dL Magnesium 1.8 (1.6-2.3) mg/dL Total Bilirubin 0.6 (0.2-1.3) mg/dL AST 114 H (14-36) U/L ALT 37 H (4-34) U/L Alkaline Phosphatase 125 (38-126) U/L Troponin I <0.012 (0.000-0.034) ng/mL NT-Pro-B Natriuret Pep pg/mL Total Protein 6.4 (6.3-8.2) g/dL Albumin 3.7 (3.5-5.0) g/dL Lipase 426 H (23-300) U/L 07/27/21 07/27/21 Range/Units 09:27 11:25 WBC (3.8-10.6) k/uL RBC (3.80-5.40) m/uL Hgb (11.4-16.0) gm/dL Hct (34.0-46.0) % MCV (80.0-100.0) fL MCH (25.0-35.0) pg MCHC (31.0-37.0) g/dL RDW (11.5-15.5) % Plt Count (150-450) k/uL MPV Neutrophils % % Lymphocytes % % Monocytes % % Eosinophils % % Basophils % % Neutrophils # (1.3-7.7) k/uL Lymphocytes # (1.0-4.8) k/uL Monocytes # (0-1.0) k/uL Eosinophils # (0-0.7) k/uL Basophils # (0-0.2) k/uL Macrocytosis PT 10.8 (9.0-12.0) sec INR 1.0 (<1.2) APTT 22.2 (22.0-30.0) sec Sodium (137-145) mmol/L Potassium (3.5-5.1) mmol/L Chloride (98-107) mmol/L Carbon Dioxide (22-30) mmol/L Anion Gap mmol/L BUN (7-17) mg/dL Creatinine (0.52-1.04) mg/dL Est GFR (CKD-EPI)AfAm (>60 ml/min/1.73 sqM) Est GFR (CKD-EPI)NonAf (>60 ml/min/1.73 sqM) Glucose (74-99) mg/dL Calcium (8.4-10.2) mg/dL Magnesium (1.6-2.3) mg/dL Total Bilirubin (0.2-1.3) mg/dL AST (14-36) U/L ALT (4-34) U/L Alkaline Phosphatase (38-126) U/L Troponin I (0.000-0.034) ng/mL NT-Pro-B Natriuret Pep 4220 pg/mL Total Protein (6.3-8.2) g/dL Albumin (3.5-5.0) g/dL Lipase (23-300) U/L Disposition Clinical Impression: Heart failure, Jaw pain, Upper back pain, Breast cancer Disposition: ADMITTED IP TO THIS HOSP Is patient prescribed a controlled substance at d/c from ED?: No Referrals: Stanford Smith DO [Primary Care Provider] - 1-2 days Time of Disposition: 13:12
--- NOTE | 2021-07-27 09:43 | XR ---
EXAMINATION TYPE: XR chest 2V DATE OF EXAM: 07/27/2021 COMPARISON: Chest x-ray 07/21/2021 HISTORY: Chest pain TECHNIQUE: Frontal and lateral views of the chest are obtained. FINDINGS: Patchy densities present at the lung bases, there is blunting the posterior costophrenic a ngles as on prior. Prominent lung volumes may be indicative of underlying COPD. Cardiac mediastinal s ilhouette is stable. There is no evident pneumothorax. Bones are unchanged. IMPRESSION: Basilar effusions and associated atelectasis
[2021-07-27 09:54] LABS: Basophils % (A) 0 %; Eosinophils # (A) 0.2 k/uL (0-0.7); Eosinophils % (A) 1 %; HGB 12.8 gm/dL (11.4-16.0); Lymphocytes # (A) 0.8 k/uL (1.0-4.8); Lymphocytes % (A) 7 %; MCH 34.7 pg (25.0-35.0); MCHC 33.7 g/dL (31.0-37.0); Macrocytosis Slight; Mean Platelet Volume 8.5; Monocytes # (A) 0.7 k/uL (0-1.0); Monocytes % (A) 6 %; Neutrophils # (A) 10.1 k/uL (1.3-7.7); Neutrophils % (A) 86 %; Platelet Count 156 k/uL (150-450); RBC 3.69 m/uL (3.80-5.40); RDW 13.3 % (11.5-15.5); WBC 11.8 k/uL (3.8-10.6)
[2021-07-27 09:56] LABS: Albumin 3.7 g/dL (3.5-5.0); Magnesium 1.8 mg/dL (1.6-2.3); Potassium 4.1 mmol/L (3.5-5.1); Total Bilirubin 0.6 mg/dL (0.2-1.3); Total Protein 6.4 g/dL (6.3-8.2)
[2021-07-27 11:46] LABS: Partial Thromboplastin Time 22.2 sec (22.0-30.0); Prothrombin Time 10.8 sec (9.0-12.0)
[2021-07-27] MEDS ORDERED: FUROSEMIDE 10 MG/ML 4 ML VIAL IV STA (13:26)
--- NOTE | 2021-07-27 15:43 | NM ---
EXAMINATION TYPE: NM pul vent and perfuse DATE OF EXAM: 07/27/2021 COMPARISON: 10/28/2020 HISTORY: Back pain TECHNIQUE: Utilizing inhalation of 38.8 mCi Tc 99m DTPA aerosol and intravenous injection of 5.3 mCi of Tc 99m MAA, ventilation and perfusion images are acquired post injection in multiple projections. FINDINGS: There are matching defects in the posterior aspect of the left and right lungs. There is no ventilati on/perfusion mismatch. Chest x-ray shows some pulmonary congestion and small pleural effusions. IMPRESSION: Matching posterior defects probably related to pleural effusions and congestive heart failure. This i s a change compared to old exam. There is overall low probability of pulmonary embolism.
[2021-07-27] MEDS ORDERED: HYDROcodone/APAP 5-325MG 1 EACH TAB PO PRN (20:13)
[2021-07-27] MEDS ORDERED: PANTOPRAZOLE 40 MG TABLET PO SCH (20:15)
[2021-07-27 20:57] LABS: Amylase 59 U/L (30-110); Lipase 251 U/L (23-300)
--- NOTE | 2021-07-27 21:05 | HP ---
HISTORY AND PHYSICAL I am covering for Dr. Smith. CHIEF COMPLAINTS: Jaw pain and back pain. HISTORY OF PRESENT ILLNESS: This 66-year-old woman with a past medical history of asthma, COPD, history of GERD, hypertension, history of renal disorder, history of breast cancer, stage IV, being followed by Dr. Smith and Dr. Pascual in the outpatient setting, was having complaints of jaw pain. The pain started in the both jaws and going down the neck. Patient also had pain between the shoulders. She also had heartburn. The pain was better while lying flat and sitting up and walking. The patient had some cough also which was ongoing, which was worse, and the patient came to [facility] and was admitted for further evaluation and treatment. Initial troponins were negative. A V/Q scan was negative, showing only low probability for pulmonary embolism. EKG showed no acute changes. The patient was admitted for further evaluation and treatment. The chest x- ray, which was reviewed personally by me, showed some bibasilar effusion and some haziness also. The patient had previous history of thoracocentesis. There is no history of any fever, rigor or chills at this time. PAST MEDICAL HISTORY: Asthma, COPD, history of GERD, history of breast cancer with metastases. HOME MEDICATIONS: Xanax, Benadryl, Hexadrol, Senokot S, Metamucil, Protonix, Synthroid, Colace. Doses are reviewed. ALLERGIES: IODINATED CONTRAST DYES. FAMILY HISTORY: History of cancer, renal disease, polycystic kidney syndrome, kidney transplant. SOCIAL HISTORY: No history of smoking. No history of alcohol intake. REVIEW OF SYSTEMS: ENT: As mentioned earlier. CARDIOVASCULAR SYSTEM: As mentioned earlier. RESPIRATORY SYSTEM: As mentioned earlier. GI: As mentioned earlier. : No dysuria. NERVOUS SYSTEM: No numbness, weakness. ALLERGY/IMMUNOLOGY: As mentioned earlier. MUSCULOSKELETAL: As mentioned earlier. HEMATOLOGY/ONCOLOGY: As mentioned earlier. ENDOCRINE: As mentioned earlier. CONSTITUTIONAL: As mentioned earlier. DERMATOLOGY: Negative. RHEUMATOLOGY: Negative. PSYCHIATRY: As mentioned earlier. PHYSICAL EXAMINATION: Patient alert and oriented x3. Pulse 58, blood pressure 167/85, respiration 18, temperature 99 degrees, pulse ox 99% on room air. HEENT: Conjunctivae normal. Oral mucosa moist. NECK: No jugular venous distention. No carotid bruit. No lymph node enlargement. CARDIOVASCULAR: S1, S2 muffled. No S3. No S4. RESPIRATION: Breath sounds diminished at the bases. A few scattered rhonchi and crackles. ABDOMEN: Soft, obese, non-tender. No mass palpable. LEGS: No edema. No swelling. NERVOUS SYSTEM: Higher functions as mentioned earlier. Moves all 4 limbs. No focal motor or sensory deficit. LYMPHATICS: No lymph node palpable in neck, axillae or groin. SKIN: No ulcer, rash, bleeding. JOINTS: No active deforming arthropathy. LAB STUDIES: Labs at this time show WBC 11.8, hemoglobin 12.2, sodium ntd, potassium 4.2. ASSESSMENT: 1. Jaw pain and chest pain and back pain for evaluation; possible unstable angina. 2. Rule out congestive heart failure. 3. Elevated white count. 4. Increased mean corpuscular volume. 5. Hyponatremia. 6. Increased creatinine with chronic kidney disease, stage 3. 7. Elevated lipase. 8. History of asthma, chronic obstructive pulmonary disease. 9. Gastroesophageal reflux disease. 10.Hypertension. 11.History of hypothyroidism. 12.History of breast cancer with metastases. 13.History of bariatric surgery. 14.History of cholecystectomy. 15.History of anxiety, depression. 16.Obesity with body mass index of 36.8. RECOMMENDATIONS AND DISCUSSION: In this 66-year-old woman who presented with multiple complex medical issues, we will monitor the patient closely, continue the current medications. Rule out myocardial infarction. Cardiology consultation. Otherwise, hematology/oncology evaluation. I would also recommend a 2D echo with Doppler. Covid-19 has been requested. Resume the home medications once they are confirmed. Dr. Smith will follow tomorrow. Discussed with the patient and family. MMODL / IJN: [id number] / MTDD
[2021-07-27] MEDS: ALPRAZolam 0.5 MG TAB PO PRN (21:43)
[2021-07-27] MEDS: PANTOPRAZOLE 40 MG TABLET PO SCH (21:44)
[2021-07-27] MEDS: DOCUSATE 100 MG CAP PO SCH (21:49)
[2021-07-27] MEDS: SENNOSIDES-DOCUSATE SODIUM 1 EACH TAB PO SCH (21:49)
[2021-07-27] MEDS: diphenhydrAMINE 25 MG CAP PO SCH (21:49)
[2021-07-27] MEDS: dexAMETHasone 4 MG TAB PO SCH (21:49)
[2021-07-28] MEDS: diphenhydrAMINE 25 MG CAP PO SCH ×2 (02:50→23:25)
[2021-07-28] MEDS: LEVOTHYROXINE 75 MCG TAB PO SCH (06:36)
[2021-07-28] MEDS: FUROSEMIDE 10 MG/ML 4 ML VIAL IV SCH ×2 (06:36→16:46)
[2021-07-28] MEDS: PANTOPRAZOLE 40 MG TABLET PO SCH ×2 (06:36→16:46)
[2021-07-28 06:50] LABS: Basophils % (A) 0 %; Eosinophils # (A) 0.3 k/uL (0-0.7); Eosinophils % (A) 3 %; HGB 12.2 gm/dL (11.4-16.0); Lymphocytes # (A) 0.9 k/uL (1.0-4.8); Lymphocytes % (A) 9 %; MCH 34.5 pg (25.0-35.0); MCV 104.4 fL (80.0-100.0); Macrocytosis Slight; Mean Platelet Volume 8.4; Monocytes # (A) 0.7 k/uL (0-1.0); Monocytes % (A) 7 %; Neutrophils # (A) 8.1 k/uL (1.3-7.7); Neutrophils % (A) 81 %; Platelet Count 230 k/uL (150-450); RBC 3.54 m/uL (3.80-5.40); RDW 13.8 % (11.5-15.5)
[2021-07-28 06:57] LABS: Calcium 8.8 mg/dL (8.4-10.2)
[2021-07-28] MEDS ORDERED: PANTOPRAZOLE 40 MG TABLET PO SCH (07:30)
[2021-07-28] MEDS: SENNOSIDES-DOCUSATE SODIUM 1 EACH TAB PO SCH ×2 (07:58→20:32)
[2021-07-28] MEDS: dexAMETHasone 4 MG TAB PO SCH (07:58)
[2021-07-28] MEDS: PSYLLIUM HUSK 100% 6 GM PACKET PO SCH (07:58)
[2021-07-28] MEDS: DOCUSATE 100 MG CAP PO SCH ×2 (07:58→20:32)
--- NOTE | 2021-07-28 08:42 | P.CRDCN ---
History of Present Illness Consult date: 07/28/21 History of present illness: HISTORY OF PRESENT ILLNESS: This is a 66-year-old female with a past medical history significant for breast cancer with metastases to bone, liver, and lung (currently on radiation treatment). 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 We have been asked to see the patient in consultation for congestive heart failure. Patient examined at the bedside. Patient states two days ago she was having bilateral jaw pain and pain into neck and pain under her right rib cage. She states the pain subsided on its own. She reports the following day, she woke up to take her dog outside and was feeling short of breath and decided to come to the hospital for further evaluation. The patient reports a history of Covid in February of this year. It is also noted that the patient had a thoracentesis on 06/24/2021 with removal of 500 mL. At the time of examination, the patient denies jaw pain. She denies chest pain or pressure. She reports mild shortness of breath. The patient has a persistent nonproductive cough during examination. EKG reveals sinus mechanism with no signs of acute ischemia VQ scan matching posterior defects probably related to pleural effusions and congestive heart failure. This is a change compared to old exam. There is a low probability of pulmonary embolism Chest xray basilar effusions and associated atelectasis Laboratory data: WBC 10.0. Hemoglobin 12.2. Platelet count 230. Sodium 135. Potassium 4.0. B UN 37. Creatinine 1.63. Magnesium 1.8. Troponin negative 1. ProBNP 4220. Current home cardiac medications include none Patient underwent a nuclear stress test in May 2018 which was negative for ischemia Echocardiogram completed in March 2018 revealed ejection fraction 56%. Mild mitral regurgitation. [id number] tricuspid regurgitation. REVIEW OF SYSTEMS: At the time of my exam: CONSTITUTIONAL: Denies fever or chills. HEENT: Denies blurred vision, vision changes, or eye pain. Denies hemoptysis CARDIOVASCULAR: Denies chest pain. Denies orthopnea. Denies PND. Denies palpitations RESPIRATORY: Denies shortness of breath. GASTROINTESTINAL: Denies abdominal pain. Denies nausea or vomiting. HEMATOLOGIC: Denies bleeding disorders. GENITOURINARY: Denies any blood in urine. SKIN: Denies pruitis. Denies rash. PHYSICAL EXAM: VITAL SIGNS: Reviewed. GENERAL: Well-developed in no acute distress. HEENT: Head is normocephalic. Pupils are equal, round. Sclerae anicteric. Mucous membranes of the mouth are moist. Neck supple. No JVD or thyromegaly LUNGS: Respirations even and unlabored. Lungs diminished to auscultation bilaterally. HEART: Regular rate and rhythm. S1 and S2 heard. ABDOMEN: Soft. Nondistended. Nontender. EXTREMITIES: Normal range of motion. No clubbing or cyanosis. Peripheral pulses intact. No lower extremity edema NEUROLOGIC: Awake and alert. Oriented x 3. ASSESSMENT: Shortness of breath, possible acute heart failure with pleural effusions, type unknown Bilateral jaw pain, troponin negative x 1 Breast cancer with metastasis to liver, spine, and lung History of thoracentesis with removal of 500 mL, May 2021 PLAN: Obtain 2D echo to assess cardiac structure and function Continue IV lasix Monitor kidney function Obtain 2 additional troponin levels Further recommendations pending patient course Nurse practitioner note has been reviewed by physician. Signing provider agrees with the documented findings, assessment, and plan of care. Past Medical History Past Medical History: Asthma, Cancer, COPD, GERD/Reflux, Hypertension, Renal Disease, Thyroid Disorder Additional Past Medical History / Comment(s): Hx 2008 breast CA metastatic stage 4, thyroid CA 6 years ago. 2017 diagnosis of stage 4 bone CA in spine. 12/2016 near syncope w/ suspected low BP. Mild asthma with occasional related rt-sided chest pain. Hx polycystic kidney disease, cyst to liver, nodule lt lung, thoracic aneurysm. Obesity. Cataracts bulmaro. Recent nausea, dark stools, wgt fluctuations, dysphagia if eats too fast. Radiation 2 doses done, 4 to go, last on . History of Any Multi-Drug Resistant Organisms: None Reported Past Surgical History: Bariatric Surgery, Breast Surgery, Cholecystectomy, Hysterectomy Additional Past Surgical History / Comment(s): Hx colonoscopy. Hx double mastect radha, thyroidectomy, lap band (not filled), bunionectomy bulmaro ft foot surg, bilateral carpal tunnel, surgeries for staph infection rt breast implant. Past Anesthesia/Blood Transfusion Reactions: Motion Sickness Past Psychological History: Anxiety, Depression Additional Psychological History / Comment(s): not currently Smoking Status: Never smoker Past Alcohol Use History: None Reported Past Drug Use History: None Reported - Past Family History Father Family Medical History: Cancer, Renal Disease Additional Family Medical History / Comment(s): polycystic kidney, kidney transplant, poss CA behind heart R/T Rx Medications and Allergies Home Medications Medication Instructions Recorded Confirmed Type Levothyroxine Sodium [Synthroid] 150 mcg PO DAILY 08/28/19 07/27/21 History Docusate [Colace] 100 mg PO BID cap 07/25/21 07/27/21 Rx Pantoprazole [Protonix] 40 mg PO AC-BID #60 tablet.dr 07/25/21 07/27/21 Rx Psyllium Husk 100% [Metamucil 6 gm PO DAILY packet 07/25/21 07/27/21 Rx Packet] Sennosides-Docusate Sodium 2 each PO BID tab 07/25/21 07/27/21 Rx [Senokot-S] dexAMETHasone ORAL [Hexadrol] 4 mg PO BID #30 tab 07/25/21 07/27/21 Rx diphenhydrAMINE [Benadryl] 25 mg PO HS cap 07/25/21 07/27/21 Rx ALPRAZolam [Xanax] 0.5 mg PO HS PRN 07/27/21 07/27/21 History Allergies Allergy/AdvReac Type Severity Reaction Status Date / Time Iodinated Contrast Media Allergy Rash/Hives Verified 07/27/21 11:24 [Iodinated Contrast Media - IV Dye] Physical Exam Vitals: Vital Signs Temp Pulse Pulse Resp BP BP Pulse Ox 07/28/21 08:13 98 07/28/21 07:37 58 L 18 07/28/21 07:33 98 F 58 L 18 158/78 96 07/28/21 03:15 98.3 F 57 L 18 148/82 94 L 07/28/21 02:00 57 L 18 07/28/21 00:00 98 F 57 L 18 109/64 94 L 07/27/21 20:00 98.1 F 66 18 158/75 95 07/27/21 17:20 99 F 58 L 18 167/85 97 07/27/21 17:05 98.1 F 65 18 159/75 98 07/27/21 13:18 58 L 17 154/87 97 07/27/21 12:00 147/80 07/27/21 10:03 61 18 183/82 97 07/27/21 08:42 98 F 63 18 183/89 97 Intake and Output 07/27/21 07/28/21 07/28/21 22:59 06:59 14:59 Intake Total 1200 Output Total 900 2500 1500 Balance -900 -1300 -1500 Intake: Oral 1200 Output: Urine 900 2500 1500 Other: Weight 103.419 kg 101.4 kg Results 07/28/21 06:03 07/28/21 06:03 Cardiac Enzymes 07/27/21 07/27/21 07/27/21 Range/Units 09: 09: 16:32 AST 114 H (14-36) U/L CK-MB (CK-2) 0.5 (0.0-2.4) ng/mL Troponin I <0.012 (0.000-0.034) ng/mL 07/27/21 Range/Units 19:50 AST (14-36) U/L CK-MB (CK-2) 0.4 (0.0-2.4) ng/mL Troponin I (0.000-0.034) ng/mL Coagulation 07/27/21 Range/Units 11:25 PT 10.8 (9.0-12.0) sec APTT 22.2 (22.0-30.0) sec CBC 07/27/21 07/28/21 Range/Units 09:27 06:03 WBC 11.8 H 10.0 (3.8-10.6) k/uL RBC 3.69 L 3.54 L (3.80-5.40) m/uL Hgb 12.8 12.2 (11.4-16.0) gm/dL Hct 38.0 37.0 (34.0-46.0) % Plt Count 156 230 (150-450) k/uL Comprehensive Metabolic Panel 07/27/21 07/28/21 Range/Units 09:27 06:03 Sodium 136 L 135 L (137-145) mmol/L Potassium 4.1 4.0 (3.5-5.1) mmol/L Chloride 107 104 (98-107) mmol/L Carbon Dioxide 20 L 23 (22-30) mmol/L BUN 39 H 37 H (7-17) mg/dL Creatinine 1.64 H 1.63 H (0.52-1.04) mg/dL Glucose 87 71 L (74-99) mg/dL Calcium 9.0 8.8 (8.4-10.2) mg/dL AST 114 H (14-36) U/L ALT 37 H (4-34) U/L Alkaline Phosphatase 125 (38-126) U/L Total Protein 6.4 (6.3-8.2) g/dL Albumin 3.7 (3.5-5.0) g/dL Current Medications Generic Name Dose Route Start Last Admin Trade Name Freq PRN Reason Stop Dose Admin Hydrocodone Bitart/Acetaminophen 1 each 07/27/21 20:13 Hydrocodone/Apap 5-325mg 1 Each Tab PO Q6HR PRN Pain Alprazolam 0.5 mg 07/27/21 20:12 07/27/21 21:43 Alprazolam 0.5 Mg Tab PO 0.5 mg HS PRN Administration anxiety Dexamethasone 4 mg 07/27/21 21:00 07/28/21 07:58 Dexamethasone 4 Mg Tab PO Not Given BID DIONICIO Diphenhydramine HCl 25 mg 07/27/21 21:00 07/28/21 02:50 Diphenhydramine 25 Mg Cap PO 25 mg HS DIONICIO Administration Docusate Sodium 100 mg 07/27/21 21:00 07/28/21 07:58 Docusate 100 Mg Cap PO 100 mg BID DIONICIO Administration Furosemide 40 mg 07/28/21 05:00 07/28/21 06:36 Furosemide 10 Mg/Ml 4 Ml Vial IV 40 mg Q12H DIONICIO Administration Levothyroxine Sodium 150 mcg 07/28/21 06:30 07/28/21 06:36 Levothyroxine 75 Mcg Tab PO 150 mcg DAILY@0630 DIONICIO Administration Pantoprazole Sodium 40 mg 07/27/21 21:38 07/28/21 06:36 Pantoprazole 40 Mg Tablet PO 40 mg AC-BID DIONICIO Administration Psyllium Hydrophilic Mucilloid 6 gm 07/28/21 09:00 07/28/21 07:58 Psyllium Husk 100% 6 Gm Packet PO 6 gm DAILY DIONICIO Administration Senna/Docusate Sodium 2 each 07/27/21 21:00 07/28/21 07:58 Sennosides-Docusate Sodium 1 Each Tab PO 2 each BID DIONICIO Administration Temazepam 15 mg 07/27/21 20:13 Temazepam 15 Mg Cap PO HS PRN Insomnia Intake and Output 07/27/21 07/28/21 07/28/21 22:59 06:59 14:59 Intake Total 1200 Output Total 900 2500 1500 Balance -900 -1300 -1500 Intake: Oral 1200 Output: Urine 900 2500 1500 Other: Weight 103.419 kg 101.4 kg 07/28/21 06:03 07/28/21 06:03
--- NOTE | 2021-07-28 11:23 | P.CONS ---
History of Present Illness - Reason for Consult Consult date: 07/28/21 known Requesting physician: Steven Wilson - Chief Complaint chest pain - History of Present Illness is a very pleasant pt of Dr. Pascual with a long Hx of breast cancer. Stage IIb left breast cancer diagnosed in January 2008 for which she had bilateral mastectomies and left axillary node dissection, adjuvant systemic treatment per [id number] which was completed on 09/20/2008. Took Tamoxifen at completion of chemotherapy until . She was on adjuvant bisphosphonate trial but, was terminated because of unusual side effects of Zometa. She had a total hyste rectomy in 06/2012. CT 06/19/13 revealed no evidence of recurrence. She was given Rx for arimidex in May 2013 to extend adjuvant endocrine therapy but, she did not start taking it until October, she tolerated it fine except for some arthlagia. Bone density 01/28/[address] CAP 02/02/17 due to abdominal pain, revealed a lytic lesion at L3. Bone scan 02/09/17 revealed suspicious uptake at L3 level. MRI of lumbar spine 02/22/17 revealed suspicious destructive lesion at L3. Biopsy of L3 03/18/17 was positive for metastatic breast cancer, ER/KY+ and HER2/LILIANE negative. She completed XRT to L3 04/20/17. Started ibrance/faslodex/xgeva March 2017. She had multiple disease monitoring scans and it wasn't until 12/10/20 CT CAP stable disease but, two 5 mm new lung nodules. CT CAP02/25/21 revealed new 4 mm and 2 left lung nodules, however,she was diagnosed with COVID on 03/01/21 and she received monoclonal antibodies. 06/09/21 CT CAP revealed stable sub 5 mm lung nodules, pleural effusion, stable sclerotic lesion at L3, possible new liver lesions. 06/24/21 diagnostic right thoracentesis was positive for metastatic breast cancer, ER/KY+ and HER2/LILIANE negative. 06/27/21 PET scan revealed diffuse osseous mets, multiple liver lesions. 07/07/21 she had liquid biopsy done, she was supposed to see Rad Onc and then plans for next treatment. She was seen in ofc yesterday for bone scan f/u, she c/o inability to walk, in pain, and weak. She was sent to ER. Pending MRI T/L spine, steroids started, Rad Onc consulted. Symptoms started to progress about 2 days ago, tingling in the legs, lateral calf is numb, can still tell when she is needing to have a BM or urinate-just can't hold. Recent constipation, sick when she eats, did vomit yesterday, cough is dry. Ca++ noted to be 13.8. She was given aredia for hypercalcemia, was worked up for cord compression-none evident. Started radiation to painful bone mets. Plan to f/u with Dr. Pascual to start next regimen She started having jaw pain, squeeaing in the chest, this persisted so, she came to ER, here she became SOB. VQ shos low probability for PE, matched defects more suspicious for CHF. Pt does have orthopnea, no swelling in the legs, dry cough is persistent-not new. No fever, N,V, diarrhea, constipation. Review of Systems 10 point ROS is neg except as stated in HPI Past Medical History Past Medical History: Asthma, Cancer, COPD, GERD/Reflux, Hypertension, Renal Disease, Thyroid Disorder Additional Past Medical History / Comment(s): Hx 2008 breast CA metastatic stage 4, thyroid CA 6 years ago. 2017 diagnosis of stage 4 bone CA in spine. 12/2016 near syncope w/ suspected low BP. Mild asthma with occasional related rt-sided c hest pain. Hx polycystic kidney disease, cyst to liver, nodule lt lung, thoracic aneurysm. Obesity. Cataracts bulmaro. Recent nausea, dark stools, wgt fluctuations, dysphagia if eats too fast. Radiation 2 doses done, 4 to go, last on . History of Any Multi-Drug Resistant Organisms: None Reported Past Surgical History: Bariatric Surgery, Breast Surgery, Cholecystectomy, Hysterectomy Additional Past Surgical History / Comment(s): Hx colonoscopy. Hx double mastectomy, thyroidectomy, lap band (not filled), bunionectomy bulmaro ft foot surg, bilateral carpal tunnel, surgeries for staph infection rt breast implant. Past Anesthesia/Blood Transfusion Reactions: Motion Sickness Past Psychological History: Anxiety, Depression Additional Psychological History / Comment(s): not currently Smoking Status: Never smoker Past Alcohol Use History: None Reported Past Drug Use History: None Reported - Past Family History Father Family Medical History: Cancer, Renal Disease Additional Family Medical History / Comment(s): polycystic kidney, kidney transplant, poss CA behind heart R/T Rx Medications and Allergies Home Medications Medication Instructions Recorded Confirmed Type Levothyroxine Sodium [Synthroid] 150 mcg PO DAILY 08/28/19 07/27/21 History Docusate [Colace] 100 mg PO BID cap 07/25/21 07/27/21 Rx Pantoprazole [Protonix] 40 mg PO AC-BID #60 tablet. 07/25/21 07/27/21 Rx Psyllium Husk 100% [Metamucil 6 gm PO DAILY packet 07/25/21 07/27/21 Rx Packet] Sennosides-Docusate Sodium 2 each PO BID tab 07/25/21 07/27/21 Rx [Senokot-S] dexAMETHasone ORAL [Hexadrol] 4 mg PO BID #30 tab 07/25/21 07/27/21 Rx diphenhydrAMINE [Benadryl] 25 mg PO HS cap 07/25/21 07/27/21 Rx ALPRAZolam [Xanax] 0.5 mg PO HS PRN 07/27/21 07/27/21 History Allergies Allergy/AdvReac Type Severity Reaction Status Date / Time Iodinated Contrast Media Allergy Rash/Hives Verified 07/27/21 11:24 [Iodinated Contrast Media - IV Dye] Physical Exam Vitals: Vital Signs Temp Pulse Pulse Resp BP BP Pulse Ox 07/28/21 08:13 98 07/28/21 07:37 58 L 18 07/28/21 07:33 98 F 58 L 18 158/78 96 07/28/21 03:15 98.3 F 57 L 18 148/82 94 L 07/28/21 02:00 57 L 18 07/28/21 00:00 98 F 57 L 18 109/64 94 L 07/27/21 20:00 98.1 F 66 18 158/75 95 07/27/21 17:20 99 F 58 L 18 167/85 97 07/27/21 17:05 98.1 F 65 18 159/75 98 07/27/21 13:18 58 L 17 154/87 97 07/27/21 12:00 147/80 Intake and Output 07/27/21 07/28/21 07/28/21 22:59 06:59 14:59 Intake Total 1200 240 Output Total 900 2500 2100 Balance -900 -1300 -1860 Intake: Oral 1200 240 Output: Urine 900 2500 2100 Other: Weight 103.419 kg 101.4 kg - Constitutional General appearance: average body habitus, cooperative, no acute distress - EENT Eyes: anicteric sclerae, EOMI ENT: hearing grossly normal, normal oropharynx - Neck Neck: no lymphadenopathy - Respiratory Respiratory: bilateral: diminished (bases), rales (bases) - Cardiovascular Rhythm: regular Heart sounds: normal: S1, S2 Abnormal Heart Sounds: no systolic murmur, no diastolic murmur, no rub, no S3 Gallop, no S4 Gallop, no click, no other - Gastrointestinal General gastrointestinal: no absent bowel sounds, no decreased bowel sounds, no distended, no hepatomegaly, no hyperactive bowel sounds, normal bowel sounds, no organomegaly, no rigid, no scaphoid, soft, no splenomegaly, no tenderness, no umbilical hernia, no ventral hernia - Integumentary Integumentary: normal - Neurologic Neurologic: CNII-XII intact - Musculoskeletal Musculoskeletal: strength equal bilaterally - Psychiatric Psychiatric: A&O x's 3, appropriate affect, intact judgment & insight Results CBC & Chem 7: 07/28/21 06:03 07/28/21 06:03 Labs: Abnormal Lab Results - Last 24 Hours (Table) 07/28/21 07/28/21 Range/Units 06:03 06:03 RBC 3.54 L (3.80-5.40) m/uL MCV 104.4 H (80.0-100.0) fL Neutrophils # 8.1 H (1.3-7.7) k/uL Lymphocytes # 0.9 L (1.0-4.8) k/uL Sodium 135 L (137-145) mmol/L BUN 37 H (7-17) mg/dL Creatinine 1.63 H (0.52-1.04) mg/dL Glucose 71 L (74-99) mg/dL Comments: VQ report reviewed Chest x-ray: report reviewed Assessment and Plan (1) Jaw pain Current Visit: Yes Status: Acute Priority: High Code(s): R68.84 - JAW PAIN SNOMED Code(s): 084930005 (2) Upper back pain Current Visit: Yes Status: Acute Priority: High Code(s): M54.9 - DORSALG IA, UNSPECIFIED SNOMED Code(s): 383591893 (3) Breast cancer Narrative/Plan: Complete XRT to painful bone mets Taper steroids a little quicker F/U to start next regimen once XRT complete Current Visit: Yes Status: Chronic Priority: High Code(s): C50.919 - MALIGNANT NEOPLASM OF UNSP SITE OF UNSPECIFIED FEMALE BREAST SNOMED Code(s): 629799568 Plan: Ordered tylenol for mild pain per pt request Pending Cardiology evaluation and recommendations Attests: I have performed H&P, developed impression and plan of care for pt. Discussed with dictator. Agree with dictated note, documented as a scribe.
[2021-07-28 12:39] LABS: Chol/HDL Ratio 2.93; LDL Cholesterol,Calculated 58.2 mg/dL (0.0-131.0); VLDL Calculation 24.8 mg/dL (5.00-40.00)
[2021-07-28] MEDS: Acetaminophen-Codeine 300-30mg TAB PO PRN (12:41)
[2021-07-28] MEDS: ACETAMINOPHEN TAB 325 MG TAB PO PRN (14:13)
[2021-07-28] MEDS: ALPRAZolam 0.5 MG TAB PO PRN (14:13)
[2021-07-28 14:30] VITALS: BMI 36.1
--- NOTE | 2021-07-28 14:50 | P.PN ---
Subjective Progress Note Date: 07/28/21 This is a 66-year-old female recently discharged on 07/25/2021 regarding increased weakness, secondary to metastatic breast cancer with recent progression to bones, lung and liver with radiation oncology consulted and palliative radiation initiated during that visit. Returned to the hospital on 07/27/2019 with complaints of bilateral jaw pain, right shoulder blade pain, shortness of breath. Reports she has significant stress, anxiety, sleep deprivation. Troponins negative 3, creatinine 1.63, sodium 135. Tested negative for covid. VQ scan reported matching posterior defects probably related to pleural effusions and congestive heart failure, change compared to prior exam, low probability of PE. Echo pending. Cardiology consult in place. Currently denies jaw pain. Diuresing well on Lasix IV push with 24-hour I&O reflecting a negative fluid balance. Maintaining O2 sats in the high 90s on room air. Afebrile, normal WBC. Nonproductive cough. Objective - Vital Signs Vital signs: Vital Signs Temp 98 F 07/28/21 12:00 Pulse 60 07/28/21 12:00 Resp 18 07/28/21 12:00 BP 155/78 07/28/21 12:00 Pulse Ox 98 07/28/21 12:00 Intake & Output 07/27/21 07/28/21 07/28/21 18:59 06:59 18:59 Intake Total 1200 240 Output Total 900 2500 2500 Balance -900 1300 2260 Weight 103.419 kg 101.4 kg Intake: Oral 1200 240 Output: Urine 900 2500 2500 - Exam - Exam GENERAL: Sitting up in chair, no acute distress HEENT: Head is atraumatic, normocephalic. Pupils are equal, round, and reactive to light. Sclerae anicteric. Conjunctivae are clear. Mucus membranes of the mouth are moist. NECK: Supple. No JVD RESPIRATORY: Clear to auscultation. Bilateral bases diminished. No wheezes, rales, or rhonchi. CARDIOVASCULAR: Regular rate and rhythm. GASTROINTESTINAL: No distention noted. Abdomen soft and round. Normal active bowel sounds auscultated x 4 quadrants. No pain or tenderness noted upon palpation. INTEGUMENTARY: No cyanosis. No jaundice. No rashes noted. EXTREMITIES: 2+ peripheral pulses. Decreased peripheral edema. No calf tenderness noted. NEUROLOGIC: Cranial nerves II-XII intact. PSYCHIATRIC: Awake, alert, and oriented X 3. - Labs CBC & Chem 7: 07/28/21 06:03 07/28/21 06:03 Labs: Abnormal Lab Results - Last 24 Hours (Table) 07/28/21 07/28/21 Range/Units 06:03 06:03 RBC 3.54 L (3.80-5.40) m/uL MCV 104.4 H (80.0-100.0) fL Neutrophils # 8.1 H (1.3-7.7) k/uL Lymphocytes # 0.9 L (1.0-4.8) k/uL Sodium 135 L (137-145) mmol/L BUN 37 H (7-17) mg/dL Creatinine 1.63 H (0.52-1.04) mg/dL Glucose 71 L (74-99) mg/dL Assessment and Plan Assessment: Chest pain, accompanied by bilateral jaw pain, right shoulder blade pain and shortness of breath. Troponins negative 3. Possible acute CHF exacerbation, echo pending Metastatic breast cancer with recent progression to bones, lung and liver Hyponatremia, mild History of breast cancer possibly 13 years ago Chronic kidney disease, stage IV secondary to polycystic kidney disease History of COVID-19 03/01/21, received monoclonal antibiodies. Anxiety Sleep deprivation Obesity, BMI 36.1 Plan: Continue on current medication regime ,monitoring and symptomatic treatment. Pain management adjusted to Tylenol 3 as patient unable to tolerate [place]'s. Echo pending. Diuretics as per cardiology. Renal Function worsening, close monitoring of renal function with repeat labs ordered for a.m. Maintained on steroids, close monitoring of Accu-Cheks with NovoLog sliding scale added to med regimen. The impression and plan of care has been dictated as directed. : I performed a history and examination of this patient, discussed the same with the dictator. I agree with the dictator's note ,documented as a scribe. Any additional findings or plans will be noted.
[2021-07-28] MEDS: INSULIN ASPART (NovoLOG) 100 UNIT/ML VIAL SQ SCH ×2 (16:54→20:31)
[2021-07-28 16:58] LABS: Glucose,Whole Blood 97 mg/dL (75-99)
[2021-07-28] MEDS ORDERED: KETOROLAC 15 MG/ML 1 ML VIAL IVP PRN (19:09)
--- NOTE | 2021-07-28 21:11 | ECHOF ---
Referral Reason:LV function MEASUREMENTS -------- HEIGHT: 167.6 cm WEIGHT: 101.2 kg BP: IVSd: 1.1 cm (0.6 - 1.1) LVIDd: 5.1 cm (3.9 - 5.3) LVPWd: 1.3 cm (0.6 - 1.1) EDV(Teich): 125 ml IVSs: 1.7 cm LVIDs: 2.3 cm LVPWs: 1.7 cm %IVS Thck: 52 % ESV(Teich): 17 ml EF(Teich): 86 % %FS: 56 % SV(Teich): 108 ml RVIDd: 2.5 cm (< 3.3) Ao Diam: 3.3 cm (2.0 - 3.7) LA Diam: 3.6 cm (2.7 - 3.8) AV Cusp: 1.9 cm (1.5 - 2.6) EPSS: 0.7 cm MV E Fei: 0.47 m/s MV DecT: 290 ms MV Dec [place]: 1.6 m/s MV A Fei: 0.59 m/s MV E/A Ratio: 0.80 MV PHT: 84 ms MR Vmax: 0.84 m/s MR maxP.79 mmHg AV Vmax: 1.02 m/s AV maxP.13 mmHg TR Vmax: 1.10 m/s TR maxP.86 mmHg RAP: 5.00 mmHg RVSP: 9.86 mmHg MV EF SLOPE: 66.87 mm/s (70 - 150) MV EXCURSION: 17.01 mm (> 18.000) FINDINGS -------- This was a technically difficult study with suboptimal views. Pt. Has Breast inplants The left ventricular size is normal. There is mild concentric left ventricular hypertrophy. Overa ll left ventricular systolic function is low-normal with, an EF between 50 - 55 %. The RV was not well visualized. The left atrial size is normal. The right atrial size is normal. Lumason used The aortic valve is trileaflet and appears structurally normal. The mitral valve is normal. Mild mitral regurgitation is present. The tricuspid valve appears structurally normal. Trace tricuspid regurgitation present. Right gibson tricular systolic pressure is normal at < 35 mmHg. The pulmonic valve was not well visualized. The aortic root size is normal. IVC Not well visulized. There is no pericardial effusion. CONCLUSIONS -------- 1. Pt. Has Breast inplants 2. There is mild concentric left ventricular hypertrophy. 3. Overall left ventricular systolic function is low-normal with, an EF between 50 - 55 %. 4. Mild mitral regurgitation is present. 5. Trace tricuspid regurgitation present. 6. There is no pericardial effusion. [employer] D[employer]LL OPERATOR: Aleena Desai RDCS
[2021-07-29] MEDS: LEVOTHYROXINE 75 MCG TAB PO SCH (05:26)
[2021-07-29] MEDS: FUROSEMIDE 10 MG/ML 4 ML VIAL IV SCH (05:26)
[2021-07-29] MEDS: ONDANSETRON 4 MG/2 ML VIAL IVP PRN ×2 (05:26→17:47)
[2021-07-29 05:38] LABS: Glucose,Whole Blood 82 mg/dL (75-99)
[2021-07-29] MEDS: INSULIN ASPART (NovoLOG) 100 UNIT/ML VIAL SQ SCH ×4 (06:30→21:13)
[2021-07-29] MEDS: PANTOPRAZOLE 40 MG TABLET PO SCH ×2 (06:42→17:43)
[2021-07-29] MEDS: ACETAMINOPHEN TAB 325 MG TAB PO PRN (06:44)
[2021-07-29] MEDS ORDERED: dexAMETHasone 4 MG TAB PO SCH (09:00)
[2021-07-29] MEDS: SENNOSIDES-DOCUSATE SODIUM 1 EACH TAB PO SCH ×2 (09:35→21:12)
[2021-07-29] MEDS: DOCUSATE 100 MG CAP PO SCH ×2 (09:35→21:12)
[2021-07-29] MEDS: PSYLLIUM HUSK 100% 6 GM PACKET PO SCH (09:36)
[2021-07-29 09:44] LABS: Calcium 9.1 mg/dL (8.4-10.2); Potassium 4.1 mmol/L (3.5-5.1)
--- NOTE | 2021-07-29 12:03 | P.PN ---
Subjective Progress Note Date: 07/29/21 HISTORY OF PRESENT ILLNESS: This is a 66-year-old female with a past medical history significant for breast cancer with metastases to bone, liver, and lung (currently on radiation tr eatment). Patient does not follow with a entertainment production professional. We have been asked to see the patient in consultation for congestive heart failure. Patient examined at the bedside. Patient states two days ago she was having bilateral jaw pain and pain into neck and pain under her right rib cage. She states the pain subsided on its own. She reports the following day, she woke up to take her dog outside and was feeling short of breath and decided to come to the hospital for further evaluation. The patient reports a history of Covid in February of this year. It is also noted that the patient had a thoracentesis on 06/24/2021 with removal of 500 mL. At the time of examination, the patient denies jaw pain. She denies chest pain or pressure. She reports mild shortness of breath. The patient has a persistent nonproductive cough during examination. EKG reveals sinus mechanism with no signs of acute ischemia VQ scan matching posterior defects probably related to pleural effusions and congestive heart failure. This is a change compared to old exam. There is a low probability of pulmonary embolism Chest xray basilar effusions and associated atelectasis Laboratory data: WBC 10.0. Hemoglobin 12.2. Platelet count 230. Sodium 135. Potassium 4.0. B UN 37. Creatinine 1.63. Magnesium 1.8. Troponin negative 1. ProBNP 4220. Current home cardiac medications include none Patient underwent a nuclear stress test in May 2018 which was negative for ischemia Echocardiogram completed in March 2018 revealed ejection fraction 56%. Mild mitral regurgitation. [id number] tricuspid regurgitation. 07/29/2021 Patient examined this morning at the bedside. She denies chest pain or pressure. Denies shortness of breath. She remains on IV lasix. She reports generalized weakness and fatigue today. Echocardiogram completed revealed ejection fraction 50-55%. Mild mitral regurgitation. Trace tricuspid regurgitation. No evidence of pericardial effusion. PHYSICAL EXAM: VITAL SIGNS: Reviewed. GENERAL: Well-developed in no acute distress. HEENT: Head is normocephalic. Pupils are equal, round. Sclerae anicteric. Mucous membranes of the mouth are moist. Neck supple. No JVD or thyromegaly LUNGS: Respirations even and unlabored. Lungs diminished to auscultation bilaterally. HEART: Regular rate and rhythm. S1 and S2 heard. ABDOMEN: Soft. Nondistended. Nontender. EXTREMITIES: Normal range of motion. No clubbing or cyanosis. Peripheral pulses intact. No lower extremity edema NEUROLOGIC: Awake and alert. Oriented x 3. ASSESSMENT: Shortness of breath, possible diastolic acute heart failure with pleural effusions Bilateral jaw pain, troponin negative x 1 Breast cancer with metastasis to liver, spine, and lung History of thoracentesis with removal of 500 mL, May 2021 PLAN: Discontinue IV Lasix Begin oral Lasix 20 mg daily No further inpatient recommendations from a cardiac standpoint We will sign off. Please reconsult if needed. Nurse practitioner note has been reviewed by physician. Signing provider agrees with the documented findings, assessment, and plan of care. Objective - Vital Signs Vital signs: Vital Signs Temp 97.6 F 07/29/21 08:00 Pulse 69 07/29/21 08:00 Resp 18 07/29/21 03:10 BP 105/69 07/29/21 08:00 Pulse Ox 96 07/29/21 08:00 Intake & Output 07/28/21 07/29/21 07/29/21 18:59 06:59 18:59 Intake Total 600 Output Total 3750 2200 Balance -3150 -2200 Weight 101.4 kg 101.3 kg Intake: Oral 600 Output: Urine 3750 2200 Other: Voiding Method Toilet Toilet # Voids 1 - Labs CBC & Chem 7: 07/28/21 06:03 07/29/21 08:57 Labs: Abnormal Lab Results - Last 24 Hours (Table) 07/29/21 Range/Units 08:57 Sodium 129 L (137-145) mmol/L Chloride 93 L (98-107) mmol/L BUN 41 H (7-17) mg/dL Creatinine 1.94 H (0.52-1.04) mg/dL Glucose 122 H (74-99) mg/dL
[2021-07-29 13:00] LABS: Glucose,Whole Blood 111 mg/dL (75-99)
--- NOTE | 2021-07-29 16:00 | P.PN ---
Subjective Progress Note Date: 07/29/21 This is a 66-year-old female recently discharged on 07/25/2021 regarding increased weakness, secondary to metastatic breast cancer with recent progression to bones, lung and liver with radiation oncology consulted and palliative radiation initiated during that visit. Returned to the hospital on 07/27/2019 with complaints of bilateral jaw pain, right shoulder blade pain, shortness of breath. Reports she has significant stress, anxiety, sleep deprivation. Troponins negative 3, creatinine 1.63, sodium 135. Tested negative for covid. VQ scan reported matching posterior defects probably related to pleural effusions and congestive heart failure, change compared to prior exam, low probability of PE. Echo pending. Cardiology consult in place. Currently denies jaw pain. Diuresing well on Lasix IV push with 24-hour I&O reflecting a negative fluid balance. Maintaining O2 sats in the high 90s on room air. Afebrile, normal WBC. Nonproductive cough. 07/29/2021 reports uncontrolled back pain yesterday afternoon and throughout the night. Nauseated during the night as well, Zofran added to med regimen. Toradol added to med regimen. Scheduled for her palliative radiation treatment today. Echo reporting normal LV function. Sodium and Renal function worsening on Lasix IV push, converted to oral. Afebrile. Denies chest pain, palpitations or shortness of breath. Objective - Vital Signs Vital signs: Vital Signs Temp 97.6 F 07/29/21 08:00 Pulse 60 07/29/21 12:00 Resp 18 07/29/21 03:10 BP 114/74 07/29/21 12:00 Pulse Ox 95 07/29/21 12:00 Intake & Output 07/28/21 07/29/21 07/29/21 18:59 06:59 18:59 Intake Total 600 Output Total 3750 2200 1100 Balance -3149 -2199 -1100 Weight 101.4 kg 101.3 kg Intake: Oral 600 Output: Urine 3750 2200 1100 Other: Voiding Method Toilet Toilet # Voids 1 - Exam - Exam GENERAL: Sitting up in chair, no acute distress HEENT: Head is atraumatic, normocephalic. Pupils are equal, round, and reactive to light. Conjunctiva normal, oral mucosa moist. NECK: Supple. No JVD RESPIRATORY: Clear to auscultation. Bilateral bases diminished. No wheezes, rales, or rhonchi. CARDIOVASCULAR: Regular rate and rhythm. GASTROINTESTINAL: No distention noted. Abdomen soft and round. Normal active bowel sounds auscultated x 4 quadrants. No pain or tenderness noted upon palpation. INTEGUMENTARY: No cyanosis. No jaundice. No rashes noted. EXTREMITIES: Decreased peripheral edema. No calf tenderness noted. Positive DP pulses. NEUROLOGIC: Cranial nerves II-XII intact. PSYCHIATRIC: Awake, alert, and oriented X 3. - Labs CBC & Chem 7: 07/28/21 06:03 07/29/21 08:57 Labs: Abnormal Lab Results - Last 24 Hours (Table) 07/29/21 07/29/21 Range/Units 08:57 12:59 Sodium 129 L (137-145) mmol/L Chloride 93 L (98-107) mmol/L BUN 41 H (7-17) mg/dL Creatinine 1.94 H (0.52-1.04) mg/dL Glucose 122 H (74-99) mg/dL POC Glucose (mg/dL) 111 H (75-99) mg/dL Assessment and Plan Assessment: Chest pain, accompanied by bilateral jaw pain, right shoulder blade pain and shortness of breath. Troponins negative 3. Possible acute CHF exacerbation, echo pending Metastatic breast cancer with recent progression to bones, lung and liver Hyponatremia, mild History of breast cancer possibly 13 years ago Chronic kidney disease, stage IV secondary to polycystic kidney disease History of COVID-19 03/01/21, received monoclonal antibiodies. Anxiety Sleep deprivation Obesity, BMI 36.1 Plan: Continue on current medication regime ,monitoring and symptomatic treatment. Scheduled for painless have radiation treatment today .Pain management as per oncology . Diuretics as per cardiology.Renal Function and sodium worsening, close monitoring of renal function with repeat labs ordered for a.m. The impression and plan of care has been dictated as directed. : I performed a history and examination of this patient, discussed the same with the dictator. I agree with the dictator's note ,documented as a scribe. Any additional findings or plans will be noted.
[2021-07-29] MEDS ORDERED: HYDROmorphone 1 MG/ML 1 ML SYRINGE IVP PRN (17:06)
--- NOTE | 2021-07-29 17:08 | P.PN ---
Subjective Progress Note Date: 07/29/21 Principal diagnosis: CHF? chest discomfort In f/u today pt has c/o back pain, she is asking for a stronger pain med for use when her pain is severe. She is continuing with XRT. She can lay almost flat without orthopnea, cough is stable. Objective - Vital Signs Vital signs: Vital Signs Temp 97.6 F 07/29/21 08:00 Pulse 60 07/29/21 12:00 Resp 18 07/29/21 03:10 BP 114/74 07/29/21 12:00 Pulse Ox 95 07/29/21 12:00 Intake & Output 07/28/21 07/29/21 07/29/21 18:59 06:59 18:59 Intake Total 600 Output Total 3750 2200 1100 Balance -3150 -2200 -1100 Weight 101.4 kg 101.3 kg Intake: Oral 600 Output: Urine 3750 2200 1100 Other: Voiding Method Toilet Toilet # Voids 1 - Constitutional General appearance: Present: cooperative, no acute distress, obese - EENT Eyes: Present: anicteric sclerae, EOMI ENT: Present: hearing grossly normal - Respiratory Respiratory: bilateral: CTA, diminished - Cardiovascular Rhythm: regular Heart sounds: normal: S1, S2 Abnormal Heart Sounds: Absent: systolic murmur, diastolic murmur, rub, S3 Gallop, S4 Gallop, click, other - Peripheral edema leg Peripheral Edema: bilateral: None - Gastrointestinal General gastrointestinal: Present: normal bowel sounds, soft - Integumentary Integumentary: Present: normal - Neurologic Neurologic: Present: CNII-XII intact - Musculoskeletal Musculoskeletal: Present: strength equal bilaterally - Psychiatric Psychiatric: Present: A&O x's 3, appropriate affect, intact judgment & insight - Labs CBC & Chem 7: 07/28/21 06:03 07/29/21 08:57 Labs: Abnormal Lab Results - Last 24 Hours (Table) 07/29/21 07/29/21 Range/Units 08:57 12:59 Sodium 129 L (137-145) mmol/L Chloride 93 L (98-107) mmol/L BUN 41 H (7-17) mg/dL Creatinine 1.94 H (0.52-1.04) mg/dL Glucose 122 H (74-99) mg/dL POC Glucose (mg/dL) 111 H (75-99) mg/dL Assessment and Plan (1) Jaw pain Current Visit: Yes Status: Acute Priority: High Code(s): R68.84 - JAW PAIN SNOMED Code(s): 975681972 (2) Upper back pain Current Visit: Yes Status: Acute Priority: High Code(s): M54.9 - DORSALGIA, UNSPECIFIED SNOMED Code(s): 251079335 (3) Breast cancer Narrative/Plan: Complete XRT to painful bone mets-she did have XRT today Pt states she did not tile picker steroids when she was discharged so, DC steroids F/U to start next treatment regimen once XRT complete-appt in DC plan Current Visit: Yes Status: Chronic Priority: High Code(s): C50.919 - MARY GNANT NEOPLASM OF UNSP SITE OF UNSPECIFIED FEMALE BREAST SNOMED Code(s): 404733325 Plan: Ordered tylenol for mild pain per pt request. Tylenol #3 for moderate pain. Added Pending Cardiology evaluation and recommendations
[2021-07-29 17:11] LABS: Glucose,Whole Blood 84 mg/dL (75-99)
[2021-07-29] MEDS: Acetaminophen-Codeine 300-30mg TAB PO PRN (17:47)
[2021-07-29 20:09] LABS: Glucose,Whole Blood 89 mg/dL (75-99)
[2021-07-29 20:58] LABS: Glucose,Whole Blood 98 mg/dL (75-99)
[2021-07-29] MEDS: TEMAZEPAM 15 MG CAP PO PRN (21:22)
[2021-07-30] MEDS: ONDANSETRON 4 MG/2 ML VIAL IVP PRN ×4 (03:37→23:47)
[2021-07-30 06:05] LABS: Glucose,Whole Blood 90 mg/dL (75-99)
[2021-07-30] MEDS: INSULIN ASPART (NovoLOG) 100 UNIT/ML VIAL SQ SCH (06:08)
[2021-07-30] MEDS: PANTOPRAZOLE 40 MG TABLET PO SCH ×2 (06:49→17:30)
[2021-07-30] MEDS: LEVOTHYROXINE 75 MCG TAB PO SCH (06:49)
[2021-07-30 08:02] LABS: Potassium 3.9 mmol/L (3.5-5.1)
[2021-07-30 08:03] LABS: Calcium 8.8 mg/dL (8.4-10.2)
[2021-07-30] MEDS ORDERED: FUROSEMIDE 20 MG TAB PO SCH (09:00)
[2021-07-30] MEDS: DOCUSATE 100 MG CAP PO SCH ×2 (09:22→22:07)
[2021-07-30] MEDS: PSYLLIUM HUSK 100% 6 GM PACKET PO SCH (09:22)
[2021-07-30] MEDS: SENNOSIDES-DOCUSATE SODIUM 1 EACH TAB PO SCH ×2 (09:22→22:07)
--- NOTE | 2021-07-30 14:05 | P.PN ---
Subjective Progress Note Date: 07/30/21 This is a 66-year-old female recently discharged on 07/25/2021 regarding increased weakness, secondary to metastatic breast cancer with recent progression to bones, lung and liver with radiation oncology consulted and palliative radiation initiated during that visit. Returned to the hospital on 07/27/2019 with complaints of bilateral jaw pain, right shoulder blade pain, shortness of breath. Reports she has significant stress, anxiety, sleep deprivation. Troponins negative 3, creatinine 1.63, sodium 135. Tested negative for covid. VQ scan reported matching posterior defects probably related to pleural effusions and congestive heart failure, change compared to prior exam, low probability of PE. Echo pending. Cardiology consult in place. Currently denies jaw pain. Diuresing well on Lasix IV push with 24-hour I&O reflecting a negative fluid balance. Maintaining O2 sats in the high 90s on room air. Afebrile, normal WBC. Nonproductive cough. 07/29/2021 reports uncontrolled back pain yesterday afternoon and throughout the night. Nauseated during the night as well, Zofran added to med regimen. Toradol added to med regimen. Scheduled for her palliative radiation treatment today. Echo reporting normal LV function. Sodium and Renal function worsening on Lasix IV push, converted to oral. Afebrile. Denies chest pain, palpitations or shortness of breath. 07/30/21 yesterday underwent palliative radiation, complains of increased weakness today. Worsening sodium and renal function, Lasix discontinued. Maintaining O2 sats in the 90s on room air. Denies chest pain, palpitations or shortness of breath. Objective - Vital Signs Vital signs: Vital Signs Temp 96.7 F L 07/30/21 08:00 Pulse 64 07/30/21 08:00 Resp 18 07/30/21 03:54 BP 124/76 07/30/21 08:00 Pulse Ox 93 L 07/30/21 08:00 Intake & Output 07/29/21 07/30/21 07/30/21 18:59 06:59 18:59 Intake Total 240 Output Total 1100 1775 Balance -860 -1775 Weight 99.3 kg Intake: Oral 240 Output: Urine 1100 1775 Other: Voiding Method Toilet Toilet # Voids 1 - Exam - Exam GENERAL: Sitting up in chair, no acute distress HEENT: Head is atraumatic, normocephalic. Pupils are equal, round. Conjunctiva normal, oral mucosa moist. NECK: Supple. No JVD RESPIRATORY: Clear to auscultation. Bilateral bases diminished. No wheezes, rales, or rhonchi. CARDIOVASCULAR: Regular rate and rhythm. GASTROINTESTINAL: No distention noted. Abdomen soft and round. Normal active bowel sounds auscultated x 4 quadrants. No pain or tenderness noted . INTEGUMENTARY: No cyanosis. No jaundice. No rashes noted. EXTREMITIES: Decreased peripheral edema. No calf tenderness noted. Positive DP pulses. NEUROLOGIC: Cranial nerves II-XII intact. PSYCHIATRIC: Awake, alert, and oriented X 3. - Labs CBC & Chem 7: 07/28/21 06:03 07/30/21 07:20 Labs: Abnormal Lab Results - Last 24 Hours (Table) 07/29/21 07/30/21 Range/Units 12:59 07:20 Sodium 124 L (137-145) mmol/L Chloride 89 L (98-107) mmol/L BUN 39 H (7-17) mg/dL Creatinine 1.87 H (0.52-1.04) mg/dL Glucose 101 H (74-99) mg/dL POC Glucose (mg/dL) 111 H (75-99) mg/dL Assessment and Plan Assessment: Chest pain, accompanied by bilateral jaw pain, right shoulder blade pain and shortness of breath. Troponins negative 3. Possible acute CHF exacerbation, echo reporting normal LV function Metastatic breast cancer with recent progression to bones, lung and liver Hyponatremia worsened with diuretics Acute renal failure secondary to diuresing. History of breast cancer possibly 13 years ago Chronic kidney disease, stage IV secondary to polycystic kidney disease History of COVID-19 03/01/21, received monoclonal antibiodies. Anxiety Sleep deprivation Obesity, BMI 36.1 Plan: Continue on current medication regime ,monitoring and symptomatic treatment. Paillative radiation/Pain management as per oncology . Diuretics d iscontinued secondary to worsening renal function and sodium. Close monitoring of renal function with repeat labs ordered for a.m. The impression and plan of care has been dictated as directed. : I performed a history and examination of this patient, discussed the same with the dictator. I agree with the dictator's note ,documented as a scribe. Any additional findings or plans will be noted.
--- NOTE | 2021-07-30 14:35 | P.PN ---
Subjective Progress Note Date: 07/30/21 Principal diagnosis: CHF? chest discomfort In f/u today pt has c/o back pain, burning type sensation, located in the area where she is having radiation. I asked her if her pain was controlled otherwise, she states that with the Tylenol and some cold packs it is. She is continuing with radiation. Her breathing is much better. She is laying flat. She complains of dizziness after a shower. Objective - Vital Signs Vital signs: Vital Signs Temp 96.7 F L 07/30/21 08:00 Pulse 64 07/30/21 08:00 Resp 18 07/30/21 03:54 BP 124/76 07/30/21 08:00 Pulse Ox 93 L 07/30/21 08:00 Intake & Output 07/29/21 07/30/21 07/30/21 18:59 06:59 18:59 Intake Total 240 Output Total 1100 1775 Balance -860 -1775 Weight 99.3 kg Intake: Oral 240 Output: Urine 1100 1775 Other: Voiding Method Toilet Toilet # Voids 1 - Constitutional General appearance: Present: cooperative, no acute distress, obese - EENT Eyes: Present: anicteric sclerae, EOMI ENT: Present: hearing grossly normal - Respiratory Details: Respirations even and unlabored at rest. Patient is practically laying flat in the recliner chair - Neurologic Neurologic: Present: CNII-XII intact - Musculoskeletal Musculoskeletal: Present: generalized weakness - Psychiatric Psychiatric: Present: A&O x's 3, appropriate affect, intact judgment & insight - Labs CBC & Chem 7: 07/28/21 06:03 07/30/21 07:20 Labs: Abnormal Lab Results - Last 24 Hours (Table) 07/30/21 Range/Units 07:20 Sodium 124 L (137-145) mmol/L Chloride 89 L (98-107) mmol/L BUN 39 H (7-17) mg/dL Creatinine 1.87 H (0.52-1.04) mg/dL Glucose 101 H (74-99) mg/dL Assessment and Plan (1) Jaw pain Current Visit: Yes Status: Acute Priority: High Code(s): R68.84 - JAW PAIN SNOMED Code(s): 931005041 (2) Upper back pain Current Visit: Yes Status: Acute Priority: High Code(s): M54.9 - DORSALGIA, UNSPECIFIED SNOMED Code(s): 447310403 (3) Breast cancer Narrative/Plan: Complete XRT to painful bone mets-she continues on radiation as scheduled F/U to start next treatment regimen once XRT complete-appt in DC plan Current Visit: Yes Status: Chronic Priority: High Code(s): C50.919 - MALIGNANT NEOPLASM OF UNSP SITE OF UNSPECIFIED FEMALE BREAST SNOMED Code(s): 069581151 Plan: After reading through notes, patient was likely fluid overloaded from her hospitalization just a few days prior to this admit. She was admitted at that time with significant hypercalcemia. She was provided with medications to bring the calcium level down and she was given fluids. Patient received some Lasix while here and her symptoms have nearly completely resolved. Have requested orthostatics to be done on the patient because of dizziness. We will order an MRI of the brain since imaging of the head has not been done recently and dizziness and unusual weakness are new symptoms for her. Time with Patient: Greater than 30
--- NOTE | 2021-07-30 16:14 | XR ---
EXAMINATION TYPE: XR chest 2V DATE OF EXAM: 07/30/2021 COMPARISON: Chest x-ray 07/27/2021 HISTORY: Follow-up chest pain TECHNIQUE: Frontal and lateral views of the chest are obtained. FINDINGS: There is blunting of the costophrenic angles. Cardiac mediastinal silhouette is within nor mal limits. Patient is rotated. No evident pneumothorax. There are overlying leads. Arthropathy is pr esent within the shoulders. IMPRESSION: Bibasilar effusions. There is associated atelectasis, follow-up suggested
--- NOTE | 2021-07-30 18:52 | MR ---
EXAMINATION TYPE: MR brain wo con DATE OF EXAM: 07/30/2021 COMPARISON: 02/08/2018 HISTORY: Right sided weakness Multiplanar multiecho imaging of the brain without contrast. Ventricles have normal size. There is no mass effect nor midline shift. There is no sign of intracran ial hemorrhage. Diffusion images show no evidence of an acute infarct. Valerio-white matter structures have fairly normal signal pattern. There is no cerebral edema. Sella tur cica appears normal. There is large empty sella. The corpus callosum appears normal. Optic chiasm camacho ears normal. There is no evidence of orbital mass. IMPRESSION: Negative MR scan of the brain. No evidence of cortical infarct. No change compared to old exam.
[2021-07-30] MEDS: diphenhydrAMINE 25 MG CAP PO SCH (22:07)
[2021-07-30] MEDS: TEMAZEPAM 15 MG CAP PO PRN (22:16)
[2021-07-31] MEDS: ONDANSETRON 4 MG/2 ML VIAL IVP PRN ×2 (03:41→09:35)
[2021-07-31] MEDS: LEVOTHYROXINE 75 MCG TAB PO SCH (06:16)
[2021-07-31] MEDS: PANTOPRAZOLE 40 MG TABLET PO SCH ×2 (06:16→18:23)
[2021-07-31 07:59] LABS: Calcium 9.5 mg/dL (8.4-10.2); Potassium 3.7 mmol/L (3.5-5.1)
[2021-07-31] MEDS: SENNOSIDES-DOCUSATE SODIUM 1 EACH TAB PO SCH ×2 (09:30→20:36)
[2021-07-31] MEDS: DOCUSATE 100 MG CAP PO SCH ×2 (09:30→20:35)
[2021-07-31] MEDS: PSYLLIUM HUSK 100% 6 GM PACKET PO SCH (09:31)
--- NOTE | 2021-07-31 09:42 | P.PN ---
Subjective Progress Note Date: 07/31/21 This is a 66-year-old female recently discharged on 07/25/2021 regarding increased weakness, secondary to metastatic breast cancer with recent progression to bones, lung and liver with radiation oncology consulted and palliative radiation initiated during that visit. Returned to the hospital on 07/27/2019 with complaints of bilateral jaw pain, right shoulder blade pain, shortness of breath. Reports she has significant stress, anxiety, sleep deprivation. Troponins negative 3, creatinine 1.63, sodium 135. Tested negative for covid. VQ scan reported matching posterior defects probably related to pleural effusions and congestive heart failure, change compared to prior exam, low probability of PE. Echo pending. Cardiology consult in place. Currently denies jaw pain. Diuresing well on Lasix IV push with 24-hour I&O reflecting a negative fluid balance. Maintaining O2 sats in the high 90s on room air. Afebrile, normal WBC. Nonproductive cough. 07/29/2021 reports uncontrolled back pain yesterday afternoon and throughout the night. Nauseated during the night as well, Zofran added to med regimen. Toradol added to med regimen. Scheduled for her palliative radiation treatment today. Echo reporting normal LV function. Sodium and Renal function worsening on Lasix IV push, converted to oral. Afebrile. Denies chest pain, palpitations or shortness of breath. 07/30/21 yesterday underwent palliative radiation, complains of increased weakness today. Worsening sodium and renal function, Lasix discontinued. Maintaining O2 sats in the 90s on room air. Denies chest pain, palpitations or shortness of breath. 07/31/21 scheduled for MRI this morning. Diuresed well, Lasix discontinued yesterday secondary to worsening renal function and sodium. Labs pending. Evaluated by PT, recommending walker for gait instability. Afebrile. Reports significant stressors at home. Objective - Vital Signs Vital signs: Vital Signs Temp 98.0 F 07/31/21 04:00 Pulse 66 07/31/21 04:00 Resp 18 07/31/21 04:00 BP 133/76 07/31/21 04:00 Pulse Ox 94 L 07/31/21 04:00 Intake & Output 07/30/21 07/31/21 07/31/21 18:59 06:59 18:59 Intake Total 580 Output Total 400 Balance 580 -400 Weight 98.7 kg Intake: Oral 580 Output: Urine 400 Other: Voiding Method Toilet # Voids 1 - Exam - Exam GENERAL: Sitting up in chair, no acute distress. HEENT: Head is atraumatic, Pupils equal.Conjunctiva normal, oral mucosa moist. NECK: Supple. No JVD RESPIRATORY: Clear to auscultation. Bilateral bases diminished. No wheezes, rales, or rhonchi. CARDIOVASCULAR: Regular rate and rhythm. GASTROINTESTINAL: Soft, nondistended, nontender positive bowel sounds. INTEGUMENTARY: No cyanosis. No jaundice. No rashes noted. EXTREMITIES: Decreased peripheral edema. No calf tenderness noted. Positive DP pulses. NEUROLOGIC: Cranial nerves II-XII intact. PSYCHIATRIC: Awake, alert, and oriented X 3. - Labs CBC & Chem 7: 07/28/21 06:03 07/31/21 06:45 Labs: Abnormal Lab Results - Last 24 Hours (Table) 07/31/21 Range/Units 06:45 Sodium 125 L (137-145) mmol/L Chloride 89 L (98-107) mmol/L BUN 35 H (7-17) mg/dL Creatinine 1.87 H (0.52-1.04) mg/dL Assessment and Plan Assessment: Chest pain, accompanied by bilateral jaw pain, right shoulder blade pain and shortness of breath. Troponins negative 3. Possible acute CHF exacerbation, echo reporting normal LV function Metastatic breast cancer with recent progression to bones, lung and liver Hyponatremia worsened with diuretics Acute renal failure secondary to diuresing. History of breast cancer possibly 13 years ago Chronic kidney disease, stage IV secondary to polycystic kidney disease History of COVID-19 03/01/21, received monoclonal antibiodies. Anxiety Sleep deprivation Obesity, BMI 36.1 Gait dysfunction Plan: Continue on current medication regime ,monitoring and symptomatic treatment. Labs pending.Gait dysfunction, patient will require rolling walker as recommended per physical therapy. Case management working with patient regarding outpatient services to assist/decrease stressors. Paillative radiation. Close monitoring of renal function, sodium with repeat labs ordered for a.m. The impression and plan of care has been dictated as directed. : I performed a history and examination of this patient, discussed the same with the dictator. I agree with the dictator's note ,documented as a scribe. Any additional findings or plans will be noted.
[2021-07-31] MEDS ORDERED: NA PHOS,M-B/NA PHOS,DI-BA 133 ML ENEMA RECTAL ONE (16:06)
--- NOTE | 2021-07-31 16:06 | P.PN ---
Subjective Progress Note Date: 07/31/21 Principal diagnosis: CHF? chest discomfort In f/u today pt has c/o epigastric pain, associated with nausea she does not want to get up because of this. Her breathing is stable. She continues to be able to lay flat without orthopnea. She feels she is constipated, requesting a fleets enema Objective - Vital Signs Vital signs: Vital Signs Temp 98.0 F 07/31/21 04:00 Pulse 67 07/31/21 12:00 Resp 16 07/31/21 12:00 BP 133/75 07/31/21 12:00 Pulse Ox 93 L 07/31/21 12:00 Intake & Output 07/30/21 07/31/21 07/31/21 18:59 06:59 18:59 Intake Total 580 218 Output Total 400 Balance 580 -400 218 Weight 98.7 kg Intake: Oral 580 218 Output: Urine 400 Other: Voiding Method Toilet Toilet # Voids 1 - Constitutional General appearance: Present: cooperative, no acute distress, obese - EENT Eyes: Present: anicteric sclerae, EOMI ENT: Present: hearing grossly normal - Respiratory Respiratory: bilateral: CTA - Cardiovascular Rhythm: regular Heart sounds: normal: S1, S2 Abnormal Heart Sounds: Absent: systolic murmur, diastolic murmur, rub, S3 Gallop, S4 Gallop, click, other - Peripheral edema leg Peripheral Edema: bilateral: None - Gastrointestinal General gastrointestinal: Present: normal bowel sounds, soft, tenderness Localized gastrointestinal: tender: RUQ, epigastric periumbilical - Neurologic Neurologic: Present: CNII-XII intact - Musculoskeletal Musculoskeletal: Present: generalized weakness, strength equal bilaterally - Psychiatric Psychiatric: Present: A&O x's 3, appropriate affect, intact judgment & insight - Labs CBC & Chem 7: 07/28/21 06:03 07/31/21 06:45 Labs: Abnormal Lab Results - Last 24 Hours (Table) 07/31/21 Range/Units 06:45 Sodium 125 L (137-145) mmol/L Chloride 89 L (98-107) mmol/L BUN 35 H (7-17) mg/dL Creatinine 1.87 H (0.52-1.04) mg/dL - Imaging and Cardiology MRI - head: report reviewed Assessment and Plan (1) Jaw pain Current Visit: Yes Status: Resolved Priority: High Code(s): R68.84 - JAW PAIN SNOMED Code(s): 286809376 (2) Upper back pain Narrative/Plan: Completing palliative RT to painful bone mets Current Visit: Yes Status: Acute Priority: High Code(s): M54.9 - GRANT SALGIA, UNSPECIFIED SNOMED Code(s): 148228322 (3) Breast cancer Narrative/Plan: Complete XRT to painful bone mets-she continues on radiation as scheduled F/U to start next treatment regimen once XRT complete-appt in DC plan Current Visit: Yes Status: Chronic Priority: High Code(s): C50.919 - MALIGNANT NEOPLASM OF UNSP SITE OF UNSPECIFIED FEMALE BREAST SNOMED Code(s): 315938362 Plan: Pt c/o nausea, wanting to vomit, epigastric, RUQ discomfort. She has Hx of lap band procedure, Consulted Surgeon. Started carafate. Fleets for constipation Orthostatic BP to be done on the patient because of c/o dizziness. Her systolic BP 140 sitting to 118 standing-positive orthostatics, pt education needed. MRI of the brain was neg for mets
[2021-07-31] MEDS: SUCRALFATE 1 GM TAB PO SCH ×3 (19:39→20:35)
[2021-07-31] MEDS: diphenhydrAMINE 25 MG CAP PO SCH (20:36)
[2021-07-31] MEDS: TEMAZEPAM 15 MG CAP PO PRN (21:14)
[2021-08-01] MEDS: ALPRAZolam 0.5 MG TAB PO PRN (01:23)
[2021-08-01] MEDS: ACETAMINOPHEN TAB 325 MG TAB PO PRN ×2 (01:24→14:20)
[2021-08-01] MEDS: PANTOPRAZOLE 40 MG TABLET PO SCH ×2 (06:38→17:26)
[2021-08-01] MEDS: SUCRALFATE 1 GM TAB PO SCH ×4 (06:38→21:02)
[2021-08-01] MEDS: LEVOTHYROXINE 75 MCG TAB PO SCH (06:38)
[2021-08-01 08:12] LABS: Basophils % (A) 0 %; Eosinophils # (A) 0.1 k/uL (0-0.7); Eosinophils % (A) 2 %; HCT 36.8 % (34.0-46.0); HGB 12.5 gm/dL (11.4-16.0); Lymphocytes # (A) 0.4 k/uL (1.0-4.8); Lymphocytes % (A) 6 %; MCH 34.8 pg (25.0-35.0); MCHC 34.1 g/dL (31.0-37.0); MCV 102.1 fL (80.0-100.0); Macrocytosis Slight; Mean Platelet Volume 7.4; Monocytes # (A) 0.5 k/uL (0-1.0); Monocytes % (A) 8 %; Neutrophils # (A) 5.5 k/uL (1.3-7.7); Neutrophils % (A) 83 %; Platelet Count 198 k/uL (150-450); RDW 13.3 % (11.5-15.5); WBC 6.6 k/uL (3.8-10.6)
[2021-08-01 08:21] LABS: Calcium 9.5 mg/dL (8.4-10.2); Potassium 3.6 mmol/L (3.5-5.1)
[2021-08-01] MEDS: PSYLLIUM HUSK 100% 6 GM PACKET PO SCH (10:33)
[2021-08-01] MEDS: DOCUSATE 100 MG CAP PO SCH ×2 (10:33→21:02)
[2021-08-01] MEDS: SENNOSIDES-DOCUSATE SODIUM 1 EACH TAB PO SCH ×2 (10:33→21:02)
--- NOTE | 2021-08-01 14:31 | P.GSCN ---
History of Present Illness Consult date: 08/01/21 History of present illness: CHIEF COMPLAINT: Jaw pain and heartburn Reason for consult history of lap band, nausea vomiting and epigastric pain HISTORY OF PRESENT ILLNESS: This is a 66-year-old female with a known history of metastatic breast cancer that has progressed to bone, lung and liver. She has been undergoing palliative radiation treatment. She presents to the hospital with complaints of bilateral jaw pain right shoulder pain and shortness of breath. She also found have evidence of CHF exacerbation. She was given IV Lasix. Patient continued to complain of heartburn and having episodes of nausea and vomiting. Patient has a known history of lap band which was placed about [address] casanova. Surgical consult was placed due to patient's epigastric pain with recurrent nausea vomiting and LAP-BAND procedure. Her last episode of vomiting was yesterday. She is having regular bowel movements. She denies any fever, chills or sweats. Patient fluid present in her LAP-BAND. She also has history of a cholecystectomy. Patient's last EGD was in November 2019 which had shown antral gastritis. PAST MEDICAL HISTORY: See list. PAST SURGICAL HISTORY: See list. MEDICATIONS: See list. ALLERGIES: See list. SOCIAL HISTORY: No illicit drug use. REVIEW OF SYSTEMS: CONSTITUTIONAL: Denies fever or chills. HEENT: Denies blurred vision, vision changes, or eye pain. Denies hemoptysis CARDIOVASCULAR: Denies chest pain or pressure. RESPIRATORY: No shortness of breath. GASTROINTESTINAL: See HPI for pertinent findings HEMATOLOGIC: Denies bleeding disorders. GENITOURINARY: Denies any blood in urine or increased urinary frequency. SKIN: Denies pruitis. Denies rash. PHYSICAL EXAM: VITAL SIGNS: Reviewed GENERAL: Well-developed in no acute distress. HEENT: No sclera icterus. Extraocular movements grossly intact. Moist buccal mucosa. Head is atraumatic, normocephalic. No nasal drainage. ABDOMEN: Soft. Nondistended. Epigastric tenderness. No tenderness with palpation of the left band port NEUROLOGIC: Alert and oriented. Cranial nerves II through XII grossly intact. LABORATORY DATA: WBC 6.6 hemoglobin 12.5 platelets 198 sodium 124 potassium 3.6 creatinine 1.82 IMAGING: ASSESSMENT: 1. Epigastric pain with nausea and vomiting. Patient's lap band port is empty and is not the cause of her emesis 2. History of metastatic breast cancer to bone, lung and liver currently having palliative radiation treatment 3. Hyponatremia 4. History of lap band PLAN: -No surgical intervention planned -Continue supportive care -Continue antiemetics -Medical service to manage hyponatremia Thank you for this consultation [facility] Paramedic note has been reviewed by physician. Signing provider agrees with the documented findings, assessment, and plan of care. Past Medical History Past Medical History: Asthma, Cancer, COPD, GERD/Reflux, Hypertension, Renal Disease, Thyroid Disorder Additional Past Medical History / Comment(s): Hx 2009 breast CA metastatic stage 4, thyroid CA 6 years ago. 2017 diagnosis of stage 4 bone CA in spine. 12/2016 near syncope w/ suspected low BP. Mild asthma with occasional related rt-sided chest pain. Hx polycystic kidney disease, cyst to liver, nodule lt lung, thoracic aneurysm. Obesity. Cataracts bulmaro. Recent nausea, dark stools, wgt fluctuations, dysphagia if eats too fast. Radiation 2 doses done, 4 to go, last on . History of Any Multi-Drug Resistant Organisms: None Reported Past Surgical History: Bariatric Surgery, Breast Surgery, Cholecystectomy, Hysterectomy Additional Past Surgical History / Comment(s): Hx colonoscopy. Hx double mastectomy, thyroidectomy, lap band (not filled), bunionectomy bulmaro ft foot surg, bilateral carpal tunnel, surgeries for staph infection rt breast implant. Past Anesthesia/Blood Transfusion Reactions: Motion Sickness Past Psychological History: Anxiety, Depression Additional Psychological History / Comment(s): not currently Smoking Status: Never smoker Past Alcohol Use History: None Reported Past Drug Use History: None Reported - Past Family History Father Family Medical History: Cancer, Renal Disease Additional Family Medical History / Comment(s): polycystic kidney, kidney transplant, poss CA behind heart R/T Rx Medications and Allergies Home Medications Medication Instructions Recorded Confirmed Type Levothyroxine Sodium [Synthroid] 150 mcg PO DAILY 08/28/19 07/27/21 History Docusate [Colace] 100 mg PO BID cap 07/25/21 07/27/21 Rx Pantoprazole [Protonix] 40 mg PO AC-BID #60 tablet. 07/25/21 07/27/21 Rx Psyllium Husk 100% [Metamucil 6 gm PO DAILY packet 07/25/21 07/27/21 Rx Packet] Sennosides-Docusate Sodium 2 each PO BID tab 07/25/21 07/27/21 Rx [Senokot-S] dexAMETHasone ORAL [Hexadrol] 4 mg PO BID #30 tab 07/25/21 07/27/21 Rx diphenhydrAMINE [Benadryl] 25 mg PO HS cap 07/25/21 07/27/21 Rx ALPRAZolam [Xanax] 0.5 mg PO HS PRN 07/27/21 07/27/21 History Furosemide [Lasix] 20 mg PO DAILY #90 tab 07/29/21 Rx Allergies Allergy/AdvReac Type Severity Reaction Status Date / Time Iodinated Contrast Media Allergy Rash/Hives Verified 07/27/21 11:24 [Iodinated Contrast Media - IV Dye] Surgical - Exam Vital Signs Temp Pulse Resp BP Pulse Ox 98 F 63 18 183/89 97 07/27/21 08:42 07/27/21 08:42 07/27/21 08:42 07/27/21 08:42 07/27/21 08:42 Results - Labs 08/01/21 07:23 08/01/21 07:23 Abnormal Lab Results - Last 24 Hours (Table) 08/01/21 08/01/21 Range/Units 07:23 07:23 RBC 3.60 L (3.80-5.40) m/uL MCV 102.1 H (80.0-100.0) fL Lymphocytes # 0.4 L (1.0-4.8) k/uL Sodium 124 L (137-145) mmol/L Chloride 90 L (98-107) mmol/L BUN 32 H (7-17) mg/dL Creatinine 1.82 H (0.52-1.04) mg/dL Diabetes panel 08/01/21 Range/Units 07:23 Sodium 124 L (137-145) mmol/L Potassium 3.6 (3.5-5.1) mmol/L Chloride 90 L (98-107) mmol/L Carbon Dioxide 25 (22-30) mmol/L BUN 32 H (7-17) mg/dL Creatinine 1.82 H (0.52-1.04) mg/dL Glucose 88 (74-99) mg/dL Calcium 9.5 (8.4-10.2) mg/dL Calcium panel 08/01/21 Range/Units 07:23 Calcium 9.5 (8.4-10.2) mg/dL Pituitary panel 08/01/21 Range/Units 07:23 Sodium 124 L (137-145) mmol/L Potassium 3.6 (3.5-5.1) mmol/L Chloride 90 L (98-107) mmol/L Carbon Dioxide 25 (22-30) mmol/L BUN 32 H (7-17) mg/dL Creatinine 1.82 H (0.52-1.04) mg/dL Glucose 88 (74-99) mg/dL Calcium 9.5 (8.4-10.2) mg/dL Adrenal panel 08/01/21 Range/Units 07:23 Sodium 124 L (137-145) mmol/L Potassium 3.6 (3.5-5.1) mmol/L Chloride 90 L (98-107) mmol/L Carbon Dioxide 25 (22-30) mmol/L BUN 32 H (7-17) mg/dL Creatinine 1.82 H (0.52-1.04) mg/dL Glucose 88 (74-99) mg/dL Calcium 9.5 (8.4-10.2) mg/dL
--- NOTE | 2021-08-01 14:59 | P.PN ---
Subjective Progress Note Date: 08/01/21 This is a 66-year-old female recently discharged on 07/25/2021 regarding increased weakness, secondary to metastatic breast cancer with recent progression to bones, lung and liver with radiation oncology consulted and palliative radiation initiated during that visit. Returned to the hospital on 07/27/2019 with complaints of bilateral jaw pain, right shoulder blade pain, shortness of breath. Reports she has significant stress, anxiety, sleep deprivation. Troponins negative 3, creatinine 1.63, sodium 135. Tested negative for covid. VQ scan reported matching posterior defects probably related to pleural effusions and congestive heart failure, change compared to prior exam, low probability of PE. Echo pending. Cardiology consult in place. Currently denies jaw pain. Diuresing well on Lasix IV push with 24-hour I&O reflecting a negative fluid balance. Maintaining O2 sats in the high 90s on room air. Afebrile, normal WBC. Nonproductive cough. 07/29/2021 reports uncontrolled back pain yesterday afternoon and throughout the night. Nauseated during the night as well, Zofran added to med regimen. Toradol added to med regimen. Scheduled for her palliative radiation treatment today. Echo reporting normal LV function. Sodium and Renal function worsening on Lasix IV push, converted to oral. Afebrile. Denies chest pain, palpitations or shortness of breath. 07/30/21 yesterday underwent palliative radiation, complains of increased weakness today. Worsening sodium and renal function, Lasix discontinued. Maintaining O2 sats in the 90s on room air. Denies chest pain, palpitations or shortness of breath. 07/31/21 scheduled for MRI this morning. Diuresed well, Lasix discontinued yesterday secondary to worsening renal function and sodium. Labs pending. Evaluated by PT, recommending walker for gait instability. Afebrile. Reports significant stressors at home. 08/01/21 brain MRI reported negative with no evidence of cortical infarct, no change compared to prior exam, no metastasis reported. Positive bowel movement yesterday, post enema. Complains of right upper quadrant radiating pain. Labs pending. Orthostatic vitals pending. Nausea subsided currently, reports occasional belching. Objective - Vital Signs Vital signs: Vital Signs Temp 97.8 F 08/01/21 08:00 Pulse 60 08/01/21 12:00 Resp 18 08/01/21 12:00 BP 120/59 08/01/21 12:00 Pulse Ox 94 L 08/01/21 12:00 Intake & Output 07/31/21 08/01/21 08/01/21 18:59 06:59 18:59 Intake Total 868 10 420 Output Total 2 Balance 868 8 420 Weight 98.9 kg Intake: IV 10 Invasive Line 1 10 Oral 868 420 Output: Urine 2 Other: Voiding Method Toilet Toilet Toilet # Voids 3 1 # Bowel Movements 1 1 - Labs CBC & Chem 7: 08/01/21 07:23 08/01/21 07:23 Labs: Abnormal Lab Results - Last 24 Hours (Table) 08/01/21 08/01/21 Range/Units 07:23 07:23 RBC 3.60 L (3.80-5.40) m/uL MCV 102.1 H (80.0-100.0) fL Lymphocytes # 0.4 L (1.0-4.8) k/uL Sodium 124 L (137-145) mmol/L Chloride 90 L (98-107) mmol/L BUN 32 H (7-17) mg/dL Creatinine 1.82 H (0.52-1.04) mg/dL Assessment and Plan Assessment: Chest pain, accompanied by bilateral jaw pain, right shoulder blade pain and shortness of breath. Troponins negative 3. Possible acute CHF exacerbation, echo reporting normal LV function Metastatic breast cancer with recent progression to bones, lung and liver Hyponatremia, hypovolemic ,diuretic induced Acute renal failure secondary to diuresing. History of breast cancer possibly 13 years ago Chronic kidney disease, stage IV secondary to polycystic kidney disease History of COVID-19 03/01/21, received monoclonal antibiodies. Anxiety Sleep deprivation Obesity, BMI 36.1 Gait dysfunction Plan: Continue on current medication regime ,monitoring and symptomatic treatment. Patient is not a surgical candidate for lap band removal. Gentle IV fluid hydration. Paillative radiation today. Orthostatic BPs reordered. Close monitoring of renal function, sodium with repeat labs ordered for a.m. The impression and plan of care has been dictated as directed. : I performed a history and examination of this patient, discussed the same with the dictator. I agree with the dictator's note ,documented as a scribe. Any additional findings or plans will be noted.
[2021-08-01] MEDS: SODIUM CHLORIDE 0.9% 1,000 ML IV SCH (15:45)
[2021-08-01 16:25] LABS: Albumin 3.1 g/dL (3.5-5.0); Bilirubin, Delta 0.2 mg/dL (0.0-0.2); Bilirubin,Unconjugated 0.4 mg/dL (0.0-1.1); Total Bilirubin 0.6 mg/dL (0.2-1.3); Total Protein 5.5 g/dL (6.3-8.2)
[2021-08-01] MEDS: Acetaminophen-Codeine 300-30mg TAB PO PRN (18:54)
--- NOTE | 2021-08-01 20:00 | P.PN ---
Subjective Progress Note Date: 08/01/21 Objective - Vital Signs Vital signs: Vital Signs Temp 97.8 F 08/01/21 08:00 Pulse 60 08/01/21 12:00 Resp 18 08/01/21 12:00 BP 120/59 08/01/21 12:00 Pulse Ox 94 L 08/01/21 12:00 Intake & Output 07/31/21 08/01/21 08/01/21 18:59 06:59 18:59 Intake Total 868 10 240 Output Total 2 Balance 868 8 240 Weight 98.9 kg Intake: IV 10 Invasive Line 1 10 Oral 868 240 Output: Urine 2 Other: Voiding Method Toilet Toilet Toilet # Voids 3 1 # Bowel Movements 1 1 - Exam - Constitutional General appearance: Present: cooperative, no acute distress, obese - EENT Eyes: Present: anicteric sclerae, EOMI ENT: Present: hearing grossly normal - Respiratory Respiratory: bilateral: CTA - Cardiovascular Rhythm: regular Heart sounds: normal: S1, S2 Abnormal Heart Sounds: Absent: systolic murmur, diastolic murmur, rub, S3 Gallop, S4 Gallop, click, other - Peripheral edema leg Peripheral Edema: bilateral: None - Gastrointestinal General gastrointestinal: Present: normal bowel sounds, soft, tenderness Localized gastrointestinal: tender: RUQ, epigastric periumbilical - Neurologic Neurologic: Present: CNII-XII intact - Musculoskeletal Musculoskeletal: Present: generalized weakness, strength equal bilaterally - Psychiatric Psychiatric: Present: A&O x's 3, appropriate affect, intact judgment & insight - Labs CBC & Chem 7: 08/01/21 07:23 08/01/21 07:23 Labs: Abnormal Lab Results - Last 24 Hours (Table) 08/01/21 08/01/21 Range/Units 07:23 07:23 RBC 3.60 L (3.80-5.40) m/uL MCV 102.1 H (80.0-100.0) fL Lymphocytes # 0.4 L (1.0-4.8) k/uL Sodium 124 L (137-145) mmol/L Chloride 90 L (98-107) mmol/L BUN 32 H (7-17) mg/dL Creatinine 1.82 H (0.52-1.04) mg/dL Assessment and Plan (1) Hyponatremia Current Visit: Yes Status: Acute Code(s): E87.1 - HYPO-OSMOLALITY AND HYPONATREMIA SNOMED Code(s): 50220644 (2) Breast cancer Current Visit: Yes Status: Chronic Priority: High Code(s): C50.919 - MALIGNANT NEOPLASM OF UNSP SITE OF UNSPECIFIED FEMALE BREAST SNOMED Code(s): 859795001 (3) Metastases to the liver Current Visit: No Status: Acute Code(s): C78.7 - SECONDARY MALIG NEOPLASM OF LIVER AND INTRAHEPATIC BILE DUCT SNOMED Code(s): 99116470 Plan: MRI brain negative for metastatic disease COntinue supportive care. Nephrology for renal failure
[2021-08-01] MEDS: diphenhydrAMINE 25 MG CAP PO SCH (20:14)
[2021-08-01] MEDS: TEMAZEPAM 15 MG CAP PO PRN (21:11)
[2021-08-02] MEDS: SUCRALFATE 1 GM TAB PO SCH ×4 (06:40→20:00)
[2021-08-02] MEDS: PANTOPRAZOLE 40 MG TABLET PO SCH ×2 (06:41→17:00)
[2021-08-02] MEDS: LEVOTHYROXINE 75 MCG TAB PO SCH (06:41)
[2021-08-02 09:27] LABS: Basophils % (A) 0 %; Eosinophils # (A) 0.1 k/uL (0-0.7); Eosinophils % (A) 1 %; HCT 35.3 % (34.0-46.0); HGB 12.1 gm/dL (11.4-16.0); Lymphocytes # (A) 0.3 k/uL (1.0-4.8); Lymphocytes % (A) 5 %; MCHC 34.3 g/dL (31.0-37.0); MCV 101.8 fL (80.0-100.0); Macrocytosis Slight; Mean Platelet Volume 7.5; Monocytes # (A) 0.4 k/uL (0-1.0); Monocytes % (A) 7 %; Neutrophils # (A) 5.2 k/uL (1.3-7.7); Neutrophils % (A) 86 %; Platelet Count 183 k/uL (150-450); RBC 3.46 m/uL (3.80-5.40); RDW 13.3 % (11.5-15.5)
[2021-08-02 09:45] LABS: Albumin 3.1 g/dL (3.5-5.0); Calcium 9.4 mg/dL (8.4-10.2); Magnesium 1.8 mg/dL (1.6-2.3); Potassium 3.4 mmol/L (3.5-5.1); Total Bilirubin 0.5 mg/dL (0.2-1.3); Total Protein 5.4 g/dL (6.3-8.2)
[2021-08-02] MEDS ORDERED: Potassium Replacement Protocol 1 EACH MISC MISCELLANE PRN ×2 (10:09→12:16)
[2021-08-02] MEDS: DOCUSATE 100 MG CAP PO SCH ×2 (10:24→20:00)
[2021-08-02] MEDS: SENNOSIDES-DOCUSATE SODIUM 1 EACH TAB PO SCH ×2 (10:24→20:00)
[2021-08-02] MEDS: PSYLLIUM HUSK 100% 6 GM PACKET PO SCH (10:24)
[2021-08-02] MEDS ORDERED: POTASSIUM CHLORIDE ER 20 MEQ TAB.ER PO SCH (11:00)
[2021-08-02] MEDS: ACETAMINOPHEN TAB 325 MG TAB PO PRN (12:28)
[2021-08-02] MEDS ORDERED: ALPRAZolam 0.5 MG TAB PO PRN (12:52)
--- NOTE | 2021-08-02 13:23 | P.PN ---
Subjective Progress Note Date: 08/02/21 CHIEF COMPLAINT: Intractable nausea or vomiting HISTORY OF PRESENT ILLNESS: The patient is a 66-year-old female presented intractable nausea or vomiting. Patient has gastric band including metastatic breast cancer. SHe reports persistent nausea as her potassium is low. She has difficulty with swallowing pills at the supxiphoid area. She was on a vegetarian diet prior to her hospitalization was doing better. ROS: No fevers or chills. No new chest pain. No productive sputum PHYSICAL EXAM: VITAL SIGNS: Reviewed CONSTITUTIONAL: Well developed and in no acute distress. EYES: Conjuctivae without sclera icterus. Extraocular movements grossly intact. HEAD, EARS, NOSE, THROAT: Moist buccal mucosa. Head is atraumatic, normocephalic. Hears conversational speech. No nasal drainage. NECK: No gross thyroidomegaly. No jugular venous distention. RESPIRATORY: Non-labored respirations and equal bilateral excursions. CARDIOVASCULAR: Palpable 2+ radial pulses. ABDOMEN: Soft. No peritonitis. MUSCULOSKELETAL: No gross deformity of the lower extremities noted. No clubbing. No cyanosis. SKIN: Good skin turgor. Well perfused. NEUROLOGIC: Cranial nerves II through XII grossly intact. No focal or lateralizing signs. PSYCH: Appropriate affect. Alert and oriented to person, place and time. CLINICAL LABS: White blood cell count normal at 6.0. Hemoglobin 12.1. Potassium low 3.4. Creatinine elevated stage III disease, 1.67 [address] 1.87. STUDIES: CT of the abdomen and pelvis reviewed with diffuse liver lesions and band in appropriate orientation. This is my independent interpretation. ASSESSMENT: 1. Intractable nausea or vomiting 2. Adjustable gastric band 3. Metastatic breast cancer 4. Hypokalemia. 5. Dysphagia PLAN: 1. Conservative management with antiemetics 2. Start scopolamine patch 3. Adjust diet to pureed for increase nutrition and for dysphagia Objective - Vital Signs Vital signs: Vital Signs Temp 98.2 F 08/02/21 03:34 Pulse 63 08/02/21 03:34 Resp 18 08/02/21 03:34 BP 120/61 08/02/21 03:34 Pulse Ox 94 L 08/02/21 03:34 Intake & Output 08/01/21 08/02/21 08/02/21 18:59 06:59 18:59 Intake Total 600 125 Output Total 480 Balance 600 -480 125 Weight 98.6 kg Intake: Oral 600 125 Output: Urine 480 Other: Voiding Method Toilet Toilet # Voids 1 2 # Bowel Movements 1 - Labs CBC & Chem 7: 08/02/21 08:49 08/02/21 08:49 Labs: Abnormal Lab Results - Last 24 Hours (Table) 08/01/21 08/02/21 08/02/21 Range/Units 07:23 08:49 08:49 RBC 3.46 L (3.80-5.40) m/uL MCV 101.8 H (80.0-100.0) fL Lymphocytes # 0.3 L (1.0-4.8) k/uL Sodium 127 L (137-145) mmol/L Potassium 3.4 L (3.5-5.1) mmol/L Chloride 92 L (98-107) mmol/L BUN 26 H (7-17) mg/dL Creatinine 1.69 H (0.52-1.04) mg/dL Glucose 119 H (74-99) mg/dL Osmolality 267 L (280-301) mosm/kg AST 98 H 95 H (14-36) U/L Alkaline Phosphatase 147 H 127 H (38-126) U/L Total Protein 5.5 L 5.4 L (6.3-8.2) g/dL Albumin 3.1 L 3.1 L (3.5-5.0) g/dL Assessment and Plan (1) Gastric banding status Current Visit: Yes Status: Acute Code(s): Z98.84 - BARIATRIC SURGERY STATUS SNOMED Code(s): 337224137 (2) Dysphagia Current Visit: Yes Status: Acute Code(s): R13.10 - DYSPHAGIA, UNSPECIFIED SNOMED Code(s): 11773046 (3) Breast cancer metastasized to liver Current Visit: Yes Status: Acute Code(s): C50.919 - MALIGNANT NEOPLASM OF UNSP SITE OF UNSPECIFIED FEMALE BREAST; C78.7 - SECONDARY MALIG NEOPLASM OF LIVER AND INTRAHEPATIC BILE DUCT SNOMED Code(s): 442828476 (4) Hyponatremia Current Visit: Yes Status: Acute Code(s): E87.1 - HYPO-OSMOLALITY AND HYPONATREMIA SNOMED Code(s): 24769678 (5) Breast cancer Current Visit: Yes Status: Chronic Priority: High Code(s): C50.919 - MALIGNANT NEOPLASM OF UNSP SITE OF UNSPECIFIED FEMALE BREAST SNOMED Code(s): 927710657 (6) Chronic kidney disease Current Visit: No Status: Acute Code(s): N18.9 - CHRONIC KIDNEY DISEASE, UNSPECIFIED SNOMED Code(s): 945848496 (7) Metastases to the liver Current Visit: No Status: Acute Code(s): C78.7 - SECONDARY MALIG NEOPLASM OF LIVER AND INTRAHEPATIC BILE DUCT SNOMED Code(s): 65870595
[2021-08-02] MEDS: SODIUM CHLORIDE 0.9% 1,000 ML IV SCH (17:00)
[2021-08-02] MEDS: SCOPOLAMINE 1.5MG/72HR PATCH TRANSDERM SCH (18:21)
[2021-08-02] MEDS: diphenhydrAMINE 25 MG CAP PO SCH (19:43)
[2021-08-02] MEDS: TEMAZEPAM 15 MG CAP PO PRN (20:00)
--- NOTE | 2021-08-02 22:38 | P.PN ---
Subjective Progress Note Date: 08/02/21 Principal diagnosis: Intractable nausea and vomiting and dysphagia. Metastatic breast cancer Acute CHF with diastolic dysfunction This is a 66-year-old female recently discharged on 07/25/2021 regarding increased weakness, secondary to metastatic breast cancer with recent prog ression to bones, lung and liver with radiation oncology consulted and palliative radiation initiated during that visit. Returned to the hospital on 07/27/2019 with complaints of bilateral jaw pain, right shoulder blade pain, shortness of breath. Reports she has significant stress, anxiety, sleep d eprivation. Troponins negative 3, creatinine 1.63, sodium 135. Tested negative for covid. VQ scan reported matching posterior defects probably related to pleural effusions and congestive heart failure, change compared to prior exam, low probability of PE. Echo pending. Cardiology consult in place. Currently denies jaw pain. Diuresing well on Lasix IV push with 24-hour I&O reflecting a negative fluid balance. Maintaining O2 sats in the high 90s on room air. Afebrile, normal WBC. Nonproductive cough. 07/29/2021 reports uncontrolled back pain yesterday afternoon and throughout the night. Nauseated during the night as well, Zofran added to med regimen. Toradol added to med regimen. Scheduled for her palliative radiation treatment today. Echo reporting normal LV function. Sodium and Renal function worsening on Lasix IV push, converted to oral. Afebrile. Denies chest pain, palpitations or shortness of breath. 07/30/21 yesterday underwent palliative radiation, complains of increased weakness today. Worsening sodium and renal function, Lasix discontinued. Maintaining O2 sats in the 90s on room air. Denies chest pain, palpitations or shortness of breath. 07/31/21 scheduled for MRI this morning. Diuresed well, Lasix discontinued yesterday secondary to worsening renal function and sodium. Labs pending. Evaluated by PT, recommending walker for gait instability. Afebrile. Reports significant stressors at home. 08/01/21 brain MRI reported negative with no evidence of cortical infarct, no change compared to prior exam, no metastasis reported. Positive bowel movement yesterday, post enema. Complains of right upper quadrant radiating pain. Labs pending. Orthostatic vitals pending. Nausea subsided currently, reports occasional belching. 08/02/2021 Patient is currently lying in the bed awake alert oriented x3. Still complains of nausea and episodes of vomiting. Patient does complain of dysphagia and epigastric discomfort. General surgery is on board due to history of lap band surgery. Otherwise patient is currently on room air. No fever no chills. No cough sputum production. MRI of the brain showed no metastatic lesions. Oncology and general surgery is on board. Potassium is being replaced.Laboratory showed WBC 6.0 hemoglobin 12.1 and platelets 183 sodium 127 potassium 3.4 chloride 92 BUN 26 and creatinine 1.69 AST 95 ALT 928 alk phos 127 Current medications reviewed. Objective - Vital Signs Vital signs: Vital Signs Temp 98.2 F 08/02/21 12:00 Pulse 65 08/02/21 12:00 Resp 20 08/02/21 12:00 BP 152/79 08/02/21 12:00 Pulse Ox 94 L 08/02/21 12:00 Intake & Output 08/01/21 08/02/21 08/02/21 18:59 06:59 18:59 Intake Total 600 125 Output Total 480 Balance 600 -480 125 Weight 98.6 kg Intake: Oral 600 125 Output: Urine 480 Other: Voiding Method Toilet Toilet # Voids 1 2 # Bowel Movements 1 - Exam PHYSICAL EXAMINATION: Patient is lying in the bed comfortably, no acute distress, awake alert and oriented.. HEENT: Normocephalic. Neck is supple. Pupils reactive. Nostrils clear. Oral cavity is moist. Neck reveals no JVD, carotid bruits, or thyromegaly. CHEST EXAMINATION: Trachea is central. Symmetrical expansion. Bibasilar diminished sounds.. No wheezing nonlabored breathing. CARDIAC: Normal S1, S2 with no gallops. No murmurs ABDOMEN: Soft. Bowel sounds normal. No organomegaly. No abdominal bruits. Extremities: trace edema. No clubbing or cyanosis Neurologically awake, alert, oriented x3 with well-coordinated movements. No focal deficits noted Skin: No rash or skin lesions. Psychiatric: Coperative. Nonsuicidal, anxious Musculoskeletal: No joint swelling or deformity. Normal range of motion. - Labs CBC & Chem 7: 08/02/21 08:49 08/02/21 08:49 Labs: Abnormal Lab Results - Last 24 Hours (Table) 08/01/21 08/02/2121 Range/Units 07:23 08:49 08:49 RBC 3.46 L (3.80-5.40) m/uL MCV 101.8 H (80.0-100.0) fL Lymphocytes # 0.3 L (1.0-4.8) k/uL Sodium 127 L (137-145) mmol/L Potassium 3.4 L (3.5-5.1) mmol/L Chloride 92 L (98-107) mmol/L BUN 26 H (7-17) mg/dL Creatinine 1.69 H (0.52-1.04) mg/dL Glucose 119 H (74-99) mg/dL Osmolality 267 L (280-301) mosm/kg AST 98 H 95 H (14-36) U/L Alkaline Phosphatase 147 H 127 H (38-126) U/L Total Protein 5.5 L 5.4 L (6.3-8.2) g/dL Albumin 3.1 L 3.1 L (3.5-5.0) g/dL Assessment and Plan Assessment: Nausea and vomiting abdominal discomfort in the epigastric region. Improving now. Atypical Chest pain, accompanied by bilateral jaw pain, right shoulder blade pain and shortness of breath. Troponins negative 3.Ruled out ACS. Possible acute CHF exacerbation, echo reporting normal LV function Metastatic breast cancer with recent progression to bones, lung and liver Hyponatremia, hypovolemic ,diuretic induced Acute renal failure secondary to diuresing. History of breast cancer possibly 13 years ago Chronic kidney disease, stage IV secondary to polycystic kidney disease History of COVID-19 03/01/21, received monoclonal antibiodies. Anxiety Sleep deprivation Obesity, BMI 36.1 Gait dysfunction Plan: Continue on current medication regime ,monitoring and symptomatic treatment. Patient is not a surgical candidate for lap band removal. Gentle IV fluid hydration. Paillative radiation. Lasix on hold.Patient is being continued on normal saline at 50 cc/h.Monitor re nal function. Orthostatic BPs reordered. Close monitoring of renal function, sodium with repeat labs ordered for a.m. Time with Patient: Greater than 30
[2021-08-02] MEDS: HEPARIN SODIUM,PORCINE/PF 5,000 UNIT/0.5 ML SYRINGE SQ SCH (23:15)
[2021-08-03] MEDS: SODIUM CHLORIDE 0.9% 1,000 ML IV SCH (07:02)
[2021-08-03] MEDS: PANTOPRAZOLE 40 MG TABLET PO SCH ×2 (07:02→17:16)
[2021-08-03] MEDS: SUCRALFATE 1 GM TAB PO SCH ×4 (07:02→21:11)
[2021-08-03] MEDS: LEVOTHYROXINE 75 MCG TAB PO SCH (07:02)
[2021-08-03] MEDS: PSYLLIUM HUSK 100% 6 GM PACKET PO SCH (08:17)
[2021-08-03] MEDS: HEPARIN SODIUM,PORCINE/PF 5,000 UNIT/0.5 ML SYRINGE SQ SCH ×2 (08:17→17:16)
[2021-08-03] MEDS: SENNOSIDES-DOCUSATE SODIUM 1 EACH TAB PO SCH ×2 (08:17→21:11)
[2021-08-03 08:47] LABS: Basophils % (A) 0 %; Eosinophils # (A) 0.1 k/uL (0-0.7); Eosinophils % (A) 1 %; HGB 12.1 gm/dL (11.4-16.0); Lymphocytes # (A) 0.3 k/uL (1.0-4.8); Lymphocytes % (A) 4 %; MCH 34.3 pg (25.0-35.0); MCHC 33.5 g/dL (31.0-37.0); MCV 102.3 fL (80.0-100.0); Macrocytosis Slight; Monocytes # (A) 0.6 k/uL (0-1.0); Monocytes % (A) 7 %; Neutrophils # (A) 7.2 k/uL (1.3-7.7); Neutrophils % (A) 87 %; Platelet Count 163 k/uL (150-450); RBC 3.52 m/uL (3.80-5.40); RDW 13.2 % (11.5-15.5); WBC 8.3 k/uL (3.8-10.6)
[2021-08-03 09:09] LABS: Calcium 9.6 mg/dL (8.4-10.2); Potassium 3.5 mmol/L (3.5-5.1)
[2021-08-03] MEDS: DOCUSATE 100 MG CAP PO SCH ×2 (10:03→21:11)
--- NOTE | 2021-08-03 12:42 | P.PN ---
Subjective Progress Note Date: 08/03/21 CHIEF COMPLAINT: Intractable nausea and vomiting HISTORY OF PRESENT ILLNESS: The patient is a 66-year-old female presented intractable nausea and vomiting. Patient has gastric band including metastatic breast cancer. Yesterday, she complained of persistent nausea and difficulty swallowing foods. After adding scopolamine patches and adjusting her diet to dysphagia diet, she is much more comfortable today. Nausea is controlled. She had a bowel movement. ROS: No fevers or chills. No new chest pain. No productive sputum PHYSICAL EXAM: VITAL SIGNS: Reviewed CONSTITUTIONAL: Well developed and in no acute distress. EYES: Conjuctivae without sclera icterus. Extraocular movements grossly intact. HEAD, EARS, NOSE, THROAT: Moist buccal mucosa. Head is atraumatic, normocephalic. Hears conversational speech. No nasal drainage. NECK: No gross thyroidomegaly. No jugular venous distention. RESPIRATORY: Non-labored respirations and equal bilateral excursions. CARDIOVASCULAR: Palpable 2+ radial pulses. ABDOMEN: Soft. No peritonitis. MUSCULOSKELETAL: No gross deformity of the lower extremities noted. No clubbing. No cyanosis. SKIN: Good skin turgor. Well perfused. NEUROLOGIC: Cranial nerves II through XII grossly intact. No focal or lateralizing signs. PSYCH: Appropriate affect. Alert and oriented to person, place and time. CLINICAL LABS: Reviewed. White blood cell count normal. Creatinine still elevated, stage III renal disease. Sodium 129 low, potassium normal at 3.5 ASSESSMENT: 1. Intractable nausea or vomiting 2. Adjustable gastric band 3. Metastatic breast cancer 4. Hypokalemia. 5. Dysphagia PLAN: 1. Continue dysphagia diet. 2. Correct hyponatremia. Objective - Vital Signs Vital signs: Vital Signs Temp 98.3 F 08/03/21 03:59 Pulse 64 08/03/21 12:00 Resp 16 08/03/21 12:00 BP 131/74 08/03/21 12:00 Pulse Ox 94 L 08/03/21 12:00 Intake & Output 08/02/21 08/03/21 08/03/21 18:59 06:59 18:59 Intake Total 595 125 Balance 595 125 Weight 98.3 kg Intake: Intake, IV Titration 250 Amount Sodium Chloride 0.9% 1, 250 000 ml @ 50 mls/hr IV . [facility]H [facility] Rx#:[id number] Oral 345 125 Other: Voiding Method Toilet # Voids 1 2 - Labs CBC & Chem 7: 08/03/21 07:50 08/03/21 07:50 Labs: Abnormal Lab Results - Last 24 Hours (Table) 08/03/21 08/03/21 Range/Units 07:50 07:50 RBC 3.52 L (3.80-5.40) m/uL MCV 102.3 H (80.0-100.0) fL Lymphocytes # 0.3 L (1.0-4.8) k/uL Sodium 129 L (137-145) mmol/L Chloride 97 L (98-107) mmol/L BUN 20 H (7-17) mg/dL Creatinine 1.66 H (0.52-1.04) mg/dL Glucose 101 H (74-99) mg/dL Assessment and Plan (1) Gastric banding status Current Visit: Yes Status: Acute Code(s): Z98.84 - BARIATRIC SURGERY STATUS SNOMED Code(s): 103973844 (2) Dysphagia Current Visit: Yes Status: Acute Code(s): R13.10 - DYSPHAGIA, UNSPECIFIED SNOMED Code(s): 56677821 (3) Breast cancer metastasized to liver Current Visit: Yes Status: Acute Code(s): C50.919 - MALIGNANT NEOPLASM OF UNSP SITE OF UNSPECIFIED FEMALE BREAST; C78.7 - SECONDARY MALIG NEOPLASM OF LIVER AND INTRAHEPATIC BILE DUCT SNOMED Code(s): 518812689 (4) Hyponatremia Current Visit: Yes Status: Acute Code(s): E87.1 - HYPO-OSMOLALITY AND HYPONATREMIA SNOMED Code(s): 71115042 (5) Breast cancer Current Visit: Yes Status: Chronic Priority: High Code(s): C50.919 - MALIGNANT NEOPLASM OF UNSP SITE OF UNSPECIFIED FEMALE BREAST SNOMED Code(s): 951100783 (6) Chronic kidney disease Current Visit: No Status: Acute Code(s): N18.9 - CHRONIC KIDNEY DISEASE, UNSPECIFIED SNOMED Code(s): 486121831 (7) Metastases to the liver Current Visit: No Status: Acute Code(s): C78.7 - SECONDARY MALIG NEOPLASM OF LIVER AND INTRAHEPATIC BILE DUCT SNOMED Code(s): 50807749 (8) Stage 3 chronic kidney disease Current Visit: Yes Status: Acute Code(s): N18.30 - CHRONIC KIDNEY DISEASE, STAGE 3 UNSPECIFIED SNOMED Code(s): 966663168
[2021-08-03] MEDS: ACETAMINOPHEN TAB 325 MG TAB PO PRN (17:19)
[2021-08-03] MEDS: diphenhydrAMINE 25 MG CAP PO SCH (21:06)
[2021-08-03] MEDS: TEMAZEPAM 15 MG CAP PO PRN (21:11)
--- NOTE | 2021-08-03 23:29 | P.PN ---
Subjective Progress Note Date: 08/03/21 Principal diagnosis: Intractable nausea and vomiting and dysphagia. Metastatic breast cancer Acute CHF with diastolic dysfunction This is a 66-year-old female recently discharged on 07/25/2021 regarding increased weakness, secondary to metastatic breast cancer with recent prog ression to bones, lung and liver with radiation oncology consulted and palliative radiation initiated during that visit. Returned to the hospital on 07/27/2019 with complaints of bilateral jaw pain, right shoulder blade pain, shortness of breath. Reports she has significant stress, anxiety, sleep d eprivation. Troponins negative 3, creatinine 1.63, sodium 135. Tested negative for covid. VQ scan reported matching posterior defects probably related to pleural effusions and congestive heart failure, change compared to prior exam, low probability of PE. Echo pending. Cardiology consult in place. Currently denies jaw pain. Diuresing well on Lasix IV push with 24-hour I&O reflecting a negative fluid balance. Maintaining O2 sats in the high 90s on room air. Afebrile, normal WBC. Nonproductive cough. 07/29/2021 reports uncontrolled back pain yesterday afternoon and throughout the night. Nauseated during the night as well, Zofran added to med regimen. Toradol added to med regimen. Scheduled for her palliative radiation treatment today. Echo reporting normal LV function. Sodium and Renal function worsening on Lasix IV push, converted to oral. Afebrile. Denies chest pain, palpitations or shortness of breath. 07/30/21 yesterday underwent palliative radiation, complains of increased weakness today. Worsening sodium and renal function, Lasix discontinued. Maintaining O2 sats in the 90s on room air. Denies chest pain, palpitations or shortness of breath. 07/31/21 scheduled for MRI this morning. Diuresed well, Lasix discontinued yesterday secondary to worsening renal function and sodium. Labs pending. Evaluated by PT, recommending walker for gait instability. Afebrile. Reports significant stressors at home. 08/01/21 brain MRI reported negative with no evidence of cortical infarct, no change compared to prior exam, no metastasis reported. Positive bowel movement yesterday, post enema. Complains of right upper quadrant radiating pain. Labs pending. Orthostatic vitals pending. Nausea subsided currently, reports occasional belching. 08/02/2021 Patient is currently lying in the bed awake alert oriented x3. Still complains of nausea and episodes of vomiting. Patient does complain of dysphagia and epigastric discomfort. General surgery is on board due to history of lap band surgery. Otherwise patient is currently on room air. No fever no chills. No cough sputum production. MRI of the brain showed no metastatic lesions. Oncology and general surgery is on board. Potassium is being replaced.Laboratory showed WBC 6.0 hemoglobin 12.1 and platelets 183 sodium 127 potassium 3.4 chloride 92 BUN 26 and creatinine 1.69 AST 95 ALT 928 alk phos 127 08/03/2021 Patient is currently sitting in the chair comfortably. Nausea is better patient able to swallow soft diet. Denies any complaints of chest pain or shortness breath. Leg swelling improved as well. No complaints of dizziness or lightheadedness. Patient has been afebrile. Laboratory data showed WBC 8.3 hemoglobin 12.1 and platelets 163 Sodium improved to 129 chloride 97 BUN 20 and creatinine 1.66 General surgery is following. Current medications reviewed. Objective - Vital Signs Vital signs: Vital Signs Temp 98.3 F 08/03/21 03:59 Pulse 60 08/03/21 08:00 Resp 16 08/03/21 08:00 BP 120/69 08/03/21 08:00 Pulse Ox 95 08/03/21 08:00 Intake & Output 08/02/21 08/03/21 08/03/21 18:59 06:59 18:59 Intake Total 595 125 Balance 595 125 Weight 98.3 kg Intake: Intake, IV Titration 250 Amount Sodium Chloride 0.9% 1, 250 000 ml @ 50 mls/hr IV . Q20H [facility] Rx#:[id number] Oral 345 125 Other: Voiding Method Toilet # Voids 1 2 - Exam PHYSICAL EXAMINATION: Patient is lying in the bed comfortably, no acute distress, awake alert and oriented.. HEENT: Normocephalic. Neck is supple. Pupils reactive. Nostrils clear. Oral cavity is moist. Neck reveals no JVD, carotid bruits, or thyromegaly. CHEST EXAMINATION: Trachea is central. Symmetrical expansion. Bibasilar diminished sounds.. No wheezing nonlabored breathing. CARDIAC: Normal S1, S2 with no gallops. No murmurs ABDOMEN: Soft. Bowel sounds normal. No organomegaly. No abdominal bruits. Extremities: trace edema. No clubbing or cyanosis Neurologically awake, alert, oriented x3 with well-coordinated movements. No focal deficits noted Skin: No rash or skin lesions. Psychiatric: Coperative. Nonsuicidal, anxious Musculoskeletal: No joint swelling or deformity. Normal range of motion. - Labs CBC & Chem 7: 08/03/21 07:50 08/03/21 07:50 Labs: Abnormal Lab Results - Last 24 Hours (Table) 08/03/21 08/03/21 Range/Units 07:50 07:50 RBC 3.52 L (3.80-5.40) m/uL MCV 102.3 H (80.0-100.0) fL Lymphocytes # 0.3 L (1.0-4.8) k/uL Sodium 129 L (137-145) mmol/L Chloride 97 L (98-107) mmol/L BUN 20 H (7-17) mg/dL Creatinine 1.66 H (0.52-1.04) mg/dL Glucose 101 H (74-99) mg/dL Assessment and Plan Assessment: Nausea and vomiting abdominal discomfort in the epigastric region. Improving now. Atypical Chest pain, accompanied by bilateral jaw pain, right shoulder blade pain and shortness of breath. Troponins negative 3.Ruled out ACS. Possible acute CHF exacerbation, echo reporting normal LV function Metastatic breast cancer with recent progression to bones, lung and liver Hyponatremia, hypovolemic ,diuretic induced Acute renal failure secondary to diuresing. History of breast cancer possibly 13 years ago Chronic kidney disease, stage IV secondary to polycystic kidney disease History of COVID-19 03/01/21, received monoclonal antibiodies. Anxiety Sleep deprivation Obesity, BMI 36.1 Gait dysfunction Plan: Continue on current medication regime ,monitoring and symptomatic treatment. Patient is not a surgical candidate for lap band removal. Gentle IV fluid hydration. Paillative radiation. Lasix on hold.Patient is being continued on normal saline at 50 cc/h.Monitor renal function. Orthostatic BPs reordered. Close monitoring of renal function, sodium with repeat labs ordered for a.m. Time with Patient: Greater than 30
[2021-08-04] MEDS: HEPARIN SODIUM,PORCINE/PF 5,000 UNIT/0.5 ML SYRINGE SQ SCH ×4 (00:59→23:13)
[2021-08-04] MEDS: ACETAMINOPHEN TAB 325 MG TAB PO PRN ×2 (03:50→21:31)
[2021-08-04] MEDS: PANTOPRAZOLE 40 MG TABLET PO SCH ×2 (06:46→16:27)
[2021-08-04] MEDS: SUCRALFATE 1 GM TAB PO SCH ×4 (06:46→21:30)
[2021-08-04] MEDS: SODIUM CHLORIDE 0.9% 1,000 ML IV SCH ×2 (06:46→23:14)
[2021-08-04] MEDS: LEVOTHYROXINE 75 MCG TAB PO SCH (06:46)
[2021-08-04 07:40] LABS: Basophils % (A) 0 %; Eosinophils # (A) 0.1 k/uL (0-0.7); Eosinophils % (A) 1 %; HCT 34.5 % (34.0-46.0); HGB 11.6 gm/dL (11.4-16.0); Lymphocytes # (A) 0.5 k/uL (1.0-4.8); Lymphocytes % (A) 5 %; MCH 34.3 pg (25.0-35.0); MCHC 33.5 g/dL (31.0-37.0); MCV 102.4 fL (80.0-100.0); Macrocytosis Slight; Mean Platelet Volume 7.5; Monocytes # (A) 0.6 k/uL (0-1.0); Monocytes % (A) 5 %; Neutrophils # (A) 9.5 k/uL (1.3-7.7); Neutrophils % (A) 88 %; Platelet Count 148 k/uL (150-450); RBC 3.37 m/uL (3.80-5.40); RDW 13.3 % (11.5-15.5); WBC 10.7 k/uL (3.8-10.6)
[2021-08-04 07:48] LABS: Calcium 9.9 mg/dL (8.4-10.2); Potassium 3.7 mmol/L (3.5-5.1)
[2021-08-04] MEDS: PSYLLIUM HUSK 100% 6 GM PACKET PO SCH (10:00)
[2021-08-04] MEDS: DOCUSATE 100 MG CAP PO SCH ×2 (10:00→21:30)
[2021-08-04] MEDS: SENNOSIDES-DOCUSATE SODIUM 1 EACH TAB PO SCH ×2 (10:00→21:30)
--- NOTE | 2021-08-04 19:05 | P.PN ---
Subjective Progress Note Date: 08/04/21 CHIEF COMPLAINT: Intractable nausea and vomiting HISTORY OF PRESENT ILLNESS: The patient is a 66-year-old female who presented intractable nausea and vomiting. She has gastric band including metastatic breast cancer. She is having bowel movements. She reports frothy sputum along the back of the throat. She also reports wanting different textured diet from pureed. ROS: No fevers or chills. No new chest pain. No productive sputum PHYSICAL EXAM: VITAL SIGNS: Reviewed CONSTITUTIONAL: Well developed and in no acute distress. EYES: Conjuctivae without sclera icterus. Extraocular movements grossly intact. HEAD, EARS, NOSE, THROAT: Moist buccal mucosa. Head is atraumatic, normocephalic. Hears conversational speech. No nasal drainage. NECK: No gross thyroidomegaly. No jugular venous distention. RESPIRATORY: Non-labored respirations and equal bilateral excursions. CARDIOVASCULAR: Palpable 2+ radial pulses. ABDOMEN: Soft. No peritonitis. MUSCULOSKELETAL: No gross deformity of the lower extremities noted. No clubbing. No cyanosis. SKIN: Good skin turgor. Well perfused. NEUROLOGIC: Cranial nerves II through XII grossly intact. No focal or lateralizing signs. PSYCH: Appropriate affect. Alert and oriented to person, place and time. CLINICAL LABS: Reviewed. White blood cell count elevated 10.7. Sodium 128 low, potassium normal at 3.7 ASSESSMENT: 1. Intractable nausea or vomiting 2. Adjustable gastric band 3. Metastatic breast cancer 4. Hypokalemia 5. Dysphagia 6. Hyponatremia 7. Post-nasal drip PLAN: 1. Adjust diet to ground diet 2. Add zyrtec for post-nasal drip. Objective - Vital Signs Vital signs: Vital Signs Temp 98.7 F 08/04/21 16:00 Pulse 67 08/04/21 16:00 Resp 20 08/04/21 16:00 BP 135/65 08/04/21 16:00 Pulse Ox 95 08/04/21 16:00 Intake & Output 08/04/21 08/04/21 08/05/21 06:59 18:59 06:59 Intake Total 940 540 Balance 940 540 Weight 101.5 kg Intake: Intake, IV Titration 700 Amount Sodium Chloride 0.9% 1, 700 000 ml @ 50 mls/hr IV . Q20H [facility] Rx#:[id number] Oral 240 540 Other: Voiding Method Toilet # Voids 4 2 - Labs CBC & Chem 7: 08/04/21 07:11 08/04/21 07:11 Labs: Abnormal Lab Results - Last 24 Hours (Table) 08/04/21 08/04/21 Range/Units 07:11 07:11 WBC 10.7 H (3.8-10.6) k/uL RBC 3.37 L (3.80-5.40) m/uL MCV 102.4 H (80.0-100.0) fL Plt Count 148 L (150-450) k/uL Neutrophils # 9.5 H (1.3-7.7) k/uL Lymphocytes # 0.5 L (1.0-4.8) k/uL Sodium 128 L (137-145) mmol/L Chloride 97 L (98-107) mmol/L Creatinine 1.65 H (0.52-1.04) mg/dL Assessment and Plan (1) Gastric banding status Current Visit: Yes Status: Acute Code(s): Z98.84 - BARIATRIC SURGERY STATUS SNOMED Code(s): 718200875 (2) Dysphagia Current Visit: Yes Status: Acute Code(s): R13.10 - DYSPHAGIA, UNSPECIFIED SNOMED Code(s): 83918212 (3) Breast cancer metastasized to liver Current Visit: Yes Status: Acute Code(s): C50.919 - MALIGNANT NEOPLASM OF UNSP SITE OF UNSPECIFIED FEMALE BREAST; C78.7 - SECONDARY MALIG NEOPLASM OF LIVER AND INTRAHEPATIC BILE DUCT SNOMED Code(s): 631091469 (4) Hyponatremia Current Visit: Yes Status: Acute Code(s): E87.1 - HYPO-OSMOLALITY AND HYPONATREMIA SNOMED Code(s): 84353900 (5) Breast cancer Current Visit: Yes Status: Chronic Priority: High Code(s): C50.919 - MALIGNANT NEOPLASM OF UNSP SITE OF UNSPECIFIED FEMALE BREAST SNOMED Code(s): 915363105 (6) Chronic kidney disease Current Visit: No Status: Acute Code(s): N18.9 - CHRONIC KIDNEY DISEASE, UNSPECIFIED SNOMED Code(s): 134915494 (7) Metastases to the liver Current Visit: No Status: Acute Code(s): C78.7 - SECONDARY MALIG NEOPLASM OF LIVER AND INTRAHEPATIC BILE DUCT SNOMED Code(s): 51948914 (8) Stage 3 chronic kidney disease Current Visit: Yes Status: Acute Code(s): N18.30 - CHRONIC KIDNEY DISEASE, STAGE 3 UNSPECIFIED SNOMED Code(s): 233897627
[2021-08-04] MEDS: diphenhydrAMINE 25 MG CAP PO SCH (21:30)
[2021-08-04] MEDS: TEMAZEPAM 15 MG CAP PO PRN (21:30)
[2021-08-04] MEDS: LORATADINE-PSEUDOEPH 5-120 MG 1 EACH TAB.ER.12H PO SCH (21:31)
[2021-08-04] MEDS: ONDANSETRON 4 MG/2 ML VIAL IVP PRN (21:32)
--- NOTE | 2021-08-05 00:13 | P.PN ---
Subjective Progress Note Date: 08/04/21 Principal diagnosis: Intractable nausea and vomiting and dysphagia. Metastatic breast cancer Acute CHF with diastolic dysfunction This is a 66-year-old female recently discharged on 07/25/2021 regarding increased weakness, secondary to metastatic breast cancer with recent prog ression to bones, lung and liver with radiation oncology consulted and palliative radiation initiated during that visit. Returned to the hospital on 07/27/2019 with complaints of bilateral jaw pain, right shoulder blade pain, shortness of breath. Reports she has significant stress, anxiety, sleep d eprivation. Troponins negative 3, creatinine 1.63, sodium 135. Tested negative for covid. VQ scan reported matching posterior defects probably related to pleural effusions and congestive heart failure, change compared to prior exam, low probability of PE. Echo pending. Cardiology consult in place. Currently denies jaw pain. Diuresing well on Lasix IV push with 24-hour I&O reflecting a negative fluid balance. Maintaining O2 sats in the high 90s on room air. Afebrile, normal WBC. Nonproductive cough. 07/29/2021 reports uncontrolled back pain yesterday afternoon and throughout the night. Nauseated during the night as well, Zofran added to med regimen. Toradol added to med regimen. Scheduled for her palliative radiation treatment today. Echo reporting normal LV function. Sodium and Renal function worsening on Lasix IV push, converted to oral. Afebrile. Denies chest pain, palpitations or shortness of breath. 07/30/21 yesterday underwent palliative radiation, complains of increased weakness today. Worsening sodium and renal function, Lasix discontinued. Maintaining O2 sats in the 90s on room air. Denies chest pain, palpitations or shortness of breath. 07/31/21 scheduled for MRI this morning. Diuresed well, Lasix discontinued yesterday secondary to worsening renal function and sodium. Labs pending. Evaluated by PT, recommending walker for gait instability. Afebrile. Reports significant stressors at home. 08/01/21 brain MRI reported negative with no evidence of cortical infarct, no change compared to prior exam, no metastasis reported. Positive bowel movement yesterday, post enema. Complains of right upper quadrant radiating pain. Labs pending. Orthostatic vitals pending. Nausea subsided currently, reports occasional belching. 08/02/2021 Patient is currently lying in the bed awake alert oriented x3. Still complains of nausea and episodes of vomiting. Patient does complain of dysphagia and epigastric discomfort. General surgery is on board due to history of lap band surgery. Otherwise patient is currently on room air. No fever no chills. No cough sputum production. MRI of the brain showed no metastatic lesions. Oncology and general surgery is on board. Potassium is being replaced.Laboratory showed WBC 6.0 hemoglobin 12.1 and platelets 183 sodium 127 potassium 3.4 chloride 92 BUN 26 and creatinine 1.69 AST 95 ALT 928 alk phos 127 08/03/2021 Patient is currently sitting in the chair comfortably. Nausea is better patient able to swallow soft diet. Denies any complaints of chest pain or shortness breath. Leg swelling improved as well. No complaints of dizziness or lightheadedness. Patient has been afebrile. Laboratory data showed WBC 8.3 hemoglobin 12.1 and platelets 163 Sodium improved to 129 chloride 97 BUN 20 and creatinine 1.66 General surgery is following. 08/04/2021 Patient is currently sitting was a comfortable. Able to tolerate oral diet on pured diet.. No complaints of chest pain or shortness of breath. No nausea or vomiting. Patient did have a bowel movement. Patient has been afebrile. Laboratory data showed WBC 10.7 hemoglobin 11.6 and platelets 148 Sodium 138 and potassium 3.8 chloride 97 BUN 16 and creatinine 1.65. Patient with abdominal pain management and monitor for volume overload. Currently on normal saline at 50 cc/h. Pulse ox 97% on room air. Current medications reviewed. Objective - Vital Signs Vital signs: Vital Signs Temp 98.2 F 08/04/21 20:00 Pulse 69 08/04/21 20:00 Resp 19 08/04/21 20:00 BP 135/82 08/04/21 20:00 Pulse Ox 100 08/04/21 20:00 Intake & Output 08/04/21 08/04/21 08/05/21 06:59 18:59 06:59 Intake Total 940 540 Balance 940 540 Weight 101.5 kg Intake: Intake, IV Titration 700 Amount Sodium Chloride 0.9% 1, 700 000 ml @ 50 mls/hr IV . Q20H [facility] Rx#:[id number] Oral 240 540 Other: Voiding Method Toilet Toilet # Voids 4 2 - Exam PHYSICAL EXAMINATION: Patient is lying in the bed comfortably, no acute distress, awake alert and oriented.. HEENT: Normocephalic. Neck is supple. Pupils reactive. Nostrils clear. Oral cavity is moist. Neck reveals no JVD, carotid bruits, or thyromegaly. CHEST EXAMINATION: Trachea is central. Symmetrical expansion. Bibasilar dimini shed sounds.. No wheezing nonlabored breathing. CARDIAC: Normal S1, S2 with no gallops. No murmurs ABDOMEN: Soft. Bowel sounds normal. No organomegaly. No abdominal bruits. Extremities: trace edema. No clubbing or cyanosis Neurologically awake, alert, oriented x3 with well-coordinated movements. No focal deficits noted Skin: No rash or skin lesions. Psychiatric: Coperative. Nonsuicidal, anxious Musculoskeletal: No joint swelling or deformity. Normal range of motion. - Labs CBC & Chem 7: 08/04/21 07:11 08/04/21 07:11 Labs: Abnormal Lab Results - Last 24 Hours (Table) 08/04/21 08/04/21 Range/Units 07:11 07:11 WBC 10.7 H (3.8-10.6) k/uL RBC 3.37 L (3.80-5.40) m/uL MCV 102.4 H (80.0-100.0) fL Plt Count 148 L (150-450) k/uL Neutrophils # 9.5 H (1.3-7.7) k/uL Lymphocytes # 0.5 L (1.0-4.8) k/uL Sodium 128 L (137-145) mmol/L Chloride 97 L (98-107) mmol/L Creatinine 1.65 H (0.52-1.04) mg/dL Assessment and Plan Assessment: Nausea and vomiting abdominal discomfort in the epigastric region. Improving now. Atypical Chest pain, accompanied by bilateral jaw pain, right shoulder blade pain and shortness of breath. Troponins negative 3.Ruled out ACS. Possible acute CHF exacerbation, echo reporting normal LV function Metastatic breast cancer with recent progression to bones, lung and liver Hyponatremia, hypovolemic ,diuretic induced Acute renal failure secondary to diuresing. History of breast cancer possibly 13 years ago Chronic kidney disease, stage IV secondary to polycystic kidney disease History of COVID-19 03/01/21, received monoclonal antibiodies. Anxiety Sleep deprivation Obesity, BMI 36.1 Gait dysfunction Plan: Continue on current medication regime ,monitoring and symptomatic treatment. Patient is not a surgical candidate for lap band removal. Gentle IV fluid hydration. Paillative radiation. Nausea and vomiting is much improved now. Patient is tolerating pured diet. General surgery is on board. Lasix on hold.Patient is being continued on normal saline at 50 cc/h.Monitor renal function. Close monitoring of renal function, sodium with repeat labs ordered for a.m. Time with Patient: Greater than 30
[2021-08-05] MEDS: PANTOPRAZOLE 40 MG TABLET PO SCH ×2 (06:27→16:26)
[2021-08-05] MEDS: SUCRALFATE 1 GM TAB PO SCH ×4 (06:27→20:15)
[2021-08-05] MEDS: LEVOTHYROXINE 75 MCG TAB PO SCH (06:27)
[2021-08-05 07:28] LABS: Appearance,Urine Turbid (Clear); Bacteria,Urine Occasional /hpf; Bilirubin,Urine Negative (Negative); Blood,Urine Large (Negative); Color,Urine Light Yellow; Glucose,Urine (UA) Negative (Negative); Ketones,Urine Negative (Negative); Leukocyte Esterase,Urine Large (Negative); Nitrite,Urine Negative (Negative); PH, Urine 5.5 (5.0-8.0); Protein,Urine 1+ (Negative); RBC,Urine 6 /hpf (0-5); Specific Gravity,Urine 1.008 (1.001-1.035); Squamous Epithelial Cell,Urine <1 /hpf (0-4); Urobilinogen,Urine <2.0 mg/dL (<2.0); WBC,Urine >182 /hpf (0-5)
[2021-08-05] MEDS: SENNOSIDES-DOCUSATE SODIUM 1 EACH TAB PO SCH ×2 (08:37→20:15)
[2021-08-05] MEDS: HEPARIN SODIUM,PORCINE/PF 5,000 UNIT/0.5 ML SYRINGE SQ SCH ×3 (08:37→22:45)
[2021-08-05] MEDS: PSYLLIUM HUSK 100% 6 GM PACKET PO SCH (08:37)
[2021-08-05] MEDS: DOCUSATE 100 MG CAP PO SCH ×2 (08:38→20:15)
[2021-08-05] MEDS: LORATADINE-PSEUDOEPH 5-120 MG 1 EACH TAB.ER.12H PO SCH ×2 (08:39→20:16)
[2021-08-05 09:55] LABS: Basophils % (A) 0 %; Eosinophils # (A) 0.1 k/uL (0-0.7); Eosinophils % (A) 1 %; HCT 36.7 % (34.0-46.0); HGB 12.2 gm/dL (11.4-16.0); Lymphocytes # (A) 0.6 k/uL (1.0-4.8); Lymphocytes % (A) 5 %; MCH 34.4 pg (25.0-35.0); MCHC 33.3 g/dL (31.0-37.0); MCV 103.4 fL (80.0-100.0); Macrocytosis Slight; Mean Platelet Volume 8.3; Monocytes # (A) 0.7 k/uL (0-1.0); Monocytes % (A) 6 %; Neutrophils # (A) 9.8 k/uL (1.3-7.7); Neutrophils % (A) 87 %; Platelet Count 141 k/uL (150-450); RBC 3.55 m/uL (3.80-5.40); RDW 13.3 % (11.5-15.5); WBC 11.3 k/uL (3.8-10.6)
[2021-08-05 10:14] LABS: Calcium 10.3 mg/dL (8.4-10.2); Potassium 4.1 mmol/L (3.5-5.1)
--- NOTE | 2021-08-05 11:16 | P.PN ---
Subjective Progress Note Date: 08/05/21 Principal diagnosis: Metastatic Breast Cancer, recent Progression, Pain. She was seen and evaluated this am, up in chair. Lower back pain improved since admission. She complains about difficulty swallowing, states it castillo in her right chest when she swallows pills or water. Denies shortness of breath and/or coughing. She continues on PPI BID. Objective - Vital Signs Vital signs: Vital Signs Temp 98.2 F 08/05/21 07:38 Pulse 69 08/05/21 07:38 Resp 16 08/05/21 07:38 BP 149/73 08/05/21 07:38 Pulse Ox 93 L 08/05/21 07:38 Intake & Output 08/04/21 08/05/21 08/05/21 18:59 06:59 18:59 Intake Total 540 840 300 Balance 540 840 300 Weight 99.6 kg Intake: Intake, IV Titration 600 Amount Sodium Chloride 0.9% 1, 600 000 ml @ 50 mls/hr IV . Q20H DIONICIO Rx#:[id number] Oral 540 240 300 Other: Voiding Method Toilet # Voids 2 2 - Exam - Constitutional General appearance: Present: cooperative, no acute distress, obese - EENT Eyes: Present: anicteric sclerae, EOMI ENT: Present: hearing grossly normal - Respiratory Respiratory: bilateral: CTA - Cardiovascular Rhythm: regular Heart sounds: normal: S1, S2 Abnormal Heart Sounds: Absent: systolic murmur, diastolic murmur, rub, S3 Gallop, S4 Gallop, click, other - Peripheral edema leg Peripheral Edema: bilateral: None - Gastrointestinal General gastrointestinal: Present: normal bowel sounds, soft, tenderness Localized gastrointestinal: tender: RUQ, epigastric periumbilical - Neurologic Neurologic: Present: CNII-XII intact - Musculoskeletal Musculoskeletal: Present: generalized weakness, strength equal bilaterally - Psychiatric Psychiatric: Present: A&O x's 3, appropriate affect, intact judgment & insight - Labs CBC & Chem 7: 08/05/21 08:34 08/05/21 08:34 Labs: Abnormal Lab Results - Last 24 Hours (Table) 08/05/21 08/05/21 08/05/21 Range/Units 06:45 08:34 08:34 WBC 11.3 H (3.8-10.6) k/uL RBC 3.55 L (3.80-5.40) m/uL MCV 103.4 H (80.0-100.0) fL Plt Count 141 L (150-450) k/uL Neutrophils # 9.8 H (1.3-7.7) k/uL Lymphocytes # 0.6 L (1.0-4.8) k/uL Sodium 128 L (137-145) mmol/L Chloride 97 L (98-107) mmol/L Creatinine 1.62 H (0.52-1.04) mg/dL Calcium 10.3 H (8.4-10.2) mg/dL Urine Appearance Turbid H (Clear) Urine Protein 1+ H (Negative) Urine Blood Large H (Negative) Ur Leukocyte Esterase Large H (Negative) Urine RBC 6 H (0-5) /hpf Urine WBC >182 H (0-5) /hpf Urine WBC Clumps Many H (None) /hpf Urine Bacteria Occasional H (None) /hpf Assessment and Plan (1) Hyponatremia Current Visit: Yes Status: Acute Code(s): E87.1 - HYPO-OSMOLALITY AND HYPONATREMIA SNOMED Code(s): 59242456 (2) Breast cancer Current Visit: Yes Status: Chronic Priority: High Code(s): C50.919 - MALIGNANT NEOPLASM OF UNSP SITE OF UNSPECIFIED FEMALE BREAST SNOMED Code(s): 311154316 (3) Metastases to the liver Current Visit: No Status: Acute Code(s): C78.7 - SECONDARY MALIG NEOPLASM OF LIVER AND INTRAHEPATIC BILE DUCT SNOMED Code(s): 26967964 Plan: Sodium has remained same 128 May benefit from GI eval, can be as outpatient? In the interim Anti-histamine and PPI appears to be improving symptoms. Plan for her to follow up in office with Dr. Samara gordon to review next plan for treatment options. Last visit was waiting on further molecular testing, Bone scan was also performed.
--- NOTE | 2021-08-05 12:38 | P.PN ---
Subjective Progress Note Date: 08/05/21 CHIEF COMPLAINT: Intractable nausea and vomiting HISTORY OF PRESENT ILLNESS: Patient has history of lap band procedure over 13 years ago. Also history of metastatic breast cancer to the liver. Patient co mplaining of right upper quadrant pain. She did have some cough with phlegm production. She denies any further episodes of vomiting. She does admit to having nausea. Reports a decreased appetite. She is having bowel movements. Afebrile. WBC 11.3 hemoglobin 12.2 sodium 128 creatinine 1.62 positive UTI Patient seen and examined with Dr. casanova PHYSICAL EXAM: VITAL SIGNS: Reviewed. GENERAL: Well-developed in no acute distress. HEENT: No sclera icterus. Extraocular movements grossly intact. Moist buccal mucosa. Head is atraumatic, normocephalic. ABDOMEN: Soft. Nondistended. Right upper quadrant tenderness NEUROLOGIC: Alert and oriented. Cranial nerves II through XII grossly intact. ASSESSMENT: 1. Intractable nausea and vomiting 2. History of lap band procedure. Lap and currently empty 3. History of metastatic breast cancer to bone, lung and liver currently having palliative radiation treatment 4. Hyponatremia 5. Dysphagia 6. History of cholecystectomy PLAN: -Esophagram ordered for tomorrow morning -Continue to correct hyponatremia -Continue antiemetics -Continue supportive care Physician Entry Processor note has been reviewed by physician. Signing provider agrees with the documented findings, assessment, and plan of care. Objective - Vital Signs Vital signs: Vital Signs Temp 98.2 F 08/05/21 07:38 Pulse 69 08/05/21 07:38 Resp 16 08/05/21 07:38 BP 149/73 08/05/21 07:38 Pulse Ox 93 L 08/05/21 07:38 Intake & Output 08/04/21 08/05/21 08/05/21 18:59 06:59 18:59 Intake Total 540 840 300 Balance 540 840 300 Weight 99.6 kg Intake: Intake, IV Titration 600 Amount Sodium Chloride 0.9% 1, 600 000 ml @ 50 mls/hr IV . Q20H [facility]ION[facility] Rx#:[id number] Oral 540 240 300 Other: Voiding Method Toilet # Voids 2 2 - Labs CBC & Chem 7: 08/05/21 08:34 08/05/21 08:34 Labs: Abnormal Lab Results - Last 24 Hours (Table) 0908/05/21 08/05/21 Range/Units 06:45 08:34 08:34 WBC 11.3 H (3.8-10.6) k/uL RBC 3.55 L (3.80-5.40) m/uL MCV 103.4 H (80.0-100.0) fL Plt Count 141 L (150-450) k/uL Neutrophils # 9.8 H (1.3-7.7) k/uL Lymphocytes # 0.6 L (1.0-4.8) k/uL Sodium 128 L (137-145) mmol/L Chloride 97 L (98-107) mmol/L Creatinine 1.62 H (0.52-1.04) mg/dL Calcium 10.3 H (8.4-10.2) mg/dL Urine Appearance Turbid H (Clear) Urine Protein 1+ H (Negative) Urine Blood Large H (Negative) Ur Leukocyte Esterase Large H (Negative) Urine RBC 6 H (0-5) /hpf Urine WBC >182 H (0-5) /hpf Urine WBC Clumps Many H (None) /hpf Urine Bacteria Occasional H (None) /hpf Microbiology - Last 24 Hours (Table) 08/05/21 06:45 Urine Culture - Preliminary Urine,Voided
[2021-08-05] MEDS: ONDANSETRON 4 MG/2 ML VIAL IVP PRN (13:03)
[2021-08-05] MEDS: ACETAMINOPHEN TAB 325 MG TAB PO PRN (13:03)
[2021-08-05] MEDS: SCOPOLAMINE 1.5MG/72HR PATCH TRANSDERM SCH (16:26)
[2021-08-05] MEDS: SODIUM CHLORIDE 0.9% 1,000 ML IV SCH (20:07)
[2021-08-05] MEDS: TEMAZEPAM 15 MG CAP PO PRN (20:15)
[2021-08-05] MEDS: diphenhydrAMINE 25 MG CAP PO SCH (20:15)
[2021-08-05] MEDS: Acetaminophen-Codeine 300-30mg TAB PO PRN (20:15)
[2021-08-05] MEDS: CIPROFLOXACIN HCL 500 MG TAB PO SCH (20:15)
--- NOTE | 2021-08-06 11:12 | FL ---
EXAMINATION TYPE: FL UGI w esophagus DATE OF EXAM: 08/06/2021 COMPARISON: NONE HISTORY: Nausea and vomiting TECHNIQUE: A single contrast UGI study is performed. A total of 2 seconds of fluoroscopic time was utilized during procedure and 30 images obtained. FINDINGS: Engineering Laboratory Technician image of the abdomen shows no gross abnormality. The esophagus shows normal motility and emptying into the stomach. No evidence of hiatal hernia or s tricture noted. Moderate gastroesophageal reflux noted. There is evidence of prior laparoscopic gastric banding without obstruction or leak. No evidence of a ny mass or ulcer disease. The duodenal bulb, sweep, and proximal small bowel loops are unremarkable. IMPRESSION: Moderate gastroesophageal reflux noted.
[2021-08-06] MEDS: LEVOTHYROXINE 75 MCG TAB PO SCH (11:14)
[2021-08-06] MEDS: HEPARIN SODIUM,PORCINE/PF 5,000 UNIT/0.5 ML SYRINGE SQ SCH ×3 (11:14→23:12)
[2021-08-06] MEDS: PANTOPRAZOLE 40 MG TABLET PO SCH ×2 (11:15→16:54)
[2021-08-06] MEDS: DOCUSATE 100 MG CAP PO SCH ×2 (11:15→21:21)
[2021-08-06] MEDS: SUCRALFATE 1 GM TAB PO SCH ×4 (11:15→21:21)
[2021-08-06] MEDS: CIPROFLOXACIN HCL 500 MG TAB PO SCH ×2 (11:15→21:18)
[2021-08-06] MEDS: SENNOSIDES-DOCUSATE SODIUM 1 EACH TAB PO SCH ×2 (11:15→21:19)
[2021-08-06] MEDS: PSYLLIUM HUSK 100% 6 GM PACKET PO SCH (11:15)
[2021-08-06] MEDS: SODIUM CHLORIDE 0.9% 1,000 ML IV SCH (11:16)
[2021-08-06] MEDS: LORATADINE-PSEUDOEPH 5-120 MG 1 EACH TAB.ER.12H PO SCH ×2 (11:16→21:19)
--- NOTE | 2021-08-06 13:46 | P.PN ---
Subjective Progress Note Date: 08/06/21 CHIEF COMPLAINT: Intractable nausea and vomiting HISTORY OF PRESENT ILLNESS: Patient has history of lap band procedure over 13 years ago. Also history of metastatic breast cancer with metastatic disease to the liver. Patient reports slight decrease in her right upper quadrant abdominal pain. Patient is complaining of acid reflux symptoms and nausea. Reports a decreased appetite. She is having bowel movements. Afebrile. Esophagram shows moderate gastroesophageal reflux noted. There is evidence of prior laparoscopic gastric banding without obstruction or leak. No evidence of any mass or ulcer disease. No evidence of hiatal hernia or stricture noted in the esophagus. Patient seen and examined with Dr. casanova PHYSICAL EXAM: VITAL SIGNS: Reviewed. GENERAL: Well-developed in no acute distress. HEENT: No sclera icterus. Extraocular movements grossly intact. Moist buccal mucosa. Head is atraumatic, normocephalic. ABDOMEN: Soft. Nondistended. Right upper quadrant tenderness NEUROLOGIC: Alert and oriented. Cranial nerves II through XII grossly intact. ASSESSMENT: 1. Intractable nausea and vomiting 2. History of lap band procedure. Lap and currently empty 3. History of metastatic breast cancer to bone, lung and liver currently having palliative radiation treatment 4. Hyponatremia 5. Dysphagia 6. History of cholecystectomy 7. GERD PLAN: -Patient scheduled for EGD tomorrow, 08/07/[address] casanova -Keep patient nothing by mouth after midnight -Continue PPI -Continue to correct hyponatremia -Continue antiemetics -Continue supportive care Physician Extruding Press Adjuster note has been reviewed by physician. Signing provider agrees with the documented findings, assessment, and plan of care. Objective - Vital Signs Vital signs: Vital Signs Temp 97.9 F 08/06/21 04:15 Pulse 85 08/06/21 04:15 Resp 16 08/06/21 04:15 BP 131/80 08/06/21 04:15 Pulse Ox 92 L 08/06/21 04:15 Intake & Output 08/05/21 08/06/21 08/06/21 18:59 06:59 18:59 Intake Total 300 Output Total 600 Balance -300 Weight 99.5 kg Intake: Oral 300 Output: Urine 600 Other: # Voids 1 - Labs CBC & Chem 7: 08/05/21 08:34 08/05/21 08:34 Labs: Microbiology - Last 24 Hours (Table) 08/05/21 06:45 Urine Culture - Preliminary Urine,Voided
--- NOTE | 2021-08-06 14:19 | P.PN ---
Subjective Progress Note Date: 08/06/21 This is a 66-year-old female recently discharged on 07/25/2021 regarding increased weakness, secondary to metastatic breast cancer with recent progression to bones, lung and liver with radiation oncology consulted and palliative radiation initiated during that visit. Returned to the hospital on 07/27/2019 with complaints of bilateral jaw pain, right shoulder blade pain, shortness of breath. Reports she has significant stress, anxiety, sleep deprivation. Troponins negative 3, creatinine 1.63, sodium 135. Tested negative for covid. VQ scan reported matching posterior defects probably related to pleural effusions and congestive heart failure, change compared to prior exam, low probability of PE. Echo pending. Cardiology consult in place. Currently denies jaw pain. Diuresing well on Lasix IV push with 24-hour I&O reflecting a negative fluid balance. Maintaining O2 sats in the high 90s on room air. Afebrile, normal WBC. Nonproductive cough. 07/29/2021 reports uncontrolled back pain yesterday afternoon and throughout the night. Nauseated during the night as well, Zofran added to med regimen. Toradol added to med regimen. Scheduled for her palliative radiation treatment today. Echo reporting normal LV function. Sodium and Renal function worsening on Lasix IV push, converted to oral. Afebrile. Denies chest pain, palpitations or shortness of breath. 07/30/21 yesterday underwent palliative radiation, complains of increased weakness today. Worsening sodium and renal function, Lasix discontinued. Maintaining O2 sats in the 90s on room air. Denies chest pain, palpitations or shortness of breath. 07/31/21 scheduled for MRI this morning. Diuresed well, Lasix discontinued yesterday secondary to worsening renal function and sodium. Labs pending. Evaluated by PT, recommending walker for gait instability. Afebrile. Reports significant stressors at home. 08/01/21 brain MRI reported negative with no evidence of cortical infarct, no change compared to prior exam, no metastasis reported. Positive bowel movement yesterday, post enema. Complains of right upper quadrant radiating pain. Labs pending. Orthostatic vitals pending. Nausea subsided currently, reports occasional belching. 08/06/2021 complains of mid epigastric discomfort accompanied by nausea. Ma intained on PPI twice a day.Positive bowel movement. Afebrile. Scheduled for esophagram this morning. Receiving antibiotics for gram-negative bacilli UTI. Objective - Vital Signs Vital signs: Vital Signs Temp 98.3 F 08/06/21 12:53 Pulse 79 08/06/21 12:53 Resp 16 08/06/21 12:53 BP 125/87 08/06/21 12:53 Pulse Ox 92 L 08/06/21 12:53 Intake & Output 08/05/21 08/06/21 08/06/21 18:59 06:59 18:59 Intake Total 300 Output Total 600 Balance -300 Weight 99.5 kg Intake: Oral 300 Output: Urine 600 Other: # Voids 1 - Exam - Exam GENERAL: Sitting up in bed, no acute distress. HEENT: Head is atraumatic, Pupils equal.Conjunctiva normal, oral mucosa dry. NECK: Supple. No JVD RESPIRATORY: Clear to auscultation. Bilateral bases diminished. CARDIOVASCULAR: Regular rate and rhythm. GASTROINTESTINAL: Soft, nondistended, mild right upper quadrant tenderness, positive bowel sounds. INTEGUMENTARY: Warm and dry, No rashes noted. EXTREMITIES: Decreased peripheral edema. No calf tenderness noted. Positive DP pulses. NEUROLOGIC: Cranial nerves II-XII intact. PSYCHIATRIC: Awake, alert, and oriented X 3. - Labs CBC & Chem 7: 08/05/21 08:34 08/05/21 08:34 Labs: Microbiology - Last 24 Hours (Table) 08/05/21 06:45 Urine Culture - Preliminary Urine,Voided Gram Neg Bacilli Assessment and Plan Assessment: Chest pain, accompanied by bilateral jaw pain, right shoulder blade pain and shortness of breath. Troponins negative 3. Possible acute CHF exacerbation, diastolic dysfunction, echo reporting normal LV function. Metastatic breast cancer with recent progression to bones, lung and liver Dysphagia,Intractable nausea and vomiting, esophagram pending in a patient with history of lap band greater than 13 years ago. Gastroesophageal reflux disease Hyponatremia, hypovolemic ,diuretic induced, improving Acute renal failure secondary to diuresing. History of breast cancer possibly 13 years ago Chronic kidney disease, stage IV secondary to polycystic kidney disease History of COVID-19 03/01/21, received monoclonal antibiodies. Anxiety Sleep deprivation Obesity, BMI 36.1 Gait dysfunction Plan: Continue on current medication regime ,monitoring and symptomatic tr eatment. Esophagram scheduled for today. Paillative radiation today. Discharge planning in progress. The impression and plan of care has been dictated as directed. : I performed a history and examination of this patient, discussed the same with the dictator. I agree with the dictator's note ,documented as a scribe. Any additional findings or plans will be noted.
[2021-08-06] MEDS: ONDANSETRON 4 MG/2 ML VIAL IVP PRN (15:45)
[2021-08-06] MEDS: Acetaminophen-Codeine 300-30mg TAB PO PRN (16:06)
[2021-08-06] MEDS: diphenhydrAMINE 25 MG CAP PO SCH ×2 (21:08→23:21)
[2021-08-06] MEDS: TEMAZEPAM 15 MG CAP PO PRN (23:21)
[2021-08-07] MEDS: ACETAMINOPHEN TAB 325 MG TAB PO PRN (05:00)
--- NOTE | 2021-08-07 08:31 | XR ---
EXAMINATION TYPE: XR shoulder complete LT DATE OF EXAM: 08/07/2021 COMPARISON: NONE HISTORY: Pain TECHNIQUE: Three views are submitted. FINDINGS: The osseous structures are intact. There is no acute fracture or dislocation. Hypertrophic arthropat hy of the AC joint correlate for rotator cuff disease. Left lower lobe infiltrate and small effusion. IMPRESSION: 1. There is left lower lobe consolidation and small effusion. 2. AC joint arthropathy. Correlate for rotator cuff disease
[2021-08-07] MEDS: LEVOTHYROXINE 75 MCG TAB PO SCH (08:40)
[2021-08-07] MEDS: HEPARIN SODIUM,PORCINE/PF 5,000 UNIT/0.5 ML SYRINGE SQ SCH ×2 (08:41→17:24)
[2021-08-07] MEDS: SUCRALFATE 1 GM TAB PO SCH ×3 (08:41→17:25)
[2021-08-07] MEDS: PANTOPRAZOLE 40 MG TABLET PO SCH ×2 (08:41→17:25)
[2021-08-07] MEDS: CIPROFLOXACIN HCL 500 MG TAB PO SCH (08:41)
[2021-08-07] MEDS: DOCUSATE 100 MG CAP PO SCH (08:42)
[2021-08-07] MEDS: LORATADINE-PSEUDOEPH 5-120 MG 1 EACH TAB.ER.12H PO SCH (08:42)
[2021-08-07] MEDS: SENNOSIDES-DOCUSATE SODIUM 1 EACH TAB PO SCH (08:43)
[2021-08-07] MEDS: Acetaminophen-Codeine 300-30mg TAB PO PRN ×2 (09:00→17:25)
[2021-08-07 10:13] LABS: Basophils % (A) 0 %; Eosinophils # (A) 0.1 k/uL (0-0.7); Eosinophils % (A) 1 %; HCT 35.8 % (34.0-46.0); HGB 11.9 gm/dL (11.4-16.0); Lymphocytes # (A) 0.4 k/uL (1.0-4.8); Lymphocytes % (A) 5 %; MCHC 33.1 g/dL (31.0-37.0); MCV 102.7 fL (80.0-100.0); Macrocytosis Slight; Mean Platelet Volume 7.8; Monocytes # (A) 0.5 k/uL (0-1.0); Monocytes % (A) 7 %; Neutrophils # (A) 6.7 k/uL (1.3-7.7); Neutrophils % (A) 86 %; Platelet Count 116 k/uL (150-450); RBC 3.48 m/uL (3.80-5.40); RDW 13.3 % (11.5-15.5); WBC 7.8 k/uL (3.8-10.6)
[2021-08-07 10:36] LABS: Calcium 10.6 mg/dL (8.4-10.2); Potassium 3.9 mmol/L (3.5-5.1)
[2021-08-07 10:38] LABS: Basophils % (A) 0 %; Eosinophils # (A) 0.1 k/uL (0-0.7); Eosinophils % (A) 1 %; HGB 11.9 gm/dL (11.4-16.0); Lymphocytes # (A) 0.3 k/uL (1.0-4.8); Lymphocytes % (A) 4 %; MCH 34.7 pg (25.0-35.0); Macrocytosis Slight; Mean Platelet Volume 7.6; Monocytes # (A) 0.6 k/uL (0-1.0); Monocytes % (A) 8 %; Neutrophils # (A) 6.5 k/uL (1.3-7.7); Neutrophils % (A) 86 %; Platelet Count 121 k/uL (150-450); RBC 3.43 m/uL (3.80-5.40); RDW 13.2 % (11.5-15.5); WBC 7.6 k/uL (3.8-10.6)
[2021-08-07] MEDS ORDERED: PROPOFOL 10 MG/ML 20 ML VIAL IV ONE (11:48)
[2021-08-07] MEDS ORDERED: IV FLUID CONTINUATION 1,000 ML IV ONE (11:50)
--- NOTE | 2021-08-07 12:07 | P.OP ---
Date of Procedure: 08/07/21 Preoperative Diagnosis: Dysphagia Postoperative Diagnosis: Esophagitis Procedure(s) Performed: EGD Anesthesia: MAC Surgeon: Moises Rojas Condition: stable Disposition: floor Description of Procedure: The patient's placed on the endoscopy table in the lateral position. She received IV sedation. The gastroscope placed oropharynx passed in the esophagus and stomach. Through the pylorus. The first and second portion of duodenum appeared normal. Scope was then brought back the antrum this appeared normal. Scope was retroflexed there was no evidence of any inflamed or change in the LAP-BAND device. Scope was brought back and esophagus appeared to be significant esophagitis. It did not have the appearance of a Glory esophagitis. There appeared to be some sloughing of the mucosa from lower half of the esophagus. Several biopsies were taken. The esophagus. Inflamed to the upper third. There is no obstructing lesions. The scope was withdrawn for patient.
[2021-08-07] MEDS ORDERED: NYSTATIN 100,000 UNIT/ML SUSP 500,000 UNIT/5 ML CUP PO SCH (13:00)
[2021-08-07 13:28] VITALS: TEMP 97.9
[2021-08-07] MEDS: PSYLLIUM HUSK 100% 6 GM PACKET PO SCH (17:23)
[2021-08-07] MEDS: SODIUM CHLORIDE 0.9% 1,000 ML IV SCH (17:24)
[2021-08-07 18:48] VITALS: BP 127/84; PULSE 89; RESP 16
--- NOTE | 2021-08-08 14:30 | P.DS ---
Providers Date of admission: 07/27/21 13:14 Expected date of discharge: 08/07/21 Attending physician: Stanford Smith Consults: 07/27/21 19:35 Consult Physician Routine Consulting Provider: Sobeida Pascual Consult Reason/Comments: pain management Do you want consulting provider notified?: Yes 07/31/21 15:56 Consult Physician Routine Consulting Provider: Moises Rojas Consult Reason/Comments: Hx lap band, having N,V, epigastric pain Do you want consulting provider notified?: Yes Primary care physician: Stanford Smith [facility] Course: Final Diagnoses: Chest pain, accompanied by bilateral jaw pain, right shoulder blade pain and shortness of breath. Troponins negative 3. Possible acute CHF exacerbation, diastolic dysfunction, echo reporting normal LV function. Metastatic breast cancer with recent progression to bones, lung and liver Dysphagia,Intractable nausea and vomiting, esophagram reported moderate gastric reflux in a patient with history of lap band greater than 13 years ago. Esophagitis reported per EGD, biopsies pending Gastroesophageal reflux disease Hyponatremia, hypovolemic ,diuretic induced, improving Acute renal failure secondary to diuresing. History of breast cancer possibly 13 years ago Chronic kidney disease, stage IV secondary to polycystic kidney disease History of COVID-19 03/01/21, received monoclonal antibiodies. Anxiety Sleep deprivation Obesity, BMI 36.1 Gait dysfunction Hospital course:This is a 66-year-old female recently discharged on 07/25/2021 regarding increased weakness, secondary to metastatic breast cancer with recent progression to bones, lung and liver with radiation oncology consulted and palliative radiation initiated during that visit. Returned to the hospital on 07/27/2019 with complaints of bilateral jaw pain, right shoulder blade pain, shortness of breath. Reports she has significant stress, anxiety, sleep deprivation. Troponins negative 3, creatinine 1.63, sodium 135. Tested negative for covid. VQ scan reported matching posterior defects probably related to pleural effusions and congestive heart failure, change compared to prior exam, low probability of PE. Echo pending. Cardiology consult in place. Currently denies jaw pain. Diuresing well on Lasix IV push with 24-hour I&O reflecting a negative fluid balance. Maintaining O2 sats in the high 90s on room air. Afebrile, normal WBC. Nonproductive cough. 07/29/2021 reports uncontrolled back pain yesterday afternoon and throughout the night. Nauseated during the night as well, Zofran added to med regimen. Toradol added to med regimen. Scheduled for her palliative radiation treatment today. Echo reporting normal LV function. Sodium and Renal function worsening on Lasix IV push, converted to oral. Afebrile. Denies chest pain, palpitations or shortness of breath. 07/30/21 yesterday underwent palliative radiation, complains of increased weakness today. Worsening sodium and renal function, Lasix discontinued. Maintaining O2 sats in the 90s on room air. Denies chest pain, palpitations or shortness of breath. 07/31/21 scheduled for MRI this morning. Diuresed well, Lasix discontinued yesterday secondary to worsening renal function and sodium. Labs pending. Evaluated by PT, recommending walker for gait instability. Afebrile. Reports significant stressors at home. 08/01/21 brain MRI reported negative with no evidence of cortical infarct, no change compared to prior exam, no metastasis reported. Positive bowel movement yesterday, post enema. Complains of right upper quadrant radiating pain. Labs pending. Orthostatic vitals pending. Nausea subsided currently, reports occasional belching. 08/06/2021 complains of mid epigastric discomfort accompanied by nausea. Maintained on PPI twice a day.Positive bowel movement. Afebrile. Scheduled for esophagram this morning. Receiving antibiotics for gram-negative bacilli UTI. Esophagram reported moderate gastric reflux in a patient with history of lap band greater than 13 years ago. Esophagitis reported per EGD. Nystatin swish and swallow initiated. Denies chest pain, palpitations or increasing shortness of breath. Denies lightheadedness, dizziness or focal deficits. Significant clinical improvement. Patient will be discharged home todayin a stable condition with guarded prognosis, after palliative radiation completed, pending clearance from both surgery and oncology. The impression and plan of care has been dictated as directed. : I performed a history and examination of this patient, discussed the same with the dictator. I agree with the dictator's note ,documented as a scribe. Any additional findings or plans will be noted. Patient Condition at Discharge: Stable Plan - Discharge Summary Discharge Rx Participant: No New Discharge Prescriptions: New Loratadine-Pseudoeph 5-120 mg [Claritin-D 12 Hour] 1 each PO Q12HR tablet Acetaminophen-Codeine 300-30mg [Tylenol w/codeine #3] 1 each PO Q8HR PRN tab PRN Reason: Pain Furosemide [Lasix] 20 mg PO DAILY #90 tab Sucralfate [Carafate] 1 gm PO ACHS #120 tab Ciprofloxacin HCl [Cipro] 500 mg PO BID #10 tab Nystatin 100,000 Unit/ml Susp [Mycostatin Oral Susp] 500,000 unit PO QID 7 Days #140 ml Continue Levothyroxine Sodium [Synthroid] 150 mcg PO DAILY Psyllium Husk 100% [Metamucil Packet] 6 gm PO DAILY packet diphenhydrAMINE [Benadryl] 25 mg PO HS cap Docusate [Colace] 100 mg PO BID cap dexAMETHasone ORAL [Hexadrol] 4 mg PO BID #30 tab Pantoprazole [Protonix] 40 mg PO AC-BID #60 tablet.dr [place]-Docusate Sodium [Senokot-S] 2 each PO BID tab ALPRAZolam [Xanax] 0.5 mg PO HS PRN PRN Reason: anxiety Discharge Medication List Levothyroxine Sodium [Synthroid] 150 mcg PO DAILY 08/28/19 [History] Docusate [Colace] 100 mg PO BID cap 07/25/21 [Rx] Pantoprazole [Protonix] 40 mg PO AC-BID #60 tablet. 07/25/21 [Rx] Psyllium Husk 100% [Metamucil Packet] 6 gm PO DAILY packet 07/25/21 [Rx] Sennosides-Docusate Sodium [Senokot-S] 2 each PO BID tab 07/25/21 [Rx] dexAMETHasone ORAL [Hexadrol] 4 mg PO BID #30 tab 07/25/21 [Rx] diphenhydrAMINE [Benadryl] 25 mg PO HS cap 07/25/21 [Rx] ALPRAZolam [Xanax] 0.5 mg PO HS PRN 07/27/21 [History] Furosemide [Lasix] 20 mg PO DAILY #90 tab 07/29/21 [Rx] Acetaminophen-Codeine 300-30mg [Tylenol w/codeine #3] 1 each PO Q8HR PRN tab 08/07/21 [Rx] Ciprofloxacin HCl [Cipro] 500 mg PO BID #10 tab 08/07/21 [Rx] Loratadine-Pseudoeph 5-120 mg [Claritin-D 12 Hour] 1 each PO Q12HR tablet 08/07/21 [Rx] Nystatin 100,000 Unit/ml Susp [Mycostatin Oral Susp] 500,000 unit PO QID 7 Days #140 ml 08/07/21 [Rx] Sucralfate [Carafate] 1 gm PO ACHS #120 tab 08/07/21 [Rx] Follow up Appointment(s)/Referral(s): González Sexton MD [STAFF PHYSICIAN] - 08/15/21 3:45 pm Kip Thakur MD [STAFF PHYSICIAN] - 1 Week (The office will call you with appointment ) Stanford Smith DO [Primary Care Provider] - 08/12/21 8:10 am Patient Instructions/Handouts: Heart Failure (DC), Urinary Tract Infection in Women (DC), Upper Endoscopy (DC) Activity/Diet/Wound Care/Special Instructions: [facility] will resume services upon discharge. [facility] - Palliative Care services will resume upon discharge. Discharge Disposition: HOME WITH HOME HEALTH SERVICES
== END 2021-08-07 18:44 | disposition home health service (06) | DRG 291 ==
LOC: EC 08:39 → 3SCARD 13:14 → 3NCARDOBS 07-29 00:09
PROVIDERS: ADMIT Family Medicine; ATTEND Family Medicine
PROC: DP0C2ZZ Beam Radiation of Other Bone using Photons >10 MeV (ICD-10-PCS; 2021-07-28)
PROC: 0DB58ZX Excision of Esophagus, Via Natural or Artificial Opening Endoscopic, Diagnostic (ICD-10-PCS; principal; 2021-08-07 11:55)
DX: I13.0 Hypertensive heart and chronic kidney disease with heart failure and stage 1 through stage 4 chronic kidney disease, or unspecified chronic kidney disease (principal); I50.31 Acute diastolic (congestive) heart failure; C79.51 Secondary malignant neoplasm of bone; N18.4 Chronic kidney disease, stage 4 (severe); C78.7 Secondary malignant neoplasm of liver and intrahepatic bile duct; C78.00 Secondary malignant neoplasm of unspecified lung; Q61.3 Polycystic kidney, unspecified; E87.1 Hypo-osmolality and hyponatremia; N17.9 Acute kidney failure, unspecified; N39.0 Urinary tract infection, site not specified; E86.1 Hypovolemia; I71.2 Thoracic aortic aneurysm, without rupture; J44.9 Chronic obstructive pulmonary disease, unspecified; Z20.822 Contact with and (suspected) exposure to COVID-19; K76.89 Other specified diseases of liver; G89.3 Neoplasm related pain (acute) (chronic); E89.0 Postprocedural hypothyroidism; K21.00 Gastro-esophageal reflux disease with esophagitis, without bleeding; E87.6 Hypokalemia; T50.2X5A Adverse effect of carbonic-anhydrase inhibitors, benzothiadiazides and other diuretics, initial encounter; M54.5 Low back pain; R09.82 Postnasal drip; R26.2 Difficulty in walking, not elsewhere classified; I34.0 Nonrheumatic mitral (valve) insufficiency; F41.9 Anxiety disorder, unspecified; R13.10 Dysphagia, unspecified; Z17.0 Estrogen receptor positive status [ER+]; K59.00 Constipation, unspecified; H26.9 Unspecified cataract; R32 Unspecified urinary incontinence; E66.9 Obesity, unspecified; Z68.36 Body mass index [BMI] 36.0-36.9, adult; Z79.890 Hormone replacement therapy; Z79.52 Long term (current) use of systemic steroids; Z79.899 Other long term (current) drug therapy; Z85.3 Personal history of malignant neoplasm of breast; Z85.850 Personal history of malignant neoplasm of thyroid; Z86.16 Personal history of COVID-19; Z98.84 Bariatric surgery status; Z90.49 Acquired absence of other specified parts of digestive tract; Z90.710 Acquired absence of both cervix and uterus; Z87.19 Personal history of other diseases of the digestive system; Z87.42 Personal history of other diseases of the female genital tract; Z90.13 Acquired absence of bilateral breasts and nipples; Z87.39 Personal history of other diseases of the musculoskeletal system and connective tissue; Z86.59 Personal history of other mental and behavioral disorders; Z72.820 Sleep deprivation; Z98.890 Other specified postprocedural states; Z71.3 Dietary counseling and surveillance; Z91.041 Radiographic dye allergy status; Z82.71 Family history of polycystic kidney; Z80.8 Family history of malignant neoplasm of other organs or systems
CPT/HCPCS: 36415; 43239; 70551; 71046; 74240; 77336; 77387; 77412; 78582; 80048; 80053; 80061; 80076; 81001; 82150; 82553; 83690; 83735; 83880; 83930; 83935; 84133; 84300; 84484; 85025; 85610; 85730; 87077; 87086; 87186; 87635; 88305; 93005; 93306; 96360; 96361; 99285

== ENCOUNTER 2021-08-22 09:42 | Day surgery (SDC) | payer MEDICARE, OTHER ==
[2021-08-20 11:18] VITALS: BMI 36.8
[2021-08-22 10:14] VITALS: RESP 18; TEMP 98.4
[2021-08-22] MEDS ORDERED: LIDOCAINE 1% INJ 10MG/ML (20 ML MDV) SQ ONE (10:54)
[2021-08-22 11:22] VITALS: BP 164/88; PULSE 88
--- NOTE | 2021-08-22 11:28 | IR ---
EXAMINATION TYPE: IR cvc insert >=5 years DATE OF EXAM: 08/22/2021 COMPARISON: NONE CLINICAL HISTORY: Metastatic cancer Needs long-term intravenous access for therapy. PROCEDURE: Hand hygiene obtained with soap and water and alcohol-based hand rub. After informed consent, the skin overlying the right basilic vein was localized with ultrasound and n oted to be compressible and patent. An ultrasound image was obtained and submitted on the patient's chart. The overlying skin was prepped and draped and Lidocaine was used for local anesthesia. A ski n kitty was made with a scalpel. Access was gained to the vein under ultrasound guidance with a 21 ga uge needle and a 0.018 inch wire was advanced. Access site was dilated with Peel-Away sheath and cat heter tailored to the appropriate length and advanced such that the distal tip is at the cavoatrial j unction. Spot image was obtained verifying placement. Catheter was fixed to the skin and a sterile dressing was placed following hemostasis. Catheter was aspirated and flushed with saline. Patient w as discharged in stable condition without complication.Maximal barrier technique is utilized. Ultras ound image is documented on the chart. Ultrasound used with sterile technique. Fluoro time and fluoroscopic images submitted to document procedure: Report 4 minutes fluoroscopy ebony e, 15 intraoperative C-arm images document the procedure IMPRESSION: STATUS POST ULTRASOUND AND FLUOROSCOPIC GUIDED PICC LINE PLACEMENT, READY FOR USE. THIS PROCEDURE WAS PERFORMED BY THE UNDERSIGNED.
== END 2021-08-22 11:44 | disposition home or self-care (01) ==
LOC: CATHCVL 09:42
PROVIDERS: ATTEND Radiology Diagnostic Radiology
DX: Z45.2 Encounter for adjustment and management of vascular access device (principal)
CPT/HCPCS: 36573; 87635; C1751; C1769; J2001

== ENCOUNTER 2021-08-23 17:08 | Emergency (ER) | payer MEDICARE, OTHER ==
[2021-08-23 17:31] VITALS: TEMP 97.9
--- NOTE | 2021-08-23 17:37 | ED ---
Chest Pain HPI - General Chief Complaint: Chest Pain Stated Complaint: Chest Pain Time Seen by Provider: 08/23/21 17:36 Source: patient Mode of arrival: wheelchair Limitations: no limitations - History of Present Illness Initial Comments: Racquel is a 66-year-old female with a history of metastatic rest cancer with known metastases to the bone, history of heart failure, hypercalcemia due to metastatic disease. Patient presents the ER today for evaluation of right-sided chest pain. Patient reports she had sudden onset of severe pain in the right chest. Patient has had episodes of this in the past when in heart failure. Pain was sudden in nature unprovoked. Has resolved now. She did recently have her first chemotherapy after having done 10 rounds of radiation for spinal metastases. - Related Data Home Medications Medication Instructions Recorded Confirmed Levothyroxine Sodium [Synthroid] 150 mcg PO DAILY 08/28/19 08/23/21 ALPRAZolam [Xanax] 0.5 mg PO HS PRN 07/27/21 08/23/21 Docusate [Colace] 200 mg PO HS PRN 08/20/21 08/23/21 Loratadine-Pseudoeph 5-120 mg 1 tab PO Q12HR PRN 08/20/21 08/23/21 [Claritin-D 12 Hour] diphenhydrAMINE [Benadryl] 25 mg PO HS PRN 08/20/21 08/23/21 Furosemide [Lasix] 20 mg PO DAILY 08/23/21 08/23/21 Kidney Vitamin Unknown 1 tab PO DAILY 08/23/21 08/23/21 dexAMETHasone 2 mg PO DIRECTED 08/23/21 08/23/21 Previous Rx's Medication Instructions Recorded Pantoprazole [Protonix] 40 mg PO AC-BID #60 tablet. 07/25/21 Acetaminophen-Codeine 300-30mg 1 tab PO Q4H PRN 3 Days #18 tablet 08/23/21 [Tylenol w/codeine #3] Allergies Allergy/AdvReac Type Severity Reaction Status Date / Time Iodinated Contrast Media Allergy Rash/Hives Verified 08/23/21 18:32 [Iodinated Contrast Media - IV Dye] Review of Systems ROS Statement: Those systems with pertinent positive or pertinent negative responses have been documented in the HPI. ROS Other: All systems not noted in ROS Statement are negative. Past Medical History Past Medical History: Asthma, Cancer, COPD, Dementia, GERD/Reflux, Hypertension, Renal Disease, Thyroid Disorder Additional Past Medical History / Comment(s): Current liver, spine and lung cancer, tx with radiation and chemo recently. Poor kidney function. Hx breast CA metastatic stage 4 2008, thyroid CA 6 years ago. 2017 diagnosis of stage 4 bone CA in spine. 12/2016 near syncope w/ suspected low BP. Mild asthma with occasional related rt-sided chest pain. Hx polycystic kidney disease, cyst to liver, nodule lt lung, thoracic aneurysm. Obesity. Cataracts bulmaro. Recent nausea, dark stools, wgt fluctuations, dysphagia if eats too fast. History of Any Multi-Drug Resistant Organisms: None Reported Past Surgical History: Bariatric Surgery, Breast Surgery, Cholecystectomy, Hysterectomy Additional Past Surgical History / Comment(s): Hx colonoscopy. Hx double mastectomy, thyroidectomy, lap band (not filled), bunionectomy bulmaro ft foot surg, bilateral carpal tunnel, surgeries for staph infection rt breast implant. Past Anesthesia/Blood Transfusion Reactions: No Reported Reaction, Motion Sickness Past Psychological History: Anxiety, Depression Smoking Status: Never smoker Past Alcohol Use History: None Reported Past Drug Use History: None Reported - Past Family History Father Family Medical History: Cancer, Renal Disease Additional Family Medical History / Comment(s): Polycystic kidney, kidney transplant, poss CA behind heart R/T Rx. General Exam - General Exam Comments Initial Comments: Physical Exam GENERAL: Chronically ill-appearing HENT: Normocephalic, Atraumatic. EYES: PERRL, EOMI PULMONARY: Unlabored respirations. No audible rales rhonchi or wheezing was noted. CARDIOVASCULAR: There is a regular rate and rhythm without any murmurs gallops or rubs. ABDOMEN: Soft and nontender with normal bowel sounds. Obese SKIN: Pale, sickly : Deferred NEUROLOGIC: Patient is alert and oriented x3. MUSCULOSKELETAL: Lower extremity edema PSYCHIATRIC: Normal psychiatric evaluation. Limitations: no limitations Course Vital Signs 08/23/21 08/23/21 08/23/21 17:27 18:30 20:00 Temperature 97.9 F Pulse Rate 128 H 120 H 117 H Respiratory 18 22 18 Rate Blood Pressure 122/84 139/97 130/91 O2 Sat by Pulse 95 97 96 Oximetry 08/23/21 21:19 Temperature Pulse Rate 79 Respiratory 18 Rate Blood Pressure 120/90 O2 Sat by Pulse 97 Oximetry Chest Pain MDM - MDM The patient was seen and evaluated, history is obtained from patient History and physical exam are relatively unremarkable, this is a chronically ill obese 66-year-old female metastatic cancer throughout her body. Labs were obtained and are improved from previous. Patient does not have critical hypercalcemia. White count is improving hemoglobin is stable, BNP is improving, kidney function is improving. Patient's pain was treated with morphine she reported significant improvement. Results were discussed with the patient daughter bedside. Both expressed relief. Despite having metastatic disease and bony involvement patient is not on any narcotic pain medication at home. Patient states she is had some difficulty communicating between her primary care and oncologist about who should provide her prescriptions for narcotics and therefore hasn't been given any. The patient for a starter pack and a three-day supply of 18 pills. Patient would like to be discharged home at this time. Patient has had consults with palliative scheduled but has missed them due to other illnesses and would like to meet with palliative about pain management and future planning with her disease process. Disposition Clinical Impression: Metastatic disease Disposition: HOME SELF-CARE Condition: Serious Additional Instructions: Follow with primary care and oncology Prescriptions: Acetaminophen-Codeine 300-30mg [Tylenol w/codeine #3] 1 tab PO Q4H PRN 3 Days #18 tablet PRN Reason: Pain Is patient prescribed a controlled substance at d/c from ED?: No Referrals: Stanford Smith DO [Primary Care Provider] - 1-2 days
[2021-08-23 18:35] LABS: Basophils % (A) 1 %; Eosinophils # (A) 0.2 k/uL (0-0.7); Eosinophils % (A) 4 %; HCT 34.9 % (34.0-46.0); HGB 11.9 gm/dL (11.4-16.0); Lymphocytes # (A) 0.6 k/uL (1.0-4.8); Lymphocytes % (A) 10 %; MCH 34.5 pg (25.0-35.0); MCV 101.5 fL (80.0-100.0); Macrocytosis Slight; Monocytes # (A) 0.1 k/uL (0-1.0); Monocytes % (A) 2 %; Neutrophils # (A) 4.8 k/uL (1.3-7.7); Neutrophils % (A) 82 %; Platelet Count 132 k/uL (150-450); RBC 3.43 m/uL (3.80-5.40); RDW 13.4 % (11.5-15.5); WBC 5.9 k/uL (3.8-10.6)
--- NOTE | 2021-08-23 18:39 | XR ---
EXAMINATION TYPE: XR chest 2V DATE OF EXAM: 08/23/2021 COMPARISON: 07/30/2021 HISTORY: Chest pain TECHNIQUE: FINDINGS: There is blunting of the costophrenic angles and more on the right side. There is mild pulm onary congestion. There are chest leads. IMPRESSION: Bilateral pleural effusions which are increased compared to old exam. There is probably s ome heart failure.
[2021-08-23 18:49] LABS: INR 0.9 (<1.2); Partial Thromboplastin Time 24.9 sec (22.0-30.0); Prothrombin Time 10.1 sec (9.0-12.0)
[2021-08-23] MEDS ORDERED: MORPHINE SULFATE 4 MG/ML SYRINGE IVP STA (19:07)
[2021-08-23 19:25] LABS: Albumin 3.1 g/dL (3.5-5.0); Calcium 8.7 mg/dL (8.4-10.2); Magnesium 1.8 mg/dL (1.6-2.3); Total Bilirubin 0.7 mg/dL (0.2-1.3); Total Protein 5.7 g/dL (6.3-8.2)
[2021-08-23 20:09] VITALS: RESP 18
[2021-08-23] MEDS ORDERED: ACET/COD 300 MG/30 MG STARTER PACK 6 TAB BTL PO STA (21:02)
[2021-08-23 21:20] VITALS: BP 120/90; PULSE 79
== END 2021-08-23 21:20 | disposition home or self-care (01) ==
LOC: EC 17:08
DX: C79.51 Secondary malignant neoplasm of bone (principal); C80.1 Malignant (primary) neoplasm, unspecified; I11.0 Hypertensive heart disease with heart failure; I50.9 Heart failure, unspecified; J44.9 Chronic obstructive pulmonary disease, unspecified; F03.90 Unspecified dementia, unspecified severity, without behavioral disturbance, psychotic disturbance, mood disturbance, and anxiety; K21.9 Gastro-esophageal reflux disease without esophagitis; E07.9 Disorder of thyroid, unspecified; F41.9 Anxiety disorder, unspecified; F32.9 Major depressive disorder, single episode, unspecified; Z91.041 Radiographic dye allergy status; Z85.3 Personal history of malignant neoplasm of breast; Z98.84 Bariatric surgery status; Z90.49 Acquired absence of other specified parts of digestive tract; Z90.710 Acquired absence of both cervix and uterus; Z85.118 Personal history of other malignant neoplasm of bronchus and lung; Z79.899 Other long term (current) drug therapy; Z85.850 Personal history of malignant neoplasm of thyroid; Z92.3 Personal history of irradiation
CPT/HCPCS: 99285; 96374; 36415; 93005; 83880; 80053; 83735; 84484; 85025; 85610; 85730; 71046; J2270

== ENCOUNTER 2021-08-30 21:07 | Inpatient (IN) | payer MEDICARE, OTHER ==
[2021-08-30] MEDS ORDERED: MORPHINE SULFATE 4 MG/ML SYRINGE IV STA (22:44)
--- NOTE | 2021-08-30 23:13 | ED ---
Weakness HPI - General Chief complaint: Weakness Stated complaint: Dehydration Time Seen by Provider: 08/30/21 21:46 Source: patient, family Mode of arrival: wheelchair - History of Present Illness Initial comments: Patient is 66-year-old woman with history of stage IV breast cancer who presents with multiple complaints. She states that she has been feeling generalized weakness and fatigue. She has been having diffuse body aches including particularly her back. She has not been tolerating oral intake well and is concerned that she is getting dehydrated. Patient states that her last chemotherapy treatment was approximately week ago. She has not noted fever or chills. No focal weakness. No change in bowel movements. When asked if she is seeing any dark tarry or bloody stools. She has noted a trace of blood with wiping but states this is a hemorrhoid and has not flared up recently. MD Complaint: generalized weakness, lack of energy, difficulty walking -: days(s) Location: generalized Consistency: constant Improves with: none Worsens with: none Associated Symptoms: denies other symptoms - Related Data Home Medications Medication Instructions Recorded Confirmed Levothyroxine Sodium [Synthroid] 150 mcg PO DAILY 08/28/19 08/30/21 ALPRAZolam [Xanax] 0.5 mg PO HS PRN 07/27/21 08/30/21 Loratadine-Pseudoeph 5-120 mg 1 tab PO Q12HR 08/20/21 08/30/21 [Claritin-D 12 Hour] diphenhydrAMINE [Benadryl] 25 mg PO HS PRN 08/20/21 08/30/21 Albuterol Sulfate [Albuterol 2 puff PO RT-Q6H PRN 08/30/21 08/30/21 Sulfate Hfa] Cephalexin [Keflex] 500 mg PO TID 08/30/21 08/30/21 Lactulose 10 gm PO DAILY 08/30/21 08/30/21 Nephro-Nita 1 tab PO DAILY 08/30/21 08/30/21 Nystatin 100,000 Unit/ml Susp 5 ml PO QID 08/30/21 08/30/21 [Mycostatin Oral Susp] Ondansetron HCl [Zofran] 4 mg PO Q6H PRN 08/30/21 08/30/21 Sennosides/Docusate Sodium [Colace 1 tab PO DAILY PRN 08/30/21 08/30/21 2-in-1 Tablet] Previous Rx's Medication Instructions Recorded Pantoprazole [Protonix] 40 mg PO AC-BID #60 tablet. 07/25/21 Acetaminophen-Codeine 300-30mg 1 tab PO Q4H PRN 3 Days #18 tablet 08/23/21 [Tylenol w/codeine #3] Allergies Allergy/AdvReac Type Severity Reaction Status Date / Time Iodinated Contrast Media Allergy Rash/Hives Verified 08/30/21 23:05 [Iodinated Contrast Media - IV Dye] Review of Systems ROS Statement: Those systems with pertinent positive or pertinent negative responses have been documented in the HPI. ROS Other: All systems not noted in ROS Statement are negative. Constitutional: Reports: weakness. Denies: fever, chills Eyes: Denies: vision change Respiratory: Denies: cough, dyspnea Cardiovascular: Denies: chest pain, palpitations, edema Gastrointestinal: Denies: abdominal pain, nausea, vomiting, diarrhea, constipation Genitourinary: Denies: dysuria, hematuria Musculoskeletal: Reports: as per HPI, back pain, myalgia Skin: Denies: rash Neurological: Denies: headache, weakness, numbness Past Medical History Past Medical History: Asthma, Cancer, COPD, Dementia, GERD/Reflux, Hypertension, Renal Disease, Thyroid Disorder Additional Past Medical History / Comment(s): Current liver, spine and lung cancer, tx with radiation and chemo recently. Poor kidney function. Hx breast CA metastatic stage 4 2008, thyroid CA 6 years ago. 2017 diagnosis of stage 4 bone CA in spine. 12/2016 near syncope w/ suspected low BP. Mild asthma with occasional related rt-sided chest pain. Hx polycystic kidney disease, cyst to liver, nodule lt lung, thoracic aneurysm. Obesity. Cataracts bulmaro. Recent nausea, dark stools, wgt fluctuations, dysphagia if eats too fast. History of Any Multi-Drug Resistant Organisms: None Reported Past Surgical History: Bariatric Surgery, Breast Surgery, Cholecystectomy, Hysterectomy Additional Past Surgical History / Comment(s): Hx colonoscopy. Hx double mastectomy, thyroidectomy, lap band (not filled), bunionectomy bulmaro ft foot surg, bilateral carpal tunnel, surgeries for staph infection rt breast implant. Past Anesthesia/Blood Transfusion Reactions: No Reported Reaction, Motion Sickness Past Psychological History: Anxiety, Depression Smoking Status: Never smoker Past Alcohol Use History: None Reported Past Drug Use History: None Reported - Past Family History Father Family Medical History: Cancer, Renal Disease Additional Family Medical History / Comment(s): Polycystic kidney, kidney transplant, poss CA behind heart R/T Rx. General Exam General appearance: alert, in no apparent distress Head exam: Present: atraumatic, normocephalic Eye exam: Present: normal appearance. Absent: scleral icterus, conjunctival injection ENT exam: Present: mucous membranes dry Neck exam: Present: normal inspection Respiratory exam: Present: normal lung sounds bilaterally. Absent: respiratory distress, wheezes, rales, rhonchi, stridor Cardiovascular Exam: Present: regular rate, normal rhythm, normal heart sounds. Absent: systolic murmur, diastolic murmur, rubs, gallop GI/Abdominal exam: Present: soft. Absent: distended, tenderness, guarding, re bound, rigid, mass Extremities exam: Present: normal inspection, normal capillary refill. Absent: pedal edema, calf tenderness Back exam: Present: normal inspection. Absent: CVA tenderness (R), CVA tenderness (L) Neurological exam: Present: alert Skin exam: Present: warm, dry, intact, normal color. Absent: rash Course Vital Signs 08/30/21 21:28 Temperature 98.9 F Pulse Rate 108 H Respiratory 20 Rate Blood Pressure 135/82 O2 Sat by Pulse 96 Oximetry EKG Findings - EKG Results: EKG: interpreted by ERMD, sinus rhythm, normal axis, normal QRS (Possible old anterior infarct.), normal ST/T EKG shows: tachycardia (Rate 106 bpm) Medical Decision Making - Lab Data Result diagrams: 08/30/21 22:45 Lab Results 08/30/21 08/30/21 08/30/21 Range/Units 22:45 22:45 22:45 Sodium 129 L (137-145) mmol/L Potassium 3.9 (3.5-5.1) mmol/L Chloride 100 (98-107) mmol/L Carbon Dioxide 22 (22-30) mmol/L Anion Gap 7 mmol/L BUN 17 (7-17) mg/dL Creatinine 1.43 H (0.52-1.04) mg/dL Est GFR (CKD-EPI)AfAm 44 (>60 ml/min/1.73 sqM) Est GFR (CKD-EPI)NonAf 39 (>60 ml/min/1.73 sqM) Glucose 104 H (74-99) mg/dL Plasma Lactic Acid Marcos 1.1 (0.7-2.0) mmol/L Calcium 7.4 L (8.4-10.2) mg/dL Magnesium 1.6 (1.6-2.3) mg/dL Total Bilirubin 0.8 (0.2-1.3) mg/dL AST 93 H (14-36) U/L ALT 21 (4-34) U/L Alkaline Phosphatase 93 (38-126) U/L Troponin I <0.012 (0.000-0.034) ng/mL Total Protein 5.5 L (6.3-8.2) g/dL Albumin 2.9 L (3.5-5.0) g/dL Disposition Referrals: Stanford Smith DO [Primary Care Provider] - 1-2 days
[2021-08-30 23:28] LABS: Albumin 2.9 g/dL (3.5-5.0); Calcium 7.4 mg/dL (8.4-10.2); Magnesium 1.6 mg/dL (1.6-2.3); Potassium 3.9 mmol/L (3.5-5.1); Total Bilirubin 0.8 mg/dL (0.2-1.3); Total Protein 5.5 g/dL (6.3-8.2)
--- NOTE | 2021-08-30 23:30 | XR ---
EXAMINATION TYPE: XR chest 2V DATE OF EXAM: 08/30/2021 COMPARISON: 08/23/2021 HISTORY: Short of breath TECHNIQUE: FINDINGS: There are bilateral pleural effusions and larger on the right side. There is mild pulmonary congestion. There are no hilar masses. Mediastinum is normal. There are chest leads. IMPRESSION: Moderate bilateral pleural effusions without change. There is probably mild heart failure without change.
[2021-08-30 23:59] LABS: Basophils % (A) 0 %; Eosinophils % (A) 2 %; HCT 25.8 % (34.0-46.0); Lymphocytes # (A) 0.6 k/uL (1.0-4.8); Lymphocytes % (A) 26 %; MCH 33.7 pg (25.0-35.0); MCHC 33.9 g/dL (31.0-37.0); MCV 99.5 fL (80.0-100.0); Mean Platelet Volume 9.1; Monocytes # (A) 0.1 k/uL (0-1.0); Monocytes % (A) 2 %; Neutrophils # (A) 1.5 k/uL (1.3-7.7); Neutrophils % (A) 66 %; Platelet Count 164 k/uL (150-450); RBC 2.59 m/uL (3.80-5.40); RDW 13.6 % (11.5-15.5); WBC 2.3 k/uL (3.8-10.6)
[2021-08-31 00:03] LABS: Appearance,Urine Clear (Clear); Bilirubin,Urine Negative (Negative); Blood,Urine Negative (Negative); Color,Urine Yellow; Glucose,Urine (UA) Negative (Negative); HGB 8.7 gm/dL (11.4-16.0); Ketones,Urine Negative (Negative); Leukocyte Esterase,Urine Negative (Negative); Nitrite,Urine Negative (Negative); PH, Urine 5.5 (5.0-8.0); Protein,Urine Trace (Negative); Specific Gravity,Urine 1.011 (1.001-1.035); Urobilinogen,Urine <2.0 mg/dL (<2.0)
[2021-08-31] MEDS ORDERED: NALOXONE 0.4 MG/ML 1 ML VIAL IV PRN (03:24)
[2021-08-31] MEDS ORDERED: MORPHINE SULFATE 4 MG/ML SYRINGE IV PRN (03:24)
[2021-08-31] MEDS: SODIUM CHLORIDE 0.9% 1,000 ML IV SCH ×3 (04:00→17:06)
[2021-08-31] MEDS ORDERED: FAMOTIDINE 20 MG TAB PO SCH (09:00)
[2021-08-31] MEDS: ONDANSETRON 4 MG/2 ML VIAL IVP PRN ×2 (10:46→17:09)
[2021-08-31] MEDS ORDERED: Acetaminophen-Codeine 300-30mg TAB PO PRN (10:59)
[2021-08-31] MEDS: NYSTATIN 100,000 UNIT/ML SUSP 500,000 UNIT/5 ML CUP PO SCH ×3 (12:53→21:31)
[2021-08-31] MEDS: LACTULOSE 20 GM/30 ML CUP PO SCH (12:53)
--- NOTE | 2021-08-31 14:09 | P.CONS ---
History of Present Illness - Reason for Consult Consult date: 08/31/21 Malignant related pain Requesting physician: Ezequiel David - Chief Complaint Pain - History of Present Illness Racquel is a patient of primary oncologist Dr. Pascual, well known to the practive for treatment of metastatic breast cancer. She is most recently on Lynparza for progression. She has had re-admissions for generalized uncontrolled pain recently. She has taken norco at home although states she tries not to take. Pain is mainly in back, she underwent a THoracic and Lumbar Spine MRI and a MRI of brain last admission and no metastatic disease in brain, and just known bone mets in spine noted. Review of Systems All systems: negative Constitutional: Reports as per HPI Past Medical History Past Medical History: Asthma, Cancer, COPD, Dementia, GERD/Reflux, Hypertension, Renal Disease, Thyroid Disorder Additional Past Medical History / Comment(s): Current liver, spine and lung cancer, tx with radiation and chemo recently. Poor kidney function. Hx breast CA metastatic stage 4 2008, thyroid CA 6 years ago. 2017 diagnosis of stage 4 bone CA in spine. 12/2016 near syncope w/ suspected low BP. Mild asthma with occasional related rt-sided chest pain. Hx polycystic kidney disease, cyst to liver, nodule lt lung, thoracic aneurysm. Obesity. Cataracts bulmaro. Recent nausea, dark stools, wgt fluctuations, dysphagia if eats too fast. History of Any Multi-Drug Resistant Organisms: None Reported Past Surgical History: Bariatric Surgery, Breast Surgery, Cholecystectomy, Hysterectomy Additional Past Surgical History / Comment(s): Hx colonoscopy. Hx double mastec daniella, thyroidectomy, lap band (not filled), bunionectomy bulmaro ft foot surg, bilateral carpal tunnel, surgeries for staph infection rt breast implant. Past Anesthesia/Blood Transfusion Reactions: No Reported Reaction, Motion Sickness Past Psychological History: Anxiety, Depression Additional Psychological History / Comment(s): Not currently. Smoking Status: Never smoker Past Alcohol Use History: None Reported Past Drug Use History: None Reported - Past Family History Father Family Medical History: Cancer, Renal Disease Additional Family Medical History / Comment(s): Polycystic kidney, kidney transplant, poss CA behind heart R/T Rx. Medications and Allergies Home Medications Medication Instructions Recorded Confirmed Type Levothyroxine Sodium [Synthroid] 150 mcg PO DAILY 08/28/19 08/30/21 History Pantoprazole [Protonix] 40 mg PO AC-BID #60 tablet. 07/25/21 08/30/21 Rx ALPRAZolam [Xanax] 0.5 mg PO HS PRN 07/27/21 08/30/21 History Loratadine-Pseudoeph 5-120 mg 1 tab PO Q12HR 08/20/21 08/30/21 History [Claritin-D 12 Hour] diphenhydrAMINE [Benadryl] 25 mg PO HS PRN 08/20/21 08/30/21 History Acetaminophen-Codeine 300-30mg 1 tab PO Q4H PRN 3 Days #18 tablet 08/23/21 08/30/21 Rx [Tylenol w/codeine #3] Albuterol Sulfate [Albuterol 2 puff PO RT-Q6H PRN 08/30/21 08/30/21 History Sulfate Hfa] Cephalexin [Keflex] 500 mg PO TID 08/30/21 08/30/21 History Lactulose 10 gm PO DAILY 08/30/21 08/30/21 History Nephro-Nita 1 tab PO DAILY 08/30/21 08/30/21 History Nystatin 100,000 Unit/ml Susp 5 ml PO QID 08/30/21 08/30/21 History [Mycostatin Oral Susp] Ondansetron HCl [Zofran] 4 mg PO Q6H PRN 08/30/21 08/30/21 History Sennosides/Docusate Sodium [Colace 1 tab PO DAILY PRN 08/30/21 08/30/21 History 2-in-1 Tablet] Allergies Allergy/AdvReac Type Severity Reaction Status Date / Time Iodinated Contrast Media Allergy Rash/Hives Verified 08/30/21 23:05 [Iodinated Contrast Media - IV Dye] Physical Exam Vitals: Vital Signs Temp Pulse Pulse Resp BP BP Pulse Ox 08/31/21 05:51 98.5 F 96 18 151/81 93 L 08/31/21 05:00 98 18 134/88 98 08/31/21 01:35 110 H 18 131/89 94 L 08/31/21 00:15 81 18 134/88 98 08/30/21 21:28 98.9 F 108 H 20 135/82 96 Intake and Output 08/30/21 08/31/21 08/31/21 22:59 06:59 14:59 Other: Weight 99.79 kg 99.79 kg - Constitutional General appearance: cooperative, no acute distress - EENT Eyes: EOMI ENT: hard of hearing, NA/AT - Neck Neck: normal ROM - Respiratory Respiratory: bilateral: CTA - Cardiovascular Rhythm: regularly irregular - Gastrointestinal General gastrointestinal: normal bowel sounds, soft - Integumentary Integumentary: pale - Musculoskeletal Musculoskeletal: generalized weakness, strength equal bilaterally - Psychiatric poor historian Psychiatric: A&O x's 3 Results CBC & Chem 7: 08/30/21 22:45 08/30/21 22:45 Labs: Abnormal Lab Results - Last 24 Hours (Table) 08/30/21 08/30/21 08/30/21 Range/Units 22:45 22:45 22:45 WBC 2.3 L (3.8-10.6) k/uL RBC 2.59 L (3.80-5.40) m/uL Hgb 8.7 L D (11.4-16.0) gm/dL Hct 25.8 L (34.0-46.0) % Lymphocytes # 0.6 L (1.0-4.8) k/uL APTT 21.0 L (22.0-30.0) sec Sodium (137-145) mmol/L Creatinine (0.52-1.04) mg/dL Glucose (74-99) mg/dL Calcium (8.4-10.2) mg/dL AST (14-36) U/L Total Protein (6.3-8.2) g/dL Albumin (3.5-5.0) g/dL Urine Protein Trace H (Negative) 08/30/21 Range/Units 22:45 WBC (3.8-10.6) k/uL RBC (3.80-5.40) m/uL Hgb (11.4-16.0) gm/dL Hct (34.0-46.0) % Lymphocytes # (1.0-4.8) k/uL APTT (22.0-30.0) sec Sodium 129 L (137-145) mmol/L Creatinine 1.43 H (0.52-1.04) mg/dL Glucose 104 H (74-99) mg/dL Calcium 7.4 L (8.4-10.2) mg/dL AST 93 H (14-36) U/L Total Protein 5.5 L (6.3-8.2) g/dL Albumin 2.9 L (3.5-5.0) g/dL Urine Protein (Negative) Chest x-ray: report reviewed Assessment and Plan (1) Normocytic anemia Current Visit: Yes Status: Acute Code(s): D64.9 - ANEMIA, UNSPECIFIED SNOMED Code(s): 427136014 (2) Leukopenia Current Visit: Yes Status: Acute Code(s): D72.819 - DECREASED WHITE BLOOD CELL COUNT, UNSPECIFIED SNOMED Code(s): 63018403 (3) Intractable back pain Current Visit: No Status: Acute Code(s): M54.9 - DORSALGIA, UNSPECIFIED SNOMED Code(s): 392882992 (4) Breast cancer Current Visit: No Status: Chronic Priority: High Code(s): C50.919 - MALIGNANT NEOPLASM OF UNSP SITE OF UNSPECIFIED FEMALE BREAST SNOMED Code(s): 827424097 Plan: With recurrent admissions for pain a low dose long acting pain medication - Start MSER 15 BID Add Daily Bowel regimen to avoid narcotic constipation Radiation oncology for options of palliative radiation Hold lYnparza with Bicytopenia
[2021-08-31 14:53] LABS: Basophils % (A) 1 %; Eosinophils % (A) 1 %; HCT 35.3 % (34.0-46.0); HGB 11.6 gm/dL (11.4-16.0); Lymphocytes # (A) 0.7 k/uL (1.0-4.8); Lymphocytes % (A) 41 %; MCV 103.1 fL (80.0-100.0); Macrocytosis Slight; Mean Platelet Volume 9.4; Monocytes # (A) 0.1 k/uL (0-1.0); Monocytes % (A) 3 %; Neutrophils # (A) 0.8 k/uL (1.3-7.7); Neutrophils % (A) 49 %; Platelet Count 140 k/uL (150-450); RBC 3.42 m/uL (3.80-5.40); WBC 1.7 k/uL (3.8-10.6)
[2021-08-31 15:07] LABS: ALT 20 U/L (4-34); AST 88 U/L (14-36); African American GFR (CKD) 48 (>60 ml/min/1.73 sqM); Albumin 2.9 g/dL (3.5-5.0); Albumin/Globulin Ratio 1.1; Alkaline Phosphatase 95 U/L (38-126); Anion Gap 7 mmol/L; Blood Urea Nitrogen 15 mg/dL (7-17); Calcium 7.3 mg/dL (8.4-10.2); Carbon Dioxide 21 mmol/L (22-30); Chloride 103 mmol/L (98-107); Globulin 2.7 g/dL; Glucose 119 mg/dL (74-99); LDH 711 U/L (313-618); Magnesium 1.6 mg/dL (1.6-2.3); Non-African American GFR(CKD) 41 (>60 ml/min/1.73 sqM); Sodium 131 mmol/L (137-145); Total Bilirubin 0.9 mg/dL (0.2-1.3); Total Protein 5.6 g/dL (6.3-8.2)
[2021-08-31] MEDS: ALBUTEROL HFA INHALER INHALATION PRN ×2 (17:00→19:59)
[2021-08-31] MEDS: CEPHALEXIN 500 MG CAP PO SCH ×2 (17:00→21:31)
[2021-08-31] MEDS: PANTOPRAZOLE 40 MG TABLET PO SCH (17:00)
--- NOTE | 2021-08-31 17:07 | P.HPIM ---
History of Present Illness H&P Date: 08/31/21 Chief Complaint: Weakness 66-year-old woman with history of stage IV breast cancer who presents with multiple complaints. She states that she has been feeling generalized weakness and fatigue. She has been having diffuse body aches including particularly her back. Patient did have MRI of the thoracic and lumbar spine done on last admission which did not reveal any metastatic disease in brain; patient does have known bone metastases and spine She has not been tolerating oral intake well and is concerned that she is getting dehydrated. Patient states that her last chemotherapy treatment was approximately week ago. She has not noted fever or chills. No focal weakness. No change in bowel movements. When asked if she is seeing any dark tarry or bloody stools. She has noted a trace of blood with wiping but states this is a hemorrhoid and has not flared up recently. Workup in ED revealed sodium of 129, BUN/creatinine of 17/1.43, troponin less than 0.012, EKG shows normal sinus rhythm with no ST or T-wave changes Review of Systems REVIEW OF SYSTEMS: CONSTITUTIONAL: malaise, fatigue. HEENT: No recent visual problems or hearing problems. Denied any sore throat. CARDIOVASCULAR: No chest pain, orthopnea, PND, no palpitations, no syncope. PULMONARY: No shortness of breath, no cough, no hemoptysis. GASTROINTESTINAL: No diarrhea, no nausea, no vomiting, no abdominal pain. NEUROLOGICAL: No headaches, no weakness, no numbness. HEMATOLOGICAL: Denies any bleeding or petechiae. GENITOURINARY: Denies any burning micturition, frequency, or urgency. MUSCULOSKELETAL/RHEUMATOLOGICAL: Back pain ENDOCRINE: Denies any polyuria or polydipsia. The rest of the 14-point review of systems is negative. Past Medical History Past Medical History: Asthma, Cancer, COPD, Dementia, GERD/Reflux, Hypertension, Renal Disease, Thyroid Disorder Additional Past Medical History / Comment(s): Current liver, spine and lung cancer, tx with radiation and chemo recently. Poor kidney function. Hx breast CA metastatic stage 4 2008, thyroid CA 6 years ago. 2017 diagnosis of stage 4 bone CA in spine. 12/2016 near syncope w/ suspected low BP. Mild asthma with occasional related rt-sided chest pain. Hx polycystic kidney disease, cyst to liver, nodule lt lung, thoracic aneurysm. Obesity. Cataracts bulmaro. Recent nausea, dark stools, wgt fluctuations, dysphagia if eats too fast. History of Any Multi-Drug Resistant Organisms: None Reported Past Surgical History: Bariatric Surgery, Breast Surgery, Cholecystectomy, Hysterectomy Additional Past Surgical History / Comment(s): Hx colonoscopy. Hx double mastectomy, thyroidectomy, lap band (not filled), bunionectomy bulmaro ft foot surg, bilateral carpal tunnel, surgeries for staph infection rt breast implant. Past Anesthesia/Blood Transfusion Reactions: No Reported Reaction, Motion Sickness Past Psychological History: Anxiety, Depression Additional Psychological History / Comment(s): Not currently. Smoking Status: Never smoker Past Alcohol Use History: None Reported Past Drug Use History: None Reported - Past Family History Father Family Medical History: Cancer, Renal Disease Additional Family Medical History / Comment(s): Polycystic kidney, kidney transplant, poss CA behind heart R/T Rx. Medications and Allergies Home Medications Medication Instructions Recorded Confirmed Type Levothyroxine Sodium [Synthroid] 150 mcg PO DAILY 08/28/19 08/30/21 History Pantoprazole [Protonix] 40 mg PO AC-BID #60 tablet. 07/25/21 08/30/21 Rx ALPRAZolam [Xanax] 0.5 mg PO HS PRN 07/27/21 08/30/21 History Loratadine-Pseudoeph 5-120 mg 1 tab PO Q12HR 08/20/21 08/30/21 History [Claritin-D 12 Hour] diphenhydrAMINE [Benadryl] 25 mg PO HS PRN 08/20/21 08/30/21 History Acetaminophen-Codeine 300-30mg 1 tab PO Q4H PRN 3 Days #18 tablet 08/23/21 08/30/21 Rx [Tylenol w/codeine #3] Albuterol Sulfate [Albuterol 2 puff PO RT-Q6H PRN 08/30/21 08/30/21 History Sulfate Hfa] Cephalexin [Keflex] 500 mg PO TID 08/30/21 08/30/21 History Lactulose 10 gm PO DAILY 08/30/21 08/30/21 History Nephro-Nita 1 tab PO DAILY 08/30/21 08/30/21 History Nystatin 100,000 Unit/ml Susp 5 ml PO QID 08/30/21 08/30/21 History [Mycostatin Oral Susp] Ondansetron HCl [Zofran] 4 mg PO Q6H PRN 08/30/21 08/30/21 History Sennosides/Docusate Sodium [Colace 1 tab PO DAILY PRN 08/30/21 08/30/21 History 2-in-1 Tablet] Allergies Allergy/AdvReac Type Severity Reaction Status Date / Time Iodinated Contrast Media Allergy Rash/Hives Verified 08/30/21 23:05 [Iodinated Contrast Media - IV Dye] Physical Exam Vitals: Vital Signs Temp Pulse Pulse Resp BP BP Pulse Ox 08/31/21 05:51 98.5 F 96 18 151/81 93 L 08/31/21 05:00 98 18 134/88 98 08/31/21 01:35 110 H 18 131/89 94 L 08/31/21 00:15 81 18 134/88 98 08/30/21 21:28 98.9 F 108 H 20 135/82 96 Intake and Output 08/30/21 08/31/21 08/31/21 22:59 06:59 14:59 Other: Weight 99.79 kg 99.79 kg - Constitutional General appearance: Present: average body habitus, cooperative, no acute distress - EENT Eyes: Present: anicteric sclerae, EOMI, PERRLA, normal appearance ENT: Present: hearing grossly normal, normal oropharynx Ears: bilateral: normal - Neck Neck: Present: normal ROM. Absent: lymphadenopathy, rigidity, thyromegaly Carotids: negative: bruit present Thyroid: bilateral: normal size, negative: enlarged, nodule - Respiratory Respiratory: bilateral: CTA, negative: rales, rhonchi, wheezing - Cardiovascular Rhythm: regular Heart sounds: normal: S1, S2 Abnormal Heart Sounds: Absent: systolic murmur, diastolic murmur - Gastrointestinal General gastrointestinal: Present: normal bowel sounds, soft. Absent: distended, organomegaly, tenderness - Genitourinary Genitourinary Comment(s): deferred - Integumentary Integumentary: Present: normal turgor. Absent: jaundiced, rash, ulcer - Neurologic Neurologic: Present: CNII-XII intact. Absent: focal deficits - Musculoskeletal Musculoskeletal: Present: gait normal, strength equal bilaterally - Psychiatric Psychiatric: Present: A&O x's 3, appropriate affect, intact judgment & insight Results CBC & Chem 7: 08/31/21 14:34 08/31/21 14:34 Labs: Abnormal Lab Results - Last 24 Hours (Table) 08/30/21 08/30/21 08/30/21 Range/Units 22:45 22:45 22:45 WBC 2.3 L (3.8-10.6) k/uL RBC 2.59 L (3.80-5.40) m/uL Hgb 8.7 L D (11.4-16.0) gm/dL Hct 25.8 L (34.0-46.0) % Lymphocytes # 0.6 L (1.0-4.8) k/uL APTT 21.0 L (22.0-30.0) sec Sodium (137-145) mmol/L Creatinine (0.52-1.04) mg/dL Glucose (74-99) mg/dL Calcium (8.4-10.2) mg/dL AST (14-36) U/L Total Protein (6.3-8.2) g/dL Albumin (3.5-5.0) g/dL Urine Protein Trace H (Negative) 08/30/21 Range/Units 22:45 WBC (3.8-10.6) k/uL RBC (3.80-5.40) m/uL Hgb (11.4-16.0) gm/dL Hct (34.0-46.0) % Lymphocytes # (1.0-4.8) k/uL APTT (22.0-30.0) sec Sodium 129 L (137-145) mmol/L Creatinine 1.43 H (0.52-1.04) mg/dL Glucose 104 H (74-99) mg/dL Calcium 7.4 L (8.4-10.2) mg/dL AST 93 H (14-36) U/L Total Protein 5.5 L (6.3-8.2) g/dL Albumin 2.9 L (3.5-5.0) g/dL Urine Protein (Negative) Assessment and Plan Assessment: 1. Weakness/debility/dehydration; patient will be started on IV fluid hydration; we will consult PT/OT 2. Acute renal injury/dehydration; IV fluid hydration in form of normal saline at a rate of 1 30 mL an hour; monitor strict ALEXANDER's, daily weights, renal function and electrolytes; avoid nephrotoxins and hypotension 3. Hypothyroidism; levothyroxin 150 MCG daily 4. Hypertension; blood pressures remain elevated; patient is currently not on any antihypertensive therapy; we will start a small dose of Lopressor and escalate therapy as needed 5. Asthma; albuterol inhaler 2 puffs 4 times a day when necessary 6. Acute exacerbation of chronic back pain/ known bone metastases - We will reorder home dose of morphine sulfate 15 mg every 12 hours with morphine 4 mg IV every 4 hours when necessary for breakthrough pain 7. UTI; partially treated; patient reports taking Keflex 500 mg 3 times a day which was started recently; we will continue while inpatient and repeat urine culture to ensure clearing of infection DVT prophylaxis; SCDs CODE STATUS; full code
[2021-08-31] MEDS: METOPROLOL TARTRATE 12.5 MG TAB PO SCH (21:30)
[2021-08-31] MEDS: MORPHINE SULFATE ER 15 MG TABLET PO SCH (21:31)
[2021-08-31 23:25] LABS: % Iron Saturation 20.03 (12.00-45.00); Iron 44 ug/dL (50-170); Total Iron Binding Capacity 221 ug/dL (228-460)
[2021-09-01] MEDS: SODIUM CHLORIDE 0.9% 1,000 ML IV SCH ×4 (01:02→21:43)
[2021-09-01] MEDS: LEVOTHYROXINE 75 MCG TAB PO SCH (05:50)
[2021-09-01] MEDS: ONDANSETRON 4 MG/2 ML VIAL IVP PRN ×2 (05:53→17:29)
[2021-09-01 07:07] LABS: HCT 35.4 % (34.0-46.0); HGB 11.6 gm/dL (11.4-16.0); MCH 33.8 pg (25.0-35.0); MCHC 32.8 g/dL (31.0-37.0); MCV 103.2 fL (80.0-100.0); Macrocytosis Slight; Mean Platelet Volume 9.2; Platelet Count 133 k/uL (150-450); RBC 3.43 m/uL (3.80-5.40); WBC 1.8 k/uL (3.8-10.6)
[2021-09-01] MEDS: ALBUTEROL HFA INHALER INHALATION PRN ×3 (07:55→20:06)
[2021-09-01] MEDS: NYSTATIN 100,000 UNIT/ML SUSP 500,000 UNIT/5 ML CUP PO SCH ×4 (08:02→21:43)
[2021-09-01] MEDS: PANTOPRAZOLE 40 MG TABLET PO SCH ×2 (08:02→17:29)
[2021-09-01] MEDS: METOPROLOL TARTRATE 12.5 MG TAB PO SCH ×2 (08:02→21:42)
[2021-09-01] MEDS: CEPHALEXIN 500 MG CAP PO SCH ×3 (08:02→21:43)
[2021-09-01] MEDS: FOLIC ACID-VIT B COMPLEX-VIT C 1 CAP PO SCH (08:02)
[2021-09-01] MEDS: LACTULOSE 20 GM/30 ML CUP PO SCH (08:02)
[2021-09-01] MEDS: FAMOTIDINE 20 MG TAB PO SCH (08:03)
[2021-09-01] MEDS: MORPHINE SULFATE ER 15 MG TABLET PO SCH ×2 (08:05→21:43)
[2021-09-01] MEDS ORDERED: LACTULOSE 20 GM/30 ML CUP PO SCH (09:00)
[2021-09-01 09:07] LABS: Vitamin B12 >3600.0 pg/mL (200.0-944.0)
[2021-09-01 10:18] LABS: Band Neutrophils % 1 %; Basophils # (M) 0.02 k/uL (0-0.2); Eosinophils # (M) 0.05 k/uL (0-0.7); Lymphocytes # (M) 0.79 k/uL (1.0-4.8); Metamyelocytes # (M) 0.02 k/uL (0); Metamyelocytes % 1 %; Monocytes # (M) 0.13 k/uL (0-1.0); Myelocytes # (M) 0.02 k/uL (0); Myelocytes % 1 %; Neutrophils % (M) 45 %; Nucleated Red Blood Cells 0 /100 WBC (0-0); Total Cells Counted 200
[2021-09-01 11:44] LABS: African American GFR (CKD) 47.2 (60.0-200.0); Albumin 3.1 g/dL (3.8-4.9); Albumin/Globulin Ratio 1.4 (1.60-3.17); Anion Gap 12.2 mmol/L (4.00-12.00); BUN/Creat Ratio 8.82 Ratio (12.00-20.00); Globulin 2.2 g/dL (1.6-3.3); Magnesium 1.5 mg/dL (1.5-2.4); Non-African American GFR(CKD) 40.7 (60.0-200.0); Potassium 3.9 mmol/L (3.5-5.5); Total Bilirubin 0.5 mg/dL (0.30-1.20); Total Protein 5.3 g/dL (6.2-8.2)
--- NOTE | 2021-09-01 15:33 | P.PN ---
Subjective Progress Note Date: 09/01/21 Principal diagnosis: Metastatic Breast Cancer, Malignant related pain Documented pain score appears to be improved. Blood counts continue to decrease, afebrile. Patient is anxious to be discharged today for appointment with Dr. Pascual, but as explained to her unable to see him same day, therefore a new appointment has been made for her and chemo will be held this week secondary to neutropenia Objective - Vital Signs Vital signs: Vital Signs Temp 98 F 09/01/21 04:39 Pulse 90 09/01/21 08:10 Resp 16 09/01/21 04:39 BP 117/74 09/01/21 08:10 Pulse Ox 94 L 09/01/21 04:39 Intake & Output 08/31/21 09/01/21 09/01/21 18:59 06:59 18:59 Other: # Voids 2 1 - Exam Alert Poor historian Neck: Supple Mouth - No oral mucocytitis Heart RRR Lungs: CTA Ext: Weak Bilateral Anxious - Labs CBC & Chem 7: 09/01/21 05:59 09/01/21 05:59 Labs: Abnormal Lab Results - Last 24 Hours (Table) 08/31/21 08/31/21 08/31/21 Range/Units 14:34 14:34 14:34 WBC 1.7 L (3.8-10.6) k/uL RBC 3.42 L (3.80-5.40) m/uL MCV 103.1 H (80.0-100.0) fL Plt Count 140 L (150-450) k/uL Neutrophils # 0.8 L (1.3-7.7) k/uL Lymphocytes # 0.7 L (1.0-4.8) k/uL Sodium 131 L (137-145) mmol/L Carbon Dioxide 21 L (22-30) mmol/L Creatinine 1.35 H (0.52-1.04) mg/dL Glucose 119 H (74-99) mg/dL Calcium 7.3 L (8.4-10.2) mg/dL Iron 44 L 45 L (50-170) ug/dL TIBC 221 L (228-460) ug/dL Transferrin 158.0 L (204.0-354.0) mg/dL Ferritin 3260.0 H (10.0-291.0) ng/mL AST 88 H (14-36) U/L Lactate Dehydrogenase 711 H (313-618) U/L Total Protein 5.6 L (6.3-8.2) g/dL Albumin 2.9 L (3.5-5.0) g/dL Vitamin B12 >3600.0 H (200.0-944.0) pg/mL 09/01/21 Range/Units 05:59 WBC 1.8 L (3.8-10.6) k/uL RBC 3.43 L (3.80-5.40) m/uL MCV 103.2 H (80.0-100.0) fL Plt Count 133 L (150-450) k/uL Neutrophils # (1.3-7.7) k/uL Lymphocytes # (1.0-4.8) k/uL Sodium (137-145) mmol/L Carbon Dioxide (22-30) mmol/L Creatinine (0.52-1.04) mg/dL Glucose (74-99) mg/dL Calcium (8.4-10.2) mg/dL Iron (50-170) ug/dL TIBC (228-460) ug/dL Transferrin (204.0-354.0) mg/dL Ferritin (10.0-291.0) ng/mL AST (14-36) U/L Lactate Dehydrogenase (313-618) U/L Total Protein (6.3-8.2) g/dL Albumin (3.5-5.0) g/dL Vitamin B12 (200.0-944.0) pg/mL Assessment and Plan (1) Normocytic anemia Current Visit: Yes Status: Acute Code(s): D64.9 - ANEMIA, UNSPECIFIED SNOMED Code(s): 781074508 (2) Leukopenia Current Visit: Yes Status: Acute Code(s): D72.819 - DECREASED WHITE BLOOD CELL COUNT, UNSPECIFIED SNOMED Code(s): 99779170 (3) Intractable back pain Current Visit: No Status: Acute Code(s): M54.9 - DORSALGIA, UNSPECIFIED SNOMED Code(s): 367454844 (4) Breast cancer Current Visit: No Status: Chronic Priority: High Code(s): C50.919 - MALIGNANT NEOPLASM OF UNSP SITE OF UNSPECIFIED FEMALE BREAST SNOMED Code(s): 679825139 Plan: With recurrent admissions for pain a low dose long acting pain medication - Start MSER 15 BID Add Daily Bowel regimen to avoid narcotic constipation Radiation oncology for options of palliative radiation Hold Taxol one week with Bicytopenia Neutropenia - Hold chemo one week - Improving - Follow-up made and added to discharge instructions with Dr. Pascual for Wednesday 4:45PM - Chest Xray prior to discharge for decreased bibasilar and decreased oxygen Discussed with Primary team and Nursing Will give three day supply of MS - ER until she can be seen i office for agreement. Discharge PLan: She can come in repeat cbc and sign agreement for narcotics Bowel regimen to prevent constipation induced by narcotics Dr. Pascual on Wednesday next week - Appointment made Physician Attest: I have completed the full history and physical and agree with above dictation, dictated as a scribe.
--- NOTE | 2021-09-01 17:21 | XR ---
EXAMINATION TYPE: XR chest 2V DATE OF EXAM: 09/01/2021 COMPARISON: Chest radiograph August 30, 2021 HISTORY: Generalized weakness. Neutropenic. TECHNIQUE: Frontal and lateral views of the chest are obtained. FINDINGS: The cardiomediastinal silhouette is stable. The pulmonary vasculature is mildly improved f rom the prior study. The duration bilaterally. There is moderate and small left effusion similar to prior. Right upper extremity PICC with the catheter tip over the SVC. IMPRESSION: Moderate right and small left effusion with adjacent atelectasis/airspace disease simila r to prior.
[2021-09-01 17:31] LABS: Appearance,Urine Clear (Clear); Bilirubin,Urine Negative (Negative); Blood,Urine Negative (Negative); Color,Urine Yellow; Glucose,Urine (UA) Negative (Negative); Ketones,Urine Negative (Negative); Leukocyte Esterase,Urine Negative (Negative); Nitrite,Urine Negative (Negative); PH, Urine 5.5 (5.0-8.0); Protein,Urine Trace (Negative); Specific Gravity,Urine 1.009 (1.001-1.035); Urobilinogen,Urine <2.0 mg/dL (<2.0)
--- NOTE | 2021-09-01 21:15 | P.PN ---
Subjective Progress Note Date: 09/01/21 She states that she has been feeling generalized weakness and fatigue. She has been having diffuse body aches including particularly her back. Objective - Vital Signs Vital signs: Vital Signs Temp 98.2 F 09/01/21 12:07 Pulse 83 09/01/21 12:07 Resp 18 09/01/21 12:07 BP 127/86 09/01/21 12:07 Pulse Ox 95 09/01/21 20:07 Intake & Output 09/01/21 09/01/21 09/02/21 06:59 18:59 06:59 Other: # Voids 1 2 - Exam GENERAL: This is a -66 year-old . Pleasant and cooperative. HEENT: Head is atraumatic, normocephalic. Pupils are equal, round, and reactive to light. Sclerae anicteric. Conjunctivae are clear. Mucus membranes of the mouth are moist. Neck is supple. RESPIRATORY: Clear to auscultation. No wheezes, rales, or rhonchi. CARDIOVASCULAR: Regular rate and rhythm. GASTROINTESTINAL: No distention noted. Abdomen soft and round. Normal active bowel sounds auscultated x 4 quadrants. No pain or tenderness noted upon palpation. INTEGUMENTARY: No cyanosis. No jaundice. No rashes noted. No cellulitis noted. EXTREMITIES: 2+ peripheral pulses. No evidence of peripheral edema. No calf tenderness noted. Intractable thoracic back pain appreciated. NEUROLOGIC: Cranial nerves II-XII intact. PSYCHIATRIC: Awake, alert, and oriented X 3. Appropriate affect. Intact judgement and insight. - Labs CBC & Chem 7: 09/01/21 05:59 09/01/21 05:59 Labs: Abnormal Lab Results - Last 24 Hours (Table) 08/31/21 08/31/21 09/01/21 Range/Units 14:34 14:34 05:59 WBC 1.8 L (3.8-10.6) k/uL RBC 3.43 L (3.80-5.40) m/uL MCV 103.2 H (80.0-100.0) fL Plt Count 133 L (150-450) k/uL Neutrophils # (Manual) 0.80 L (1.3-7.7) k/uL Lymphocytes # (Manual) 0.79 L (1.0-4.8) k/uL Metamyelocytes # (Man) 0.02 H (0) k/uL Myelocytes # (Manual) 0.02 H (0) k/uL Sodium (135-145) mmol/L Carbon Dioxide (21.6-31.8) mmol/L Anion Gap (4.00-12.00) mmol/L Est GFR (CKD-EPI)AfAm (60.0-200.0) Est GFR (CKD-EPI)NonAf (60.0-200.0) BUN/Creatinine Ratio (12.00-20.00) Ratio Calcium (8.7-10.3) mg/dL Iron 44 L 45 L (50-170) ug/dL TIBC 221 L (228-460) ug/dL Transferrin 158.0 L (204.0-354.0) mg/dL Ferritin 3260.0 H (10.0-291.0) ng/mL AST (13-35) U/L Total Protein (6.2-8.2) g/dL Albumin (3.8-4.9) g/dL Albumin/Globulin Ratio (1.60-3.17) g/dL Vitamin B12 >3600.0 H (200.0-944.0) pg/mL Urine Protein (Negative) 09/01/21 09/01/21 Range/Units 05:59 17:21 WBC (3.8-10.6) k/uL RBC (3.80-5.40) m/uL MCV (80.0-100.0) fL Plt Count (150-450) k/uL Neutrophils # (Manual) (1.3-7.7) k/uL Lymphocytes # (Manual) (1.0-4.8) k/uL Metamyelocytes # (Man) (0) k/uL Myelocytes # (Manual) (0) k/uL Sodium 131 L (135-145) mmol/L Carbon Dioxide 17.0 L (21.6-31.8) mmol/L Anion Gap 12.20 H (4.00-12.00) mmol/L Est GFR (CKD-EPI)AfAm 47.2 L (60.0-200.0) Est GFR (CKD-EPI)NonAf 40.7 L (60.0-200.0) BUN/Creatinine Ratio 8.82 L (12.00-20.00) Ratio Calcium 7.0 L (8.7-10.3) mg/dL Iron (50-170) ug/dL TIBC (228-460) ug/dL Transferrin (204.0-354.0) mg/dL Ferritin (10.0-291.0) ng/mL AST 77 H (13-35) U/L Total Protein 5.3 L (6.2-8.2) g/dL Albumin 3.1 L (3.8-4.9) g/dL Albumin/Globulin Ratio 1.40 L (1.60-3.17) g/dL Vitamin B12 (200.0-944.0) pg/mL Urine Protein Trace H (Negative) Microbiology - Last 24 Hours (Table) 08/31/21 14:34 Blood Culture - Preliminary Blood No Growth after 24 hours Assessment and Plan (1) Leukopenia Current Visit: Yes Status: Acute Code(s): D72.819 - DECREASED WHITE BLOOD CELL COUNT, UNSPECIFIED SNOMED Code(s): 52893312 (2) Normocytic anemia Current Visit: Yes Status: Acute Code(s): D64.9 - ANEMIA, UNSPECIFIED SNOMED Code(s): 598711475 (3) Breast cancer metastasized to liver Current Visit: No Status: Acute Code(s): C50.919 - MALIGNANT NEOPLASM OF UNSP SITE OF UNSPECIFIED FEMALE BREAST; C78.7 - SECONDARY MALIG NEOPLASM OF LIVER AND INTRAHEPATIC BILE DUCT SNOMED Code(s): 974331486 (4) Intractable back pain Current Visit: No Status: Acute Code(s): M54.9 - DORSALGIA, UNSPECIFIED SNOMED Code(s): 864256783 (5) Metastatic disease Current Visit: No Status: Acute Code(s): C79.9 - SECONDARY MALIGNANT NEOPLASM OF UNSPECIFIED SITE SNOMED Code(s): 151625368 (6) Obesity Current Visit: No Status: Acute Code(s): E66.9 - OBESITY, UNSPECIFIED SNOMED Code(s): 581190664 (7) Stage 3 chronic kidney disease Current Visit: No Status: Acute Code(s): N18.30 - CHRONIC KIDNEY DISEASE, STAGE 3 UNSPECIFIED SNOMED Code(s): 611893846 Plan: Plan is to keep patient overnight continue with pain management and hydration will plan on discharge nursing with follow-up with Dr. Cheek. She wants to discuss her current treatment for metastatic disease pain management is being done by oncology.
[2021-09-02] MEDS: LEVOTHYROXINE 75 MCG TAB PO SCH (05:46)
[2021-09-02 06:34] LABS: Basophils % (A) 1 %; Eosinophils % (A) 2 %; Lymphocytes # (A) 0.5 k/uL (1.0-4.8); Lymphocytes % (A) 31 %; MCH 33.8 pg (25.0-35.0); MCHC 32.3 g/dL (31.0-37.0); MCV 104.4 fL (80.0-100.0); Macrocytosis Slight; Mean Platelet Volume 9.4; Monocytes # (A) 0.1 k/uL (0-1.0); Monocytes % (A) 5 %; Neutrophils # (A) 0.8 k/uL (1.3-7.7); Neutrophils % (A) 54 %; Platelet Count 139 k/uL (150-450); RBC 2.97 m/uL (3.80-5.40); RDW 13.2 % (11.5-15.5); WBC 1.5 k/uL (3.8-10.6)
[2021-09-02 06:52] LABS: ALT 16 U/L (4-34); AST 68 U/L (14-36); African American GFR (CKD) 55 (>60 ml/min/1.73 sqM); Albumin 2.5 g/dL (3.5-5.0); Alkaline Phosphatase 69 U/L (38-126); Anion Gap 5 mmol/L; Blood Urea Nitrogen 11 mg/dL (7-17); Calcium 6.6 mg/dL (8.4-10.2); Carbon Dioxide 20 mmol/L (22-30); Chloride 107 mmol/L (98-107); Globulin 2.5 g/dL; Glucose 105 mg/dL (74-99); Non-African American GFR(CKD) 48 (>60 ml/min/1.73 sqM); Sodium 132 mmol/L (137-145); Total Bilirubin 0.6 mg/dL (0.2-1.3)
[2021-09-02] MEDS: LACTULOSE 20 GM/30 ML CUP PO SCH (07:28)
[2021-09-02] MEDS: PANTOPRAZOLE 40 MG TABLET PO SCH ×2 (07:29→17:28)
[2021-09-02] MEDS: METOPROLOL TARTRATE 12.5 MG TAB PO SCH ×2 (07:29→20:52)
[2021-09-02] MEDS: NYSTATIN 100,000 UNIT/ML SUSP 500,000 UNIT/5 ML CUP PO SCH ×4 (07:29→20:53)
[2021-09-02] MEDS: FAMOTIDINE 20 MG TAB PO SCH (07:29)
[2021-09-02] MEDS: CEPHALEXIN 500 MG CAP PO SCH ×3 (07:29→20:52)
[2021-09-02] MEDS: FOLIC ACID-VIT B COMPLEX-VIT C 1 CAP PO SCH (07:30)
[2021-09-02 09:03] LABS: Band Neutrophils % 1 %; Eosinophils # (M) 0.03 k/uL (0-0.7); Lymphocytes # (M) 0.39 k/uL (1.0-4.8); Monocytes # (M) 0.15 k/uL (0-1.0); Neutrophils % (M) 61 %; Nucleated Red Blood Cells 0 /100 WBC (0-0); Total Cells Counted 100
[2021-09-02] MEDS: ALBUTEROL HFA INHALER INHALATION PRN ×2 (09:11→17:44)
[2021-09-02] MEDS: MORPHINE SULFATE ER 15 MG TABLET PO SCH ×2 (09:17→21:05)
[2021-09-02] MEDS: SODIUM CHLORIDE 0.9% 1,000 ML IV SCH ×2 (11:53→15:49)
[2021-09-02] MEDS: ONDANSETRON 4 MG/2 ML VIAL IVP PRN (13:47)
[2021-09-02] MEDS ORDERED: ALPRAZolam 0.5 MG TAB PO PRN (15:31)
--- NOTE | 2021-09-02 15:46 | P.PN ---
Subjective Progress Note Date: 09/02/21 Principal diagnosis: Weakness and pain from malignancy, metastatic breast cancer In f/u today pt has "burning" sensation of the skin on her back, she has back pain that is better when she gets into a comfortable position and doesn't move. She had a BM today. Objective - Vital Signs Vital signs: Vital Signs Temp 98.7 F 09/02/21 06:43 Pulse 82 09/02/21 10:11 Resp 16 09/02/21 10:11 BP 112/72 09/02/21 07:27 Pulse Ox 92 L 09/02/21 04:52 Intake & Output 09/01/21 09/02/21 09/02/21 18:59 06:59 18:59 Intake Total 400 Balance 400 Intake: Oral 400 Other: Voiding Method Toilet # Voids 2 2 - Constitutional General appearance: Present: cooperative, no acute distress, obese - EENT Eyes: Present: anicteric sclerae, EOMI ENT: Present: hearing grossly normal - Respiratory Respiratory: bilateral: CTA - Cardiovascular Rhythm: regular Heart sounds: normal: S1, S2 Abnormal Heart Sounds: Absent: systolic murmur, diastolic murmur, rub, S3 Gallop, S4 Gallop, click, other - Peripheral edema leg Peripheral Edema: bilateral: None - Gastrointestinal General gastrointestinal: Present: normal bowel sounds, soft - Integumentary Integumentary Comment(s): darkened skin on the back from radiation, no blisters or excoriation - Neurologic Neurologic: Present: CNII-XII intact - Musculoskeletal Musculoskeletal: Present: generalized weakness - Psychiatric Psychiatric Comment(s): mild confusion, loses track of the conversation at times Psychiatric: Present: A&O x's 3, appropriate affect, intact judgment & insight - Labs CBC & Chem 7: 09/02/21 05:48 09/02/21 05:48 Labs: Abnormal Lab Results - Last 24 Hours (Table) 09/01/21 09/01/21 09/02/21 Range/Units 05:59 17:21 05:48 WBC 1.5 L (3.8-10.6) k/uL RBC 2.97 L (3.80-5.40) m/uL Hgb 10.0 L D (11.4-16.0) gm/dL Hct 31.0 L (34.0-46.0) % MCV 104.4 H (80.0-100.0) fL Plt Count 139 L (150-450) k/uL Neutrophils # 0.8 L (1.3-7.7) k/uL Neutrophils # (Manual) 0.90 L (1.3-7.7) k/uL Lymphocytes # 0.5 L (1.0-4.8) k/uL Lymphocytes # (Manual) 0.39 L (1.0-4.8) k/uL Sodium 131 L (135-145) mmol/L Carbon Dioxide 17.0 L (21.6-31.8) mmol/L Anion Gap 12.20 H (4.00-12.00) mmol/L Creatinine (0.52-1.04) mg/dL Est GFR (CKD-EPI)AfAm 47.2 L (60.0-200.0) Est GFR (CKD-EPI)NonAf 40.7 L (60.0-200.0) BUN/Creatinine Ratio 8.82 L (12.00-20.00) Ratio Glucose (74-99) mg/dL Calcium 7.0 L (8.7-10.3) mg/dL AST 77 H (13-35) U/L Total Protein 5.3 L (6.2-8.2) g/dL Albumin 3.1 L (3.8-4.9) g/dL Albumin/Globulin Ratio 1.40 L (1.60-3.17) g/dL Urine Protein Trace H (Negative) 09/02/21 Range/Units 05:48 WBC (3.8-10.6) k/uL RBC (3.80-5.40) m/uL Hgb (11.4-16.0) gm/dL Hct (34.0-46.0) % MCV (80.0-100.0) fL Plt Count (150-450) k/uL Neutrophils # (1.3-7.7) k/uL Neutrophils # (Manual) (1.3-7.7) k/uL Lymphocytes # (1.0-4.8) k/uL Lymphocytes # (Manual) (1.0-4.8) k/uL Sodium 132 L (135-145) mmol/L Carbon Dioxide 20 L (21.6-31.8) mmol/L Anion Gap (4.00-12.00) mmol/L Creatinine 1.19 H (0.52-1.04) mg/dL Est GFR (CKD-EPI)AfAm (60.0-200.0) Est GFR (CKD-EPI)NonAf (60.0-200.0) BUN/Creatinine Ratio (12.00-20.00) Ratio Glucose 105 H (74-99) mg/dL Calcium 6.6 L (8.7-10.3) mg/dL AST 68 H (13-35) U/L Total Protein 5.0 L (6.2-8.2) g/dL Albumin 2.5 L (3.8-4.9) g/dL Albumin/Globulin Ratio (1.60-3.17) g/dL Urine Protein (Negative) Microbiology - Last 24 Hours (Table) 08/31/21 14:34 Blood Culture - Preliminary Blood No Growth after 24 hours Assessment and Plan (1) Pain of metastatic malignancy Narrative/Plan: Also, having pain from treatment. Pt has refused that ER morphine. It was explained to her that she needs to take the medication as prescribed for it to be effective. She is most fearful of constipation. We reviewed prevention of narcotic induced constipation and changed some meds. The radiation castillo are not severe (no desquamation, blistering or peeling skin). Additional creams added for relief Current Visit: Yes Status: Acute Priority: High Code(s): G89.3 - NEOPLASM RELATED PAIN (ACUTE) (CHRONIC) SNOMED Code(s): 617253140 (2) Breast cancer Narrative/Plan: Pt has just started new regimen for progressive met breast cancer. She asked me today what the chances were that this treatment was going to work and, it is does, for how long. She was also worried if she was ever going to feel any better then she does now. She did have some questions about hospice. I answered her questions to the best of my ability. I explained to her that I would like to review her questions with her primary Oncologist so that she has his opinion and what he recommends. After she has all the info she can then make some informed decisions about how she would like to proceed with her cancer treatment. She was in agreement with this plan. She does have a f/u appt with Dr. Pascual 09/08 at 445. Current Visit: No Status: Chronic Priority: High Code(s): C50.919 - MALIGNANT NEOPLASM OF UNSP SITE OF UNSPECIFIED FEMALE BREAST SNOMED Code(s): 502507707 Plan: Xanax added for anxiety Medications for prevention of narcotic induced constipation adjusted
[2021-09-02] MEDS: SENNOSIDES-DOCUSATE SODIUM 1 EACH TAB PO SCH (20:53)
--- NOTE | 2021-09-02 22:00 | P.PN ---
Subjective Progress Note Date: 09/02/21 Patient seen today doing much better with pain control had a bowel movement and is awaiting appointment and further medication from oncology. Objective - Vital Signs Vital signs: Vital Signs Temp 98.1 F 09/02/21 20:33 Pulse 94 09/02/21 20:33 Resp 16 09/02/21 20:33 BP 136/80 09/02/21 20:33 Pulse Ox 93 L 09/02/21 20:33 Intake & Output 09/02/21 09/02/21 09/03/21 06:59 18:59 06:59 Intake Total 400 1300 Balance 400 1300 Intake: Oral 400 1300 Other: Voiding Method Toilet # Voids 2 4 # Bowel Movements 2 - Exam GENERAL: This is a -66 year-old . Pleasant and cooperative. HEENT: Head is atraumatic, normocephalic. Pupils are equal, round, and reactive to light. Sclerae anicteric. Conjunctivae are clear. Mucus membranes of the mouth are moist. Neck is supple. RESPIRATORY: Clear to auscultation. No wheezes, rales, or rhonchi. CARDIOVASCULAR: Regular rate and rhythm. GASTROINTESTINAL: No distention noted. Abdomen soft and round. Normal active bowel sounds auscultated x 4 quadrants. No pain or tenderness noted upon palpation. INTEGUMENTARY: No cyanosis. No jaundice. No rashes noted. No cellulitis noted. EXTREMITIES: 2+ peripheral pulses. No evidence of peripheral edema. No calf tenderness noted. Intractable thoracic back pain appreciated. NEUROLOGIC: Cranial nerves II-XII intact. PSYCHIATRIC: Awake, alert, and oriented X 3. Appropriate affect. Intact judgement and insight. - Labs CBC & Chem 7: 09/02/21 05:48 09/02/21 05:48 Labs: Abnormal Lab Results - Last 24 Hours (Table) 09/02/21 09/02/21 Range/Units 05:48 05:48 WBC 1.5 L (3.8-10.6) k/uL RBC 2.97 L (3.80-5.40) m/uL Hgb 10.0 L D (11.4-16.0) gm/dL Hct 31.0 L (34.0-46.0) % MCV 104.4 H (80.0-100.0) fL Plt Count 139 L (150-450) k/uL Neutrophils # 0.8 L (1.3-7.7) k/uL Neutrophils # (Manual) 0.90 L (1.3-7.7) k/uL Lymphocytes # 0.5 L (1.0-4.8) k/uL Lymphocytes # (Manual) 0.39 L (1.0-4.8) k/uL Sodium 132 L (137-145) mmol/L Carbon Dioxide 20 L (22-30) mmol/L Creatinine 1.19 H (0.52-1.04) mg/dL Glucose 105 H (74-99) mg/dL Calcium 6.6 L (8.4-10.2) mg/dL AST 68 H (14-36) U/L Total Protein 5.0 L (6.3-8.2) g/dL Albumin 2.5 L (3.5-5.0) g/dL Microbiology - Last 24 Hours (Table) 08/31/21 14:34 Blood Culture - Preliminary Blood No Growth after 48 hours 09/01/21 09:35 Blood Culture - Preliminary Blood No Growth after 24 hours Assessment and Plan (1) Leukopenia Current Visit: Yes Status: Acute Code(s): D72.819 - DECREASED WHITE BLOOD CELL COUNT, UNSPECIFIED SNOMED Code(s): 68105060 (2) Normocytic anemia Current Visit: Yes Status: Acute Code(s): D64.9 - ANEMIA, UNSPECIFIED SNOMED Code(s): 487794535 (3) Breast cancer metastasized to liver Current Visit: No Status: Acute Code(s): C50.919 - MALIGNANT NEOPLASM OF UNSP SITE OF UNSPECIFIED FEMALE BREAST; C78.7 - SECONDARY MALIG NEOPLASM OF LIVER AND INTRAHEPATIC BILE DUCT SNOMED Code(s): 441781041 (4) Intractable back pain Current Visit: No Status: Acute Code(s): M54.9 - DORSALGIA, UNSPECIFIED SNOMED Code(s): 139989768 (5) Metastatic disease Current Visit: No Status: Acute Code(s): C79.9 - SECONDARY MALIGNANT NEOPLASM OF UNSPECIFIED SITE SNOMED Code(s): 176847947 (6) Obesity Current Visit: No Status: Acute Code(s): E66.9 - OBESITY, UNSPECIFIED SNOMED Code(s): 164130602 (7) Stage 3 chronic kidney disease Current Visit: No Status: Acute Code(s): N18.30 - CHRONIC KIDNEY DISEASE, STAGE 3 UNSPECIFIED SNOMED Code(s): 960146308 Plan: Plan is to keep patient overnight continue with pain management and hydration will plan on discharge nursing with follow-up with Dr. Cheek. She wants to discuss her current treatment for metastatic disease pain management is being done by oncology.
[2021-09-03] MEDS: SODIUM CHLORIDE 0.9% 1,000 ML IV SCH ×3 (04:20→18:12)
[2021-09-03] MEDS: LEVOTHYROXINE 75 MCG TAB PO SCH (05:24)
[2021-09-03] MEDS: PANTOPRAZOLE 40 MG TABLET PO SCH ×2 (07:34→18:14)
[2021-09-03] MEDS: FAMOTIDINE 20 MG TAB PO SCH (07:35)
[2021-09-03] MEDS: METOPROLOL TARTRATE 12.5 MG TAB PO SCH (07:35)
[2021-09-03] MEDS: FOLIC ACID-VIT B COMPLEX-VIT C 1 CAP PO SCH (07:35)
[2021-09-03] MEDS: CEPHALEXIN 500 MG CAP PO SCH ×2 (07:35→16:19)
[2021-09-03] MEDS: MORPHINE SULFATE ER 15 MG TABLET PO SCH (07:36)
[2021-09-03] MEDS: SENNOSIDES-DOCUSATE SODIUM 1 EACH TAB PO SCH (07:37)
[2021-09-03] MEDS: NYSTATIN 100,000 UNIT/ML SUSP 500,000 UNIT/5 ML CUP PO SCH ×2 (07:37→13:31)
[2021-09-03] MEDS: LACTULOSE 20 GM/30 ML CUP PO SCH (07:42)
[2021-09-03] MEDS: ALBUTEROL HFA INHALER INHALATION PRN (08:08)
[2021-09-03] MEDS ORDERED: FUROSEMIDE 10 MG/ML 2 ML VIAL IV ONE (08:12)
--- NOTE | 2021-09-03 09:44 | XR ---
EXAMINATION TYPE: XR chest 2V DATE OF EXAM: 09/03/2021 COMPARISON: NONE TECHNIQUE: PA and lateral views submitted. HISTORY: Shortness of breath FINDINGS: Bilateral infiltrate and pleural effusion. PICC line noted. Heart size normal. Hypertrophic degenerat maya changes spine. Arthropathy of the shoulders. Surgical clips in the abdomen. Previous lap band adia gregg noted. IMPRESSION: 1. Stable bilateral infiltrate and pleural effusion.
[2021-09-03 11:49] VITALS: BP 154/84; PULSE 88; RESP 16; TEMP 97.5
[2021-09-03] MEDS ORDERED: IPRATROPIUM-ALBUTEROL 3 ML NEB INHALATION SCH (12:00)
[2021-09-03] MEDS: ONDANSETRON 4 MG/2 ML VIAL IVP PRN (13:34)
--- NOTE | 2021-09-03 13:58 | P.DS ---
Providers Date of admission: 08/31/21 03:24 Expected date of discharge: 09/03/21 Attending physician: Stanford Smith Consults: 08/31/21 03:28 Consult Physician Routine Consulting Provider: González Sexton Consult Reason/Comments: oncology patient. increased pain Do you want consulting provider notified?: Yes Primary care physician: Stanford Smith - Discharge Diagnosis(es) (1) Leukopenia Current Visit: Yes Status: Acute (2) Normocytic anemia Current Visit: Yes Status: Acute (3) Breast cancer metastasized to liver Current Visit: No Status: Acute (4) Intractable back pain Current Visit: No Status: Acute (5) Metastatic disease Current Visit: No Status: Acute (6) Obesity Current Visit: No Status: Acute (7) Stage 3 chronic kidney disease Current Visit: No Status: Acute Hospital Course: This a pleasant 66-year-old white female who was admitted with metastatic breast cancer with bone metastasis with it she has intractable back pain . She also is on chemotherapy and suffers from anemia she was seen and evaluated by oncology who is going to manage her pain and anxiety she wants to follow-up with Dr. Cheek to discuss the progression of disease and the current chemotherapy to make any decisions regarding hospice. She will be discharged today with follow- up with oncology in 1 week. Plan - Discharge Summary Discharge Rx Participant: No New Discharge Prescriptions: New Sennosides-Docusate Sodium [Senokot-S] 2 each PO BID #60 tab SILVER sulfADIAZINE CREAM [Silvadene Cream] 1 applic TOPICAL BID #100 gm ALPRAZolam [Xanax] 0.5 mg PO TID PRN tab PRN Reason: Anxiety Continue Levothyroxine Sodium [Synthroid] 150 mcg PO DAILY diphenhydrAMINE [Benadryl] 25 mg PO HS PRN PRN Reason: Insomnia Sennosides/Docusate Sodium [Colace 2-in-1 Tablet] 1 tab PO DAILY PRN PRN Reason: Constipation Lactulose 10 gm PO DAILY Nystatin 100,000 Unit/ml Susp [Mycostatin Oral Susp] 5 ml PO QID Pantoprazole [Protonix] 40 mg PO AC-BID #60 tablet. ALPRAZolam [Xanax] 0.5 mg PO HS PRN PRN Reason: Anxiety Loratadine-Pseudoeph 5-120 mg [Claritin-D 12 Hour] 1 tab PO Q12HR Acetaminophen-Codeine 300-30mg [Tylenol w/codeine #3] 1 tab PO Q4H PRN 3 Days #18 tablet PRN Reason: Pain Albuterol Sulfate [Albuterol Sulfate Hfa] 2 puff PO RT-Q6H PRN PRN Reason: Shortness Of Breath Nephro-Nita 1 tab PO DAILY Ondansetron HCl [Zofran] 4 mg PO Q6H PRN PRN Reason: Nausea And Vomiting Cephalexin [Keflex] 500 mg PO TID Discharge Medication List Levothyroxine Sodium [Synthroid] 150 mcg PO DAILY 08/28/19 [History] Pantoprazole [Protonix] 40 mg PO AC-BID #60 tablet.dr 07/25/21 [Rx] ALPRAZolam [Xanax] 0.5 mg PO HS PRN 07/27/21 [History] Loratadine-Pseudoeph 5-120 mg [Claritin-D 12 Hour] 1 tab PO Q12HR 08/20/21 [History] diphenhydrAMINE [Benadryl] 25 mg PO HS PRN 08/20/21 [History] Acetaminophen-Codeine 300-30mg [Tylenol w/codeine #3] 1 tab PO Q4H PRN 3 Days #18 tablet 08/23/21 [Rx] Albuterol Sulfate [Albuterol Sulfate Hfa] 2 puff PO RT-Q6H PRN 08/30/21 [History] Cephalexin [Keflex] 500 mg PO TID 08/30/21 [History] Lactulose 10 gm PO DAILY 08/30/21 [History] Nephro-Nita 1 tab PO DAILY 08/30/21 [History] Nystatin 100,000 Unit/ml Susp [Mycostatin Oral Susp] 5 ml PO QID 08/30/21 [History] Ondansetron HCl [Zofran] 4 mg PO Q6H PRN 08/30/21 [History] Sennosides/Docusate Sodium [Colace 2-in-1 Tablet] 1 tab PO DAILY PRN 08/30/21 [History] ALPRAZolam [Xanax] 0.5 mg PO TID PRN tab 09/03/21 [Rx] SILVER sulfADIAZINE CREAM [Silvadene Cream] 1 applic TOPICAL BID #100 gm 09/03/21 [Rx] Sennosides-Docusate Sodium [Senokot-S] 2 each PO BID #60 tab 09/03/21 [Rx] Follow up Appointment(s)/Referral(s): González Sexton MD [STAFF PHYSICIAN] - 1-2 Days Stanford Smith DO [Primary Care Provider] - 1 Week Sobeida Pascual MD [STAFF PHYSICIAN] - 09/01/21 4:45 pm Patient Instructions/Handouts: Weakness (DC) Discharge Disposition: HOME WITH HOME HEALTH SERVICES Care Plan Goals (MU): [facility],, resumption of care will call to set up tinme, any questions please call agency.
== END 2021-09-03 20:24 | disposition home health service (06) | DRG 641 ==
LOC: EC 21:07 → 5NMEDONC 08-31 03:24
PROVIDERS: ADMIT Family Medicine; ATTEND Family Medicine
DX: E86.0 Dehydration (principal); N17.9 Acute kidney failure, unspecified; C79.51 Secondary malignant neoplasm of bone; Q61.3 Polycystic kidney, unspecified; C78.7 Secondary malignant neoplasm of liver and intrahepatic bile duct; C78.00 Secondary malignant neoplasm of unspecified lung; N39.0 Urinary tract infection, site not specified; D70.9 Neutropenia, unspecified; F03.90 Unspecified dementia, unspecified severity, without behavioral disturbance, psychotic disturbance, mood disturbance, and anxiety; J44.9 Chronic obstructive pulmonary disease, unspecified; N18.30 Chronic kidney disease, stage 3 unspecified; I71.2 Thoracic aortic aneurysm, without rupture; Z20.822 Contact with and (suspected) exposure to COVID-19; D64.81 Anemia due to antineoplastic chemotherapy; G89.3 Neoplasm related pain (acute) (chronic); I12.9 Hypertensive chronic kidney disease with stage 1 through stage 4 chronic kidney disease, or unspecified chronic kidney disease; K21.9 Gastro-esophageal reflux disease without esophagitis; R13.10 Dysphagia, unspecified; E89.0 Postprocedural hypothyroidism; F41.9 Anxiety disorder, unspecified; F32.9 Major depressive disorder, single episode, unspecified; H91.90 Unspecified hearing loss, unspecified ear; K64.9 Unspecified hemorrhoids; T45.1X5A Adverse effect of antineoplastic and immunosuppressive drugs, initial encounter; E66.9 Obesity, unspecified; Z68.35 Body mass index [BMI] 35.0-35.9, adult; H26.9 Unspecified cataract; Z79.890 Hormone replacement therapy; Z79.899 Other long term (current) drug therapy; Z90.710 Acquired absence of both cervix and uterus; Z85.3 Personal history of malignant neoplasm of breast; Z85.850 Personal history of malignant neoplasm of thyroid; Z98.84 Bariatric surgery status; Z90.49 Acquired absence of other specified parts of digestive tract; Z87.19 Personal history of other diseases of the digestive system; Z87.42 Personal history of other diseases of the female genital tract; Z87.39 Personal history of other diseases of the musculoskeletal system and connective tissue; Z90.13 Acquired absence of bilateral breasts and nipples; Z92.3 Personal history of irradiation; Z98.890 Other specified postprocedural states; Z91.041 Radiographic dye allergy status; Z82.71 Family history of polycystic kidney; Z80.2 Family history of malignant neoplasm of other respiratory and intrathoracic organs
CPT/HCPCS: 36415; 71046; 80053; 81003; 82607; 82728; 83540; 83550; 83605; 83615; 83735; 83880; 84484; 85025; 85730; 87040; 87635; 93005; 94640; 94760; 96374; 99285

== ENCOUNTER 2021-09-12 01:21 | Inpatient (IN) | payer MEDICARE, OTHER ==
[2021-09-12 03:07] LABS: Albumin 2.9 g/dL (3.5-5.0); Calcium 7.4 mg/dL (8.4-10.2); Potassium 4.1 mmol/L (3.5-5.1); Total Bilirubin 0.9 mg/dL (0.2-1.3); Total Protein 5.4 g/dL (6.3-8.2)
[2021-09-12 03:27] LABS: HCT 36.2 % (34.0-46.0); HGB 11.9 gm/dL (11.4-16.0); Hypochromasia Slight; MCH 33.5 pg (25.0-35.0); MCV 101.4 fL (80.0-100.0); Macrocytosis Slight; Mean Platelet Volume 8.6; Platelet Count 228 k/uL (150-450); Poikilocytosis Moderate; RBC 3.57 m/uL (3.80-5.40); RDW 14.9 % (11.5-15.5); WBC 5.7 k/uL (3.8-10.6)
[2021-09-12] MEDS ORDERED: ACETAMINOPHEN TAB 325 MG TAB PO PRN (03:30)
[2021-09-12] MEDS ORDERED: ONDANSETRON 4 MG/2 ML VIAL IVP PRN (03:30)
[2021-09-12] MEDS ORDERED: NALOXONE 0.4 MG/ML 1 ML VIAL IV PRN (03:30)
[2021-09-12] MEDS: HYDROmorphone 1 MG/ML 1 ML SYRINGE IVP PRN ×4 (04:23→19:54)
[2021-09-12] MEDS: SODIUM CHLORIDE 0.9% 1,000 ML IV SCH ×2 (04:23→23:52)
[2021-09-12 04:50] LABS: Band Neutrophils % 5 %; Eosinophils # (M) 0.06 k/uL (0-0.7); Lymphocytes # (M) 0.34 k/uL (1.0-4.8); Monocytes # (M) 0.23 k/uL (0-1.0); Neutrophils % (M) 86 %; Nucleated Red Blood Cells 0 /100 WBC (0-0); Total Cells Counted 200
[2021-09-12 04:51] LABS: Anisocytosis (M) Present
[2021-09-12] MEDS ORDERED: SENNOSIDES-DOCUSATE SODIUM 1 EACH TAB PO PRN (06:16)
[2021-09-12] MEDS ORDERED: ONDANSETRON 4 MG TAB PO PRN (06:16)
--- NOTE | 2021-09-12 06:16 | ED ---
Weakness HPI - General Chief complaint: Weakness Stated complaint: General Weakness Time Seen by Provider: 09/12/21 01:57 Source: patient, EMS Mode of arrival: EMS Limitations: physical limitation - History of Present Illness Initial comments: This patient is a 66-year-old woman with history of metastatic cancer. Patient is brought here by ambulance as she states she has become too weak to get around the house. She is not taking any oral intake. She states that she has recently point and her cancer where she would like to be placed on hospice. She states that there are too many people including young children at home and she cannot rest there. MD Complaint: generalized weakness, difficulty walking -: days(s) Location: generalized Quality: aching Consistency: constant Improves with: none Worsens with: none - Related Data Home Medications Medication Instructions Recorded Confirmed Levothyroxine Sodium [Synthroid] 150 mcg PO DAILY 08/28/19 08/30/21 ALPRAZolam [Xanax] 0.5 mg PO HS PRN 07/27/21 08/30/21 Loratadine-Pseudoeph 5-120 mg 1 tab PO Q12HR 08/20/21 08/30/21 [Claritin-D 12 Hour] diphenhydrAMINE [Benadryl] 25 mg PO HS PRN 08/20/21 08/30/21 Albuterol Sulfate [Albuterol 2 puff PO RT-Q6H PRN 08/30/21 08/30/21 Sulfate Hfa] Cephalexin [Keflex] 500 mg PO TID 08/30/21 08/30/21 Lactulose 10 gm PO DAILY 08/30/21 08/30/21 Nephro-Nita 1 tab PO DAILY 08/30/21 08/30/21 Nystatin 100,000 Unit/ml Susp 5 ml PO QID 08/30/21 08/30/21 [Mycostatin Oral Susp] Ondansetron HCl [Zofran] 4 mg PO Q6H PRN 08/30/21 08/30/21 Sennosides/Docusate Sodium [Colace 1 tab PO DAILY PRN 08/30/21 08/30/21 2-in-1 Tablet] Previous Rx's Medication Instructions Recorded Pantoprazole [Protonix] 40 mg PO AC-BID #60 tablet. 07/25/21 Acetaminophen-Codeine 300-30mg 1 tab PO Q4H PRN 3 Days #18 tablet 08/23/21 [Tylenol w/codeine #3] ALPRAZolam [Xanax] 0.5 mg PO TID PRN tab 09/03/21 SILVER sulfADIAZINE CREAM 1 applic TOPICAL BID #100 gm 09/03/21 [Silvadene Cream] Sennosides-Docusate Sodium 2 each PO BID #60 tab 09/03/21 [Senokot-S] Allergies Allergy/AdvReac Type Severity Reaction Status Date / Time Iodinated Contrast Media Allergy Rash/Hives Verified 08/30/21 23:05 [Iodinated Contrast Media - IV Dye] Review of Systems ROS Statement: Those systems with pertinent positive or pertinent negative responses have been documented in the HPI. ROS Other: All systems not noted in ROS Statement are negative. Constitutional: Reports: weakness. Denies: fever, chills Respiratory: Denies: cough, dyspnea, wheezes Cardiovascular: Denies: chest pain, palpitations, edema, syncope Gastrointestinal: Reports: nausea. Denies: abdominal pain, vomiting, diarrhea Genitourinary: Denies: dysuria, hematuria Musculoskeletal: Denies: back pain Skin: Denies: rash Neurological: Denies: headache, weakness, numbness Past Medical History Past Medical History: Asthma, Cancer, COPD, Dementia, GERD/Reflux, Hypertension, Renal Disease, Thyroid Disorder Additional Past Medical History / Comment(s): Current liver, spine and lung cancer, tx with radiation and chemo recently. Poor kidney function. Hx breast CA metastatic stage 4 2008, thyroid CA 6 years ago. 2017 diagnosis of stage 4 bone CA in spine. 12/2016 near syncope w/ suspected low BP. Mild asthma with occasional related rt-sided chest pain. Hx polycystic kidney disease, cyst to liver, nodule lt lung, thoracic aneurysm. Obesity. Cataracts bulmaro. Recent nausea, dark stools, wgt fluctuations, dysphagia if eats too fast. History of Any Multi-Drug Resistant Organisms: None Reported Past Surgical History: Bariatric Surgery, Breast Surgery, Cholecystectomy, Hysterectomy Additional Past Surgical History / Comment(s): Hx colonoscopy. Hx double mastectomy, thyroidectomy, lap band (not filled), bunionectomy bulmaro ft foot surg, bilateral carpal tunnel, surgeries for staph infection rt breast implant. Past Anesthesia/Blood Transfusion Reactions: No Reported Reaction, Motion Sickness Past Psychological History: Anxiety, Depression Smoking Status: Never smoker Past Alcohol Use History: None Reported Past Drug Use History: None Reported - Past Family History Father Family Medical History: Cancer, Renal Disease Additional Family Medical History / Comment(s): Polycystic kidney, kidney transplant, poss CA behind heart R/T Rx. General Exam Limitations: physical limitation General appearance: alert, in no apparent distress Head exam: Present: atraumatic, normocephalic Eye exam: Present: normal appearance. Absent: scleral icterus, conjunctival in jection ENT exam: Present: normal oropharynx Neck exam: Present: normal inspection Respiratory exam: Present: rales. Absent: respiratory distress, wheezes, rhonchi, stridor Cardiovascular Exam: Present: normal rhythm, tachycardia, normal heart sounds. Absent: systolic murmur, diastolic murmur, rubs, gallop GI/Abdominal exam: Present: soft. Absent: distended, tenderness, guarding, rebound, rigid Extremities exam: Present: normal inspection, normal capillary refill. Absent: pedal edema, calf tenderness Back exam: Present: normal inspection. Absent: CVA tenderness (R), CVA tenderness (L) Neurological exam: Present: alert Skin exam: Present: warm, dry, intact, normal color. Absent: rash Course Vital Signs 09/12/21 09/12/21 01:46 04:15 Temperature 98.0 F Pulse Rate 112 H 136 H Respiratory 18 18 Rate Blood Pressure 133/83 137/97 O2 Sat by Pulse 93 L 95 Oximetry Medical Decision Making - Medical Decision Making Patient is 66-year-old woman with history of metastatic cancer requesting hospice consult. Will admit to have this done. She requests that it be entered in her chart that she is no CODE STATUS. - Lab Data Result diagrams: 09/12/21 02:43 09/12/21 02:43 Lab Results 09/12/21 09/12/21 09/12/21 Range/Units 02:43 02:43 02:43 WBC 5.7 (3.8-10.6) k/uL RBC 3.57 L (3.80-5.40) m/uL Hgb 11.9 (11.4-16.0) gm/dL Hct 36.2 (34.0-46.0) % MCV 101.4 H (80.0-100.0) fL MCH 33.5 (25.0-35.0) pg MCHC 33.0 (31.0-37.0) g/dL RDW 14.9 (11.5-15.5) % Plt Count 228 (150-450) k/uL MPV 8.6 Neutrophils % (Manual) 86 % Band Neuts % (Manual) 5 % Lymphocytes % (Manual) 6 % Monocytes % (Manual) 4 % Eosinophils % (Manual) 1 % Neutrophils # (Manual) 5.10 (1.3-7.7) k/uL Lymphocytes # (Manual) 0.34 L (1.0-4.8) k/uL Monocytes # (Manual) 0.23 (0-1.0) k/uL Eosinophils # (Manual) 0.06 (0-0.7) k/uL Nucleated RBCs 0 (0-0) /100 WBC Manual Slide Review Performed Hypochromasia Slight Poikilocytosis Moderate Anisocytosis (manual) Present Macrocytosis Slight Sodium 130 L (137-145) mmol/L Potassium 4.1 (3.5-5.1) mmol/L Chloride 102 (98-107) mmol/L Carbon Dioxide 20 L (22-30) mmol/L Anion Gap 8 mmol/L BUN 16 (7-17) mg/dL Creatinine 1.34 H (0.52-1.04) mg/dL Est GFR (CKD-EPI)AfAm 48 (>60 ml/min/1.73 sqM) Est GFR (CKD-EPI)NonAf 42 (>60 ml/min/1.73 sqM) Glucose 112 H (74-99) mg/dL Plasma Lactic Acid Amrcos 1.1 (0.7-2.0) mmol/L Calcium 7.4 L (8.4-10.2) mg/dL Total Bilirubin 0.9 (0.2-1.3) mg/dL AST 69 H (14-36) U/L ALT 19 (4-34) U/L Alkaline Phosphatase 86 (38-126) U/L Total Protein 5.4 L (6.3-8.2) g/dL Albumin 2.9 L (3.5-5.0) g/dL
[2021-09-12] MEDS: LEVOTHYROXINE 75 MCG TAB PO SCH (09:41)
[2021-09-12] MEDS: LORATADINE-PSEUDOEPH 5-120 MG 1 EACH TAB.ER.12H PO SCH ×2 (09:41→23:51)
[2021-09-12] MEDS: LACTULOSE 20 GM/30 ML CUP PO SCH (09:41)
[2021-09-12] MEDS: PANTOPRAZOLE 40 MG TABLET PO SCH ×2 (09:41→17:43)
[2021-09-12] MEDS: SENNOSIDES-DOCUSATE SODIUM 1 EACH TAB PO SCH ×2 (09:41→23:51)
[2021-09-12] MEDS: FOLIC ACID-VIT B COMPLEX-VIT C 1 CAP PO SCH (09:41)
[2021-09-12] MEDS: MORPHINE SULFATE 4 MG/ML SYRINGE IV PRN (09:42)
--- NOTE | 2021-09-12 11:44 | P.HPIM ---
History of Present Illness H&P Date: 09/12/21 Chief Complaint: Inability to eat X 2 weeks, pain, increased weakness This is a pleasant 66-year-old female with history of stage IV metastatic breast cancer with bone metastasis, intractable back pain, on chemotherapy, anemia and multiple other medical issues. Patient states she has not been able to eat for 1-2 weeks, difficult drinking water and with the amount of pain medications she requires on a daily basis is not [id number] for her. Complains of increased weakness with difficulty performing ADLs. She is requesting to proceed with hospice. Requesting hospice house in [place] if it is an option. Review of Systems ROS Statement: Those systems with pertinent positive or pertinent negative responses have been documented in the HPI. ROS Other: All systems not noted in ROS Statement are negative. Past Medical History Past Medical History: Asthma, Cancer, COPD, Dementia, GERD/Reflux, Hypertension, Renal Disease, Thyroid Disorder Additional Past Medical History / Comment(s): Current liver, spine and lung cancer, tx with radiation and chemo recently. Poor kidney function. Hx breast CA metastatic stage 4 2008, thyroid CA 6 years ago. 2017 diagnosis of stage 4 bone CA in spine. 12/2016 near syncope w/ suspected low BP. Mild asthma with occasional related rt-sided chest pain. Hx polycystic kidney disease, cyst to liver, nodule lt lung, thoracic aneurysm. Obesity. Cataracts bulmaro. Recent nausea, dark stools, wgt fluctuations, dysphagia if eats too fast. History of Any Multi-Drug Resistant Organisms: None Reported Past Surgical History: Bariatric Surgery, Breast Surgery, Cholecystectomy, Hysterectomy Additional Past Surgical History / Comment(s): Hx colonoscopy. Hx double mastectomy, thyroidectomy, lap band (not filled), bunionectomy bulmaro ft foot surg, bilateral carpal tunnel, surgeries for staph infection rt breast implant. Past Anesthesia/Blood Transfusion Reactions: No Reported Reaction, Motion Sickness Past Psychological History: Anxiety, Depression Smoking Status: Never smoker Past Alcohol Use History: None Reported Past Drug Use History: None Reported - Past Family History Father Family Medical History: Cancer, Renal Disease Additional Family Medical History / Comment(s): Polycystic kidney, kidney transplant, poss CA behind heart R/T Rx. Medications and Allergies Home Medications Medication Instructions Recorded Confirmed Type Levothyroxine Sodium [Synthroid] 150 mcg PO DAILY@0400 08/28/19 09/12/21 History Pantoprazole [Protonix] 40 mg PO AC-BID #60 tablet.dr 07/25/21 09/12/21 Rx ALPRAZolam [Xanax] 0.5 mg PO DAILY PRN 07/27/21 09/12/21 History Loratadine-Pseudoeph 5-120 mg 1 tab PO Q12HR 08/20/21 09/12/21 History [Claritin-D 12 Hour] diphenhydrAMINE [Benadryl] 25 mg PO HS 08/20/21 09/12/21 History Ondansetron HCl [Zofran] 4 mg PO Q6H PRN 08/30/21 09/12/21 History Acetaminophen-Codeine 300-30mg 1 tab PO Q8H PRN 09/12/21 09/12/21 History [Tylenol w/codeine #3] Docusate [Colace] 100 mg PO DAILY PRN 09/12/21 09/12/21 History Furosemide [Lasix] 20 mg PO DAILY 09/12/21 09/12/21 History Morphine Sulfate ER [Ms Contin] 15 mg PO Q12H 09/12/21 09/12/21 History Psyllium Husk 100% [Metamucil 6 gm PO DAILY PRN 09/12/21 09/12/21 History Packet] SILVER sulfADIAZINE CREAM 1 applic TOPICAL BID PRN 09/12/21 09/12/21 History [Silvadene Cream] Sucralfate [Carafate] 1 gm PO ACHS 09/12/21 09/12/21 History Allergies Allergy/AdvReac Type Severity Reaction Status Date / Time Iodinated Contrast Media Allergy Rash/Hives Verified 09/12/21 11:06 [Iodinated Contrast Media - IV Dye] Physical Exam Vitals: Vital Signs Temp Pulse Resp BP Pulse Ox 09/12/21 09:41 102 H 20 121/80 96 09/12/21 06:30 109 H 18 128/88 96 09/12/21 04:15 136 H 18 137/97 95 09/12/21 01:46 98.0 F 112 H 18 133/83 93 L Intake and Output 09/11/21 09/12/21 09/12/21 22:59 06:59 14:59 Other: Weight 99.79 kg - Exam GENERAL: This is a -66 year-old . Pleasant and cooperative, tired appearing HEENT: Head is atraumatic, normocephalic. Pupils are equal, round, and reactive to light. Sclerae anicteric. Conjunctivae are clear. Mucus membranes of the mouth are dry. Neck is supple. RESPIRATORY: Bilateral bases diminished with fine bibasilar crackles. CARDIOVASCULAR: Regular rate and rhythm. GASTROINTESTINAL: No distention noted. Abdomen soft and round. Normal active bowel sounds auscultated x 4 quadrants. No pain or tenderness noted upon palpation. INTEGUMENTARY: No cyanosis. No jaundice. No rashes noted. No cellulitis noted. EXTREMITIES: 2+ peripheral pulses. No evidence of peripheral edema. No calf tenderness noted. Intractable thoracic back pain appreciated. NEUROLOGIC: Cranial nerves II-XII intact. PSYCHIATRIC: Awake, alert, and oriented X 3. Appropriate affect. Intact judgement and insight. Results CBC & Chem 7: 09/12/21 02:43 09/12/21 02:43 Labs: Abnormal Lab Results - Last 24 Hours (Table) 09/12/21 09/12/21 Range/Units 02:43 02:43 RBC 3.57 L (3.80-5.40) m/uL MCV 101.4 H (80.0-100.0) fL Lymphocytes # (Manual) 0.34 L (1.0-4.8) k/uL Sodium 130 L (137-145) mmol/L Carbon Dioxide 20 L (22-30) mmol/L Creatinine 1.34 H (0.52-1.04) mg/dL Glucose 112 H (74-99) mg/dL Calcium 7.4 L (8.4-10.2) mg/dL AST 69 H (14-36) U/L Total Protein 5.4 L (6.3-8.2) g/dL Albumin 2.9 L (3.5-5.0) g/dL Assessment and Plan Assessment: Progressive metastatic breast cancer to liver Pain secondary to metastatic malignancy Intractable back pain Normocytic anemia Leukopenia Chronic kidney disease, stage III Obesity, BMI 35.5 No code, no cpr, no intubation Plan: Continue on current medication regime ,monitoring and symptomatic treatment. Hospice and social work consult placed. Pain management, gentle IV fluid hydration. Maintain supportive care. Questions and concerns addressed. Prognosis guarded given multiple complex medical issues. The impression and plan of care has been dictated as directed. : I performed a history and examination of this patient, discussed the same with the dictator. I agree with the dictator's note ,documented as a scribe. Any additional findings or plans will be noted.
[2021-09-12] MEDS: ALPRAZolam 0.5 MG TAB PO PRN (14:24)
[2021-09-13] MEDS: ALPRAZolam 0.5 MG TAB PO PRN ×3 (01:12→22:26)
[2021-09-13] MEDS: HYDROmorphone 1 MG/ML 1 ML SYRINGE IVP PRN ×3 (01:12→22:26)
[2021-09-13] MEDS: SENNOSIDES-DOCUSATE SODIUM 1 EACH TAB PO SCH ×2 (08:22→21:05)
[2021-09-13] MEDS: LEVOTHYROXINE 75 MCG TAB PO SCH (08:22)
[2021-09-13] MEDS: PANTOPRAZOLE 40 MG TABLET PO SCH ×2 (08:22→17:07)
[2021-09-13] MEDS: LACTULOSE 20 GM/30 ML CUP PO SCH (08:22)
[2021-09-13] MEDS: FOLIC ACID-VIT B COMPLEX-VIT C 1 CAP PO SCH (08:23)
[2021-09-13] MEDS: LORATADINE-PSEUDOEPH 5-120 MG 1 EACH TAB.ER.12H PO SCH ×2 (08:23→21:05)
[2021-09-13] MEDS: SODIUM CHLORIDE 0.9% 1,000 ML IV SCH ×2 (08:30→23:58)
--- NOTE | 2021-09-13 12:44 | XR ---
EXAMINATION TYPE: XR chest 1V portable DATE OF EXAM: 09/13/2021 COMPARISON: 09/03/2021 HISTORY: Shortness of breath TECHNIQUE: Single frontal view of the chest is obtained. FINDINGS: There is a large opacity obscuring the right hemidiaphragm consistent with a large pleural effusion. There is a small left pleural effusion as well. There is no pneumothorax. The pulmonary va sculature is not congested. The osseous structures are intact. IMPRESSION: Marked interval increase in the right pleural effusion. Stable small left pleural effusi on.
--- NOTE | 2021-09-13 14:42 | PN ---
PROGRESS NOTE DATE OF SERVICE: 09/13/2021 This 66-year-old woman was admitted with nausea, vomiting, also had significant pain. The patient has history of breast cancer with METS. No chest pain. No palpitations. No fever. PHYSICAL EXAMINATION: Alert and oriented x3. Pulse 106. Blood pressure 99/64. Respirations 20. Temperature 98.6, pulse ox 97% on 2 L. HEENT: Conjunctivae normal. Neck: No JVD. Cardiovascular: S1, S2 muffled. Respiration: Breath sounds diminished in the bases. A few scattered rhonchi. Abdomen: Soft. Nontender. Nervous system: No focal deficits. LAB STUDIES: WBC 5.7, hemoglobin 11.2. Sodium 130, potassium 4.1. ASSESSMENT: 1. Stage IV metastatic breast cancer with bony METS. 2. Intractable back pain. 3. Nausea. 4. Hypernatremia. 5. Increased creatinine with acute renal failure, acute tubular necrosis. 6. Increased AST. 7. Increased MCV. 8. History of asthma/chronic obstructive pulmonary disease. 9. Dementia. 10.History of gastroesophageal reflux disease. 11.Hypertension. 12.History of renal disease. 13.History of bariatric surgery. 14.History of breast surgery. 15.Cholecystectomy. 16.History of anxiety/depression. 17.NO CODE, NO CPR, NO VENT. RECOMMENDATIONS AND DISCUSSION: This 66-year-old woman who presented with multiple complex medical issues, we will monitor the patient closely, continue the current medications, and symptomatic treatment. Continue the pain medications. Closely follow. Hospice has been consulted. We will await the reports and further recommendations to follow. MMODL / IJN: [id number] /
[2021-09-13] MEDS: SUCRALFATE 1 GM TAB PO SCH ×2 (17:07→21:05)
[2021-09-13] MEDS: ALBUTEROL NEBULIZED 2.5 MG/3 ML INHALATION PRN (19:36)
[2021-09-13] MEDS: MORPHINE SULFATE 4 MG/ML SYRINGE IV PRN (21:04)
[2021-09-13] MEDS: diphenhydrAMINE 25 MG CAP PO PRN (21:05)
[2021-09-14] MEDS: ALBUTEROL NEBULIZED 2.5 MG/3 ML INHALATION PRN (07:23)
[2021-09-14] MEDS: SENNOSIDES-DOCUSATE SODIUM 1 EACH TAB PO SCH ×2 (07:54→22:17)
[2021-09-14] MEDS: Acetaminophen-Codeine 300-30mg TAB PO PRN ×2 (07:54→17:45)
[2021-09-14] MEDS: PANTOPRAZOLE 40 MG TABLET PO SCH ×2 (07:54→17:40)
[2021-09-14] MEDS: SUCRALFATE 1 GM TAB PO SCH ×4 (07:54→22:18)
[2021-09-14] MEDS: LEVOTHYROXINE 75 MCG TAB PO SCH (07:54)
[2021-09-14] MEDS: ALPRAZolam 0.5 MG TAB PO PRN ×2 (07:54→17:46)
[2021-09-14] MEDS: LACTULOSE 20 GM/30 ML CUP PO SCH (07:55)
[2021-09-14] MEDS: LORATADINE-PSEUDOEPH 5-120 MG 1 EACH TAB.ER.12H PO SCH ×2 (07:55→22:15)
[2021-09-14] MEDS: FOLIC ACID-VIT B COMPLEX-VIT C 1 CAP PO SCH (07:55)
[2021-09-14] MEDS: SODIUM CHLORIDE 0.9% 1,000 ML IV SCH (09:32)
--- NOTE | 2021-09-14 18:57 | PN ---
PROGRESS NOTE DATE OF SERVICE: 09/14/2021 I am covering for Dr. Smith. This 66-year-old woman was admitted with metastatic breast cancer, being closely monitored. Patient is comfortable, pain controlled. consult. The family is also near the bedside. No chest pain. No palpitations. No fever. EXAM: Alert and oriented x2. Pulse is 108, blood pressure 114/72, respiration, temperature 97.8, pulse ox 98% on 2 L. HEENT: Conjunctivae normal. Oral mucosa moist. NECK: No jugular venous distention. No lymph node enlargement. CARDIOVASCULAR: S1, S2, muffled. No S3, no S4, RESPIRATORY: Diminished breath sounds at the bases. ABDOMEN: Soft, nontender. LEGS: No edema, no swelling. NERVOUS SYSTEM: No focal deficits. LABS: WBC ( ), hemoglobin 11.2, sodium 130, potassium 4.1. ASSESSMENT: 1. Stage IV metastatic breast cancer with bony metastases, intractable back pain. 2. Nausea. 3. Hypertension. 4. Increased creatinine with acute renal failure, acute tubular necrosis. 5. Increased AST. 6. Increased MCV. 7. History of asthma, chronic obstructive pulmonary disease. 8. Dementia. 9. History of gastroesophageal reflux disease. 10.History of renal disease. 11.History of bariatric surgery. 12.History of breast surgery. 13.History of cholecystectomy. 14.Anxiety, depression. 15.NO CODE, NO CPR, NO VENT. RECOMMENDATIONS AND DISCUSSION: I recommend to continue current medications, continue symptomatic treatment. Otherwise, at this time I recommend continue the comfort measures, hospice. Dr. Smith will follow. MMODL / IJN: [id number] / [facility]
[2021-09-14 20:32] VITALS: RESP 16
[2021-09-14] MEDS: diphenhydrAMINE 25 MG CAP PO PRN (22:09)
[2021-09-14] MEDS: MORPHINE SULFATE 4 MG/ML SYRINGE IV PRN (22:57)
[2021-09-15] MEDS: SODIUM CHLORIDE 0.9% 1,000 ML IV SCH (01:59)
[2021-09-15 04:47] VITALS: BP 118/82; PULSE 111; TEMP 98.3
[2021-09-15] MEDS: FOLIC ACID-VIT B COMPLEX-VIT C 1 CAP PO SCH (09:24)
[2021-09-15] MEDS: LEVOTHYROXINE 75 MCG TAB PO SCH (09:24)
[2021-09-15] MEDS: SUCRALFATE 1 GM TAB PO SCH ×2 (09:24→13:39)
[2021-09-15] MEDS: PANTOPRAZOLE 40 MG TABLET PO SCH (09:24)
[2021-09-15] MEDS: LORATADINE-PSEUDOEPH 5-120 MG 1 EACH TAB.ER.12H PO SCH (09:25)
[2021-09-15] MEDS: LACTULOSE 20 GM/30 ML CUP PO SCH (09:25)
[2021-09-15] MEDS: SENNOSIDES-DOCUSATE SODIUM 1 EACH TAB PO SCH (09:25)
[2021-09-15] MEDS ORDERED: NA PHOS,M-B/NA PHOS,DI-BA 133 ML ENEMA RECTAL STA (13:14)
--- NOTE | 2021-09-15 21:41 | P.DS ---
Providers Date of admission: 09/15/21 08:25 Expected date of discharge: 09/15/21 Attending physician: Stanford Smith Primary care physician: Stanford Smith - Discharge Diagnosis(es) (1) Anemia Status: Acute (2) Breast cancer metastasized to liver Status: Acute (3) Cancer associated pain Status: Acute (4) Chronic kidney disease Status: Acute (5) Dysphagia Status: Acute (6) Leukopenia Status: Acute (7) Metastases to the liver Status: Acute (8) Stage 3 chronic kidney disease Status: Acute Hospital Course: This is a pleasant 66-year-old white female who was admitted with intractable pain from her metastatic breast cancer with metastases to the bone and liver. Patient understands that she is not improving and had a long talk with oncology and is recommended patient be placed in comfort care with hospice. After long talk with her and her family these are her wishes but she does not want to return home since her whole family and grandchildren live in the house. Patient will be referred to an sent to hospice home in [place] which they have accepted her. Plan - Discharge Summary New Discharge Prescriptions: New RX: Lactulose [Cephulac] 10 gm PO DAILY ml RX: Acetaminophen Tab [Tylenol] 650 mg PO Q6HR PRN tab PRN Reason: Mild Pain Or Fever > 100.5 RX: Folic Acid-Vit B Complex-Vit C [Nephrocaps] 1 each PO DAILY cap RX: Sennosides-Docusate Sodium [Senokot-S] 2 each PO BID tab RX: Albuterol Nebulized [Ventolin Nebulized] 2.5 mg INHALATION RT-Q6H PRN ml PRN Reason: Shortness Of Breath RX: ALPRAZolam [Xanax] 0.5 mg PO TID PRN tab PRN Reason: Anxiety Continue RX: Levothyroxine Sodium [Synthroid] 150 mcg PO DAILY@0400 RX: diphenhydrAMINE [Benadryl] 25 mg PO HS RX: Furosemide [Lasix] 20 mg PO DAILY RX: Pantoprazole [Protonix] 40 mg PO AC-BID #60 tablet.dr RX: ALPRAZolam [Xanax] 0.5 mg PO DAILY PRN PRN Reason: Anxiety RX: Loratadine-Pseudoeph 5-120 mg [Claritin-D 12 Hour] 1 tab PO Q12HR RX: Ondansetron HCl [Zofran] 4 mg PO Q6H PRN PRN Reason: Nausea And Vomiting RX: Psyllium Husk 100% [Metamucil Packet] 6 gm PO DAILY PRN PRN Reason: Constipation RX: Sucralfate [Carafate] 1 gm PO ACHS RX: Morphine Sulfate ER [Ms Contin] 15 mg PO Q12H RX: Docusate [Colace] 100 mg PO DAILY PRN PRN Reason: Constipation RX: Acetaminophen-Codeine 300-30mg [Tylenol w/codeine #3] 1 tab PO Q8H PRN PRN Reason: Pain RX: SILVER sulfADIAZINE CREAM [Silvadene Cream] 1 applic TOPICAL BID PRN PRN Reason: Wound Healing Discharge Medication List RX: Levothyroxine Sodium [Synthroid] 150 mcg PO DAILY@0400 08/28/19 [History] RX: Pantoprazole [Protonix] 40 mg PO AC-BID #60 tablet. 07/25/21 [Rx] RX: ALPRAZolam [Xanax] 0.5 mg PO DAILY PRN 07/27/21 [History] RX: Loratadine-Pseudoeph 5-120 mg [Claritin-D 12 Hour] 1 tab PO Q12HR 08/20/21 [History] RX: diphenhydrAMINE [Benadryl] 25 mg PO HS 08/20/21 [History] RX: Ondansetron HCl [Zofran] 4 mg PO Q6H PRN 08/30/21 [History] RX: Acetaminophen-Codeine 300-30mg [Tylenol w/codeine #3] 1 tab PO Q8H PRN 09/12/21 [History] RX: Docusate [Colace] 100 mg PO DAILY PRN 09/12/21 [History] RX: Furosemide [Lasix] 20 mg PO DAILY 09/12/21 [History] RX: Morphine Sulfate ER [Ms Contin] 15 mg PO Q12H 09/12/21 [History] RX: Psyllium Husk 100% [Metamucil Packet] 6 gm PO DAILY PRN 09/12/21 [History] RX: SILVER sulfADIAZINE CREAM [Silvadene Cream] 1 applic TOPICAL BID PRN 09/12/21 [History] RX: Sucralfate [Carafate] 1 gm PO ACHS 09/12/21 [History] RX: ALPRAZolam [Xanax] 0.5 mg PO TID PRN tab 09/15/21 [Rx] RX: Acetaminophen Tab [Tylenol] 650 mg PO Q6HR PRN tab 09/15/21 [Rx] RX: Albuterol Nebulized [Ventolin Nebulized] 2.5 mg INHALATION RT-Q6H PRN ml 09/15/21 [Rx] RX: Folic Acid-Vit B Complex-Vit C [Nephrocaps] 1 each PO DAILY cap 09/15/21 [Rx] RX: Lactulose [Cephulac] 10 gm PO DAILY ml 09/15/21 [Rx] RX: Sennosides-Docusate Sodium [Senokot-S] 2 each PO BID tab 09/15/21 [Rx] Follow up Appointment(s)/Referral(s): Stanford Smith DO [Primary Care Provider] - As Needed Discharge Disposition: [facility] TO [facility]
== END 2021-09-15 14:18 | disposition hospice, inpatient (51) | DRG 947 ==
LOC: EC 01:21 → 5NMEDONC 03:31 → OBSVTOIN 09-15 08:25
PROVIDERS: ADMIT Family Medicine; ATTEND Family Medicine
DX: G89.3 Neoplasm related pain (acute) (chronic) (principal); N17.0 Acute kidney failure with tubular necrosis; C78.7 Secondary malignant neoplasm of liver and intrahepatic bile duct; C79.51 Secondary malignant neoplasm of bone; Q61.3 Polycystic kidney, unspecified; E87.0 Hyperosmolality and hypernatremia; C79.89 Secondary malignant neoplasm of other specified sites; C78.00 Secondary malignant neoplasm of unspecified lung; N18.30 Chronic kidney disease, stage 3 unspecified; Z20.822 Contact with and (suspected) exposure to COVID-19; Z51.5 Encounter for palliative care; Z98.41 Cataract extraction status, right eye; K21.9 Gastro-esophageal reflux disease without esophagitis; I12.9 Hypertensive chronic kidney disease with stage 1 through stage 4 chronic kidney disease, or unspecified chronic kidney disease; F03.90 Unspecified dementia, unspecified severity, without behavioral disturbance, psychotic disturbance, mood disturbance, and anxiety; J44.9 Chronic obstructive pulmonary disease, unspecified; R13.10 Dysphagia, unspecified; F41.9 Anxiety disorder, unspecified; F32.9 Major depressive disorder, single episode, unspecified; E66.9 Obesity, unspecified; D64.9 Anemia, unspecified; D72.819 Decreased white blood cell count, unspecified; E89.0 Postprocedural hypothyroidism; Z91.041 Radiographic dye allergy status; Z68.35 Body mass index [BMI] 35.0-35.9, adult; Z79.890 Hormone replacement therapy; Z90.13 Acquired absence of bilateral breasts and nipples; Z98.84 Bariatric surgery status; Z90.49 Acquired absence of other specified parts of digestive tract; Z79.899 Other long term (current) drug therapy; Z85.3 Personal history of malignant neoplasm of breast; Z85.850 Personal history of malignant neoplasm of thyroid; Z90.710 Acquired absence of both cervix and uterus; Z98.42 Cataract extraction status, left eye
CPT/HCPCS: 36415; 71045; 80053; 83605; 85025; 87635; 94640; 99285